=== PATIENT | female | born 1955 | race Caucasian/White ===

== ENCOUNTER 2017-03-16 05:34 | Emergency (ER) | payer OTHER ==
[~2017-03-16] VITALS: Ht 154.9 cm; Wt 86.0 kg
[~2017-03-16 05:34] MED LIST: AMT50 PO; ANT25 PO; ASTNS; DULO-24 PO; FLUT110A INH; IND/25 PO; IPRASOL4 INH; LAMO25TA PO; METH500T PO; MOME50SP5; PREG75CA PO; PROP20TA4 PO; SUCR1TAB PO; SYN25 PO; TRAM-10 PO
[2017-03-16 05:37] VITALS: TEMP 37.1; Ht 154.9 cm; Wt 86.0 kg
[2017-03-16] MEDS ORDERED: FENTANYL CITRATE INJ 50 MCG/1 ML 2 ML VIAL IV STA (05:45)
--- NOTE | 2017-03-16 05:54 | EMERGENCY ROOM VISIT NOTE ---
History First contact with patient: 05:40 Chief Complaint: NEURO SYMPTOMS Stated Complaint: CAN'T MOVE RIGHT ARM,HEADACHE History of Present Illness The patient is a 61 year old female who presents to the Emergency Room for evaluation of right arm pain and headache. Notes several days ago fell out of bed landing on right side of head. notes there was lump on right side of head that resolved. Patient adamant she had no arm injury nor pain there initially. Awoke this morning with acute onset right arm pain associated with inability to use arm due to pain as well as weakness. notes her gait is off and she stumbles to right. She was last normal when she went to bed last night though admits ongoing headache since falling out of bed. Using Tramadol (last night) without relief. States similar to episode of right leg weakness several years ago secondary to her fibromyalgia. No medications taken this morning. Movement makes symptoms worse. Rest makes better. No neck pain/ stiffness. No fevers, chills, sob, cp, nausea, vomiting, abdominal pain, leg swelling nor other symptoms. Also notes regular botox injections. History of Migraines and Fibromyalgia. Review of Systems See HPI for pertinent positives & negatives. A total of 10 systems reviewed and were otherwise negative. Past Medical/Surgical History Medical Problems: (1) Fibromyalgia (2) Migraines Family History FH: heart disease FHx: cancer Social History Smoking Status: Never Smoker Alcohol Use: none Marital Status: Housing Status: lives with family Occupation Status: unemployed Current/Historical Medications Scheduled Amitriptyline Hcl (Elavil), 75 MG PO HS Azelastine Hcl (Astelin Nasal [place]), 2 SPRAYS YULIYA BID Botulinum Toxin Type A (Botox), 1 DOSE INJ UD Calcium Carbonate (Calcium 600), 600 MG PO DAILY Cholecalciferol (Vitamin D3), 1 TAB PO DAILY Duloxetine HCl (Duloxetine HCl), 30 MG PO DAILY Fexofenadine Hcl (Nazanin Allergy), 1 TAB PO DAILY Fluticasone Propionate (Flovent Hfa), 2 PUFFS PO BID Ipratropium-Albuterol (Duoneb), 1 TREATMENT INH QID Lamotrigine (Lamictal), 25 MG PO QAM Lamotrigine (Lamotrigine), 50 MG PO HS Levothyroxine Sodium (Levothyroxine Sodium), 25 MCG PO DAILY Magnesium Oxide (Mg Supplement (Magnesium), 500 MG PO DAILY Methocarbamol (Robaxin), 750 MG PO BID Mometasone Furoate (Nasal) (Mometasone Furoate), 2 SPRAYS YULIYA DAILY Omeprazole (Prilosec), 20 MG PO BID Pregabalin (Lyrica), 75 MG PO HS Propranolol HCl (Propranolol HCl ER), 60 MG PO BID Ropinirole HCl (Ropinirole HCl), 0.5 MG PO HS Sucralfate (Sucralfate), 1 GM PO ACHS Scheduled PRN Albuterol Hfa (Ventolin Hfa), 2 PUFFS INH QID PRN for SOB/Wheezing Furosemide (Furosemide), 20 MG PO DAILY PRN for edema Meclizine Hcl (Meclizine Hcl), 25 MG PO TID PRN for Dizziness or Vertigo Tramadol (Ultram), 100 MG PO Q6 PRN for Pain Physical Exam Vital Signs Date Time Temp Pulse Resp B/P (MAP) Pulse Ox O2 Delivery O2 Flow Rate FiO2 03/16/17 06:56 65 20 118/82 97 03/16/17 06:26 67 18 122/70 96 Room Air 03/16/17 06:02 98 Room Air 03/16/17 05:49 69 03/16/17 05:37 37.1 63 20 130/84 96 Room Air Physical Exam GENERAL: Patient is anxious appearing and in moderate distress. HEENT: No acute trauma, normocephalic atraumatic, mucous membranes moist, no nasal congestion, no scleral icterus. NECK: No stridor, no adenopathy, no meningismus, trachea is midline. LUNGS: No dyspnea. Clear to auscultation and equal bilaterally. No wheeze, no rhonchi. HEART: Regular rate and rhythm. No murmurs, rubs, gallops appreciated. ABDOMEN: Soft, nontender, bowel sounds positive, no masses appreciated, no peritonitis. BACK: No midline tenderness, no CVA tenderness EXTREMITIES: Pain with any movement or palpation of right upper arm/shoulder/ elbow. Distal n/v intact. Otherwise normal motion all extremities, no cyanosis , no edema. NEUROLOGIC: Alert and oriented, no acute motor or sensory deficits, no focal weakness, cranial nerves grossly intact. Can clearly move all extremities without deficit. SKIN: No rash, no jaundice, no diaphoresis. Medical Decision & Procedures Laboratory Results 03/16/17 05:48 Red Blood Count 3.74, Mean Corpuscular Volume 96.5, Mean Corpuscular Hemoglobin 33.2, Mean Corpuscular Hemoglobin Concent 34.3, Mean Platelet Volume 9.9, Neutrophils (%) (Auto) 42.2, Lymphocytes (%) (Auto) 41.1, Monocytes (%) (Auto) 13.5, Eosinophils (%) (Auto) 2.4, Basophils (%) (Auto) 0.6, Neutrophils # (Auto ) 2.79, Lymphocytes # (Auto) 2.72, Monocytes # (Auto) 0.89, Eosinophils # (Auto ) 0.16, Basophils # (Auto) 0.04 03/16/17 05:48 Test 03/16/17 05:48 White Blood Count 6.61 K/uL (4.8-10.8) Red Blood Count 3.74 M/uL (4.2-5.4) Hemoglobin 12.4 g/dL (12.0-16.0) Hematocrit 36.1 % (37-47) Mean Corpuscular Volume 96.5 fL (80-100) Mean Corpuscular Hemoglobin 33.2 pg (25-34) Mean Corpuscular Hemoglobin Concent 34.3 g/dl (32-36) Platelet Count 164 K/uL (130-400) Mean Platelet Volume 9.9 fL (7.4-10.4) Neutrophils (%) (Auto) 42.2 % Lymphocytes (%) (Auto) 41.1 % Monocytes (%) (Auto) 13.5 % Eosinophils (%) (Auto) 2.4 % Basophils (%) (Auto) 0.6 % Neutrophils # (Auto) 2.79 K/uL (1.4-6.5) Lymphocytes # (Auto) 2.72 K/uL (1.2-3.4) Monocytes # (Auto) 0.89 K/uL (0.11-0.59) Eosinophils # (Auto) 0.16 K/uL (0-0.5) Basophils # (Auto) 0.04 K/uL (0-0.2) RDW Standard Deviation 45.3 fL (36.4-46.3) RDW Coefficient of Variation 13.2 % (11.5-14.5) Immature Granulocyte % (Auto) 0.2 % Immature Granulocyte # (Auto) 0.01 K/uL (0.00-0.02) Prothrombin Time 9.8 SECONDS (9.0-12.0) Prothromb Time International Ratio 0.9 (0.9-1.1) Activated Partial Thromboplast Time 24.5 SECONDS (21.0-31.0) Partial Thromboplastin Ratio 0.9 Anion Gap 6.0 mmol/L (3-11) Est Creatinine Clear Calc Drug Dose 72.6 ml/min Estimated GFR () 89.5 Estimated GFR (Non- 77.2 BUN/Creatinine Ratio 14.8 (10-20) Calcium Level 8.8 mg/dl (8.5-10.1) Total Creatine Kinase 113 U/L (26-192) Troponin I < 0.015 ng/ml (0-0.045) Medications Administered Medications (Trade) Dose Ordered Sig/Yuli Route Start Time Stop Time Status Last Admin Dose Admin Fentanyl Citrate (Fentanyl Inj) 50 mcg NOW STAT IV 03/16/17 05:45 03/16/17 05:48 DC 03/16/17 06:22 50 MCG Oxycodone HCl (Roxicodone Immediate Rel Tab) 5 mg NOW STAT PO 03/16/17 06:46 03/16/17 06:48 DC 03/16/17 06:56 5 MG Oxycodone HCl (Roxicodone Immediate Rel 5MG Home Pack) 1 homepack UD ONCE PO 03/16/17 07:00 03/16/17 07:01 DC 03/16/17 06:56 1 HOMEPACK ECG Indication: other (Right arm weakness) Rate (beats per minute): 69 Rhythm: normal sinus Findings: no acute ischemic change, no ectopy Medical Decision Differential: Headache, Migraine, Stroke, Cluster Headache, Seizure, Meningitis , Sinusitis, CO exposure, ICH/SAH, Infectious, Tumor, Sinus Thrombosis, Arterial Dissection, amongst other pathologies entertained. 61 yr old female arrives with right arm weakness/pain, right headache. Notes ongoing headache for last few days after striking head. Variable neuro exam and clearly anxiety is large part of this. No evidence injury by exam nor imaging. Labs unremarkable. CT Head negative. After single dose fentanyl IV patient with complete improvement in weakness. Makes clear she feels much better and wishes to go home. She makes clear she feels better, wishes to try PO medication and go home with . He agrees with this plan as well. She admits that periodically gets flare ups of her pain secondary to her fibromyalgia. While I do not feel this is a stroke I discussed at length symptoms to monitor for, as well as the need to follow up with her PCP for further evaluation. Head Trauma GCS Score: 15 Medication Reconcilliation Current Medication List: was personally reviewed by me Blood Pressure Screening Patient's blood pressure: Normal blood pressure Impression Primary Impression: Right upper limb pain Additional Impressions: Headache Closed head injury Departure Information Dispostion Home / Self-Care Condition GOOD Referrals Yefri Dc M.D.([facility]) (PCP) Patient Instructions My [facility] Additional Instructions Please follow up with your primary care provider in the next few days to discuss your symptoms. Return immediately if weakness, fevers, worsening headache, vomiting, passing out or other concerns. It is likely that your pain is related to your recent injury, but if other concerning symptoms develop please return immediately or call 911. You have received narcotic pain medications. These medications may cause drowsiness and should not be used with other sedative medications. Do not drive , drink alcohol, perform dangerous activities, nor make important decisions after taking these medications. prison use or inappropriate use may lead to addiction. Problem Qualifiers
[2017-03-16 06:02] VITALS: O2SAT 98
[2017-03-16 06:07] LABS: BASO % 0.6 %; BASO ABS # 0.04 K/uL (0-0.2); COMPLETE YES; EOS % 2.4 %; HEMATOCRIT 36.1 % (37-47); IG% 0.2 %; LYMPH % 41.1 %; LYMPH ABS # 2.72 K/uL (1.2-3.4); MEAN CELL VOLUME 96.5 fL (80-100); MEAN CORPUSCULAR HEMOGLOBIN 33.2 pg (25-34); MEAN CORPUSCULAR HGB CONC 34.3 g/dl (32-36); MEAN PLATELET VOLUME 9.9 fL (7.4-10.4); MONO % 13.5 %; NEUT % 42.2 %; PLATELET COUNT 164 K/uL (130-400); RED BLOOD COUNT 3.74 M/uL (4.2-5.4); WHITE BLOOD COUNT 6.61 K/uL (4.8-10.8)
[2017-03-16] MEDS ORDERED: PROP60CA PO (06:10)
[2017-03-16] MEDS ORDERED: CYM30 PO (06:12)
[2017-03-16] MEDS ORDERED: METH-446 PO (06:12)
[2017-03-16] MEDS ORDERED: MOME6000 NAE (06:13)
[2017-03-16] MEDS ORDERED: AMIT75TA2 PO (06:16)
[2017-03-16] MEDS ORDERED: LMC25 PO (06:16)
[2017-03-16] MEDS ORDERED: LEVO25TA5 PO (06:16)
[2017-03-16] MEDS ORDERED: RQP25 PO (06:19)
[2017-03-16] MEDS ORDERED: CALC600T PO (06:21)
[2017-03-16] MEDS ORDERED: FEXO1TAB49 PO (06:21)
[2017-03-16] MEDS ORDERED: CHOL1000 PO (06:23)
[2017-03-16] MEDS ORDERED: MAGN500C PO (06:23)
[2017-03-16 06:24] LABS: BLOOD UREA NITROGEN 12 mg/dl (7-18); BUN/CREATININE RATIO 14.8 (10-20); CALCIUM 8.8 mg/dl (8.5-10.1); CARBON DIOXIDE 29 mmol/L (21-32); CHLORIDE 106 mmol/L (98-107); CREATININE 0.83 mg/dl (0.60-1.20); GLUCOSE 115 mg/dl (70-99); POTASSIUM 4.2 mmol/L (3.5-5.1); SODIUM 140 mmol/L (136-145)
[2017-03-16] MEDS ORDERED: MECL1TAB42 PO (06:25)
[2017-03-16] MEDS ORDERED: IPRASOL4 INH (06:26)
[2017-03-16] MEDS ORDERED: VNTHFA/IN INH (06:26)
[2017-03-16] MEDS ORDERED: ASTN NAE (06:28)
[2017-03-16] MEDS ORDERED: FLVHFA110 PO (06:29)
[2017-03-16] MEDS ORDERED: LSX20 PO (06:29)
[2017-03-16] MEDS ORDERED: BTLAI INJ (06:30)
[2017-03-16 06:33] LABS: INR 0.9 (0.9-1.1); PARTIAL THROMBOPLASTIN RATIO 0.9; PROTHROMBIN TIME (PATIENT) 9.8 SECONDS (9.0-12.0)
--- NOTE | 2017-03-16 06:34 | DIAGNOSTIC IMAGING REPORT ---
CT HEAD WITHOUT CONTRAST (CT) CLINICAL HISTORY: Headache status post head trauma COMPARISON STUDY: 05/22/2013 TECHNIQUE: Axial CT of the brain is performed from the vertex to the skull base. IV contrast was not administered for this examination. A dose lowering technique was utilized adhering to the principles of ALARA. CT DOSE: FINDINGS: No intra or extra-axial mass lesions are visualized. There is no CT evidence of acute cortical infarction. There is no evidence of midline shift. There is no acute hemorrhage. No calvarial fractures are visualized. There are minimal white matter hypodensities likely on a small vessel basis. There is no evidence of pathologic ventricular dilatation. There is a small sphenoid sinus air-fluid level. Postsurgical changes are present within the maxillary sinuses. There is a scalp contusion, best visualized in the box blank machine operator topogram. IMPRESSION: No acute intracranial findings. Electronically signed by: Vinicio Cook M.D. 03/16/2017 6:33 AM Dictated Date/Time: 03/16/2017 6:30 AM
[2017-03-16] MEDS ORDERED: OXYCODONE HCL IR 5 MG TAB (IMMEDIATE RELEASE) PO STA (06:46)
--- NOTE | 2017-03-16 06:52 | DIAGNOSTIC IMAGING REPORT ---
R HUMERUS MIN 2 VIEWS ROUTINE CLINICAL HISTORY: Right upper arm pain status post trauma COMPARISON: None. DISCUSSION: No fractures or dislocations are visualized. There are no erosive or destructive changes. IMPRESSION: No fractures or dislocations identified. Electronically signed by: Vinicio Cook M.D. 03/16/2017 6:51 AM Dictated Date/Time: 03/16/2017 6:50 AM
--- NOTE | 2017-03-16 06:57 | DIAGNOSTIC IMAGING REPORT ---
CT OF THE CERVICAL SPINE CLINICAL HISTORY: Right arm pain status post trauma. NECK PAIN. COMPARISON STUDY: No previous studies for comparison. CT DOSE: 992.90 mGy.cm TECHNIQUE: CT scan of the cervical spine was performed from the skull base to the thoracic inlet. Images are reviewed in the axial, sagittal, and coronal planes. IV contrast was not administered for this examination. A dose lowering technique was utilized adhering to the principles of ALARA. FINDINGS: The lung apices reveal a few nonspecific groundglass opacities in the left apex. There is no pneumothorax. The prevertebral soft tissues are normal. No fractures or subluxations are visualized. There are multilevel degenerative changes IMPRESSION: No evidence of acute fracture or traumatic subluxation. Electronically signed by: Vinicio Cook M.D. 03/16/2017 6:56 AM Dictated Date/Time: 03/16/2017 6:54 AM
[2017-03-16] MEDS ORDERED: OXYCODONE IR HOME PACK PO ONE (07:00)
[2017-03-16 07:02] VITALS: BP 118/82; PULSE 70; O2SAT 100
--- NOTE | 2017-03-16 07:12 | DIAGNOSTIC IMAGING REPORT ---
CHEST ONE VIEW PORTABLE CLINICAL HISTORY: right upper arm pain HEADACHE COMPARISON STUDY: 12/19/2015 FINDINGS: The cardiac and mediastinal contours are normal. There is no evidence of focal pulmonary consolidation. There is no evidence of failure. No pleural effusions are visualized.[ IMPRESSION: No active disease in the chest. Electronically signed by: Vinicio Cook M.D. 03/16/2017 7:10 AM Dictated Date/Time: 03/16/2017 7:10 AM
[2017-03-16] MEDS ORDERED: PRLSR20 PO (09:56)
== END 2017-03-16 07:05 | disposition home or self-care (01) ==
LOC: C.EDB 05:35 → C.EDA 07:05
DX: M79.621 Pain in right upper arm (principal); R51 Headache; S09.90XA Unspecified injury of head, initial encounter; W06.XXXA Fall from bed, initial encounter; M79.7 Fibromyalgia; Z79.51 Long term (current) use of inhaled steroids; Z79.891 Long term (current) use of opiate analgesic; R40.2410 Glasgow coma scale score 13-15, unspecified time

== ENCOUNTER 2024-09-01 09:58 | Inpatient (IN) ==
--- NOTE | 2024-09-01 10:26 | Emergency Department Note ---
Impression & Plan Bradycardia, Chest pain, Lightheadedness ED Provider Note NAME: AVINASH KOO AGE: 69 SEX: F : 1955 ARRIVES VIA: Walk-In INFORMANT: Patient ED PROVIDER(S): Michael Santoro DO CHIEF COMPLAINT: Chest pain HPI: Patient is a 69-year-old female with a past medical history of fibromyalgia and migraines who presents to the ER for midsternal chest tightness which has been coming and going for the past 3 days. provides additional history and notes that they are sick with upper respiratory symptoms 2 weeks ago. Patient has not been having any fevers. The cough and congestion has abated. Patient admits to worsening shortness of breath. Chest pain has been coming and going. She does admit to some intermittent arm pain with the chest pain. No dysuria, urgency, or frequency. She was seen at gastroenterology and was referred over as she was found to be bradycardic which was new. She denies any rate controlling medications. ADDITIONAL HISTORY OBTAINED: Per HPI Chronic Medical/Social Conditions Affecting Care: Per HPI PAST MEDICAL HISTORY:See Below PAST SURGICAL HISTORY:See Below FAMILY HISTORY:See Below SOCIAL HISTORY:See Below HOME MEDICATIONS:See Below ALLERGIES:See Below VITALS:See Below PHYSICAL EXAMINATION: GENERAL: Sitting up in bed, alert, well appearing, well nourished, no distress, non-toxic EYE EXAM: normal conjunctiva. OROPHARYNX: no exudate, no erythema, lips, buccal mucosa, and tongue normal and mucous membranes are moist NECK: supple, no nuchal rigidity, no adenopathy, non-tender LUNGS: Clear to auscultation. Normal chest wall mechanics HEART: no murmurs, S1 normal and S2 normal ABDOMEN: abdomen soft, non-tender, normo-active bowel sounds, no masses, no rebound or guarding. BACK: Back is symmetrical on inspection and there is no deformity, no midline tenderness, no CVA tenderness. SKIN: no rashes and no bruising UPPER EXTREMITIES: upper extremities are grossly normal. LOWER EXTREMITIES: No pitting edema. Calves are equal bilaterally NEURO EXAM: Normal sensorium, cranial nerves II-XII grossly intact, normal speech, no gross weakness of arms, no gross weakness of legs. MEDICAL DECISION MAKING: Patient is a 69-year-old female who presents ER for the above-stated complaint. IV was established and blood work was obtained. Patient was found to be bradycardic with heart rates mainly in the 30s. Did drop several times into the 20s. Labs show no significant leukocytosis or anemia. BMP along with LFTs bilirubin was unremarkable. Troponin was negative. Lyme was negative including flu and RSV. Chest x-ray was clean. Patient does not take any rate controlling medications. Consult to cardiology. Patient has received 2 doses of atropine and heart rate is responsive. Blood pressures have been remained fairly stable above 100. Cardiology evaluated the patient at bedside and recommended dopamine which was also started. Case was discussed with the hospitalist for further evaluation management treatment. Consults/Care Managements Discussions: Per [facility] Triage Nursing notes reviewed. Limited review of prior medical records performed Vital Signs: reviewed and remarkable for no significant abnormalities Differential diagnosis: Cardiac ischemia, aortic dissection, pulmonary embolism, pneumothorax, pneumonia, pericarditis, myocarditis, esophageal rupture, GERD, cholecystitis, pancreatitis, musculoskeletal, as well as other pathologies. ER treatment provided: See below Diagnostics interpreted by me include EKG and cardiac monitoring as listed below: -Cardiac Monitoring: An order was placed for continuous cardiac monitoring. The monitor shows a rate of 33 with sinus rhythm. -ECG: Sinus bradycardia rate of 40 Normal axis No PVCs QTc 370 -Laboratory studies:Interpreted by me as stated above in MDM and shown below. Imaging studies: Xrays: As interpreted by me: Portable AP upright 1 view of the chest shows no focal M-Trate CTs show: none Procedures:none Critical Care: I have personally spent 35 minutes of critical care time in the direct management of this patient. This includes bedside care, interpretation of diagnostic studies, and testing, discussion with consultants, patient, and family members, and other required patient management activities. This 35 minutes is in excess of all separately billable procedures. Past Med/Surg History Problem List (Updated 09/01/24 @ 14:43 by Michael Santoro DO) Lightheadedness (Acute) Chest pain (Acute) Bradycardia (Acute) Symptomatic bradycardia Fibromyalgia (Chronic) Migraines (Chronic) Bronchitis (Acute) Cough (Acute) Shortness of breath (Acute) Medical History Thyroid disease Hyperlipemia Surgical History H/O sinus surgery Family History Mother Breast cancer Heart disease Cancer Diabetes Father Heart disease Stroke Cancer Brother Diabetes Colorectal cancer Hypertension Other No pertinent family history Social History Smoking Status: Never smoker Preferred Language: [place] Leone[place] Communication Ability: Effective marital status: Current Living Situation: Family Feels Safe at Home: Yes Allergies Allergies Allergy/AdvReac Type Severity Reaction Status Date / Time Iodinated Contrast Media Allergy Severe EDEMA Verified 09/01/24 12:40 FACE/LIPS/TONGUE iodine Allergy Severe EDEMA Verified 09/01/24 12:40 FACE/LIPS/TONGUE pollen extracts Allergy Intermediate SNEEZING, Verified 09/01/24 12:40 COUGH, CONGESTION Home Meds Home Medications Medication Instructions Recorded Confirmed albuterol sulfate 90 mcg/actuation 2 puff inhalation QID PRN 04/19/18 09/01/24 aerosol inhaler Shortness Of Breath Or Wheezing amitriptyline 75 mg tablet 75 mg PO HS 04/19/18 09/01/24 azelastine 137 mcg (0.1 %) nasal 2 spray intranasal BID 04/19/18 09/01/24 spray levothyroxine 25 mcg tablet 25 mcg PO QAM 04/19/18 09/01/24 pregabalin 75 mg capsule (Lyrica) 75 mg PO HS 04/19/18 09/01/24 mometasone 50 mcg/actuation nasal 2 spray intranasal DAILY 09/09/19 09/01/24 spray atorvastatin 20 mg tablet 20 mg PO DAILY 09/18/23 09/01/24 escitalopram oxalate 20 mg tablet 20 mg PO QPM 09/18/23 09/01/24 fluticasone furoate 100 1 inh inhalation DAILY 09/18/23 09/01/24 mcg/actuation blister powder for inhalation (Arnuity Ellipta) lubiprostone 24 mcg capsule 24 mcg PO BIDM 09/18/23 09/01/24 acetaminophen 500 mg tablet 500 mg PO Q6H PRN Pain 09/01/24 09/01/24 esomeprazole magnesium 40 mg 40 mg PO DAILY 09/01/24 09/01/24 capsule,delayed release hyoscyamine sulfate 0.125 mg tablet 0.125 mg PO BID 09/01/24 09/01/24 ibuprofen 200 mg tablet 200 mg PO Q6H PRN Pain 09/01/24 09/01/24 sumatriptan succinate 50 mg tablet 50 mg PO DIRECTED PRN Migraine 09/01/24 09/01/24 Headache Results & Data (ED) Vital Signs Vital Signs - 24 hr 09/01/24 10:01 09/01/24 10:19 09/01/24 10:22 Temperature 36.1 C L Temperature Source Skin Pulse Rate 42 L Pulse Rate [Apical] Pulse Rate from SpO2 Sensor Respiratory Rate 20 Respiratory Effort / Characteristics Non-Labored Spontaneous Respiratory Depth Normal Respiratory Pattern Regular Blood Pressure 125/60 Blood Pressure [Right Arm] Blood Pressure Mean 81 Blood Pressure Mean [Right Arm] Blood Pressure Position [Right Arm] Pulse Oximetry 98 96 98 Oxygen Delivery Method Room Air Room Air Sepsis Recent Fever Within 48 Hours No Sepsis New/Unexplained Change in Mental Status N/A Sepsis Action Taken by Nursing No Action Required 09/01/24 10:23 09/01/24 10:25 09/01/24 10:27 Temperature Temperature Source Pulse Rate 37 L 26 L Pulse Rate [Apical] 40 L Pulse Rate from SpO2 Sensor 26 L Respiratory Rate 20 14 Respiratory Effort / Characteristics Non-Labored Spontaneous Respiratory Depth Normal Respiratory Pattern Regular Blood Pressure 133/64 Blood Pressure [Right Arm] 133/64 Blood Pressure Mean 87 Blood Pressure Mean [Right Arm] 87 Blood Pressure Position [Right Arm] Sitting Pulse Oximetry 97 98 Oxygen Delivery Method Room Air Room Air Sepsis Recent Fever Within 48 Hours Sepsis New/Unexplained Change in Mental Status Sepsis Action Taken by Nursing 09/01/24 10:39 09/01/24 10:42 09/01/24 10:51 Temperature Temperature Source Pulse Rate 34 L 37 L 39 L Pulse Rate [Apical] Pulse Rate from SpO2 Sensor 34 L 36 L 39 L Respiratory Rate 12 12 12 Respiratory Effort / Characteristics Respiratory Depth Respiratory Pattern Blood Pressure 133/59 L 125/66 107/70 Blood Pressure [Right Arm] Blood Pressure Mean 83 85 82 Blood Pressure Mean [Right Arm] Blood Pressure Position [Right Arm] Pulse Oximetry 95 97 97 Oxygen Delivery Method Room Air Room Air Room Air Sepsis Recent Fever Within 48 Hours Sepsis New/Unexplained Change in Mental Status Sepsis Action Taken by Nursing 09/01/24 10:56 09/01/24 11:01 09/01/24 11:06 Temperature Temperature Source Pulse Rate 36 L Pulse Rate [Apical] Pulse Rate from SpO2 Sensor 35 L Respiratory Rate 16 Respiratory Effort / Characteristics Respiratory Depth Respiratory Pattern Blood Pressure 97/64 L 112/63 123/58 L Blood Pressure [Right Arm] Blood Pressure Mean 87 85 79 Blood Pressure Mean [Right Arm] Blood Pressure Position [Right Arm] Pulse Oximetry 97 Oxygen Delivery Method Room Air Sepsis Recent Fever Within 48 Hours Sepsis New/Unexplained Change in Mental Status Sepsis Action Taken by Nursing 09/01/24 11:12 09/01/24 11:21 09/01/24 11:24 Temperature Temperature Source Pulse Rate 41 L 38 L 36 L Pulse Rate [Apical] Pulse Rate from SpO2 Sensor 40 L 34 L 36 L Respiratory Rate 14 16 17 Respiratory Effort / Characteristics Respiratory Depth Respiratory Pattern Blood Pressure 130/73 134/65 129/65 Blood Pressure [Right Arm] Blood Pressure Mean 92 88 86 Blood Pressure Mean [Right Arm] Blood Pressure Position [Right Arm] Pulse Oximetry 97 98 98 Oxygen Delivery Method Room Air Room Air Room Air Sepsis Recent Fever Within 48 Hours Sepsis New/Unexplained Change in Mental Status Sepsis Action Taken by Nursing 09/01/24 11:36 09/01/24 11:45 09/01/24 11:51 Temperature Temperature Source Pulse Rate 34 L Pulse Rate [Apical] Pulse Rate from SpO2 Sensor 34 L Respiratory Rate 16 Respiratory Effort / Characteristics Respiratory Depth Respiratory Pattern Blood Pressure 134/62 130/67 132/67 Blood Pressure [Right Arm] Blood Pressure Mean 86 75 85 Blood Pressure Mean [Right Arm] Blood Pressure Position [Right Arm] Pulse Oximetry 97 Oxygen Delivery Method Room Air Sepsis Recent Fever Within 48 Hours Sepsis New/Unexplained Change in Mental Status Sepsis Action Taken by Nursing 09/01/24 11:57 09/01/24 12:00 09/01/24 12:01 Temperature Temperature Source Pulse Rate 46 L 42 L Pulse Rate [Apical] Pulse Rate from SpO2 Sensor 36 L Respiratory Rate 16 18 Respiratory Effort / Characteristics Respiratory Depth Respiratory Pattern Blood Pressure 131/66 129/57 L Blood Pressure [Right Arm] Blood Pressure Mean 87 90 Blood Pressure Mean [Right Arm] Blood Pressure Position [Right Arm] Pulse Oximetry 94 95 Oxygen Delivery Method Room Air Room Air Sepsis Recent Fever Within 48 Hours Sepsis New/Unexplained Change in Mental Status Sepsis Action Taken by Nursing 09/01/24 12:06 09/01/24 12:06 09/01/24 12:15 Temperature Temperature Source Pulse Rate 42 L 47 L Pulse Rate [Apical] Pulse Rate from SpO2 Sensor 35 L Respiratory Rate 19 14 Respiratory Effort / Characteristics Respiratory Depth Respiratory Pattern Blood Pressure 141/61 H 141/61 H 122/66 Blood Pressure [Right Arm] Blood Pressure Mean 77 87 84 Blood Pressure Mean [Right Arm] Blood Pressure Position [Right Arm] Pulse Oximetry 95 96 Oxygen Delivery Method Room Air Room Air Sepsis Recent Fever Within 48 Hours Sepsis New/Unexplained Change in Mental Status Sepsis Action Taken by Nursing 09/01/24 12:21 09/01/24 12:30 09/01/24 12:30 Temperature Temperature Source Pulse Rate 38 L 38 L Pulse Rate [Apical] Pulse Rate from SpO2 Sensor 40 L Respiratory Rate 18 15 Respiratory Effort / Characteristics Respiratory Depth Respiratory Pattern Blood Pressure 148/76 H 139/72 139/72 Blood Pressure [Right Arm] Blood Pressure Mean 100 94 78 Blood Pressure Mean [Right Arm] Blood Pressure Position [Right Arm] Pulse Oximetry 94 94 Oxygen Delivery Method Room Air Room Air Sepsis Recent Fever Within 48 Hours Sepsis New/Unexplained Change in Mental Status Sepsis Action Taken by Nursing 09/01/24 12:45 09/01/24 13:01 09/01/24 13:09 Temperature Temperature Source Pulse Rate 45 L 56 L Pulse Rate [Apical] Pulse Rate from SpO2 Sensor 38 L Respiratory Rate 18 20 Respiratory Effort / Characteristics Respiratory Depth Respiratory Pattern Blood Pressure 142/87 H 153/77 H 103/68 Blood Pressure [Right Arm] Blood Pressure Mean 105 104 79 Blood Pressure Mean [Right Arm] Blood Pressure Position [Right Arm] Pulse Oximetry 96 98 Oxygen Delivery Method Room Air Room Air Sepsis Recent Fever Within 48 Hours Sepsis New/Unexplained Change in Mental Status Sepsis Action Taken by Nursing 09/01/24 13:15 09/01/24 13:27 09/01/24 13:30 Temperature Temperature Source Pulse Rate 54 L 48 L 52 L Pulse Rate [Apical] Pulse Rate from SpO2 Sensor 47 L Respiratory Rate 17 14 16 Respiratory Effort / Characteristics Respiratory Depth Respiratory Pattern Blood Pressure 102/60 102/60 97/49 L Blood Pressure [Right Arm] Blood Pressure Mean 74 74 65 Blood Pressure Mean [Right Arm] Blood Pressure Position [Right Arm] Pulse Oximetry 95 93 94 Oxygen Delivery Method Room Air Room Air Room Air Sepsis Recent Fever Within 48 Hours Sepsis New/Unexplained Change in Mental Status Sepsis Action Taken by Nursing 09/01/24 13:36 09/01/24 13:42 09/01/24 14:30 Temperature Temperature Source Pulse Rate 45 L 51 L Pulse Rate [Apical] 64 Pulse Rate from SpO2 Sensor 46 L 51 L Respiratory Rate 24 24 13 Respiratory Effort / Characteristics Non-Labored Spontaneous Respiratory Depth Normal Respiratory Pattern Blood Pressure 73/36 L 95/56 L Blood Pressure [Right Arm] 91/53 L Blood Pressure Mean 48 69 Blood Pressure Mean [Right Arm] 65 Blood Pressure Position [Right Arm] Pulse Oximetry 97 94 97 Oxygen Delivery Method Room Air Room Air Nasal Cannula Sepsis Recent Fever Within 48 Hours Sepsis New/Unexplained Change in Mental Status Sepsis Action Taken by Nursing Laboratory Data 09/01/24 10:14 09/01/24 10:14 Lab Results 09/01/24 09/01/24 Range/Units 10:14 Unknown WBC 7.53 (4.8-10.8) K/ul RBC 3.74 L (4.20-5.40) M/uL Hgb 12.2 (12.0-16.0) g/dl Hct 36.1 L (37.0-47.0) % MCV 96.5 (80.0-100.0) fL MCH 32.6 (25.0-34.0) pg MCHC 33.8 (32.0-36.0) g/dL RDW Std Deviation 47.7 H (36.4-46.3) fL RDW Coeff of Nichole 13.6 (11.5-14.5) % Plt Count 242 (130-400) K/uL MPV 10.4 (9.4-12.4) fL Immature Gran % (Auto) 0.1 % Neut % (Auto) 47.7 % Lymph % (Auto) 36.5 % [place] % (Auto) 12.4 % Eos % (Auto) 2.1 % Baso % (Auto) 1.2 % Neut # (Auto) 3.59 (1.40-6.50) K/uL Lymph # (Auto) 2.75 (1.20-3.40) K/uL [place] # (Auto) 0.93 H (0.11-0.59) K/uL Eos # (Auto) 0.16 (0.00-0.50) K/uL Baso # (Auto) 0.09 (0.00-0.20) K/uL Immature Gran # (Auto) 0.01 (0.01-0.20) K/uL Sodium 138 (136-145) mmol/L Potassium 4.5 (3.5-5.1) mmol/L Chloride 103 (98-107) mmol/L Carbon Dioxide 29 (21-32) mmol/L Anion Gap 6 (3-11) BUN 21 (6-23) mg/dl Creatinine 1.18 (0.6-1.2) mg/dl Est Cr Clr Drug Dosing 40.8 ml/min eGFR 50.62 BUN/Creatinine Ratio 17.8 (10-20) Glucose 90 (70-99(Fasting)) mg/dl Calcium 9.6 (8.6-10.3) mg/dl Magnesium 2.0 (1.7-2.4) mg/dl Total Bilirubin 0.4 (0.2-1.0) mg/dl AST 20 (13-39) U/L ALT 13 (7-52) U/L Alkaline Phosphatase 71 (34-104) U/L Troponin I High Sens 3.2 (0-14) pg/ml Total Protein 7.7 (6.0-8.3) gm/dl Albumin 4.5 (3.4-5.0) gm/dl Globulin 3.2 (2.5-4.0) gm/dl Albumin/Globulin Ratio 1.4 (0.9-2) Lipase 33 (11-82) U/L TSH 4.103 (0.300-4.500) uIu/ml Lyme Disease Screen Negative (Negative) SARS-CoV-2 (PCR) NEGATIVE (Negative) Influenza Type A (PCR) Negative (Neg) Influenza Type B (PCR) Negative (Neg) RSV (RT-PCR) Negative (Neg) Administered Medications Dopamine HCl/Dextrose (Dopamine / D5w) 400 mg in 250 mls @ 11.475 mls/hr IV .[id number]; Protocol Stop: 10/01/24 13:14 Last Titration: 09/01/24 13:54 Dose: 4.5 mcg/kg/min, 11.5 mls/hr Documented By: Admin: 09/01/24 13:26 Dose: 2.5 mcg/kg/min, 6.4 mls/hr Documented By: SCOTTIE Co-signed By: NISHA Sodium Chloride (Nss) 500 mls @ 999 mls/hr IV .Q31M ONE Stop: 09/01/24 14:46 Last Admin: 09/01/24 14:25 Dose: 999 mls/hr Documented By: TRINA Discontinued Medications Acetaminophen (Acetaminophen 325 Mg Tab) 650 mg PO NOW STA Stop: 09/01/24 14:01 Last Admin: 09/01/24 14:23 Dose: 650 mg Documented By: TRINA Aspirin (Aspirin Chew 324 Mg) 324 mg PO NOW STA Stop: 09/01/24 10:45 Last Admin: 09/01/24 10:50 Dose: 324 mg Documented By: SCOTTIE Atropine Sulfate (Atropine Sulfate 0.1 Mg/Ml 10ml Syr) 0.5 mg IV NOW STA Stop: 09/01/24 11:00 Last Admin: 09/01/24 12:52 Dose: 0.5 mg Documented By: SCOTTIE Atropine Sulfate (Atropine Sulfate 0.1 Mg/Ml 10ml Syr) 0.5 mg IV NOW STA Stop: 09/01/24 13:47 Last Admin: 09/01/24 13:59 Dose: 0.5 mg Documented By: SCOTTIE Sodium Chloride (Nss) 1,000 mls @ 999 mls/hr IV .Q1H1M ONE Stop: 09/01/24 11:19 Last Infusion: 09/01/24 11:52 Dose: Infused Documented By: Admin: 09/01/24 10:48 Dose: 999 mls/hr Documented By: SCOTTIE Sodium Chloride (Nss) 1,000 mls @ 999 mls/hr IV .Q1H1M ONE Stop: 09/01/24 12:37 Last Infusion: 09/01/24 12:56 Dose: Infused Documented By: Admin: 09/01/24 11:45 Dose: 999 mls/hr Documented By: SCOTTIE Ondansetron HCl (Ondansetron Inj 2 Mg/Ml 2 Ml Vial) 4 mg IV NOW STA Stop: 09/01/24 13:47 Last Admin: 09/01/24 13:53 Dose: 4 mg Documented By: SCOTTIE Imaging Data Radiologist's Impression: Chest X-Ray 09/01/24 10:19 XR chest 1V portable CLINICAL HISTORY: Chest pain, nonspecific COMPARISON STUDY: Chest CT September 06, 2014. Chest radiograph September 18, 2023. FINDINGS: Left shoulder arthroplasty is incidentally noted. Lung volumes are mildly diminished. There is no pneumothorax or pleural effusion. Mild cardiomegaly is unchanged. No evidence for pulmonary edema. IMPRESSION: No acute cardiopulmonary findings. No significant change in appearance of the chest. ACT 112: Negative or not required by law. Electronically signed by: Rohit Rushing M.D. 09/01/2024 10:46 AM Discharge Plan Visit Data Chief Complaint: Cardiac Assessment Stated Complaint: LOW PULSE, CONCERN OF HEART BLOCKAGE, REF BY DOC ED Provider: Michael Santoro Discharge Problem: Bradycardia, Chest pain, Lightheadedness Forms Stand Al[facility]: [facility] Prescriptions Prescriptions: No Action mometasone 50 mcg/actuation spray,non-aerosol 2 spray INTRANASAL DAILY amitriptyline 75 mg tablet 75 mg PO HS levothyroxine 25 mcg tablet 25 mcg PO QAM Rx Instructions: Last filled 02/2024 x90 day supply azelastine 137 mcg (0.1 %) aerosol,spray 2 spray Intranasal BID albuterol sulfate [Ventolin HFA] 90 mcg/actuation HFA aerosol inhaler 2 puff Inhalation QID PRN (Reason: Shortness Of Breath Or Wheezing) pregabalin [Lyrica] 75 mg Capsule 75 mg PO HS atorvastatin 20 mg tablet 20 mg PO DAILY escitalopram oxalate 20 mg tablet 20 mg PO QPM lubiprostone 24 mcg capsule 24 mcg PO BIDM Arnuity Ellipta 100 mcg/actuation blister with device 1 inh INHALATION DAILY sumatriptan succinate 50 mg tablet 50 mg PO DIRECTED PRN (Reason: Migraine Headache) acetaminophen [Tylenol Ex Str Rapid Release] 500 mg Tablet 500 mg PO Q6H PRN (Reason: Pain) hyoscyamine sulfate 0.125 mg tablet 0.125 mg PO BID esomeprazole magnesium 40 mg capsule,delayed release(DR/EC) 40 mg PO DAILY ibuprofen 200 mg Tablet 200 mg PO Q6H PRN (Reason: Pain) Referrals Referrals: Vanda Yun PA-C [Outside Practitioners] - Discharge Problem: Chest pain Qualifiers: Chest pain type: unspecified Qualified Code(s): R07.9 - Chest pain, unspecified
[2024-09-01 10:42] LABS: Basophils # (auto) 0.09 K/uL (0.00-0.20); Basophils % (auto) 1.2 %; Eosinophils # (auto) 0.16 K/uL (0.00-0.50); Eosinophils % (auto) 2.1 %; Hematocrit (blood only) 36.1 % (37.0-47.0); Hemoglobin 12.2 g/dl (12.0-16.0); Immature Granulocytes # (auto) 0.01 K/uL (0.01-0.20); Immature Granulocytes % (auto) 0.1 %; Lymphocytes # (auto) 2.75 K/uL (1.20-3.40); Lymphocytes % (auto) 36.5 %; Mean Corpuscular Hemoglobin 32.6 pg (25.0-34.0); Mean Corpuscular Hgb Conc 33.8 g/dL (32.0-36.0); Mean Corpuscular Volume 96.5 fL (80.0-100.0); Mean Platelet Volume 10.4 fL (9.4-12.4); Monocytes # (auto) 0.93 K/uL (0.11-0.59); Monocytes % (auto) 12.4 %; Neutrophils # (auto) 3.59 K/uL (1.40-6.50); Neutrophils % (auto) 47.7 %; Platelet Count 242 K/uL (130-400); RDW Coefficient of Variation 13.6 % (11.5-14.5); RDW Standard Deviation 47.7 fL (36.4-46.3); Red Blood Count 3.74 M/uL (4.20-5.40); White Blood Count 7.53 K/ul (4.8-10.8)
--- NOTE | 2024-09-01 10:47 | XRay Report ---
XR chest 1V portable CLINICAL HISTORY: Chest pain, nonspecific COMPARISON STUDY: Chest CT September 06, 2014. Chest radiograph September 18, 2023. FINDINGS: Left shoulder arthroplasty is incidentally noted. Lung volumes are mildly diminished. There is no pneumothorax or pleural effusion. Mild cardiomegaly is unchanged. No evidence for pulmonary ed dottie. IMPRESSION: No acute cardiopulmonary findings. No significant change in appearance of the chest. ACT 112: Negative or not required by law. Electronically signed by: Rohit Rushing M.D. 09/01/2024 10:46 AM
[2024-09-01] MEDS: SODIUM CHLORIDE 0.9% 1,000 ML IV ONE ×2 (10:48→11:45)
[2024-09-01] MEDS: ASPIRIN CHEW 324 MG PO STA (10:50)
[2024-09-01 11:06] LABS: Albumin Globulin Ratio 1.4 (0.9-2); Albumin Level 4.5 gm/dl (3.4-5.0); BUN Creatinine Ratio 17.8 (10-20); Bilirubin,Total 0.4 mg/dl (0.2-1.0); Calcium 9.6 mg/dl (8.6-10.3); Creatinine Clr Calc Pharmacy 40.8 ml/min; Globulin 3.2 gm/dl (2.5-4.0); Potassium 4.5 mmol/L (3.5-5.1); Total Protein 7.7 gm/dl (6.0-8.3)
[2024-09-01 11:12] LABS: Troponin I High Sensitivity 3.2 pg/ml (0-14)
[2024-09-01 11:25] LABS: Influenza A virus by PCR Negative (Neg); Influenza B virus by PCR Negative (Neg); RSV by PCR Negative (Neg); SARS CoV2 RNA(COVID-19) Ceph NEGATIVE (Negative)
--- NOTE | 2024-09-01 12:24 | History & Physical Report ---
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 Symptomatic bradycardia Chest Pain Pt presenting from her GI appt where her HR was noted to be 37 She states she has been dizzy for some time which she attributed to "my vertigo" Also having chest pain, cough and SOB EKG in the ED noting sinus bradycardia, pt with HR in the 20s to 40s Trop x 1 negative Chest XRAY unremarkable Given a dose of atropine in the ED Lyme testing pending TSH pending ? increased vagal tone Cardiology consult, recs appreciated Continue to monitor on telemetry Chronic medical problems: GERD- continue ppi Constipation-continue lubiprostone Dysphagia-continue hyoscyamine Hypothyroidism-continue levothyroxine HLD-continue statin MDD, Fibromyalgia- continue home meds Diet: NPO until cards eval DVT prophylaxis: SCDs, heparin SQ after cards eval Dispo: admit to PCU/tele History of Present Illness Primary Care Provider: Shahla Hamlin MD Patient is a 69-year-old female with past medical history significant for chron ic dysphagia, fibromyalgia, anxiety, restless leg syndrome, asthma, migraines, MDD, hypothyroidism, GERD who presents 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 She states she was being seen by GI for further workup of her dysphagia. However while at her straight truck driver office her heart rate was noted to be in the 30s. States she had an EKG completed which was also transmitted to her primary care provider. Patient has been frequently advised to present to the emergency room for further evaluation. States she has been dizzy but attributes this to her known history of vertigo. Also has been having a cough for the last 2 days with chest pain. She notes some shortness of breath as well. States she feels dizzy whenever she sits up in bed. in the ED patient noted to be bradycardic, in sinus rhythm with HR in the 20s and 30s. Received a dose of atropine 0.5mg. Cardiology contacted and consulted. Allergies Allergy/AdvReac Type Severity Reaction Status Date / Time Iodinated Contrast Media Allergy Severe EDEMA Verified 09/01/24 12:40 FACE/LIPS/TONGUE iodine Allergy Severe EDEMA Verified 09/01/24 12:40 FACE/LIPS/TONGUE pollen extracts Allergy Intermediate SNEEZING, Verified 09/01/24 12:40 COUGH, CONGESTION Home Medications Medication Instructions Recorded Confirmed Type albuterol sulfate 90 mcg/actuation 2 puff inhalation QID PRN 04/19/18 09/01/24 History aerosol inhaler Shortness Of Breath Or Wheezing amitriptyline 75 mg tablet 75 mg PO HS 04/19/18 09/01/24 History azelastine 137 mcg (0.1 %) nasal 2 spray intranasal BID 04/19/18 09/01/24 History spray levothyroxine 25 mcg tablet 25 mcg PO QAM 04/19/18 09/01/24 History pregabalin 75 mg capsule (Lyrica) 75 mg PO HS 04/19/18 09/01/24 History mometasone 50 mcg/actuation nasal 2 spray intranasal DAILY 09/09/19 09/01/24 History spray atorvastatin 20 mg tablet 20 mg PO DAILY 09/18/23 09/01/24 History escitalopram oxalate 20 mg tablet 20 mg PO QPM 09/18/23 09/01/24 History fluticasone furoate 100 1 inh inhalation DAILY 09/18/23 09/01/24 History mcg/actuation blister powder for inhalation (Arnuity Ellipta) lubiprostone 24 mcg capsule 24 mcg PO BIDM 09/18/23 09/01/24 History acetaminophen 500 mg tablet 500 mg PO Q6H PRN Pain 09/01/24 09/01/24 History esomeprazole magnesium 40 mg 40 mg PO DAILY 09/01/24 09/01/24 History capsule,delayed release hyoscyamine sulfate 0.125 mg tablet 0.125 mg PO BID 09/01/24 09/01/24 History ibuprofen 200 mg tablet 200 mg PO Q6H PRN Pain 09/01/24 09/01/24 History sumatriptan succinate 50 mg tablet 50 mg PO DIRECTED PRN Migraine 09/01/24 09/01/24 History Headache Past Med/Surg History Problem List (Updated 09/01/24 @ 13:10 by Theresa Joe MD) Symptomatic bradycardia Fibromyalgia (Chronic) Migraines (Chronic) Bronchitis (Acute) Cough (Acute) Shortness of breath (Acute) Medical History Thyroid disease Hyperlipemia Bronchitis Migraines Fibromyalgia Surgical History H/O sinus surgery Family History Mother Breast cancer Heart disease Cancer Diabetes Father Heart disease Stroke Cancer Brother Diabetes Colorectal cancer Hypertension Other No pertinent family history Social History Smoking Status: Never smoker Preferred Language: Kyrgyz Communication Ability: Effective marital status: Current Living Situation: Family Feels Safe at Home: Yes Review of Systems Review of Systems: All systems reviewed & are unremarkable except as noted in Subjective Physical Exam Physical Exam: General: Alert, oriented. Psych: Appropriate mood and affect Neuro: dizziness with exertion HEENT: NC/AT CV: bradycardic rate, regular Resp: Breath sounds clear bilaterally, no increased effort of breathing Abdomen: Soft, nontender Extremities: No edema in lower extremities bilaterally. Results & Data Results & Data Vital Signs (Past 12 Hours) Vital Signs Temp Pulse Pulse Resp BP BP Pulse Ox 09/01/24 11:45 130/67 09/01/24 11:36 34 L 16 134/62 97 09/01/24 11:24 36 L 17 129/65 98 09/01/24 11:21 38 L 16 134/65 98 09/01/24 11:12 41 L 14 130/73 97 09/01/24 11:06 36 L 16 123/58 L 97 09/01/24 11:01 112/63 09/01/24 10:56 97/64 L 09/01/24 10:51 39 L 12 107/70 97 09/01/24 10:42 37 L 12 125/66 97 09/01/24 10:39 34 L 12 133/59 L 95 09/01/24 10:27 26 L 14 133/64 98 09/01/24 10:25 37 L 09/01/24 10:23 40 L 20 133/64 97 09/01/24 10:22 98 09/01/24 10:19 96 09/01/24 10:01 36.1 C L 42 L 20 125/60 98 O2 Del Method 09/01/24 11:45 09/01/24 11:36 Room Air 09/01/24 11:24 Room Air 09/01/24 11:21 Room Air 09/01/24 11:12 Room Air 09/01/24 11:06 Room Air 09/01/24 11:01 09/01/24 10:56 09/01/24 10:51 Room Air 09/01/24 10:42 Room Air 09/01/24 10:39 Room Air 09/01/24 10:27 Room Air 09/01/24 10:25 09/01/24 10:23 Room Air 09/01/24 10:22 Room Air 09/01/24 10:19 Room Air 09/01/24 10:01 Diagnostic Findings Chest X-Ray 09/01/24 10:19 XR chest 1V portable CLINICAL HISTORY: Chest pain, nonspecific COMPARISON STUDY: Chest CT September 06, 2014. Chest radiograph September 18, 2023. FINDINGS: Left shoulder arthroplasty is incidentally noted. Lung volumes are mildly diminished. There is no pneumothorax or pleural effusion. Mild cardiomegaly is unchanged. No evidence for pulmonary edema. IMPRESSION: No acute cardiopulmonary findings. No significant change in appearance of the chest. ACT 112: Negative or not required by law. Electronically signed by: Rohit Rushing M.D. 09/01/2024 10:46 AM
[2024-09-01] MEDS: ATROPINE SULFATE 0.1 MG/ML 10ML SYR IV STA ×2 (12:52→13:53)
[2024-09-01 13:04] LABS: Thyroid Stimulating Hormone 4.103 uIu/ml (0.300-4.500)
[2024-09-01] MEDS ORDERED: STAT IV Infusion **Titration per Protocol STA (13:09)
[2024-09-01] MEDS: DOPamine / D5W 400 MG/250 ML BAG IV SCH (13:26)
--- NOTE | 2024-09-01 13:37 | Cardiology Consultation ---
Date of Consultation September 01, 2024 Assessment & Plan (1) Symptomatic bradycardia: Plan 69-year-old female presents with symptomatic sinus bradycardia. Heart rate trending down to the 20s and 30s with occasional PACs. Longest sinus pause recorded 3.5 seconds. Normal thyroid function and magnesium level/electrolytes. Lyme screen and UDS pending. No obvious secondary cause of bradycardia cardia is present at this time. With history of multiple GI issues, excessive vagal stim ulation must be considered. ECG without ischemic changes. Bedside echocardiogram demonstrating normal wall motion and preserved LV function. Briefly responded to single dose of intravenous atropine. Blood pressure remains stable/adequate. Concerns regarding polypharmacy, however, most of patient's medications are not implicated in or known to cause symptomatic bradycardia. Methocarbamol has been shown to cause bradycardia and this medication will be held during hospitalization. Recommend addition of IV dopamine at 2.5 mcg/kg/min for heart rate support. Continue telemetry monitoring. Case discussed with critical care physician and house mover. Ross Servin DO, [facility] History of Present Illness Reason for Consultation: Symptomatic bradycardia Requesting Physician: Dr. Theresa Joe Attending Physician: Dr. 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 Patient presented for routine follow-up of esophageal issues including dysmotility and esophageal stricture status post dilation. Found to be profoundly bradycardic. ECG confirming marked sinus bradycardia with premature atrial complexes. Initial high-sensitivity troponin negative. Bedside echocardiogram demonstrates normal wall motion. Blood pressure adequate at this time. Patient denies overt syncope. Reports profound fatigue and lack of energy with minimal activity at home. No orthopnea, PND, or lower extremity edema. Denies history of ischemic heart disease, diabetes, hypertension, or Wallace fever as a child. Allergies Allergy/AdvReac Type Severity Reaction Status Date / Time Iodinated Contrast Media Allergy Severe EDEMA Verified 09/01/24 12:40 FACE/LIPS/TONGUE iodine Allergy Severe EDEMA Verified 09/01/24 12:40 FACE/LIPS/TONGUE pollen extracts Allergy Intermediate SNEEZING, Verified 09/01/24 12:40 COUGH, CONGESTION Home Medications Medication Instructions Recorded Confirmed Type albuterol sulfate 90 mcg/actuation 2 puff inhalation QID PRN 04/19/18 09/01/24 History aerosol inhaler Shortness Of Breath Or Wheezing amitriptyline 75 mg tablet 75 mg PO HS 04/19/18 09/01/24 History azelastine 137 mcg (0.1 %) nasal 2 spray intranasal BID 04/19/18 09/01/24 History spray levothyroxine 25 mcg tablet 25 mcg PO QAM 04/19/18 09/01/24 History pregabalin 75 mg capsule (Lyrica) 75 mg PO HS 04/19/18 09/01/24 History mometasone 50 mcg/actuation nasal 2 spray intranasal DAILY 09/09/19 09/01/24 History spray atorvastatin 20 mg tablet 20 mg PO DAILY 09/18/23 09/01/24 History escitalopram oxalate 20 mg tablet 20 mg PO QPM 09/18/23 09/01/24 History fluticasone furoate 100 1 inh inhalation DAILY 09/18/23 09/01/24 History mcg/actuation blister powder for inhalation (Arnuity Ellipta) lubiprostone 24 mcg capsule 24 mcg PO BIDM 09/18/23 09/01/24 History acetaminophen 500 mg tablet 500 mg PO Q6H PRN Pain 09/01/24 09/01/24 History esomeprazole magnesium 40 mg 40 mg PO DAILY 09/01/24 09/01/24 History capsule,delayed release hyoscyamine sulfate 0.125 mg tablet 0.125 mg PO BID 09/01/24 09/01/24 History ibuprofen 200 mg tablet 200 mg PO Q6H PRN Pain 09/01/24 09/01/24 History sumatriptan succinate 50 mg tablet 50 mg PO DIRECTED PRN Migraine 09/01/24 09/01/24 History Headache Patient History Medical History Thyroid disease Hyperlipemia Surgical History H/O sinus surgery Family History Mother Breast cancer Heart disease Cancer Diabetes Father Heart disease Stroke Cancer Brother Diabetes Colorectal cancer Hypertension Other No pertinent family history Social History Smoking Status: Never smoker Preferred Language: Tajik Communication Ability: Effective marital status: Current Living Situation: Family Feels Safe at Home: Yes Review of Systems Review of Systems: All systems reviewed & are unremarkable except as noted in HPI & below Physical Exam Constitutional: well nourished and + ill appearing; no acute distress Respiratory: normal respiratory effort; no respiratory distress and no labored breathing Auscultation: no crackles, no rales, no rhonchi and no wheezes Cardiovascular: Rate/Rhythm: regular rate, regular rhythm and + bradycardic Heart Sounds: normal S1 and normal S2; no murmur Vessels: no JVD Extremities: + edema Gastrointestinal (Abdomen): Inspection/Auscultation: abdomen normal to inspection and normal bowel sounds; abdomen not distended Neurologic: CN's II-XI intact bilaterally and moves all extremities Results & Data Vital Signs (Past 12 Hours) Vital Signs Temp Pulse Pulse Resp BP BP Pulse Ox 09/01/24 12:45 45 L 18 142/87 H 96 09/01/24 12:30 139/72 09/01/24 12:30 38 L 15 139/72 94 09/01/24 12:21 38 L 18 148/76 H 94 09/01/24 12:15 47 L 14 122/66 96 09/01/24 12:06 42 L 19 141/61 H 95 09/01/24 12:06 141/61 H 09/01/24 12:01 129/57 L 09/01/24 12:00 42 L 18 95 09/01/24 11:57 46 L 16 131/66 94 09/01/24 11:51 132/67 09/01/24 11:45 130/67 09/01/24 11:36 34 L 16 134/62 97 09/01/24 11:24 36 L 17 129/65 98 09/01/24 11:21 38 L 16 134/65 98 09/01/24 11:12 41 L 14 130/73 97 09/01/24 11:06 36 L 16 123/58 L 97 09/01/24 11:01 112/63 09/01/24 10:56 97/64 L 09/01/24 10:51 39 L 12 107/70 97 09/01/24 10:42 37 L 12 125/66 97 09/01/24 10:39 34 L 12 133/59 L 95 09/01/24 10:27 26 L 14 133/64 98 09/01/24 10:25 37 L 09/01/24 10:23 40 L 20 133/64 97 09/01/24 10:22 98 09/01/24 10:19 96 09/01/24 10:01 36.1 C L 42 L 20 125/60 98 O2 Del Method 09/01/24 12:45 Room Air 09/01/24 12:30 09/01/24 12:30 Room Air 09/01/24 12:21 Room Air 09/01/24 12:15 Room Air 09/01/24 12:06 Room Air 09/01/24 12:06 09/01/24 12:01 09/01/24 12:00 Room Air 09/01/24 11:57 Room Air 09/01/24 11:51 09/01/24 11:45 09/01/24 11:36 Room Air 09/01/24 11:24 Room Air 09/01/24 11:21 Room Air 09/01/24 11:12 Room Air 09/01/24 11:06 Room Air 09/01/24 11:01 09/01/24 10:56 09/01/24 10:51 Room Air 09/01/24 10:42 Room Air 09/01/24 10:39 Room Air 09/01/24 10:27 Room Air 09/01/24 10:25 09/01/24 10:23 Room Air 09/01/24 10:22 Room Air 09/01/24 10:19 Room Air 09/01/24 10:01 Laboratory Results Cardiac Enzymes 09/01/24 Range/Units 10:14 AST 20 (13-39) U/L Troponin I High Sens 3.2 (0-14) pg/ml CBC 09/01/24 Range/Units 10:14 WBC 7.53 (4.8-10.8) K/ul RBC 3.74 L (4.20-5.40) M/uL Hgb 12.2 (12.0-16.0) g/dl Hct 36.1 L (37.0-47.0) % Plt Count 242 (130-400) K/uL Neut # (Auto) 3.59 (1.40-6.50) K/uL Lymph # (Auto) 2.75 (1.20-3.40) K/uL [place] # (Auto) 0.93 H (0.11-0.59) K/uL Eos # (Auto) 0.16 (0.00-0.50) K/uL Baso # (Auto) 0.09 (0.00-0.20) K/uL Comprehensive Metabolic Panel 09/01/24 Range/Units 10:14 Sodium 138 (136-145) mmol/L Potassium 4.5 (3.5-5.1) mmol/L Chloride 103 (98-107) mmol/L Carbon Dioxide 29 (21-32) mmol/L BUN 21 (6-23) mg/dl Creatinine 1.18 (0.6-1.2) mg/dl Glucose 90 (70-99(Fasting)) mg/dl Calcium 9.6 (8.6-10.3) mg/dl AST 20 (13-39) U/L ALT 13 (7-52) U/L Alkaline Phosphatase 71 (34-104) U/L Total Protein 7.7 (6.0-8.3) gm/dl Albumin 4.5 (3.4-5.0) gm/dl Intake and Output 08/31/24 09/01/24 09/01/24 22:59 06:59 14:59 Intake Total 1999 Balance 1999 Intake: IV 1999 Sodium Chloride 0.9% 1,000 ml @ 1999 999 mls/hr IV .Q1H1M ONE Rx#: [id number] Other: Weight 68 kg Patient Weight 09/02/24 06:59 Weight 68 kg
[2024-09-01] MEDS: ONDANSETRON INJ 2 MG/ML 2 ML VIAL IV STA (13:53)
[2024-09-01] MEDS: ACETAMINOPHEN 325 MG TAB PO STA (14:23)
[2024-09-01] MEDS: SODIUM CHLORIDE 0.9% 500 ML IV ONE (14:25)
--- NOTE | 2024-09-01 14:25 | Electrocardiogram Report ---
Test Reason : Blood Pressure : */* mmHG Vent. Rate : 40 BPM Atrial Rate : 40 BPM P-R Int : 194 ms QRS Dur : 118 ms QT Int : 454 ms P-R-T Axes : 9 40 48 degrees QTcB Int : 370 ms Marked sinus bradycardia Non-specific intra-ventricular conduction delay Abnormal ECG When compared with ECG of 18-Sep-2023 00:22, Vent. rate has decreased by 28 bpm QT has shortened Confirmed by Terry Wong ([id number]) on 09/01/2024 2:24:35 PM Referred By: Confirmed By: Terry Wong
[2024-09-01] MEDS ORDERED: ALBUTEROL HFA 8 GM INHALER INH PRN (15:25)
[2024-09-01] MEDS ORDERED: SUMAtriptan succinate 50 MG TAB PO PRN (15:25)
--- NOTE | 2024-09-01 16:10 | Critical Care Consultation ---
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 Neurologic: No significant issues at present. Continue home psych meds. Continue pregabalin for history of chronic pain. Pulmonary: No significant oxygen requirements at present. Admitting chest x-ray was negative for acute findings. Cardiovascular: Patient with symptomatic sinus bradycardia of unclear etiology. Possibly from increased vagal tone. Possible underlying autonomic dysfunction. Hypothyroidism, hypomagnesemia and congenital heart disease ruled out. Appreciate cardiology input. Dr. Servin is requesting that the patient remain on dopamine to maintain heart rates above 40 and maps above 65. Gastrointestinal: Patient with a history of esophageal dysmotility on a chronic slippery diet. Continue PPI. LFTs unremarkable. Renal: No significant issues. Replace electrolytes as needed. Monitor urine output closely. Infectious disease: No signs of infectious etiology. Hematologic: No significant issues. Endocrine: Continue home levothyroxine. TSH normal. Maintain euglycemia. Lines and tubes: Continue peripheral IVs and Carson catheter VTE prophylaxis: Heparin 5000 units twice daily. SCDs. CODE STATUS: Full Family at bedside: updated at bedside Disposition: ICU I have personally spent 39 minutes of critical care time in the direct management of this patient. This is a life/limb threatening event. This includes time spent evaluating patient, direct bedside care, chart review, placing orders, interpretation of diagnostic studies, discussion with consultants, patient, and family members, as well as other required patient management activities. This time is exclusive of all separately billable procedures, and teaching time and separate from and in addition to any other critical care service time. Thank you for allowing us to participate in the care of this patient. History of Present Illness Reason for Consultation: Symptomatic bradycardia Attending Physician: Theresa Joe MD History of Present Illness 69-year-old female who presented to the hospital per the request of her gastroenterology who identified that she had sinus bradycardia which was symptomatic during the office visit. She complained of dizziness, lightheadedness and chest tightness. Patient denies any history of syncope. She does endorse fatigue. She denies any drug use, alcohol use or tobacco abuse. She does have a history of difficulty with swallowing and esophageal dysmotility. Patient is currently in the ER on a dopamine infusion. I had a lengthy discussion with Dr. Servin of cardiology. Her TSH and magnesium levels were normal. Echo was largely unremarkable. Patient without any clear signs of infectious etiology or tickborne illness. Allergies Allergy/AdvReac Type Severity Reaction Status Date / Time Iodinated Contrast Media Allergy Severe EDEMA Verified 09/01/24 12:40 FACE/LIPS/TONGUE iodine Allergy Severe EDEMA Verified 09/01/24 12:40 FACE/LIPS/TONGUE pollen extracts Allergy Intermediate SNEEZING, Verified 09/01/24 12:40 COUGH, CONGESTION Home Medications Medication Instructions Recorded Confirmed Type albuterol sulfate 90 mcg/actuation 2 puff inhalation QID PRN 04/19/18 09/01/24 History aerosol inhaler Shortness Of Breath Or Wheezing amitriptyline 75 mg tablet 75 mg PO HS 04/19/18 09/01/24 History azelastine 137 mcg (0.1 %) nasal 2 spray intranasal BID 04/19/18 09/01/24 History spray levothyroxine 25 mcg tablet 25 mcg PO QAM 04/19/18 09/01/24 History pregabalin 75 mg capsule (Lyrica) 75 mg PO HS 04/19/18 09/01/24 History mometasone 50 mcg/actuation nasal 2 spray intranasal DAILY 09/09/19 09/01/24 History spray atorvastatin 20 mg tablet 20 mg PO DAILY 09/18/23 09/01/24 History escitalopram oxalate 20 mg tablet 20 mg PO QPM 09/18/23 09/01/24 History fluticasone furoate 100 1 inh inhalation DAILY 09/18/23 09/01/24 History mcg/actuation blister powder for inhalation (Arnuity Ellipta) lubiprostone 24 mcg capsule 24 mcg PO BIDM 09/18/23 09/01/24 History acetaminophen 500 mg tablet 500 mg PO Q6H PRN Pain 09/01/24 09/01/24 History esomeprazole magnesium 40 mg 40 mg PO DAILY 09/01/24 09/01/24 History capsule,delayed release hyoscyamine sulfate 0.125 mg tablet 0.125 mg PO BID 09/01/24 09/01/24 History ibuprofen 200 mg tablet 200 mg PO Q6H PRN Pain 09/01/24 09/01/24 History sumatriptan succinate 50 mg tablet 50 mg PO DIRECTED PRN Migraine 09/01/24 09/01/24 History Headache Patient History Medical History Thyroid disease Hyperlipemia Surgical History H/O sinus surgery Family History Mother Breast cancer Heart disease Cancer Diabetes Father Heart disease Stroke Cancer Brother Diabetes Colorectal cancer Hypertension Other No pertinent family history Social History Smoking Status: Never smoker Preferred Language: Colombian Communication Ability: Effective marital status: Current Living Situation: Family Feels Safe at Home: Yes Review of Systems Review of Systems: All systems reviewed & are unremarkable except as noted in HPI & below Physical Exam Constitutional: well nourished and + ill appearing; no acute distress Respiratory: normal respiratory effort; no respiratory distress and no labored breathing Auscultation: no crackles, no rales, no rhonchi and no wheezes Cardiovascular: Rate/Rhythm: regular rate, regular rhythm and + bradycardic Heart Sounds: normal S1 and normal S2; no murmur Vessels: no JVD Extremities: + pedal edema Gastrointestinal (Abdomen): Inspection/Auscultation: abdomen normal to inspection and normal bowel sounds; abdomen not distended Neurologic: CN's II-XI intact bilaterally and moves all extremities Results & Data Results & Data Vital Signs (Past 12 Hours) Vital Signs Temp Pulse Pulse Resp BP BP Pulse Ox 09/01/24 15:12 68 19 90/70 L 98 09/01/24 14:55 108/54 L 09/01/24 14:51 64 14 108/54 L 94 09/01/24 14:48 64 13 94/53 L 92 09/01/24 14:40 68 09/01/24 14:39 63 14 95/50 L 99 09/01/24 14:36 65 18 96/46 L 97 09/01/24 14:30 64 13 91/53 L 97 09/01/24 14:12 67 18 94/52 L 98 09/01/24 14:09 68 20 95/56 L 96 09/01/24 13:57 45 L 17 102/59 L 91 09/01/24 13:54 64 19 91/38 L 94 09/01/24 13:42 51 L 24 95/56 L 94 09/01/24 13:36 45 L 24 73/36 L 97 09/01/24 13:30 52 L 16 97/49 L 94 09/01/24 13:27 48 L 14 102/60 93 09/01/24 13:15 54 L 17 102/60 95 09/01/24 13:09 56 L 20 103/68 98 09/01/24 13:01 153/77 H 09/01/24 12:45 45 L 18 142/87 H 96 09/01/24 12:30 139/72 09/01/24 12:30 38 L 15 139/72 94 09/01/24 12:21 38 L 18 148/76 H 94 09/01/24 12:15 47 L 14 122/66 96 09/01/24 12:06 42 L 19 141/61 H 95 09/01/24 12:06 141/61 H 09/01/24 12:01 129/57 L 09/01/24 12:00 42 L 18 95 09/01/24 11:57 46 L 16 131/66 94 09/01/24 11:51 132/67 09/01/24 11:45 130/67 09/01/24 11:36 34 L 16 134/62 97 09/01/24 11:24 36 L 17 129/65 98 09/01/24 11:21 38 L 16 134/65 98 09/01/24 11:12 41 L 14 130/73 97 09/01/24 11:06 36 L 16 123/58 L 97 09/01/24 11:01 112/63 09/01/24 10:56 97/64 L 09/01/24 10:51 39 L 12 107/70 97 09/01/24 10:42 37 L 12 125/66 97 09/01/24 10:39 34 L 12 133/59 L 95 09/01/24 10:27 26 L 14 133/64 98 09/01/24 10:25 37 L 09/01/24 10:23 40 L 20 133/64 97 09/01/24 10:22 98 09/01/24 10:19 96 09/01/24 10:01 36.1 C L 42 L 20 125/60 98 O2 Del Method O2 Flow Rate 09/01/24 15:12 Nasal Cannula 2 09/01/24 14:55 09/01/24 14:51 Nasal Cannula 2 09/01/24 14:48 Nasal Cannula 2 09/01/24 14:40 09/01/24 14:39 Room Air 09/01/24 14:36 Room Air 09/01/24 14:30 Nasal Cannula 09/01/24 14:12 Room Air 09/01/24 14:09 Room Air 09/01/24 13:57 Room Air 09/01/24 13:54 Room Air 09/01/24 13:42 Room Air 09/01/24 13:36 Room Air 09/01/24 13:30 Room Air 09/01/24 13:27 Room Air 09/01/24 13:15 Room Air 09/01/24 13:09 Room Air 09/01/24 13:01 09/01/24 12:45 Room Air 09/01/24 12:30 09/01/24 12:30 Room Air 09/01/24 12:21 Room Air 09/01/24 12:15 Room Air 09/01/24 12:06 Room Air 09/01/24 12:06 09/01/24 12:01 09/01/24 12:00 Room Air 09/01/24 11:57 Room Air 09/01/24 11:51 09/01/24 11:45 09/01/24 11:36 Room Air 09/01/24 11:24 Room Air 09/01/24 11:21 Room Air 09/01/24 11:12 Room Air 09/01/24 11:06 Room Air 09/01/24 11:01 09/01/24 10:56 09/01/24 10:51 Room Air 09/01/24 10:42 Room Air 09/01/24 10:39 Room Air 09/01/24 10:27 Room Air 09/01/24 10:25 09/01/24 10:23 Room Air 09/01/24 10:22 Room Air 09/01/24 10:19 Room Air 09/01/24 10:01 Coding Level of Care Code 76089 CRITICAL CARE 1ST 30-74M Diagnoses Symptomatic bradycardia R00.1
[2024-09-01] MEDS: IBUPROFEN 200 MG TAB PO PRN (16:43)
[2024-09-01] MEDS ORDERED: Nursing to Pharmacy Communication SCH (17:00)
[2024-09-01] MEDS: LUBIPROSTONE 8 MCG CAP PO SCH ×2 (17:05→21:06)
--- OUTSIDE RECORDS SUMMARY | 2024-09-01 18:25 | External Medical Summary | Summary of Care ---
Author Name Unknown Organization [facility] Address [address] [place] [address] Phone [phone] Care Team Providers Care Stogy Roller Name Role Phone Shahla Hamlin MD Primary Care Provide r Reason for Visit * Reason Onset Date Comments Pre Op Discussion 05/19/2024 Encounter Details Date Type Department Care Team (Late st Contact Info) Description 05/19/2024 Telephone Pre Surgery Center, [facility] [address] [facility] [place] [address] Puneet Franks MD [address] [place] [id number] Pre Op Discussion Allergies Active Allergy Reactions Criticality Noted Date Comments Iodinated Contrast Media Edema face/lips/tongue High 05/11/2007 hives documented as of this encounter (statuses as of 06/01/2024) Medications CALCIUM 600 MG PO TABS 1 tablet daily Activ e MAGNESIUM 500 MG PO TABS Take by mouth 2 times a day. Active VITAMIN D3 1000 UNITS PO CAPS 1 tablet daily A ctive BÁRBARA 180 MG PO TABS Take by mouth 2 times a day. Active methocarbamol (ROBAMOL) 750 MG Tablet Take 1 Tablet by mouth in the morning and 1 Tablet before bedtime. 0 04/07/20 15 Active rOPINIRole (REQUIP) 0.25 MG Tablet Take 2 Tablets by mouth at bedtime. 0 10/03/19 16 Active sucralfate (CARAFATE) 1 GM TabletIndications :Gastroesophageal reflux disease, esophagitis presence not specified take 1 tablet by mouth four times a day BEFORE MEALS AND AT BEDTIME 1/2 HOUR BEFORE MEALS AND AT BEDTIME 120 Tab 5 12/15/19 17 Active FLOVENT HFA 110 MCG/ACT inhalerIndication s:Asthma exacerbation inhale 2 puffs by mouth twice a day 12 g 11 06/22/19 18 Active Azelastine HCl 137 MCG/SPRAY SOLNIndications:C hronic sinusitis,Chronic rhinitis instill 2 sprays into each nostril twice a day 30 mL 5 10/30/19 18 Active VENTOLIN HFA 108 (90 Base) MCG/ACT inhalerIndication s:Bronchitis, complicated inhale 2 puffs by mouth four times a day if needed 18 g 5 10/30/19 18 Active Mometasone Furoate 50 MCG/ACT nasal sprayIndications: Chronic sinusitis,Chronic rhinitis instill 2 sprays into each nostril once daily 17 g 5 03/02/20 18 Active levothyroxine (LEVOXYL) 25 MCG TabletIndications :Hypothyroidism take 1 tablet by mouth every morning 30 MINUTES BEFORE BREAKFAST AND OTHER MEDS 90 Tab 1 03/14/20 19 Active Ipratropium [place] HFA 17 MCG/ACT Inhalation Aerosol Solution (Atrovent Hfa) Inhale 2 Puffs by mouth every 6 hours. Active Atorvastatin Calcium 20 MG Oral Tablet (Lipitor) Take 1 Tablet by mouth in the morning. 09/20/19 24 Active Escitalopram Oxalate 20 MG Oral Tablet (Lexapro) Take 1 Tablet by mouth at bedtime. 10/25/19 24 Active Ajovy 225 MG/1.5ML Subcutaneous Solution Auto-injector (Fremanezumab-vfr m)Indications:Int ractable migraine with aura with status migrainosus Inject 1.5 ml under the skin once a month 1.5 mL 5 11:45 AM EDT 12/10/19 24 Active Additional Information Patient not taking.Reported on 05/19/2024 SUMAtriptan Succinate 50 MG Oral Tablet (Imitrex)Indicati ons:Intractable migraine with aura with status migrainosus 1 at onset of migraine may repeat in 2 hours max 2 doses in 24 hour 10 Tablet 5 12/10/19 24 Active Zoster Vac Recomb Adjuvanted 50 MCG/0.5ML Intramuscular Suspension Reconstituted (Shingrix)Indicat ions:Need for shingles vaccine Inject 0.5 mL into a large muscle now and repeat dose in 60 to 180 days 1 Each 1 03/07/20 24 Active Esomeprazole Magnesium 40 MG Oral Capsule Delayed Release Take 1 Capsule by mouth daily before breakfast. 30 Capsule 3 04/14/20 24 Active Amitriptyline HCl 75 MG Oral Tablet (Elavil)Indicatio ns:Migraine without aura and without status migrainosus, not intractable TAKE 1 TABLET BY MOUTH EVERYDAY AT BEDTIME 90 Tablet 02/28/20 24 024 Discontin ued(Refil l) Qulipta 60 MG Oral Tablet (Atogepant)Indica tions:Intractable migraine with aura with status migrainosus Take one by mouth each day 30 Tablet 5 03/24/20 24 024 Discontin ued(Patie nt preferenc e/discont inuation) Lubiprostone 24 MCG Oral Capsule (Amitiza)Indicati ons:Irritable bowel syndrome with constipation Take 1 Capsule by mouth 2 times a day with morning and evening meals. 180 Capsule 1 04/04/20 24 024 Discontin ued(Refil l) Pregabalin 75 MG Oral Capsule (Lyrica)Indicatio ns:Fibromyalgia TAKE 1 CAPSULE BY MOUTH EVERY NIGHT AT BEDTIME. 30 Capsule 04/10/20 24 024 Discontin ued(Refil l) documented as of this encounter (statuses as of 06/01/2024) Active Problems Problem Noted Date Diagnosed Date Prediabetes 01/10/2024 Overview: Per Prediabetes protocol Migraine without aura and wi thout status migrainosus, not intractable 12/01/2023 Fibromyalgia 12/01/2023 Anxiety 12/01/2023 RLS (restless legs syndrome) 12/01/2023 Mild persistent asthma without complication 07/2023 Essential and other specified forms of tremor NONALLERGIC RHINITIS 07/28/2007 Hypothyroidism 06/09/2007 Major depressive disorder 06/09/2007 Overview (03/23/2017): ICD-10 update of inactive term Esophageal reflux 05/11/2007 documented as of this encounter (statuses as of 06/01/2024) Resolved Problems Problem Noted Date Diagnosed Date Resolved Date PMR (polymyalgia rheumatica) 11/16/2011 12/01/2023 Acute cystitis 09/03/2009 04/11/2011 Dyslipidemia, goal to be determined 05/16/2009 12/01/2023 Overview (05/16/2009): Per Lipid Taxonomy. Benign neoplasm of colon 07/29/200807/2023 Overview (08/24/2008): fair prep- 2 mm polyp removed, repeat in 3 yrs, adenomatous polyps MEDICATION USE AGREEMENT 12/27/200705/2009 Overview (12/27/2007): Managed by Dr Nuno ([phone]). To view the Medication Usage Agreement, go to Action, Patient Files. Benign neoplasm of colon 11/10/200707/2023 Overview (11/22/2007): biopsies--acid reflux, negative for Amin's and H.Pylori ADVANCE DIRECTIVE INFORMATION 06/06/2007 04/03/2024 Overview (06/06/2007): No, Advance Directive brochure given to patient. Myalgia and myositis 05/11/2007 024 Migraine with aura, intractable 05/11/2007 12/01/2023 Mixed dyslipidemia 05/11/2007 9 Overview (05/16/2009): Per Lipid Taxonomy. Chronic sinusitis 05/13/2017 documented as of this encounter (statuses as of 06/01/2024) Immunizations Name Administration Dates Next Due COVID-19 mRNA, LNP-s, PF, 18 + or 6-11Yrs (Moderna) 01/07/2022,05/06/2021,09/13/2020,08/16 COVID-19, MRNA-LNP, PF, 30 M CG/0.3 mL, 12 YRS AND ABOVE, IM (PFIZER-Comirnaty) 03/22/2024 Pneumococcal Conjugate Vacci ne, 20-valent ([id number]) 03/07/2024 Pneumococcal Polysaccharide PPV23 (Pneumovax) 01/09/2019 Seasonal Influenza Vac., MDV , IM, 0.5 mL (Fluzone) 01/21/2015,03/28/2013,03/02/2011,02/28,04/30/2009,04/03/2008 Seasonal Influenza, High Dos e, Trivalent, PF, IM (Fluzone HD) 02/24/2024 Seasonal Influenza, Quadriva lent, No Preserve, IM 02/06/2016 TDAP, Age 7 and older, IM (Adacel) 06/17/2009 documented as of this encounter Social History Tobacco Use Types Packs/Day Years Used Date Smoking Tobacco: Never Smokeless Tobacco: Never Comments:son and his girlfri end smoke in her apartment Alcohol Use Standard Drinks/Week Comments No 0 (1 standard drink = 0.6 oz pur e alcohol) PHQ-2 Answer Date Recorded PHQ Adult Total Score 1 03/22/2024 Hunger Vital Sign Answer Date Recorded Within the past 12 months, y ou worried that your food would run out before you got the money to buy more. Never true 03/22/20 24 Within the past 12 months, t he food you bought just didn't last and you didn't have money to get more. Never true 03/22/2024 Childcare Answer Date Recorded Do you feel overwhelmed with taking care of a child, family member or friend? No 03/22/2024 Does your family need help f inding childcare? (Household - for ages 0-17 years) Not on file 03/22/2024 Clothing Answer Date Recorded Have you been unable to get clothing when it was really needed? No 03/22/2024 Is your family able to get c lothes or diapers when needed? (Household - for ages 0-17 years) Not on file 03/22/2024 Personal Safety Answer Date Recorded Do you feel unsafe or have concerns for your saf ety? No 03/22/2024 Do you have concerns for you r family's safety? (Household - for ages 0-17 years) Not on file 03/22/2024 Utilities Answer Date Recorded Do you have trouble paying y our heating, water, or electric bill? No 03/22/2024 Is your family able to pay t he heat, water, or electric bill? (Household - for ages 0-17 years) Not on file 03/22/2024 Does your family have access to good internet? (Household - for ages 0-17 years) Not on file 03/22/2024 Employment Status Answer Date Recorded Are you unemployed or without regular income? No 03/22/2024 Does the household have a re lar source of income? (Household - for ages 0-17 years) Not on file 03/22/2024 Social Connections Answer Date Recorded How often do you feel lonely or isolated from th ose around you? Never 03/22/2024 Financial Resource Strain Answer Date R ecorded Do you have any trouble payi ng for your medications, or do you think you might in the future? No 03/22/2024 Does your family have troubl e paying for medicine? (Household - for ages 0-17 years) Not on file 03/22/2024 Transportation Needs Answer Date Record ed Do you have trouble getting a ride to medical visits or work? (Adult - for ages 18 years and over) Not on file 03/22/2024 Does your family have a hard time getting a ride to doctors visits? (Household - for ages 0-17 years) Not on file 03/22/2024 Has lack of transportation k ept you from medical appointments, meetings, work, or from getting things needed for daily living? Check all that apply. No 03/22/2024 Do you (or your family) have trouble finding or paying for a ride (transportation)? (Household - for ages 0-17 years) Not on file 03/22/2024 Housing Stability Answer Date Recorded Do you currently live in a s helter or have no steady place to sleep at night? No 03/22/2024 Do you think you are at risk of becoming homeless? (Adult - for ages 18 years and over) Not on file 03/22/2024 Does your family worry about paying for your home or becoming homeless? (Household - for ages 0-17 years) Not on file 1 Are you homeless or worried that you might be in the future? No 03/22/2024 Are you (or your family) africa eless or worried that you might be in the future? (Household - for ages 0-17 years) Not on file Food Insecurity Answer Date Recorded Do you need food for this week? No 03/22/2024 Are you able to get enough f ood for your family? (Household - for ages 0-17 years) Not on file 03/22/2024 Does your family need food t his week? (Household - for ages 0-17 years) Not on file 03/22/2024 Do you always have enough fo od for your family? (Household - for ages 0-17 years) Not on file 03/22/2024 Comments No Sex and Gender Information Value Date Recorded Sex Assigned at Female 03/22/2024 1:24 PM EDT Legal Sex Female 5:15 AM EST Gender Identity Female 03/22/2024 1:24 PM EDT Sexual Orientation Straight 03/22/2024 1: 24 PM EDT Occupation Industry Job Start Date Job End Date disabled to headaches Not on file Not on file Not on file documented as of this encounter Plan of Treatment Upcoming Encounters Date Type Department Care Team (Late st Contact Info) Description 07/06/2024 11:20 AM EST Office Visit Neurology [facility] [address] [facility] [place] [address] Afshan Bee MD [address] [facility] [place] [address] 07/21/2024 3:00 PM EST Office Visit Gastroenterology [address] [place] [address] Cheri Jay CRNP [address] [place] [address] 11/22/2024 8:00 AM EDT Office Visit Family Medicine [address] [place] [phone] Shahla Hamlin MD [address] [place] [address] [place] [address] 03/26/2025 1:00 PM EDT Nurse Only Ancillary Maxim Pillai[address] [place] [address] [place] Nurse [address] [place] [address] Scheduled Procedures Name Priority Associated Diagnoses Date/Ti me COLONOSCOPY FLEXIBLE PROXIMA L DIAGNOSTIC Recall Special screening for malignant neoplasms, colon Health Maintenance Due Date Last Done Comments Cologuard 2002 Fecal Occult Blood Test 2002 Sigmoidoscopy 2002 Zoster Vaccines (1 of 2) 2007 DTap/Tdap Vaccines (2 - Td or Tdap) 06/17/2019 06/17/2009 *SPIROMETRY ONCE FOR ASTHMA-ADULT 12/04/2023 Mammogram 12/07/2024 12/08/2023, 07/30, 08/28/2014, Additional history exists HbA1c 12/09/2024 12/10/2023 TSH 12/09/2024 12/10/2023, 11/28, 10/21/2015, Additional history exists Adult Wellness Visit 03/22/2025 03/22/2024 Depression Monitoring 03/22/2025 03/22/2024 DXA Scan 04/13/2027 04/13/2024 Lipid Panel 12/09/2028 12/10/2023, 06/0 05/2022, 01/18/2015, Additional history exists Colonoscopy 07/01/2031 07/01/2021, 01/31, 02/28/2016, Additional history exists Colorectal Cancer Screening 07/01/2031 Hepatitis C Screening Completed 04/24/2011 Pap Smear Discontinued 06/26/2013, 06/01, 09/11/2008, Additional history exists Influenza Vaccine (FLU shot) Completed 02/24/2024, 02/06/2016, 01/21/2015, Additional history exists Pneumococcal Vaccine: 50+ Years Completed 03/07/2024, 01/09/2019 COVID-19 Vaccine Completed 03/22/2024, 02/2022, 05/06/2021, Additional history exists HPV (Gardasil) Vaccine Aged Out No lo nger eligible based on patient's age to complete this topic Hepatitis B Vaccine Aged Out No longe r eligible based on patient's age to complete this topic MENINGOCOCCAL (MENACTRA/MENVEO) Aged Out No longer eligible based on patient's age to complete this topic documented as of this encounter Medical Devices Not on filedocumented as of this encounter Care Teams Stogy Roller Relationship Specialty Start Date End Date Shahla Hamlin MD [address] [place] [address] [place] [id number] PCP - General Family Medicine 02/24/24 documented as of this encounter
--- OUTSIDE RECORDS SUMMARY | 2024-09-01 18:25 | External Medical Summary | Summary of Care ---
Author Name Unknown Organization [facility] Address [address] [place] [address] Phone [phone] Care Team Providers Care Water Truck Driver Name Role Phone Shahla Hamlin MD Primary Care Provide r Reason for Visit * Reason Onset Date Comments Appointment 08/01/2024 Encounter Details Date Type Department Care Team (Late st Contact Info) Description 08/01/2024 Telephone Gastroenterology, [facility] [address] [place] [address] Cheri Jay CRNP [address] [place] [address] Appointment Allergies Active Allergy Reactions Criticality Noted Date Comments Iodinated Contrast Media Edema face/lips/tongue High 05/11/2007 hives documented as of this encounter (statuses as of 08/15/2024) Medications CALCIUM 600 MG PO TABS 1 [...] 10/03/19 16 Active sucralfate (CARAFATE) 1 GM TabletIndication s:Gastroesophage al reflux disease, esophagitis presence not specified take 1 tablet by mouth four times a day BEFORE MEALS AND AT BEDTIME 1/2 HOUR BEFORE MEALS AND AT BEDTIME 120 Tab 5 12/15/19 17 Active FLOVENT HFA 110 MCG/ACT inhalerIndicatio ns:Asthma exacerbation inhale 2 puffs by mouth twice a day 12 g 11 06/22/19 18 Active Azelastine HCl 137 MCG/SPRAY SOLNIndications: Chronic sinusitis,Chroni c rhinitis instill 2 sprays into each nostril twice a day 30 mL 5 10/30/19 18 Active VENTOLIN HFA 108 (90 Base) MCG/ACT inhalerIndicatio ns:Bronchitis, complicated inhale 2 puffs by mouth four times a day if needed 18 g 5 10/30/19 18 Active Mometasone Furoate 50 MCG/ACT nasal sprayIndications :Chronic sinusitis,Chroni c rhinitis instill 2 sprays into each nostril once daily 17 g 5 03/02/20 18 Active levothyroxine (LEVOXYL) 25 MCG TabletIndication s:Hypothyroidism take 1 tablet by mouth every morning 30 MINUTES BEFORE BREAKFAST AND OTHER MEDS 90 Tab 1 03/14/20 19 Active Ipratropium [place] HFA 17 MCG/ACT Inhalation Aerosol Solution (Atrovent Hfa) Inhale 2 Puffs by mouth every 6 hours. Active Atorvastatin Calcium 20 MG Oral Tablet (Lipitor) Take 1 Tablet by mouth in the morning. 09/20/19 24 Active Ajovy 225 MG/1.5ML Subcutaneous Solution Auto-injector (Fremanezumab-vf )Indications:I ntractable migraine with aura with status migrainosus Inject 1.5 ml under the skin once a month 1.5 mL 5 4 11:45 AM EDT 12/10/19 24 Active Additional Information Patient not taking.Reported on 05/19/2024 Zoster Vac Recomb Adjuvanted 50 MCG/0.5ML Intramuscular Suspension Reconstituted (Shingrix)Indica tions:Need for shingles vaccine Inject 0.5 mL into a large muscle now and repeat dose in 60 to 180 days 1 Each 1 03/07/20 24 Active Multi For Her Oral Tablet Take 1 Tablet by mouth in the morning. Active Pregabalin 75 MG Oral Capsule (Lyrica)Indicati ons:Fibromyalgia Take 1 Capsule by mouth every night at bedtime. 30 Capsule 05/29/20 24 Active Amitriptyline HCl 75 MG Oral Tablet (Elavil)Indicati ons:Migraine without aura and without status migrainosus, not intractable TAKE 1 TABLET BY MOUTH EVERYDAY AT BEDTIME 90 Tablet 1 05/28/20 24 Active Lubiprostone 24 MCG Oral Capsule (Amitiza)Indicat ions:Irritable bowel syndrome with constipation Take 1 Capsule by mouth 2 times a day with morning and evening meals. 180 Capsule 1 05/26/20 24 Active Qulipta 60 MG Oral Tablet (Atogepant)Indic ations:Intractab le migraine with aura with status migrainosus Take one by mouth each day 30 Tablet 4 05/29/20 24 Active SUMAtriptan Succinate 50 MG Oral Tablet (Imitrex)Indicat ions:Intractable migraine with aura with status migrainosus TAKE 1 TABLET AT ONSET OF MIGRAINE, MAY REPEAT IN 2 HOURS. MAX 2 DOSES IN 24 HOUR 9 Tablet 1 07/03/19 25 Active Esomeprazole Magnesium 40 MG Oral Capsule Delayed Release Take 1 Capsule by mouth daily before breakfast. 90 Capsule 3 07/04/19 25 Active Hyoscyamine Sulfate 0.125 MG Oral Tablet (Levsin) Take 1 Tablet by mouth in the morning and 1 Tablet before bedtime. 60 Tablet 3 07/21/19 25 Active Escitalopram Oxalate 20 MG Oral Tablet (Lexapro) Take 1 Tablet by mouth at bedtime. 10/25/19 24 2024 Discontinued documented as of this encounter (statuses as of 08/15/2024) Active Problems Problem Noted Date Diagnosed Date [...] as of this encounter (statuses as of 08/15/2024) Resolved Problems Problem Noted Date Diagnosed Date Resolved Date PMR (polymyalgia rheumatica) 11/16/2011 12/01/2023 Acute cystitis 09/03/2009 04/11/2011 Dyslipidemia, goal to be determined 05/16/2009 12/01/2023 Overview (05/16/2009): Per Lipid Taxonomy. Benign neoplasm of colon 07/29/200807/2023 Overview (08/24/2008): fair prep- 2 mm polyp removed, repeat in 3 yrs, adenomatous polyps MEDICATION USE AGREEMENT 12/27/200705/2009 Overview (12/27/2007): Managed by Dr Nuno ([phone]). To view the Medication Usage Agreement, go [...] as of this encounter (statuses as of 08/15/2024) Immunizations Name Administration Dates Next Due COVID-19 mRNA, LNP-s, PF, 18 + or 6-11Yrs (Moderna) 01/07/2022,05/06/2021,09/13/2020,08/16 COVID-19, MRNA-LNP, PF, 30 M CG/0.3 mL, 12 YRS AND ABOVE, IM (PFIZER-Comirnaty) 03/22/2024 Pneumococcal Conjugate Vacci ne, 20-valent ([id number]) 03/07/2024 Pneumococcal Polysaccharide PPV23 (Pneumovax) 01/09/2019 Seasonal [...] ages 0-17 years) Not on file 03/22/2024 Food Insecurity Answer Date Recorded Within the past 12 months, y ou worried that your food would run out before you got the money to buy more. Never true 03/22/20 24 Within the past 12 months, t he food you bought just didn't last and you didn't have money to get more. Never true 03/22/2024 Do you need food for this week? No 03/22/2024 Comments No Sex and Gender Information [...] on file documented as of this encounter Miscellaneous Notes * Telephone Encounter - Cheri Jay CRNP - 08/01/2024 1:02 PM EST Called pt, she started the Hyoscyamine, and noticed she's not 'chocking as much'. Still having trouble swallowing liquids sometimes. She is agreeable to having a repeat esophageal manometry study. Nurses - pls obtain prior auth and schedule esophageal manometry study AGNES Bahena documented in this encounter Plan of Treatment Upcoming Encounters Date Type Department Care Team (Late st Contact Info) Description 08/18/2024 9:30 AM EDT Office Visit Gastroenterology [address] [place] [address] Cheri Jay CRNP [address] [place] [address] 11/22/2024 8:00 AM EDT Office Visit Family Medicine [address] [place] [phone] Shahla Hamlin MD [address] [place] [address] [place] [address] 03/26/2025 1:00 PM EDT Nurse Only Ancillary [address] [place] [address] [place], Nurse Annual Wellness [address] [place] [address] [place] [address] Scheduled Orders Name Type Priority Associated Diagnoses Orde r Schedule MANOMETRY (GI) Gastro Upper Routine Dysphagia, unspecified type Ordered: 08/01/2024 Scheduled Procedures Name Priority Associated Diagnoses Date/Ti me ESOPHAGOGASTRODUODENOSCOPY ( EGD), FLEXIBLE, TRANSORAL, DIAGNOSTIC Recall Gastric polyps COLONOSCOPY FLEXIBLE PROXIMAL DIAGNOSTIC Recall Special screening for malignant neoplasms, colon Health Maintenance Due Date Last Done Comments Cologuard 2002 Fecal Occult Blood Test 2002 Sigmoidoscopy 2002 Zoster Vaccines (1 of 2) 2007 DTap/Tdap Vaccines (2 - Td or Tdap) 06/17/2019 06/17/2009 *SPIROMETRY ONCE FOR ASTHMA-ADULT 12/04/2023 COVID-19 Vaccine ( season) 2024 03/22/2024, 01/07/2022, 05/06/2021, Additional history exists Mammogram 12/07/2024 12/08/2023, 07/30, 08/28/2014, Additional history [...] Pneumococcal Vaccine: 50+ Years Completed 03/07/2024, 01/09/2019 HPV (Gardasil) Vaccine Aged Out No lo nger eligible based on patient's age to complete this topic Hepatitis B Vaccine Aged Out No longe r eligible based on patient's age to complete this topic MENINGOCOCCAL (MENACTRA/MENVEO) Aged Out No longer eligible based on patient's age to complete this topic Meningitis B Vaccine (Bexsero/Trumemba) Aged Out No longer eligible based on patient's age to complete this topic documented as of this encounter Medical Devices Not on filedocumented as of this encounter Visit Diagnoses Diagnosis Dysphagia, unspecified type- Primary documented in this encounter Care Teams Water Truck Driver Relationship Specialty Start Date End Date Shahla Hamlin MD [address] [place] [address] [place] [address] PCP - General Family Medicine 02/24/24 documented as of this encounter
--- OUTSIDE RECORDS SUMMARY | 2024-09-01 18:25 | External Medical Summary | Summary of Care ---
Author Name Unknown Organization [facility] Address [address] [place] [address] Phone [phone] Care Team Providers Care Supervisor Cigar Processing Name Role Phone Shahla Hamlin MD Primary Care Provide r Reason for Visit * Reason Onset Date Comments Medication Refill 05/26/2024 Encounter Details Date Type Department Care Team (Late st Contact Info) Description 05/26/2024 Refill Family Medicine [address] [phone] Shahla Hamlin MD [address] [place] [address] [place] [address] Fibromyalgia; Migraine without aura and without status migrainosus, not intractable Allergies Active Allergy Reactions Criticality Noted Date Comments Iodinated Contrast Media Edema face/lips/tongue High 05/11/2007 hives documented as of this encounter (statuses as of 05/29/2024) Medications CALCIUM 600 MG PO TABS 1 [...] 90 Tab 1 03/14/20 19 Active Ipratropium [place] HFA 17 MCG/ACT Inhalation Aerosol Solution (Atrovent [...] breakfast. 30 Capsule 3 04/14/20 24 Active Multi For Her Oral Tablet Take 1 Tablet by mouth in the morning. Active Pregabalin 75 MG Oral Capsule (Lyrica)Indicatio ns:Fibromyalgia Take 1 Capsule by mouth every night at bedtime. 30 Capsule 05/29/20 24 Active Amitriptyline HCl 75 MG Oral Tablet (Elavil)Indicatio ns:Migraine without aura and without status migrainosus, not intractable TAKE 1 TABLET BY MOUTH EVERYDAY AT BEDTIME 90 Tablet 1 05/28/20 24 Active Amitriptyline HCl 75 MG Oral [...] 024 Discontin ued(Patie nt preferenc e/discont inuation) Pregabalin 75 MG Oral Capsule (Lyrica)Indicatio ns:Fibromyalgia TAKE 1 CAPSULE BY MOUTH EVERY NIGHT AT BEDTIME. 30 Capsule 04/10/20 24 024 Discontin ued(Refil l) documented as of this encounter (statuses as of 05/29/2024) Active Problems Problem Noted Date Diagnosed Date Prediabetes 01/10/2024 Overview: Per Prediabetes protocol Migraine without aura and wi thout status migrainosus, not intractable 12/01/2023 Fibromyalgia 12/01/2023 Anxiety 12/01/2023 RLS (restless legs syndrome) 12/01/2023 Mild persistent asthma without complication 07/0 07/2023 Essential and other specified forms of tremor NONALLERGIC RHINITIS 07/28/2007 Hypothyroidism 06/09/2007 Major depressive disorder 06/09/2007 Overview (03/23/2017): ICD-10 update of inactive term Esophageal reflux 05/11/2007 documented as of this encounter (statuses as of 05/29/2024) Resolved Problems Problem Noted Date Diagnosed Date Resolved Date PMR (polymyalgia rheumatica) 11/16/2011 12/01/2023 Acute cystitis 09/03/2009 04/11/2011 Dyslipidemia, goal to be determined 05/16/2009 12/01/2023 Overview (05/16/2009): Per Lipid Taxonomy. Benign neoplasm of colon 07/29/200807/2023 Overview (08/24/2008): fair prep- 2 mm polyp removed, repeat in 3 yrs, adenomatous polyps MEDICATION USE AGREEMENT 12/27/200705/2009 Overview (12/27/2007): Managed by Dr Nuno ([phone]). To view the Medication Usage Agreement, go [...] as of this encounter (statuses as of 05/29/2024) Immunizations Name Administration Dates Next Due COVID-19 mRNA, LNP-s, PF, 18 + or 6-11Yrs (Moderna) 01/07/2022,05/06/2021,09/13/2020,08/16 COVID-19, MRNA-LNP, PF, 30 M CG/0.3 mL, 12 YRS AND ABOVE, IM (PFIZER-Comirnaty) 03/22/2024 Pneumococcal Conjugate Vacci ne, 20-valent ([id number]) 03/07/2024 Pneumococcal Polysaccharide PPV23 (Pneumovax) 01/09/2019 Seasonal [...] No 03/22/2024 Does the [facility] have a [facility]? (Household - for ages [...] encounter Miscellaneous Notes * Telephone Encounter - Shahla Hamlin MD - 05/29/2024 7:59 AM EST Signed Prescriptions: Disp Refills Pregabalin 75 MG Oral Capsule (Lyrica) 30 Cap*0 Sig: Take 1 Capsule by mouth every night at bedtime. Authorizing Provider: SHAHLA HAMLIN Amitriptyline HCl 75 MG Oral Tablet (Elavi*90 Tab*1 Sig: TAKE 1 TABLET BY MOUTH EVERYDAY AT BEDTIME Authorizing Provider: SHAHLA HAMLIN Ordering User: ELISABETH GOODWIN - * Telephone Encounter - Elisabeth Goodwin [facility] - 05/28/2024 6:32 AM EST Pending Prescriptions: Disp Refills Pregabalin 75 MG Oral Capsule (Lyrica) 30 Cap*0 Sig: Take 1 Capsule by mouth every night at bedtime. Signed Prescriptions: Disp Refills Amitriptyline HCl 75 MG Oral Tablet (Elavi*90 Tab*1 Sig: TAKE 1 TABLET BY MOUTH EVERYDAY AT BEDTIME Authorizing Provider: SHAHLA HAMLIN Ordering User: GOKUL GOODWIN * Telephone Encounter - Elisabeth Goodwin [facility] - 05/28/2024 6:31 AM EST I have reviewed the patient’s controlled substance dispensing history in the Prescription Drug Monitoring Program in compliance with the [facility] regulations before prescribing a controlled substance. PDMP checked on 05/28/2024. Pending Prescriptions: Disp Refills Pregabalin 75 MG Oral Capsule (Lyrica) 30 Cap*0 Sig: Take 1 Capsule by mouth every night at bedtime. Last Visit: 03/07/2024 (in office), Visit date not found (telemedicine) Next Visit: 11/22/2024 Date medication was last filled: 04/10 Date medication is due for refill: 05/09 Pharmacy: [id number] Is this request for a controlled substance? Yes and Urine Drug Screen Not completed Toxicology results: No results found for this or any previous visit. Please approve if appropriate. Thank you, Elisabeth Goodwin, PharmD. Clinical Pharmacist [facility] ([facility]) 05/28/2024, 6:31 AM * Telephone Encounter - Racquel Howard CPhT - 05/26/2024 8:43 AM EST Did you pend patient's preferred pharmacy and medication before forwarding?yes Pharmacy: [id number] [id number] [facility] Pending Prescriptions: Disp Refills Pregabalin 75 MG Oral Capsule (Lyrica) 30 Cap*0 Sig: Take 1 Capsule by mouth every night at bedtime. Amitriptyline HCl 75 MG Oral Tablet (Elav*90 Tab*0 Last Visit: 03/07/2024 (in office), Visit date not found (telemedicine) Next Visit: 11/22/2024 If no future appointments scheduled, and last appointment is greater than a year ago, please schedule patient for a follow-up appointment Last date the medication was ordered: 02/28/2024,04/10/2024 Is this request for a controlled substance?No Urine Drug Screen:No results found for this or any previous visit. Patient Phone Numbers Labs: Lab Results Component Value Date/Time CREAT 1.0 12/10/2023 10:48 AM CREAT 0.99 10/29/2022 12:00 AM CREAT 0.8 12/10/2015 12:17 PM POTASSIUM 4.7 12/10/2023 10:48 AM POTASSIUM 3.7 10/29/2022 12:00 AM POTASSIUM 4.2 12/10/2015 12:17 PM TSH 3.45 12/10/2023 10:48 AM TSH 1.16 12/10/2015 12:17 PM LDL 101 12/10/2023 10:48 AM LDL 91 10/29/2022 12:00 AM LDL 108 01/18/2015 10:21 AM LDLCALC 73.60 10/29/2022 12:00 AM ALT 20 12/10/2023 10:48 AM ALT 32 12/19/2015 12:00 AM ALT 18 12/10/2015 12:17 PM HGBA1C 6.1 (H) 12/10/2023 10:48 AM documented in this encounter Plan of Treatment Upcoming Encounters Date Type Department Care Team (Late st Contact Info) Description 07/06/2024 11:20 AM EST [facility] [address] [place] [address] Afshan Bee MD [address] [place] [address] 07/21/2024 3:00 PM EST Office Visit Gastroenterology [address] [place] [address] Cheri Jay CRNP [address] [place] [address] 11/22/2024 8:00 AM EDT Office Visit Family Medicine [address] [place] [phone] Shahla Hamlin MD [address] [place] [address] [place] [address] 03/26/2025 1:00 PM EDT Nurse Only Ancillary [address] [place] [address] [place], Nurse Annual [address] [place] [address] Scheduled Procedures Name Priority Associated Diagnoses Date/Ti [...] as of this encounter Visit Diagnoses Diagnosis Fibromyalgia Mylagia and myositis, unspecified Migraine without aura and without status migrainosus, not intractable Migraine without aura, without mention of intractable migraine without mention of status migrainosus documented in this encounter Care Teams Supervisor Cigar Processing Relationship Specialty Start Date End Date Shahla Hamlin MD [address] [place] [address] [place] [phone] PCP - General Family Medicine 02/24/24 documented as of this encounter
--- OUTSIDE RECORDS SUMMARY | 2024-09-01 18:25 | External Medical Summary | Summary of Care ---
Author Name Unknown Organization [facility] Address [address] [place] [address] Phone [phone] Care Team Providers Care Retanner Name Role Phone Shahla Hamlin MD Primary Care Provide r Reason for Visit * Reason Onset Date Comments Pre Cert/Prior Auth 03/16/2024 [employer] Encounter Details Date Type Department Care Team (Late st Contact Info) Description 03/16/2024 Telephone Family [address] [phone] Shahla Hamlin MD [address] [place] [id number] Pre Cert/Prior Auth ([employer]OV[employer]) Allergies Active Allergy Reactions Criticality Noted Date Comments Iodinated Contrast Media Edema face/lips/tongue High 05/11/2007 hives documented as of this encounter (statuses as of 06/15/2024) Medications CALCIUM 600 MG PO TABS 1 [...] morning and 1 Tablet before bedtime. 0 015 Active rOPINIRole (REQUIP) 0.25 MG Tablet Take 2 Tablets by mouth at bedtime. 0 016 Active sucralfate (CARAFATE) 1 GM TabletIndication s:Gastroesophage al reflux disease, esophagitis presence not specified take 1 tablet by mouth four times a day BEFORE MEALS AND AT BEDTIME 1/2 HOUR BEFORE MEALS AND AT BEDTIME 120 Tab 5 017 Active FLOVENT HFA 110 MCG/ACT inhalerIndicatio ns:Asthma exacerbation inhale 2 puffs by mouth twice a day 12 g 11 018 Active Azelastine HCl 137 MCG/SPRAY SOLNIndications: Chronic sinusitis,Chroni c rhinitis instill 2 sprays into each nostril twice a day 30 mL 5 018 Active VENTOLIN HFA 108 (90 Base) MCG/ACT inhalerIndicatio ns:Bronchitis, complicated inhale 2 puffs by mouth four times a day if needed 18 g 5 018 Active Mometasone Furoate 50 MCG/ACT nasal sprayIndications :Chronic sinusitis,Chroni c rhinitis instill 2 sprays into each nostril once daily 17 g 5 018 Active levothyroxine (LEVOXYL) 25 MCG TabletIndication s:Hypothyroidism take 1 tablet by mouth every morning 30 MINUTES BEFORE BREAKFAST AND OTHER MEDS 90 Tab 1 019 Active Ipratropium [place] HFA 17 MCG/ACT Inhalation Aerosol Solution (Atrovent Hfa) Inhale 2 Puffs by mouth every 6 hours. Active Atorvastatin Calcium 20 MG Oral Tablet (Lipitor) Take 1 Tablet by mouth in the morning. 024 Active Escitalopram Oxalate 20 MG Oral Tablet (Lexapro) Take 1 Tablet by mouth at bedtime. 024 Active Ajovy 225 MG/1.5ML Subcutaneous Solution Auto-injector (Fremanezumab-vf rm)Indications:I ntractable migraine with aura with status migrainosus Inject 1.5 ml under the skin once a month 1.5 mL 5 4 11:45 AM EDT 024 Active Additional Information Patient not taking.Reported on 05/19/2024 SUMAtriptan Succinate 50 MG Oral Tablet (Imitrex)Indicat ions:Intractable migraine with aura with status migrainosus 1 at onset of migraine may repeat in 2 hours max 2 doses in 24 hour 10 Tablet 5 Active Zoster Vac Recomb Adjuvanted 50 MCG/0.5ML Intramuscular Suspension Reconstituted (Shingrix)Indica tions:Need for shingles vaccine Inject 0.5 mL into a large muscle now and repeat dose in 60 to 180 days 1 Each 1 Active Pantoprazole Sodium 40 MG Oral Tablet Delayed Release (Protonix) Take 1 Tablet by mouth in the morning and 1 Tablet in the evening. 023 2023 Discontinued Omeprazole 40 MG Oral Capsule Delayed Release (PriLOSEC) TAKE 1 CAPSULE BY MOUTH TWICE A DAY 30 MIN BEFORE BREAKFAST AND DINNER 2023 Discontinued Amitriptyline HCl 75 MG Oral Tablet (Elavil)Indicati ons:Migraine without aura and without status migrainosus, not intractable TAKE 1 TABLET BY MOUTH EVERYDAY AT BEDTIME 90 Tablet 024 2023 Discontinued(R efill) Pregabalin 75 MG Oral Capsule (Lyrica)Indicati ons:Fibromyalgia Take 1 Capsule by mouth every night at bedtime. 30 Capsule 024 2023 Discontinued Lubiprostone 24 MCG Oral Capsule (Amitiza)Indicat ions:Irritable bowel syndrome with constipation Take 1 Capsule by mouth 2 times a day with morning and evening meals. 60 Capsule 1 024 2023 Discontinued(R efill) Qulipta 60 MG Oral Tablet (Atogepant)Indic ations:Intractab le migraine with aura with status migrainosus Take one by mouth each day 30 Tablet 5 024 2023 Discontinued(P atient preference/dis continuation) documented as of this encounter (statuses as of 06/15/2024) Active Problems Problem Noted Date Diagnosed Date [...] as of this encounter (statuses as of 06/15/2024) Resolved Problems Problem Noted Date Diagnosed Date Resolved Date PMR (polymyalgia rheumatica) 11/16/2011 12/01/2023 Acute cystitis 09/03/2009 04/11/2011 Dyslipidemia, goal to be determined 05/16/2009 12/01/2023 Overview (05/16/2009): Per Lipid Taxonomy. Benign neoplasm of colon 07/29/200807/2023 Overview (08/24/2008): fair prep- 2 mm polyp removed, repeat in 3 yrs, adenomatous polyps MEDICATION USE AGREEMENT 12/27/200705/2009 Overview (12/27/2007): Managed by Dr Nuno ([phone]). To view the Medication Usage Agreement, go [...] as of this encounter (statuses as of 06/15/2024) Immunizations Name Administration Dates Next Due COVID-19 mRNA, LNP-s, PF, 18 + or 6-11Yrs (Moderna) 01/07/2022,05/06/2021,09/13/2020,08/16 Pneumococcal Conjugate Vacci ne, 20-valent ([id number]) 03/07/2024 Pneumococcal Polysaccharide PPV23 (Pneumovax) 01/09/2019 Seasonal [...] 03/22/2024 Does the household have a re gular source of income? (Household - for ages [...] encounter Miscellaneous Notes * Telephone Encounter - Afshan Bee MD - 03/24/2024 10:55 AM EDT Please let patient know that insurance would not cover injectable Ajovy but they will cover Quliptawhich is an oral medication taken daily to prevent headache. It can cause nausea constipation weight loss and fatigue. Let me know if it is not helping or not tolerated * Telephone Encounter - Cony Pérez OSA - 03/17/2024 9:36 AM EDT Per [employer] - preferred alternatives are Aimovig and Qulipta. Can patient be switched? Please advise - ty * Telephone Encounter - Andrey Gill, life assurance representative - 03/16/2024 5:30 PM EDT Pharmacy calling to inform doctor that the patient's insurance will not pay for this medication without a completed prior authorization. Did confirm this information with the pharmacy. Pt's current insurance information is as follows: Patient name: Zeny Nuñez ID number: [id number] BIN number: [id number] PCN number: [id number] Group number: Subscriber name: Zeny Nuñez Primary or Secondary Insurance:Primary Medication: Ajovy 225 MG/1.5ML Subcutaneous Solution Auto-injector (Fremanezumab-vfrm) Reason for Request: Needs a [place] Pharmacy and phone number: [id number] [id number] [facility] [place] Rx plan and phone number: [place] [phone] Is this a new medication for the patient? Yes What alternative medications does the pharmacy have in stock?: Amivog and Qulipta ( Doesn't need a Prior auth Thank you, Andrey Gill Tempering Machine Operator [facility] 03/16/2024, 5:30 PM documented in this encounter Plan of Treatment Upcoming Encounters Date Type Department Care Team (Late st Contact Info) Description 07/06/2024 11:20 AM EST Office Visit Neurology [facility] [address] [place] [address] [facility] [address] [facility] [address] 07/21/2024 3:00 PM EST Office Visit Gastroenterology [address] [place] [address] Cheri Jay CRNP [address] [place] [address] 11/22/2024 8:00 AM EDT Office Visit Family Medicine [address] [place] [phone] Shahla Hamlin MD [address] [place] [address] [place] [address] 03/26/2025 1:00 PM EDT Nurse Only Ancillary Maxim Pillai[address] [place] [address] [place], Nurse Annual [facility] [address] [place] [address] [place] [address] Scheduled Procedures Name Priority Associated Diagnoses Date/Ti [...] as of this encounter Visit Diagnoses Diagnosis Intractable migraine with aura with status migrainosus Migraine with aura, with intractable migraine, so stated, with status migrainosus documented in this encounter Care Teams Retanner Relationship Specialty Start Date End Date Shahla Hamlin MD [address] [place] [address] [place] [address] PCP - General Family Medicine 02/24/24 documented as of this encounter
--- OUTSIDE RECORDS SUMMARY | 2024-09-01 18:25 | External Medical Summary | Summary of Care ---
Author Name Unknown Organization [facility] Address [address] [place] [address] Phone [phone] Care Team Providers Care Solar Panel Installation Supervisor Name Role Phone Shahla Hamlin MD Primary Care Provide r Reason for Visit * Reason Comments Follow Up Follow up GERD/dysph agia. EGD 04/2024. Hx constipation. Pt states about a month ago started having trouble swallowing again. Liquids and solids. Reflux is stable. Encounter Details Date Type Department Care Team (Latest Contact Info) Description 07/21/2024 3:00 PM EST Office Visit Gastroenterology [address] [place] [address] Cheri Jay CRNP [address] [place] [address] Gastroesophageal reflux disease without esophagitis*; Dysphagia, unspecified type; Chronic constipation; Intestinal metaplasia of stomach Allergies Active Allergy Reactions Criticality Noted Date Comments Iodinated Contrast Media Edema face/lips/tongue High 05/11/2007 hives documented as of this encounter (statuses as of 07/21/2024) Medications CALCIUM 600 MG PO TABS 1 [...] morning and 1 Tablet before bedtime. 0 5 Active rOPINIRole (REQUIP) 0.25 MG Tablet Take 2 Tablets by mouth at bedtime. 0 6 Active sucralfate (CARAFATE) 1 GM TabletIndications :Gastroesophageal reflux disease, esophagitis presence not specified take 1 tablet by mouth four times a day BEFORE MEALS AND AT BEDTIME 1/2 HOUR BEFORE MEALS AND AT BEDTIME 120 Tab 5 7 Active FLOVENT HFA 110 MCG/ACT inhalerIndication s:Asthma exacerbation inhale 2 puffs by mouth twice a day 12 g 11 8 Active Azelastine HCl 137 MCG/SPRAY SOLNIndications:C hronic sinusitis,Chronic rhinitis instill 2 sprays into each nostril twice a day 30 mL 5 8 Active VENTOLIN HFA 108 (90 Base) MCG/ACT inhalerIndication s:Bronchitis, complicated inhale 2 puffs by mouth four times a day if needed 18 g 5 8 Active Mometasone Furoate 50 MCG/ACT nasal sprayIndications: Chronic sinusitis,Chronic rhinitis instill 2 sprays into each nostril once daily 17 g 5 8 Active levothyroxine (LEVOXYL) 25 MCG TabletIndications :Hypothyroidism take 1 tablet by mouth every morning 30 MINUTES BEFORE BREAKFAST AND OTHER MEDS 90 Tab 1 9 Active Ipratropium [place] HFA 17 MCG/ACT Inhalation Aerosol Solution (Atrovent Hfa) Inhale 2 Puffs by mouth every 6 hours. Active Atorvastatin Calcium 20 MG Oral Tablet (Lipitor) Take 1 Tablet by mouth in the morning. 4 Active Escitalopram Oxalate 20 MG Oral Tablet (Lexapro) Take 1 Tablet by mouth at bedtime. 4 Active Ajovy 225 MG/1.5ML Subcutaneous Solution Auto-injector (Fremanezumab-vfr m)Indications:Int ractable migraine with aura with status migrainosus Inject 1.5 ml under the skin once a month 1.5 mL 5 02/24/2024 11:45 AM EDT 4 Active Additional Information Patient not taking.Reported on 05/19/2024 Zoster Vac Recomb Adjuvanted 50 MCG/0.5ML Intramuscular Suspension Reconstituted (Shingrix)Indicat ions:Need for shingles vaccine Inject 0.5 mL into a large muscle now and repeat dose in 60 to 180 days 1 Each 1 4 Active Multi For Her Oral Tablet Take 1 Tablet by mouth in the morning. Active Pregabalin 75 MG Oral Capsule (Lyrica)Indicatio ns:Fibromyalgia Take 1 Capsule by mouth every night at bedtime. 30 Capsule 4 Active Amitriptyline HCl 75 MG Oral Tablet (Elavil)Indicatio ns:Migraine without aura and without status migrainosus, not intractable TAKE 1 TABLET BY MOUTH EVERYDAY AT BEDTIME 90 Tablet 1 4 Active Lubiprostone 24 MCG Oral Capsule (Amitiza)Indicati ons:Irritable bowel syndrome with constipation Take 1 Capsule by mouth 2 times a day with morning and evening meals. 180 Capsule 1 4 Active Qulipta 60 MG Oral Tablet (Atogepant)Indica tions:Intractable migraine with aura with status migrainosus Take one by mouth each day 30 Tablet 4 4 Active SUMAtriptan Succinate 50 MG Oral Tablet (Imitrex)Indicati ons:Intractable migraine with aura with status migrainosus TAKE 1 TABLET AT ONSET OF MIGRAINE, MAY REPEAT IN 2 HOURS. MAX 2 DOSES IN 24 HOUR 9 Tablet 1 5 Active Esomeprazole Magnesium 40 MG Oral Capsule Delayed Release Take 1 Capsule by mouth daily before breakfast. 90 Capsule 3 5 Active Hyoscyamine Sulfate 0.125 MG Oral Tablet (Levsin) Take 1 Tablet by mouth in the morning and 1 Tablet before bedtime. 60 Tablet 3 5 Active documented as of this encounter (statuses as of 07/21/2024) Active Problems Problem Noted Date Diagnosed Date [...] as of this encounter (statuses as of 07/21/2024) Resolved Problems Problem Noted Date Diagnosed Date Resolved Date PMR (polymyalgia rheumatica) 11/16/2011 12/01/2023 Acute cystitis 09/03/2009 04/11/2011 Dyslipidemia, goal to be determined 05/16/2009 12/01/2023 Overview (05/16/2009): Per Lipid Taxonomy. Benign neoplasm of colon 07/29/200807/2023 Overview (08/24/2008): fair prep- 2 mm polyp removed, repeat in 3 yrs, adenomatous polyps MEDICATION USE AGREEMENT 12/27/200705/2009 Overview (12/27/2007): Managed by Dr Nuno ([phone]). To view the Medication Usage Agreement, go [...] as of this encounter (statuses as of 07/21/2024) Immunizations Name Administration Dates Next Due COVID-19 mRNA, LNP-s, PF, 18 + or 6-11Yrs (Moderna) 01/07/2022,05/06/2021,09/13/2020,08/16 COVID-19, MRNA-LNP, PF, 30 M CG/0.3 mL, 12 YRS AND ABOVE, IM (PFIZER-Comirnaty) 03/22/2024 Pneumococcal Conjugate Vacci ne, 20-valent ([id number]) 03/07/2024 Pneumococcal Polysaccharide PPV23 (Pneumovax) 01/09/2019 Seasonal [...] No 03/22/2024 Does the household have a [facility] source of income? (Household - for ages [...] on file documented as of this encounter Last Filed Vital Signs Vital Sign Reading Time Taken Comments Blood Pressure 130/80 07/21/2024 3:05 PM EST Pulse - - Temperature 36.8 °C (98.2 °F) 07/21/2024 3:05 PM ES T Respiratory Rate - - Oxygen Saturation - - Inhaled Oxygen Concentration - - Weight 67.1 kg (148 lb) 07/21/2024 3:05 PM EST Height - - Body Mass Index 28.9 05/19/2024 2:50 PM EST documented in this encounter Progress Notes * Pierre, Cheri Salim, AGNES - 07/21/2024 3:13 PM EST DATE OF SERVICE: 07/21/24 REFERRING PHYSICIAN: Yefri Dc MD CC: Dysphagia, constipation HPI: 07/21/24: Pt reports swallowing was better when he had esophagus dilated but within days started tohave trouble swallowing foods and liquids again. Feels that esophagus would tighten up and she's waiting for ingested material to pass. Her bowels are moving more regularly on Amitiza. She didn't have to use Miralax. EDG 05/22/2024: - No endoscopic esophageal abnormality to explain patient's dysphagia. Esophagus dilated. Dilated. - A single gastric polyp. Resected and retrieved. - Normal examined duodenum. A. Stomach, Gastric polyp, polypectomy: Hyperplastic polyp Scattered intestinal metaplasia, suggestive of pre-pyloric region sample No evidence of dysplasia or malignancy 03/14/2014 - Zeny Nuñez is a 58 year old female, w c/o of chocking on food at times. She also has some voice hoarseness for a long time and constant feeling of something caught in her throat. A few weeks ago, pt said she was eating and had chocked on food, causing her to not be able to breath.Her did the Heimlich maneuver and the food was expelled. Pt then underwent EGD on 02/22/14 -procedure aborted due to food in stomach. Pt was then given Reglan 5mg BID to take for about 2 weeks for suspected gastroparesis and had EGD again on 03/08/14 which showed normal exam but esophagus dilated. Bx done A. Duodenum, biopsy: Duodenal mucosa with no pathologic diagnosis. B. Gastric biopsy: Reactive gastropathy. C. Esophagus, biopsy: Squamous mucosa with no pathologic diagnosis. Pt was advised to stop Indocin which was suspected to cause some upper abdominal discomfort she washaving. And Propanolol which pt is taking for migraines, was suspected to cause LES tone increase which may be related to her dysphagia issues. Pt did stop the Indocin but not the Propanolol. Since the EGD she has had not trouble w swallowing. No pain or having food stuck. Still having some hoarseness. No abdominal pain nor changes in BM habit. She had UGI w small bowel study done on 03/14/14 which showed normal study but delayed small bowel transit to colon. 05/04/14 Esophageal manometry: UES resting pressure mildly elevated but relaxation pressure normal. Also normal bolus transit time, LUE pressures. 02/28/16 EGD/Colonoscopy: Esophagus dilated to 18mm, diverticulosis, benign polyp. 02/09/17: Pt here w c/o persistent trouble w swallowing. Said previous esophageal dilation helps some but symptoms would re-occur. She can't exactly tell me which food types are harder to swallow. Just feels that esophagus is tight, pressure but not painful when swallowing. She is continuing to take Omeprazole 20mg BID and Carafate 1g QID for reflux, which she said is in good control. She is still on Propanolol for migraines though in the past this was suspected to cause LES tone increase. She is also c/o constipation. BM once a week, stools hard, + straining, denies blood or mucus. Drinks upto 4-16oz bottles a day, admits doesn't eat much fruits/veggies. Did try Metamucil in the past but not consistently. 10/20/18: Pt returns back to GI clinic w c/o trouble swallowing. Food and sometimes liquid would temporarily hang upon throat. Sometimes they pass but last week had to perform Heimlich maneuver per pt's report. She denies any painful swallowing, abd pain, n/v. 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 She denies heartburn or actual reflux sensation but does have chest tightness at times. She is currently on Pepcid 20mg BID and Carafate 1g QID 04/14/24: She is referred back to GI clinic by Shahla Hamlin MD for GERD and dysphagia. Pt c/o dry mouth, voice hoarseness. Having trouble swallowing solids again previously had EGD w dilation done in 2019 and states it helped with swallowing in the past. No odynophagia. Denies n/v. Is on Omeprazole 40mg bid, and using Carafate 1g qid. Denies increased heartburn and acid reflux. She ishaving constipation, no BM x 1 week. On Amitiza 24mcg bid. Was using Miralax before but not currently. Last colonoscopy 2021 - int hemorrhoids, redundant colon. Past Medical History: Diagnosis Date Allergic rhinitis Anxiety 12/01/2023 Benign neoplasm of colon 07/29/2008 fair prep- 2 mm polyp removed, repeat in 3 yrs, adenomatous polyps Chronic sinusitis Dysphagia Esophageal reflux 05/11/2007 Hypothyroidism 06/09/2007 Major depressive disorder 06/09/2007 ICD-10 update of inactive term Migraine Osteoporosis RLS (restless legs syndrome) 12/01/2023 Family History Problem Relation Name Age of Onset Breast Cancer Mother 40s; Rt Mastectomy Lung cancer Mother Emphysema Mother Heart failure Mother Lung Disorder Father due to mining Lung cancer Father Fibromyalgia Sister Heart attack Brother Congenital heart disease Son Past Surgical History: Procedure Laterality Date COLONOSCOPY W/ BIOPSY (RECTUM) 08/22/2008 fair prep- 2 mm polyp removed, repeat in 3 yrs, adenomatous polyps COLONOSCOPY, DIAGNOSTIC (RECTUM) 02/20/2013 COLONOSCOPY FLEXIBLE PROXIMAL DIAGNOSTIC performed by Inez Kumar MD at ENDOSCOPY [facility] COLONOSCOPY, DIAGNOSTIC (RECTUM) 02/28/2016 benign polyp, diverticulosis, repeat 10 yrs/COLONOSCOPY FLEXIBLE PROXIMAL DIAGNOSTIC performed by Inez Kumar MD at ENDOSCOPY [facility] EGD, FLEXIBLE, DIAGNOSTIC 02/22/2014 retained food in stomach, repeat w/ ext prep/ESOPHAGOGASTRODUODENOSCOPY (EGD), FLEXIBLE, TRANSORAL,DIAGNOSTIC performed by Inez Kumar MD at ENDOSCOPY [facility] EGD, FLEXIBLE, DIAGNOSTIC 03/08/2014 bx show reactive gastropathy/ESOPHAGOGASTRODUODENOSCOPY (EGD), FLEXIBLE, TRANSORAL, DIAGNOSTIC performed by Inez Kumar MD at ENDOSCOPY [facility] EGD, FLEXIBLE, DIAGNOSTIC 02/28/2016 normal bx/ESOPHAGOGASTRODUODENOSCOPY (EGD), FLEXIBLE, TRANSORAL, DIAGNOSTIC performed by Inez Kumar MD at ENDOSCOPY [facility] EGD, FLEXIBLE, DIAGNOSTIC 11/28/2018 Full stomach, procedure aborted/ESOPHAGOGASTRODUODENOSCOPY (EGD), FLEXIBLE, TRANSORAL, DIAGNOSTIC performed by Inez Kumar MD at ENDOSCOPY [facility] EGD, FLEXIBLE, DIAGNOSTIC 12/15/2018 normal/ESOPHAGOGASTRODUODENOSCOPY (EGD), FLEXIBLE, TRANSORAL, DIAGNOSTIC performed by Inez Kumar MD at ENDOSCOPY [facility] EGD, FLEXIBLE, DIAGNOSTIC 05/22/2024 single gastric polyp/biopsies show fundic gland polyp, intestinal metaplasia/recall 1 year/ESOPHAGOGASTRODUODENOSCOPY (EGD), FLEXIBLE, TRANSORAL, DIAGNOSTIC performed by Puneet Franks MD at ENDOSCOPY [facility] EGD, FLEXIBLE, W/BIOPSY 11/10/2007 biopsies--acid reflux, negative for Amin's and H.Pylori EXPLORATION OF MAXILLARY SINUS last 09/2006 Sinus Surgery x4 - Drs. Ho and Won SLEEP STUDY, W/O CPAP 11/10/2007 no sleep apnea History Social History Marital Status: Spouse Name: N/A Number of Children: N/A Years of Education: N/A Occupational History disabled to headaches Social History Main Topics Smoking status: Never Smoker Smokeless tobacco: Never Used Comment: son and his girlfriend smoke in her apartment Alcohol Use: No Drug Use: No Sexually Active: Yes -- Male partner(s) Other Topics Concern Not on file Social History Narrative [employer] [place] INFORMATIONENVIRONMENTAL HISTORY:Type of Home: Apartment - floor level basementType of Heating System: Hot water: Air Conditioning: Yes Living room and KitchenBasement: No evidence mold, mildew and DryHome have cockroaches: NoIrritants in the home: NonePatient's bedroom location: Floor: basement Type of geo: CarpetingBeds: Number: 1 Type of beds: Mattress and Box springPillows: Number: 2 Type of pillows: Synthetic (hypoallergenic, polyester)Bedroom contains: Stuffed animals and Bookshelves/BooksPets: 1 dog(s)Lives on a farm: NoDoes not work outside the home currently.Entered by: Jose Fleming MD06/09/2007 Review of patient's allergies indicates: Allergen Reactions Iodinated Contrast Media Edema face/lips/tongue hives Current Outpatient Medications Medication Sig Dispense Refill CALCIUM 600 MG PO TABS 1 tablet daily MAGNESIUM 500 MG PO TABS Take by mouth 2 times a day. VITAMIN D3 1000 UNITS PO CAPS 1 tablet daily BÁRBARA 180 MG PO TABS Take by mouth 2 times a day. methocarbamol (ROBAMOL) 750 MG Tablet Take 1 Tablet by mouth in the morning and 1 Tablet before bedtime. 0 rOPINIRole (REQUIP) 0.25 MG Tablet Take 2 Tablets by mouth at bedtime. 0 FLOVENT HFA 110 MCG/ACT inhaler inhale 2 puffs by mouth twice a day 12 g 11 Azelastine HCl 137 MCG/SPRAY SOLN instill 2 sprays into each nostril twice a day 30 mL 5 Mometasone Furoate 50 MCG/ACT nasal spray instill 2 sprays into each nostril once daily 17 g 5 levothyroxine (LEVOXYL) 25 MCG Tablet take 1 tablet by mouth every morning 30 MINUTES BEFORE BREAKFAST AND OTHER MEDS 90 Tab 1 Atorvastatin Calcium 20 MG Oral Tablet (Lipitor) Take 1 Tablet by mouth in the morning. Escitalopram Oxalate 20 MG Oral Tablet (Lexapro) Take 1 Tablet by mouth at bedtime. Multi For Her Oral Tablet Take 1 Tablet by mouth in the morning. Pregabalin 75 MG Oral Capsule (Lyrica) Take 1 Capsule by mouth every night at bedtime. 30 Capsule 0 Amitriptyline HCl 75 MG Oral Tablet (Elavil) TAKE 1 TABLET BY MOUTH EVERYDAY AT BEDTIME 90 Tablet 1 Lubiprostone 24 MCG Oral Capsule (Amitiza) Take 1 Capsule by mouth 2 times a day with morning and evening meals. 180 Capsule 1 Esomeprazole Magnesium 40 MG Oral Capsule Delayed Release Take 1 Capsule by mouth daily before breakfast. 90 Capsule 3 sucralfate (CARAFATE) 1 GM Tablet take 1 tablet by mouth four times a day BEFORE MEALS AND AT BEDTIME 1/2 HOUR BEFORE MEALS AND AT BEDTIME 120 Tab 5 VENTOLIN HFA 108 (90 Base) MCG/ACT inhaler inhale 2 puffs by mouth four times a day if needed 18 g 5 Ipratropium [place] HFA 17 MCG/ACT Inhalation Aerosol Solution (Atrovent Hfa) Inhale 2 Puffs by mouth every 6 hours. (Patient not taking: Reported on 05/19/2024) Ajovy 225 MG/1.5ML Subcutaneous Solution Auto-injector (Fremanezumab-vfrm) Inject 1.5 ml under the skin once a month (Patient not taking: Reported on 05/19/2024) 1.5 mL 5 Zoster Vac Recomb Adjuvanted 50 MCG/0.5ML Intramuscular Suspension Reconstituted (Shingrix) Inject 0.5 mL into a large muscle now and repeat dose in 60 to 180 days 1 Each 1 Qulipta 60 MG Oral Tablet (Atogepant) Take one by mouth each day 30 Tablet 4 SUMAtriptan Succinate 50 MG Oral Tablet (Imitrex) TAKE 1 TABLET AT ONSET OF MIGRAINE, MAY REPEAT IN2 HOURS. MAX 2 DOSES IN 24 HOUR 9 Tablet 1 No current facility-administered medications for this visit. REVIEW OF SYSTEMS: See HPI above; All other findings negative. EXAM: BP 130/80 | Temp 36.8 °C (98.2 °F) | Wt 67.1 kg (148 lb) | BMI 28.90 kg/m² | BSA 1.69 m² GENERAL: Well developed and well nourished in no acute distress. SKIN: No rashes, ulcers, jaundice or spider angiomata. HEENT: Normocephalic, sclera clear. NECK: Supple, trachea midline, no JVD LUNGS: Clear to auscultation bilaterally, no respiratory distress or accessory muscles used. HEART: Regular rate & rhythm, no murmurs and no gallops. ABDOMEN: Normal bowel sounds, soft and nontender. EXTREMITIES: No palmar erythema, no ankle edema, no skin discoloration, no clubbing, no cyanosis. NEURO: No lateralizing findings. Sensory/Motor grossly normal. ASSESSMENT AND PLAN: Zeny Nuñez is a 69 y/o female w GERD, constipation, likely delayed esophageal and gastric molitiy seen for recurrent dysphagia & constipation symptoms. EGD w dilation did not improve dysphagia significantly and her symptom recur. Constipation resolved w Amitiza. - Esomeprazole 40mg daily; Carafate 1g bid to qid - Trial Hyoscyamine 0.125mg bid for possible esophageal spasm ?; I will call her to check on her symptoms and if not improved, will arrange repeat Esophageal manometry study - Dietary and lifestyle changes for GERD management. - Stay on "slippery diet", alternate solids and liquids, sips of warm water / peppermint before meals - Biotin mouth spray for dry mouth - Amitiza 24mcg bid ; increase fluid and fiber in diet. - Stomach intestinal metaplasia : repeat EGD in 04/2025 RETURN TO CLINIC: 1 month or sooner [facility] this [facility] Nursing Notes * Tanesha Boykin CMA - 07/21/2024 3:05 PM EST Chief Complaint Patient presents with Follow Up Follow up GERD/dysphagia. EGD 04/2024. Hx constipation. Pt states about a month ago started having trouble swallowing again. Liquids and solids. Reflux is stable. documented in this encounter Plan of Treatment Upcoming Encounters Date Type Department Care Team (Late st Contact Info) Description 08/18/2024 9:30 AM EDT Office Visit Gastroenterology [address] [place] [address] Cheri Jay CRNP [address] [place] [address] 11/22/2024 8:00 AM EDT Office Visit Family Medicine [address] [place] [phone] Shahla Hamlin MD [address] [place] [address] [place] [address] 03/26/2025 1:00 PM EDT Nurse Only Ancillary [address] [place] [address] [place], Nurse Annual [address] [place] [address] Scheduled Procedures Name Priority Associated Diagnoses Date/Ti [...] as of this encounter Visit Diagnoses Diagnosis Gastroesophageal reflux disease without esophagitis- Primary Esophageal reflux Dysphagia, unspecified type Chronic constipation Unspecified constipation Intestinal metaplasia of stomach documented in this encounter Care Teams Solar Panel Installation Supervisor Relationship Specialty Start Date End Date Shahla Hamlin MD [address] [place] [address] [place] [address] PCP - General Family Medicine 02/24/24 documented as of this encounter
--- OUTSIDE RECORDS SUMMARY | 2024-09-01 18:25 | External Medical Summary | Summary of Care ---
Author Name Unknown Organization [facility] Address [address] [place] [address] Phone [phone] Care Team Providers Care Wheel Worker Name Role Phone Shahla Hamlin MD Primary Care Provide r Reason for Visit * Reason Comments eRx-Medication Refill Encounter Details Date Type Department Care Team (Late st Contact Info) Description 08/03/2024 Refill Family Medicine [address] [phone] Shahla Hamlin MD [address] [place], [place] [address] [address] Allergies Active Allergy Reactions Criticality Noted Date Comments Iodinated Contrast Media Edema face/lips/tongue High 05/11/2007 hives documented as of this encounter (statuses as of 08/04/2024) Medications CALCIUM 600 MG PO TABS 1 [...] 90 Tab 1 03/14/20 19 Active Ipratropium Ray HFA 17 MCG/ACT Inhalation Aerosol Solution (Atrovent [...] Recomb Adjuvanted 50 MCG/0.5ML Intramuscular Suspension Reconstituted (Shingrix)Tawana tions:Need for shingles vaccine Inject 0.5 mL into a large muscle now and repeat dose in 60 to 180 days 1 Each 1 03/07/20 24 Active Multi For Her Oral Tablet Take 1 Tablet by mouth in the morning. Active Pregabalin 75 MG Oral Capsule (Lyrica)Tawanati ons:Fibromyalgia Take 1 Capsule by mouth every [...] Escitalopram Oxalate 20 MG Oral Tablet (Lexapro) TAKE 1 TABLET BY MOUTH EVERY DAY 90 Tablet 3 08/05/19 25 Active Escitalopram Oxalate 20 MG Oral Tablet (Lexapro) Take 1 Tablet by mouth at bedtime. 10/25/19 24 2024 Discontinued documented as of this encounter (statuses as of 08/04/2024) Active Problems Problem Noted Date Diagnosed Date [...] as of this encounter (statuses as of 08/04/2024) Resolved Problems Problem Noted Date Diagnosed Date Resolved Date PMR (polymyalgia rheumatica) 11/16/2011 12/01/2023 Acute cystitis 09/03/2009 04/11/2011 Dyslipidemia, goal to be determined 05/16/2009 12/01/2023 Overview (05/16/2009): Per Lipid Taxonomy. Benign neoplasm of colon 07/29/200807/2023 Overview (08/24/2008): fair prep- 2 mm polyp removed, repeat in 3 yrs, adenomatous polyps MEDICATION USE AGREEMENT 12/27/200705/2009 Overview (12/27/2007): Managed by Dr Nuno ([phone]). To view the Medication Usage Agreement, go [...] as of this encounter (statuses as of 08/04/2024) Immunizations Name Administration Dates Next Due COVID-19 mRNA, LNP-s, PF, 18 + or 6-11Yrs (Moderna) 01/07/2022,05/06/2021,09/13/2020,08/16 COVID-19, MRNA-LNP, PF, 30 M CG/0.3 mL, 12 YRS AND ABOVE, IM (PFIZER-Comirnaty) 03/22/2024 Pneumococcal Conjugate Vacci ne, 20-valent ([id number]) 03/07/2024 Pneumococcal Polysaccharide PPV23 (Pneumovax) 01/09/2019 Seasonal [...] Telephone Encounter - Shahla Hamlin MD - 08/04/2024 8:07 AM EST Signed Prescriptions: Disp Refills Escitalopram Oxalate 20 MG Oral Tablet (Le*90 Tab*3 Sig: TAKE 1 TABLET BY MOUTH EVERY DAY Authorizing Provider: SHAHLA HAMLIN * Telephone Encounter - Martín Herring [facility] - 08/03/2024 4:03 PM ESTPending Prescriptions: Disp Refills Escitalopram Oxalate 20 MG Oral Tablet (Le*90 Tab*3 Sig: TAKE 1 TABLET BY MOUTH EVERY DAY * Telephone Encounter - Martín Herring RP - 08/03/2024 3:58 PM EST Pharmacists cannot authorize refills for meds listed as "historical" in chart. Please approve if appropriate. Thanks, Martín Herring, PharmD Clinical Pharmacist [facility] [phone] 08/03/2024,4:02 PM documented in this encounter Plan of Treatment Upcoming Encounters Date Type Department Care Team (Late st Contact Info) Description 08/18/2024 9:30 AM EDT Office Visit Gastroenterology [address] [place] [address] Cheri Jay CRNP [address] [place] [address] 11/22/2024 8:00 AM EDT Office Visit Family Medicine [address] [place] [phone] Shahla Hamlin MD [address] [place] [address] [place] [phone] 03/26/2025 1:00 PM EDT Nurse Only Ancillary Maxim Pillai [address] [place] [address] [place], Nurse [address] [place] [address] Scheduled Procedures Name Priority Associated Diagnoses Date/Ti [...] filedocumented as of this encounter Care Teams Wheel Worker Relationship Specialty Start Date End Date Shahla Hamlin MD [address] [place] [address] [place] [phone] PCP - General Family Medicine 02/24/24 documented as of this encounter
--- OUTSIDE RECORDS SUMMARY | 2024-09-01 18:25 | External Medical Summary | Summary of Care ---
Author Name Unknown Organization [facility] Address [address] [place] [address] Phone [phone] Care Team Providers Care Coach Driver Name Role Phone Shahla Hamlin MD Primary Care Provide r Reason for Visit * Reason Comments eRx-Medication Refill Encounter Details Date Type Department Care Team (Late st Contact Info) Description 07/02/2024 Refill [facility] [place] [address] [place] [address] Rosie Bee MD [address] [place] [address] Intractable migraine with aura with status migrainosus Allergies Active Allergy Reactions Criticality Noted Date Comments Iodinated Contrast Media Edema face/lips/tongue High 05/11/2007 hives documented as of this encounter (statuses as of 07/03/2024) Medications CALCIUM 600 MG PO TABS 1 [...] 90 Tab 1 03/14/20 19 Active Ipratropium [place] HFA 17 MCG/ACT Inhalation Aerosol Solution (Atrovent [...] HOUR 9 Tablet 1 07/03/19 25 Active SUMAtriptan Succinate 50 MG Oral Tablet (Imitrex)Indicat ions:Intractable migraine with aura with status migrainosus 1 at onset of migraine may repeat in 2 hours max 2 doses in 24 hour 10 Tablet 5 12/10/19 24 2024 Discontinued documented as of this encounter (statuses as of 07/03/2024) Active Problems Problem Noted Date Diagnosed Date [...] as of this encounter (statuses as of 07/03/2024) Resolved Problems Problem Noted Date Diagnosed Date Resolved Date PMR (polymyalgia rheumatica) 11/16/2011 12/01/2023 Acute cystitis 09/03/2009 04/11/2011 Dyslipidemia, goal to be determined 05/16/2009 12/01/2023 Overview (05/16/2009): Per Lipid Taxonomy. Benign neoplasm of colon 07/29/200807/2023 Overview (08/24/2008): fair prep- 2 mm polyp removed, repeat in 3 yrs, adenomatous polyps MEDICATION USE AGREEMENT 12/27/200705/2009 Overview (12/27/2007): Managed by Dr Nuno ([phone]). To view the Medication Usage Agreement, go [...] as of this encounter (statuses as of 07/03/2024) Immunizations Name Administration Dates Next Due COVID-19 mRNA, LNP-s, PF, 18 + or 6-11Yrs (Moderna) 01/07/2022,05/06/2021,09/13/2020,08/16 COVID-19, MRNA-LNP, PF, 30 M CG/0.3 mL, 12 YRS AND ABOVE, IM (PFIZER-Comirnaty) 03/22/2024 Pneumococcal Conjugate Vacci ne, 20-valent ([id number]) 03/07/2024 Pneumococcal Polysaccharide PPV23 (Pneumovax) 01/09/2019 Seasonal [...] encounter Miscellaneous Notes * Telephone Encounter - Aruna Gerard [facility] - 07/03/2024 9:05 AM EST Signed Prescriptions: Disp Refills SUMAtriptan Succinate 50 MG Oral Tablet (I*9 Tabl*1 Sig: TAKE 1 TABLET AT ONSET OF MIGRAINE, MAY REPEAT IN 2 HOURS. MAX 2 DOSES IN 24 HOURAuthorizing Provider: ROSIE BEE AOrdering User: ARUNA GERARD * Telephone Encounter - Marcy Cm - 07/02/2024 3:17 PM ESTPending Prescriptions: Disp Refills SUMAtriptan Succinate 50 MG Oral Tablet [P*9 Tabl*6 Sig: TAKE 1 TABLET AT ONSET OF MIGRAINE, MAY REPEAT IN 2 HOURS. MAX 2 DOSES IN 24 HOUR * Telephone Encounter - Marcy Cm - 07/02/2024 3:16 PM EST Did you pend patient's preferred pharmacy and medication before forwarding?yes Pharmacy: [id number] [facility] Pending Prescriptions: Disp Refills SUMAtriptan Succinate 50 MG Oral Tablet (*9 Tabl*6 Sig: TAKE 1 TABLET AT ONSET OF MIGRAINE, MAY REPEAT IN 2 HOURS. MAX 2 DOSES IN 24 HOUR Last Visit: 02/24/2024 (in office), Visit date not found (telemedicine) Next Visit: 07/06/2024 If no future appointments scheduled, and last appointment is greater than a year ago, please schedule patient for a follow-up appointment Last date the medication was ordered: 12/10/2023 Is this request for a controlled substance?No Urine Drug Screen:No results found for this or any previous visit. Patient Phone Numbers [employer] [phone] Labs: Lab Results Component Value Date/Time CREAT [...] 07/06/2024 11:20 AM EST Office Visit Neurology [facility] [address] [place] [address] Rosie Bee MD [address] [facility] [place] [address] 07/21/2024 3:00 PM EST Office Visit Gastroenterology [address] [place] [address] Cheri Jay CRNP [address] [facility] [place] [address] 11/22/2024 8:00 AM EDT Office Visit Family Medicine [address] [place] [phone] Shahla Hamlin MD [address] [place] [address] [place] [address] 03/26/2025 1:00 PM EDT Nurse Only Ancillary [address] [place] [address] [place], Nurse [facility] [address] [place] [address] [place] [address] Scheduled Procedures Name Priority Associated Diagnoses Date/Ti [...] migrainosus documented in this encounter Care Teams Coach Driver Relationship Specialty Start Date End Date Shahla Hamlin MD [address] [place] [address] [place] [address] PCP - General Family Medicine 02/24/24 documented as of this encounter
--- OUTSIDE RECORDS SUMMARY | 2024-09-01 18:25 | External Medical Summary | Summary of Care ---
Author Name Unknown Organization [facility] Address [address] [facility] [address] Phone [phone] Care Team Providers Care Hydrologic Engineer Name Role Phone Shahla Hamlin MD Primary Care Provide r Reason for Visit * Reason Onset Date Comments Appointment 08/01/2024 Encounter Details Date Type Department Care Team (Late st Contact Info) Description 08/01/2024 Telephone Gastroenterology, [facility] [address] [place] [address] Cheri Jay CRNP [address] [place] [address] Appointment Allergies Active Allergy Reactions Criticality Noted Date Comments Iodinated Contrast Media Edema face/lips/tongue High 05/11/2007 hives documented as of this encounter (statuses as of 08/03/2024) Medications CALCIUM 600 MG PO TABS 1 [...] MEDS 90 Tab 1 9 Active Ipratropium [place] HFA 17 MCG/ACT Inhalation Aerosol Solution (Atrovent [...] as of this encounter (statuses as of 08/03/2024) Active Problems Problem Noted Date Diagnosed Date [...] as of this encounter (statuses as of 08/03/2024) Resolved Problems Problem Noted Date Diagnosed Date Resolved Date PMR (polymyalgia rheumatica) 11/16/2011 12/01/2023 Acute cystitis 09/03/2009 04/11/2011 Dyslipidemia, goal to be determined 05/16/2009 12/01/2023 Overview (05/16/2009): Per Lipid Taxonomy. Benign neoplasm of colon 07/29/200807/2023 Overview (08/24/2008): fair prep- 2 mm polyp removed, repeat in 3 yrs, adenomatous polyps MEDICATION USE AGREEMENT 12/27/200705/2009 Overview (12/27/2007): Managed by Dr Nuno ([phone]). To view the Medication Usage Agreement, go [...] as of this encounter (statuses as of 08/03/2024) Immunizations Name Administration Dates Next Due COVID-19 mRNA, LNP-s, PF, 18 + or 6-11Yrs (Moderna) 01/07/2022,05/06/2021,09/13/2020,08/16 COVID-19, MRNA-LNP, PF, 30 M CG/0.3 mL, 12 YRS AND ABOVE, IM (PFIZER-Comirnaty) 03/22/2024 Pneumococcal Conjugate Vacci ne, 20-valent ([id number]) 03/07/2024 Pneumococcal Polysaccharide PPV23 (Pneumovax) 01/09/2019 Seasonal [...] 08/18/2024 9:30 AM EDT Office Visit Gastroenterology [address] [place] [address] Cheri Jay CRNP [address] [place] [address] 11/22/2024 8:00 AM EDT Office Visit Family Medicine [address] [place] [phone] Shahla Hamlin MD [address] [place] [address] [place] [address] 03/26/2025 1:00 PM EDT Nurse Only Ancillary [address] [place] [address] [place], Nurse [facility] [address] [place] [address] [place] [address] Scheduled Orders Name Type Priority Associated Diagnoses [...] Primary documented in this encounter Care Teams Hydrologic Engineer Relationship Specialty Start Date End Date Shahla Hamlin MD [address] [place] [address] [place] [address] PCP - General Family Medicine 02/24/24 documented as of this encounter
--- OUTSIDE RECORDS SUMMARY | 2024-09-01 18:25 | External Medical Summary | Summary of Care ---
Author Name Unknown Organization [facility] Address [address] [place] [address] Phone [phone] Care Team Providers Care Driver Retraining Instructor Name Role Phone Shahla Hamlin MD Primary Care Provide r Reason for Visit * Reason Onset Date Comments Appointment 08/01/2024 Encounter Details Date Type Department Care Team (Late st Contact Info) Description 08/01/2024 Telephone Gastroenterology, [facility] [address] [place] [address] Cheri Jay CRNP [address] [place] [address] Appointment Allergies Active Allergy Reactions Criticality Noted [...] 90 Tab 1 03/14/20 19 Active Ipratropium [place] HFA 17 MCG/ACT Inhalation Aerosol Solution (Atrovent [...] 12/27/200705/2009 Overview (12/27/2007): Managed by Dr Nuno ([phone]). To view the Medication Usage Agreement, go [...] (PFIZER-Comirnaty) 03/22/2024 Pneumococcal Conjugate Vacci ne, 20-valent ([id number]) 03/07/2024 Pneumococcal Polysaccharide PPV23 (Pneumovax) 01/09/2019 Seasonal [...] 08/18/2024 9:30 AM EDT Office Visit Gastroenterology [address] [place] [address] Cheri Jay CRNP [address] [place] [address] 11/22/2024 8:00 AM EDT Office Visit Family Medicine [address] [place] [phone] Shahla Hamlin MD [address] [place] [address] [place] [address] 03/26/2025 1:00 PM EDT Nurse Only Ancillary [address] [place] [address] [place], Nurse [facility] [address] [place] [address] [place] [address] Scheduled Orders Name Type Priority Associated Diagnoses [...] Primary documented in this encounter Care Teams Driver Retraining Instructor Relationship Specialty Start Date End Date Shahla Hamlin MD [address] [place] [address] [place] [address] PCP - General Family Medicine 02/24/24 documented as of this encounter
--- OUTSIDE RECORDS SUMMARY | 2024-09-01 18:25 | External Medical Summary | Summary of Care ---
Author Name Unknown Organization [facility] [address] [address] [facility] [address] Phone [phone] Care Team Providers Care Cosmetician Name Role Phone Shahla Hamlin MD Primary Care Provide r Reason for Visit * Reason Onset Date Comments Appointment 08/01/2024 Encounter Details Date Type Department Care Team (Late st Contact Info) Description 08/01/2024 Telephone Gastroenterology, [facility] [address] [place] [address] Cheri Jay CRNP [address] [place] [address] Appointment Allergies Active Allergy Reactions Criticality Noted Date Comments Iodinated Contrast Media Edema face/lips/tongue High 05/11/2007 hives documented as of this encounter (statuses as of 08/01/2024) Medications CALCIUM 600 MG PO TABS 1 [...] MEDS 90 Tab 1 9 Active Ipratropium [place] HFA 17 MCG/ACT Inhalation Aerosol Solution (Atrovent [...] as of this encounter (statuses as of 08/01/2024) Active Problems Problem Noted Date Diagnosed Date [...] as of this encounter (statuses as of 08/01/2024) Resolved Problems Problem Noted Date Diagnosed Date Resolved Date PMR (polymyalgia rheumatica) 11/16/2011 12/01/2023 Acute cystitis 09/03/2009 04/11/2011 Dyslipidemia, goal to be determined 05/16/2009 12/01/2023 Overview (05/16/2009): Per Lipid Taxonomy. Benign neoplasm of colon 07/29/200807/2023 Overview (08/24/2008): fair prep- 2 mm polyp removed, repeat in 3 yrs, adenomatous polyps MEDICATION USE AGREEMENT 12/27/200705/2009 Overview (12/27/2007): Managed by Dr Nuno ([phone]). To view the Medication Usage Agreement, go [...] as of this encounter (statuses as of 08/01/2024) Immunizations Name Administration Dates Next Due COVID-19 mRNA, LNP-s, PF, 18 + or 6-11Yrs (Moderna) 01/07/2022,05/06/2021,09/13/2020,08/16 COVID-19, MRNA-LNP, PF, 30 M CG/0.3 mL, 12 YRS AND ABOVE, IM (PFIZER-Comirnaty) 03/22/2024 Pneumococcal Conjugate Vacci ne, 20-valent ([id number]) 03/07/2024 Pneumococcal Polysaccharide PPV23 (Pneumovax) 01/09/2019 Seasonal [...] 08/18/2024 9:30 AM EDT Office Visit Gastroenterology [address] [place] [address] Cheri Jay CRNP [address] [place] [address] 11/22/2024 8:00 AM EDT Office Visit Family Medicine [address] [place] [phone] Shahla Hamlin MD [address] [place] [address] [place] [address] 03/26/2025 1:00 PM EDT Nurse Only Ancillary [address] [place] [address] [place], Nurse [facility] [address] [place] [address] [place] [address] Scheduled Orders Name Type Priority Associated Diagnoses [...] Primary documented in this encounter Care Teams Cosmetician Relationship Specialty Start Date End Date Shahla Hamlin MD [address] [place] [address] [place] [address] PCP - General Family Medicine 02/24/24 documented as of this encounter
--- OUTSIDE RECORDS SUMMARY | 2024-09-01 18:26 | External Medical Summary | Summary of Care ---
Author Name Unknown Organization [facility] Address [address] [place] [address] Phone [phone] Care Team Providers Care Slps Name Role Phone Shahla Hamlin MD Primary Care Provide r Reason for Referral * Evaluate & Treat - Unlimited Visits (Within 30 days (routine)) - Authorized Specialty Diagnoses / Procedures Referred By Diego villanueva Referred To Contact Otolaryngology Diagnoses Voice hoarseness Cheri Hernandez CRNP [address] [place] [address] Phone: tel: fax: Referral ID Status Reason Start Date Expiration Date Visits Requested Visits Authorized [id number] Authorized Specialty Services Required 4 [phone] Question Answer Referral Priority Within 30 days (routine) Where should this appointment be scheduled? [facility] Reason for Referral Other Using "other" may delay scheduling. Only use it if no appropriate choice exists. Acknowledge Please provide more details: Voice hoarseness, hx of sinusitis Reason for Visit * Reason Comments NEW PATIENT New pt ref by Dr Ashly bruner for GERD/dysphagia. Pt c/o trouble swallowing liquids and solids. Pt also having intermittent epigastric pain. Pt taking omeprazole. Amitiza not helping with constipation. No BM for 1 week. * Evaluate & Treat - Unlimited Visits (Within 30 days (routine)) - Pending Review Specialty Diagnoses / Procedures Referred By Diego villanueva Referred To Contact Gastroenterology Diagnoses Gastroesophageal reflux disease without esophagitis Dysphagia, unspecified type Shahla Hamiln MD [address] [place] [address] [place] [address] Phone: tel: fax: Referral ID Status Reason Start Date Expiration Date Visits Requested Visits Authorized [id number] Pending Review Specialty Services Required 12/01/[phone] Encounter Details Date Type Department Care Team (Late st Contact Info) Description 04/14/2024 10:30 AM EST Office Visit Gastroenterology [address] [place] [address] Cheri Hernandez CRNP [address] [place] [address] Dysphagia, unspecified type*; Voice hoarseness; Gastroesophageal reflux disease without esophagitis; Chronic constipation Allergies Active Allergy Reactions Criticality Noted Date Comments Iodinated Contrast Media Edema face/lips/tongue High 05/11/2007 hives documented as of this encounter (statuses as of 05/19/2024) Medications CALCIUM 600 MG PO TABS 1 [...] 90 Tab 1 03/14/20 19 Active Ipratropium [place] HFA 17 MCG/ACT Inhalation Aerosol Solution (Atrovent [...] hour 10 Tablet 5 12/10/19 24 Active Amitriptyline HCl 75 MG Oral Tablet (Elavil)Indicati ons:Migraine without aura and without status migrainosus, not intractable TAKE 1 TABLET BY MOUTH EVERYDAY AT BEDTIME 90 Tablet 02/28/20 24 Active Zoster Vac Recomb Adjuvanted 50 MCG/0.5ML Intramuscular Suspension Reconstituted (Shingrix)Indica tions:Need for shingles vaccine Inject 0.5 mL into a large muscle now and repeat dose in 60 to 180 days 1 Each 1 03/07/20 24 Active Qulipta 60 MG Oral Tablet (Atogepant)Indic ations:Intractab le migraine with aura with status migrainosus Take one by mouth each day 30 Tablet 5 03/24/20 24 Active Lubiprostone 24 MCG Oral Capsule (Amitiza)Indicat ions:Irritable bowel syndrome with constipation Take 1 Capsule by mouth 2 times a day with morning and evening meals. 180 Capsule 1 04/04/20 24 Active Pregabalin 75 MG Oral Capsule (Lyrica)Indicati ons:Fibromyalgia TAKE 1 CAPSULE BY MOUTH EVERY NIGHT AT BEDTIME. 30 Capsule 04/10/20 24 Active Esomeprazole Magnesium 40 MG Oral Capsule Delayed Release Take 1 Capsule by mouth daily before breakfast. 30 Capsule 3 04/14/20 24 Active Pantoprazole Sodium 40 MG Oral Tablet Delayed Release (Protonix) Take 1 Tablet by mouth in the morning and 1 Tablet in the evening. 10/16/19 23 2023 Discontinued Omeprazole 40 MG Oral Capsule Delayed Release (PriLOSEC) TAKE 1 CAPSULE BY MOUTH TWICE A DAY 30 MIN BEFORE BREAKFAST AND DINNER 11/26/19 24 2023 Discontinued documented as of this encounter (statuses as of 05/19/2024) Active Problems Problem Noted Date Diagnosed Date [...] as of this encounter (statuses as of 05/19/2024) Resolved Problems Problem Noted Date Diagnosed Date Resolved Date PMR (polymyalgia rheumatica) 11/16/2011 12/01/2023 Acute cystitis 09/03/2009 04/11/2011 Dyslipidemia, goal to be determined 05/16/2009 12/01/2023 Overview (05/16/2009): Per Lipid Taxonomy. Benign neoplasm of colon 07/29/200807/2023 Overview (08/24/2008): fair prep- 2 mm polyp removed, repeat in 3 yrs, adenomatous polyps MEDICATION USE AGREEMENT 12/27/200705/2009 Overview (12/27/2007): Managed by Dr Nuno ([phone]). To view the Medication Usage Agreement, go [...] as of this encounter (statuses as of 05/19/2024) Immunizations Name Administration Dates Next Due COVID-19 mRNA, LNP-s, PF, 18 + or 6-11Yrs (Moderna) 01/07/2022,05/06/2021,09/13/2020,08/16 COVID-19, MRNA-LNP, PF, 30 M CG/0.3 mL, 12 YRS AND ABOVE, IM (PFIZER-Comirnaty) 03/22/2024 Pneumococcal Conjugate Vacci ne, 20-valent ([id number]) 03/07/2024 Pneumococcal Polysaccharide PPV23 (Pneumovax) 01/09/2019 Seasonal [...] Sign Reading Time Taken Comments Blood Pressure 118/70 04/14/2024 10:19 AM EST Pulse - - Temperature 36.9 °C (98.4 °F) 04/14/2024 10:[address] Respiratory Rate - - Oxygen Saturation - - Inhaled Oxygen Concentration - - Weight 68.5 kg (151 lb) 04/14/2024 10:19 AM EST Height - - Body Mass Index 29.49 03/22/2024 1:18 PM EDT documented in this encounter Progress Notes * Cheri Hernandez CRNP - 04/14/2024 10:33 AM EST DATE OF SERVICE: 04/14/24 REFERRING PHYSICIAN: Yefri Dc MD CC: Dysphagia, constipation HPI: 03/14/2014 - Zeny Nuñez is a 58 [...] Procedure Laterality Date COLONOSCOPY W/ BIOPSY (RECTUM) 08/22/08 fair prep- 2 mm polyp removed, repeat in 3 yrs, adenomatous polyps COLONOSCOPY, DIAGNOSTIC (RECTUM) 02/20/2013 COLONOSCOPY FLEXIBLE PROXIMAL DIAGNOSTIC performed by Inez Kumar MD at ENDOSCOPY [facility] COLONOSCOPY, DIAGNOSTIC (RECTUM) 02/28/2016 benign polyp, diverticulosis, repeat 10 yrs/COLONOSCOPY FLEXIBLE PROXIMAL DIAGNOSTIC performed by Inez Kumar MD at ENDOSCOPY [facility] EGD, FLEXIBLE, DIAGNOSTIC 02/22/2014 retained food in stomach, repeat w/ ext prep/ESOPHAGOGASTRODUODENOSCOPY (EGD), FLEXIBLE, TRANSORAL,DIAGNOSTIC performed by Inez Kumar MD at ENDOSCOPY [facility] EGD, FLEXIBLE, DIAGNOSTIC 03/08/2014 bx show reactive gastropathy/ESOPHAGOGASTRODUODENOSCOPY (EGD), FLEXIBLE, TRANSORAL, DIAGNOSTIC performed by Inez Kumar MD at ENDOSCOPY [facility] EGD, FLEXIBLE, DIAGNOSTIC 02/28/2016 normal bx/ESOPHAGOGASTRODUODENOSCOPY (EGD), FLEXIBLE, TRANSORAL, DIAGNOSTIC performed by Inez Kumar MD at ENDOSCOPY [facility] EGD, FLEXIBLE, DIAGNOSTIC 11/28/2018 Full stomach, procedure aborted/ESOPHAGOGASTRODUODENOSCOPY (EGD), FLEXIBLE, TRANSORAL, DIAGNOSTIC performed by Inez Kumar MD at ENDOSCOPY [facility] EGD, FLEXIBLE, DIAGNOSTIC 12/15/2018 normal/ESOPHAGOGASTRODUODENOSCOPY (EGD), FLEXIBLE, TRANSORAL, DIAGNOSTIC performed by Inez Kumar MD at ENDOSCOPY [facility] EGD, FLEXIBLE, W/BIOPSY 11/10/07 biopsies--acid reflux, negative for Amin's and H.Pylori [...] tablet daily MAGNESIUM 500 MG PO TABS 1 tablet daily VITAMIN D3 1000 UNITS PO CAPS 1 tablet daily BÁRBARA 180 MG PO TABS one tablet daily methocarbamol (ROBAMOL) 750 MG Tablet Take 1 Tablet by mouth in the morning and 1 Tablet before bedtime. 0 sucralfate (CARAFATE) 1 GM Tablet take 1 tablet by mouth four times a day BEFORE MEALS AND AT BEDTIME 1/2 HOUR BEFORE MEALS AND AT BEDTIME 120 Tab 5 [place]OV[place] HFA 110 MCG/ACT inhaler inhale 2 [...] Tablet (Lexapro) Take 1 Tablet by mouth in the morning. Omeprazole 40 MG Oral Capsule Delayed Release (PriLOSEC) TAKE 1 CAPSULE BY MOUTH TWICE A DAY 30 MINBEFORE BREAKFAST AND DINNER Amitriptyline HCl 75 MG Oral Tablet (Elavil) TAKE 1 TABLET BY MOUTH EVERYDAY AT BEDTIME 90 Tablet 0 Qulipta 60 MG Oral Tablet (Atogepant) Take one by mouth each day 30 Tablet 5 Lubiprostone 24 MCG Oral Capsule (Amitiza) Take 1 Capsule by mouth 2 times a day with morning and evening meals. 180 Capsule 1 Pregabalin 75 MG Oral Capsule (Lyrica) TAKE 1 CAPSULE BY MOUTH EVERY NIGHT AT BEDTIME. 30 Capsule 0 rOPINIRole (REQUIP) 0.25 MG Tablet Take 2 Tablets by mouth at bedtime. 0 VENTOLIN HFA 108 (90 Base) MCG/ACT inhaler inhale 2 puffs by mouth four times a day if needed 18 g 5 Ipratropium [place] HFA 17 MCG/ACT Inhalation Aerosol Solution (Atrovent Hfa) Inhale 2 Puffs by mouth every 6 hours. (Patient not taking: Reported on 04/14/2024) Pantoprazole Sodium 40 MG Oral Tablet Delayed Release (Protonix) Take 1 Tablet by mouth in the morning and 1 Tablet in the evening. (Patient not taking: Reported on 04/14/2024) Ajovy 225 MG/1.5ML Subcutaneous Solution Auto-injector (Fremanezumab-vfrm) Inject 1.5 ml under the skin once a month (Patient not taking: Reported on 03/07/2024) 1.5 mL 5 SUMAtriptan Succinate 50 MG Oral Tablet (Imitrex) 1 at onset of migraine may repeat in 2 hours max 2 doses in 24 hour 10 Tablet 5 Zoster Vac Recomb Adjuvanted 50 MCG/0.5ML Intramuscular Suspension Reconstituted (Shingrix) Inject 0.5 mL into a large muscle now and repeat dose in 60 to 180 days 1 Each 1 No current facility-administered medications for this visit. REVIEW OF SYSTEMS: See HPI above; All other findings negative. 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 - Will repeat EGD eval w possible dilation. - DC Omeprazole. Trial Esomeprazole 40mg daily; Carafate 1g QID - Dietary and lifestyle changes for GERD management. - Stay on "slippery diet", alternate solids and liquids, sips of warm water / peppermint before meals - Biotin mouth spray for dry mouth - ENT referral for voice hoarseness and hx of chronic sinusitis - Amitiza 24mcg bid, add Miralax 17g bid; if no BM over the weekend, pt to call clinic RETURN TO CLINIC: 3 months or sooner [facility], [facility] documented in this encounter Nursing Notes * Tanesha Boykin CMA - 04/14/2024 10:19 AM EST Chief Complaint Patient presents with NEW PATIENT New pt ref by Dr Hamlin for GERD/dysphagia. Pt c/o trouble swallowing liquids and solids. Pt also having intermittent epigastric pain. Pt taking omeprazole. Amitiza not helping with constipation. No BM for 1 week. documented in this encounter Miscellaneous Notes * Addendum Note - Cheri Hernandez CRNP - 05/19/2024 3:12 PM ESTAddended by: CHERI HERNANDEZ on: 05/19/2024 03:12 PM Modules accepted: Orders documented in this encounter Plan of Treatment Upcoming Encounters Date Type Department Care Team (Latest Contact Info) Description 05/22/2024 8:30 AM EST Hospital Encounter ENDO [facility], Endoscopy Room [facility] [address] [place] [phone] Puneet Franks MD [address] [place] [address] 05/22/2024 8:30 AM EST - 05/22/2024 9:00 AM EST Surgery ENDO [facility], Endoscopy Room [facility] [address] [place] [phone] Puneet Franks MD [address] [place] [address] ESOPHAGOGASTRODUODENOSCOPY (EGD), FLEXIBLE, TRANSORAL, DIAGNOSTIC 05/29/2024 1:00 PM EST Office Visit Otolaryngology [facility] [address] [place] [address] Juno De Oliveira PA-C [address] [place] [address] 07/06/2024 11:20 AM EST Office Visit Neurology [facility] [address] [facility] [place] [address] Afshan Bee MD [address] [facility] [place] [address] 07/21/2024 3:00 PM EST Office Visit Gastroenterology [address] [place] [address] Cheri Hernandez CRNP [address] [place] [address] 11/22/2024 8:00 AM EDT Office Visit Family Medicine [address] [place] [phone] Shahla Hamlin MD [address] [place] [address] [place] [address] 03/26/2025 1:00 PM EDT Nurse Only Ancillary [address] [place] [address] [place], Nurse Annual [facility] [address] [place] [address] [place] [address] Scheduled Orders Name Type Priority Associated Diagnoses Orde r Schedule EGD, FLEXIBLE, DIAGNOSTIC Procedures Routine Dysphagia, unspecified type Voice hoarseness Ordered: 05/19/2024 Scheduled Procedures Name Priority Associated Diagnoses Date/Ti me ESOPHAGOGASTRODUODENOSCOPY ( EGD), FLEXIBLE, TRANSORAL, DIAGNOSTIC Dysphagia 05/22/2024 8:30 AM EST COLONOSCOPY FLEXIBLE PROXIMA L DIAGNOSTIC Recall Special screening for malignant neoplasms, colon Scheduled Referrals Name Type Priority Associated Diagnoses Order Schedule ADULT/PEDS OTOLARYNGOLOGY REFERRAL OP Referral Within 30 days (routine) Voice hoarseness Ordered: 04/14/2024 Health Maintenance Due Date Last Done Comments [...] 02/06/2016, 01/21/2015, Additional history exists Pneumococcal Vaccine: 65+ Years Completed 03/07/2024, 01/09/2019 COVID-19 Vaccine Completed [...] Visit Diagnoses Diagnosis Dysphagia, unspecified type- Primary Voice hoarseness Dysphonia Gastroesophageal reflux disease without esophagitis Esophageal reflux Chronic constipation Unspecified constipation Dysphagia Dysphagia, unspecified documented in this encounter Care Teams Slps Relationship Specialty Start Date End Date Shahla Hamlin MD [address] [place] [address] [place] [address] PCP - General Family Medicine 02/24/24 documented as of this encounter
--- OUTSIDE RECORDS SUMMARY | 2024-09-01 18:26 | External Medical Summary | Summary of Care ---
Author Name Unknown Organization [facility] Address [address] [place] [address] Phone [phone] Care Team Providers Care Food And Beverage Intern Name Role Phone Shahla Hamlin MD Primary Care Provide r Encounter Details Date Type Department Care Team (Late st Contact Info) Description 04/14/2024 Telephone Access Center, [place] [address] [facility] *DO NOT REMOVE THIS DEPARTMENT* [place] [address] Services, Scheduling [address] [place] [address] Allergies Active Allergy Reactions Criticality Noted Date Comments Iodinated Contrast Media Edema face/lips/tongue High 05/11/2007 hives documented as of this encounter (statuses as of 05/19/2024) Medications CALCIUM 600 MG PO TABS 1 tablet daily Activ e MAGNESIUM 500 MG PO TABS 1 tablet daily Activ e VITAMIN D3 1000 UNITS PO CAPS 1 tablet daily A ctive BÁRBARA 180 MG PO TABS one tablet daily Active methocarbamol (ROBAMOL) 750 MG Tablet Take [...] MEDS 90 Tab 1 9 Active Ipratropium [place] HFA 17 MCG/ACT Inhalation Aerosol Solution (Atrovent Hfa) Inhale 2 Puffs by mouth every 6 hours. Active Atorvastatin Calcium 20 MG Oral Tablet (Lipitor) Take 1 Tablet by mouth in the morning. 4 Active Escitalopram Oxalate 20 MG Oral Tablet (Lexapro) Take 1 Tablet by mouth in the morning. 4 Active Ajovy 225 MG/1.5ML Subcutaneous Solution Auto-injector (Fremanezumab-vfr m)Indications:Int ractable migraine with aura with status migrainosus Inject 1.5 ml under the skin once a month 1.5 mL 5 02/24/2024 11:45 AM EDT 4 Active Additional Information Patient not taking.Reported on 03/07/2024 SUMAtriptan Succinate 50 MG Oral Tablet (Imitrex)Indicati ons:Intractable migraine with aura with status migrainosus 1 at onset of migraine may repeat in 2 hours max 2 doses in 24 hour 10 Tablet 5 4 Active Amitriptyline HCl 75 MG Oral Tablet (Elavil)Indicatio ns:Migraine without aura and without status migrainosus, not intractable TAKE 1 TABLET BY MOUTH EVERYDAY AT BEDTIME 90 Tablet 4 Active Zoster Vac Recomb Adjuvanted 50 MCG/0.5ML Intramuscular Suspension Reconstituted (Shingrix)Indicat ions:Need for shingles vaccine Inject 0.5 mL into a large muscle now and repeat dose in 60 to 180 days 1 Each 1 4 Active Qulipta 60 MG Oral Tablet (Atogepant)Indica tions:Intractable migraine with aura with status migrainosus Take one by mouth each day 30 Tablet 5 4 Active Lubiprostone 24 MCG Oral Capsule (Amitiza)Indicati ons:Irritable bowel syndrome with constipation Take 1 Capsule by mouth 2 times a day with morning and evening meals. 180 Capsule 1 4 Active Pregabalin 75 MG Oral Capsule (Lyrica)Indicatio ns:Fibromyalgia TAKE 1 CAPSULE BY MOUTH EVERY NIGHT AT BEDTIME. 30 Capsule 4 Active Esomeprazole Magnesium 40 MG Oral Capsule Delayed Release Take 1 Capsule by mouth daily before breakfast. 30 Capsule 3 4 Active documented as of this encounter (statuses [...] 12/27/200705/2009 Overview (12/27/2007): Managed by Dr Nuno ([phone]). To view the Medication Usage Agreement, go [...] (PFIZER-Comirnaty) 03/22/2024 Pneumococcal Conjugate Vacci ne, 20-valent ([id number]) 03/07/2024 Pneumococcal Polysaccharide PPV23 (Pneumovax) 01/09/2019 Seasonal [...] encounter Miscellaneous Notes * Telephone Encounter - Concetta Stern OSA - 05/19/2024 2:42 PM EST Pt scheduled MENDEZ Phelps 05/19/2024 2:42 PM * Telephone Encounter - Concetta Stern OSA - 04/25/2024 2:25 PM EST Lmm MENDEZ Phelps 04/25/2024 2:25 PM * Telephone Encounter - Smita Tam OSA - 04/14/2024 11:32 AM EST Patient has referral for EGD would like to schedule. Thank you documented in this encounter Plan of Treatment Upcoming Encounters Date Type Department Care Team (Latest Contact Info) Description 05/22/2024 8:30 AM EST Hospital Encounter ENDO [facility], Endoscopy Room [facility] [address] [place] [phone] Puneet Franks MD [address] [place] [address] 05/22/2024 8:30 AM EST - 05/22/2024 9:00 AM EST Surgery ENDO [facility], Endoscopy Room [facility] [address] [place] [phone] Puneet Franks MD [address] [place] [address] ESOPHAGOGASTRODUODENOSCOPY (EGD), FLEXIBLE, TRANSORAL, DIAGNOSTIC 05/29/2024 1:00 PM EST Office Visit Otolaryngology [facility] [address] [place] [address] Juno De Oliveira PA-C [address] [place] [address] 07/06/2024 11:20 AM EST Office Visit Neurology [facility] [address] [place] [address] Afshan Bee MD [address] [facility] [place] [address] 07/21/2024 3:00 PM EST Office Visit Gastroenterology [address] [place] [address] Cheri Jay CRNP [address] [place] [address] 11/22/2024 8:00 AM EDT Office Visit Family Medicine [address] [place] [phone] Shahla Hamlin MD [address] [place] [address] [place] [address] 03/26/2025 1:00 PM EDT Nurse Only Ancillary [address] [place] [address] [place], Nurse Annual [address] [place] [address] Scheduled Procedures Name Priority Associated Diagnoses Date/Ti [...] filedocumented as of this encounter Care Teams Food And Beverage Intern Relationship Specialty Start Date End Date Shahla Hamlin MD [address] [place] [address] [place] [phone] PCP - General Family Medicine 02/24/24 documented as of this encounter
--- OUTSIDE RECORDS SUMMARY | 2024-09-01 18:26 | External Medical Summary | Summary of Care ---
Author Name Unknown Organization [facility] Address [address] [place] [place] [address] Phone [phone] Care Team Providers Care Salesperson Handbags Name Role Phone Shahla Hamlin MD Primary Care Provide r Reason for Visit * Reason Onset Date Comments Order Request 05/19/2024 Encounter Details Date Type Department Care Team (Late st Contact Info) Description 05/19/2024 Telephone Gastroenterology, [facility] [address] [place] [address] Cheri Jay CRNP [address] [place] [address] Order Request Allergies Active Allergy Reactions Criticality Noted Date [...] MEDS 90 Tab 1 9 Active Ipratropium [place] HFA 17 MCG/ACT Inhalation Aerosol Solution (Atrovent [...] 12/27/200705/2009 Overview (12/27/2007): Managed by Dr Nuno ([phone]). To view the Medication Usage Agreement, go [...] (PFIZER-Comirnaty) 03/22/2024 Pneumococcal Conjugate Vacci ne, 20-valent ([id number]) 03/07/2024 Pneumococcal Polysaccharide PPV23 (Pneumovax) 01/09/2019 Seasonal [...] Encounter - Concetta Stern OSA - 05/19/2024 2:18 PM EST Pt is scheduled for EGD on 05/22/24 You placed the order for her dysphagia; however, pt has a hoarseness to her voice and states that it is like that all the time. Can you add that dx to her EGD order? Thank you MENDEZ Phelps 05/19/2024 2:19 PM documented in this encounter Plan of Treatment Upcoming Encounters Date Type Department Care Team (Latest Contact Info) Description 05/22/2024 8:30 AM EST Hospital Encounter ENDO [facility], Endoscopy Room [facility] [address] [place] [phone] Puneet Franks MD [address] [place] [address] 05/22/2024 8:30 AM EST - 05/22/2024 9:00 AM EST Surgery ENDO [facility], Endoscopy Room [facility] [address] [place] [phone] Puneet Franks MD [address] [place] [address] ESOPHAGOGASTRODUODENOSCOPY (EGD), FLEXIBLE, TRANSORAL, DIAGNOSTIC 05/29/2024 1:00 PM EST Office Visit Otolaryngology [facility] [address] [place] [address] Juno De Oliveira PA-C [address] [place] [address] 07/06/2024 11:20 AM EST Office Visit Neurology [facility] [address] [facility] [place] [address] Afshan Bee MD [address] [facility] [place] [address] 07/21/2024 3:00 PM EST Office Visit Gastroenterology [address] [place] [address] Cheri Jay CRNP [address] [place] [address] 11/22/2024 8:00 AM EDT Office Visit Family Medicine [address] [place] [phone] Shahla Hamlin MD [address] [place] [address] [place] [address] 03/26/2025 1:00 PM EDT Nurse Only Ancillary [address] [place] [address] [place], Nurse Annual [address] [place] [address] Scheduled Procedures Name Priority Associated Diagnoses Date/Ti [...] filedocumented as of this encounter Care Teams Salesperson Handbags Relationship Specialty Start Date End Date Shahla Hamlin MD [address] [place] [address] [place] [address] PCP - General Family Medicine 02/24/24 documented as of this encounter
--- OUTSIDE RECORDS SUMMARY | 2024-09-01 18:26 | External Medical Summary | Summary of Care ---
Author Name Unknown Organization [facility] Address [address] [place] [address] Phone [phone] Care Team Providers Care Burr Picker Name Role Phone Shahla Hamlin MD Primary Care Provide r Reason for Visit * Reason Onset Date Comments Order Request 05/19/2024 Encounter Details Date Type Department Care Team (Late st Contact Info) Description 05/19/2024 Telephone Gastroenterology, [facility] [address] [place] [address] Cheri Jay CRNP [address] [facility] [place] [address] Order Request Allergies Active Allergy Reactions Criticality [...] MEDS 90 Tab 1 9 Active Ipratropium [place] HFA 17 MCG/ACT Inhalation Aerosol Solution (Atrovent [...] 12/27/200705/2009 Overview (12/27/2007): Managed by Dr Nuno ([phone]). To view the Medication Usage Agreement, go [...] (PFIZER-Comirnaty) 03/22/2024 Pneumococcal Conjugate Vacci ne, 20-valent ([id number]) 03/07/2024 Pneumococcal Polysaccharide PPV23 (Pneumovax) 01/09/2019 Seasonal [...] Telephone Encounter - Cheri Jay CRNP - 05/19/2024 3:12 PM EST Done AGNES Bahena * Telephone Encounter - Concetta Stern OSA [...] Encounter ENDO [facility], Endoscopy Room [facility] [address] [place] [phone] Puneet Franks MD [address] [place] [address] 05/22/2024 8:30 AM EST - 05/22/2024 9:00 AM EST Surgery ENDO [facility], Endoscopy Room [facility] [address] [place] [phone] Puneet Franks MD [address] [place] [address] ESOPHAGOGASTRODUODENOSCOPY (EGD), FLEXIBLE, TRANSORAL, DIAGNOSTIC 05/29/2024 1:00 PM EST Office Visit Otolaryngology [facility] [address] [place] [address] Juno De Oliveira PA-C [address] [place] [address] 07/06/2024 11:20 AM EST Office Visit Neurology [facility] [address] [place] [address] Afshan Bee MD [address] [place] [address] 07/21/2024 3:00 PM EST Office Visit Gastroenterology [address] [place] [address] Cheri Jay CRNP [address] [place] [address] 11/22/2024 8:00 AM EDT Office Visit Family Medicine [address] [place] [phone] Shahla Hamlin MD [address] [place] [address] [place] [address] 03/26/2025 1:00 PM EDT Nurse Only Ancillary [address] [place] [address] [place], Nurse Annual [address] [place] [address] Scheduled Procedures Name Priority Associated Diagnoses Date/Ti [...] filedocumented as of this encounter Care Teams Burr Picker Relationship Specialty Start Date End Date Shahla Hamlin MD [address] [place] [address] [place] [address] PCP - General Family Medicine 02/24/24 documented as of this encounter
--- OUTSIDE RECORDS SUMMARY | 2024-09-01 18:26 | External Medical Summary | Summary of Care ---
Author Name Unknown Organization [facility] Address [address] [place] [address] Phone [phone] Care Team Providers Care Manager Surgical Name Role Phone Shahla Hamlin MD Primary Care Provide r Encounter Details Date Type Department Care Team (Late st Contact Info) Description 04/14/2024 Telephone Access Center, [place] [address] [facility] *DO NOT REMOVE THIS DEPARTMENT* [place] [address] Services, Scheduling [address] [place] [address] Allergies Active Allergy Reactions Criticality Noted Date Comments Iodinated Contrast Media Edema face/lips/tongue High 05/11/2007 hives documented as of this encounter (statuses as of 04/25/2024) Medications CALCIUM 600 MG PO TABS 1 [...] MEDS 90 Tab 1 9 Active Ipratropium [place] HFA 17 MCG/ACT Inhalation Aerosol Solution (Atrovent [...] as of this encounter (statuses as of 04/25/2024) Active Problems Problem Noted Date Diagnosed Date [...] as of this encounter (statuses as of 04/25/2024) Resolved Problems Problem Noted Date Diagnosed Date Resolved Date PMR (polymyalgia rheumatica) 11/16/2011 12/01/2023 Acute cystitis 09/03/2009 04/11/2011 Dyslipidemia, goal to be determined 05/16/2009 12/01/2023 Overview (05/16/2009): Per Lipid Taxonomy. Benign neoplasm of colon 07/29/200807/2023 Overview (08/24/2008): fair prep- 2 mm polyp removed, repeat in 3 yrs, adenomatous polyps MEDICATION USE AGREEMENT 12/27/200705/2009 Overview (12/27/2007): Managed by Dr Nuno ([phone]). To view the Medication Usage Agreement, go [...] as of this encounter (statuses as of 04/25/2024) Immunizations Name Administration Dates Next Due COVID-19 mRNA, LNP-s, PF, 18 + or 6-11Yrs (Moderna) 01/07/2022,05/06/2021,09/13/2020,08/16 COVID-19, MRNA-LNP, PF, 30 M CG/0.3 mL, 12 YRS AND ABOVE, IM (PFIZER-Comirnaty) 03/22/2024 Pneumococcal Conjugate Vacci ne, 20-valent ([id number]) 03/07/2024 Pneumococcal Polysaccharide PPV23 (Pneumovax) 01/09/2019 Seasonal [...] Care Team (Late st Contact Info) Description 05/12/2024 8:00 AM EST Office Visit Otolaryngology [facility] [address] [place] [address] Myranda Rowan PA-C [address] [place] [address] 05/22/2024 9:20 AM EST Office Visit Neurology [facility] [place] [address] [place] [address] Afshan Bee MD [address] [place] [address] 07/21/2024 3:00 PM EST Office Visit Gastroenterology [address] [place] [address] Cheri Jay CRNP [address] [place] [address] 11/22/2024 8:00 AM EDT Office Visit Family Medicine [address] [place] [phone] Shahla Hamlin MD [address] [place] [address] [place] [address] 03/26/2025 1:00 PM EDT Nurse Only Ancillary [address] [place] [address] [place], Nurse Annual Wellness [address] [place] [address] [place] [address] Scheduled Procedures Name Priority Associated Diagnoses Date/Ti [...] filedocumented as of this encounter Care Teams Manager Surgical Relationship Specialty Start Date End Date Shahla Hamlin MD [address] [place] [address] [place] [address] PCP - General Family Medicine 02/24/24 documented as of this encounter
--- OUTSIDE RECORDS SUMMARY | 2024-09-01 18:26 | External Medical Summary | Summary of Care ---
Author Name Unknown Organization [facility] Address [address] [place] [address] Phone [phone] Care Team Providers Care Aging Department Supervisor Name Role Phone Shahla Hamlin MD Primary Care Provide r Reason for Visit * Reason Onset Date Comments Medication Refill 05/26/2024 Encounter Details Date Type Department Care Team (Late st Contact Info) Description 05/26/2024 Refill Neurology [facility] [place] [address] [place] [address] Rosie Bee MD [address] [place] [address] Intractable migraine with aura with status migrainosus [...] 90 Tab 1 03/14/20 19 Active Ipratropium [place] HFA 17 MCG/ACT Inhalation Aerosol Solution (Atrovent [...] days 1 Each 1 03/07/20 24 Active Pregabalin 75 MG Oral Capsule (Lyrica)Indicatio ns:Fibromyalgia TAKE 1 CAPSULE BY MOUTH EVERY NIGHT AT BEDTIME. 30 Capsule 04/10/20 24 Active Esomeprazole Magnesium 40 MG Oral Capsule Delayed Release Take 1 Capsule by mouth daily before breakfast. 30 Capsule 3 04/14/20 24 Active Multi For Her Oral Tablet Take 1 Tablet by mouth in the morning. Active Lubiprostone 24 MCG Oral Capsule (Amitiza)Indicati ons:Irritable bowel syndrome with constipation Take 1 Capsule by mouth 2 times a day with morning and evening meals. 180 Capsule 1 05/26/20 24 Active Qulipta 60 MG Oral Tablet (Atogepant)Indica tions:Intractable migraine with aura with status migrainosus Take one by mouth each day 30 Tablet 4 05/29/20 24 Active Qulipta 60 MG Oral Tablet (Atogepant)Indica tions:Intractable migraine with aura with status migrainosus Take one by mouth each day 30 Tablet 5 03/24/20 24 024 Discontin ued(Patie nt preferenc e/discont inuation) documented as of this encounter (statuses as [...] 12/27/200705/2009 Overview (12/27/2007): Managed by Dr Nuno ([phone]). To view the Medication Usage Agreement, go [...] (PFIZER-Comirnaty) 03/22/2024 Pneumococcal Conjugate Vacci ne, 20-valent ([id number]) 03/07/2024 Pneumococcal Polysaccharide PPV23 (Pneumovax) 01/09/2019 Seasonal [...] encounter Miscellaneous Notes * Telephone Encounter - Pineda Dior RP - 05/29/2024 6:25 AM ESTSigned Prescriptions: Disp Refills Qulipta 60 MG Oral Tablet (Atogepant) 30 Tab*4 Sig: Take one bymouth each dayAuthorizing Provider: ROSIE BEE User: PINEDA DIOR * Telephone Encounter - Pineda Dior RPh - 05/29/2024 6:24 AM EST Transferred balance of refills to [id number] Thank You, Pineda Dior [facility] Clinical Pharmacist [facility] ([facility]) [phone] 05/29/2024, 6:25 AM * Telephone Encounter - Maria A Troy PHARM Tech - 05/26/2024 12:08 PM EST Please reroute Rx to [id number] [address] [place]. Pending Prescriptions: Disp Refills Qulipta 60 MG Oral Tablet (Atogepant) 30 Tab*4 Sig: Take one by mouth each day Last Visit: 03/07/2024 (in office), Visit date not found (telemedicine) 11/22/2024 If no future appointments scheduled, and last appointment is greater than a year ago, please schedule patient for a follow-up appointment Last date the medication was ordered: 03/24/2024 Patient Phone Numbers Labs: Lab Results Component [...] 07/06/2024 11:20 AM EST Office Visit Neurology [facility] [address] [place] [address] Rosie Bee MD [address] [place] [address] 07/21/2024 3:00 PM EST Office Visit Gastroenterology [address] [place] [address] Cheri Jay CRNP [address] [place] [address] 11/22/2024 8:00 AM EDT Office Visit Family Medicine [address] [place] [phone] Shahla Hamlin MD [address] [place] [address] [place] [address] 03/26/2025 1:00 PM EDT Nurse Only Ancillary [address] [place] [address] [place], Nurse Annual Wellness [address] [place] [address] [place] [address] Scheduled Procedures Name Priority Associated Diagnoses Date/Ti [...] Scan 04/13/2027 04/13/2024 Lipid Panel 12/09/2028 12/10/2023, 05/2022, 01/18/2015, Additional history exists Colonoscopy 07/01/2031 [...] migrainosus documented in this encounter Care Teams Aging Department Supervisor Relationship Specialty Start Date End Date Shahla Hamlin MD [address] [place] [address] [place] [address] PCP - General Family Medicine 02/24/24 documented as of this encounter
--- OUTSIDE RECORDS SUMMARY | 2024-09-01 18:26 | External Medical Summary | Summary of Care ---
Author Name Unknown Organization [facility] Address [address] [place] [address] Phone [phone] Care Team Providers Care Patient Consumer Marketer Name Role Phone Shahla Hamlin MD Primary Care Provide r Reason for Visit * Reason Onset Date Comments Appointment 05/12/2024 Encounter Details Date Type Department Care Team (Late st Contact Info) Description 05/12/2024 Telephone Otolaryngology [facility] [address] [place] [address] Services, Scheduling [address] [place] [address] Appointment Allergies Active Allergy Reactions Criticality Noted Date Comments Iodinated Contrast Media Edema face/lips/tongue High 05/11/2007 hives documented as of this encounter (statuses as of 05/12/2024) Medications CALCIUM 600 MG PO TABS 1 [...] MEDS 90 Tab 1 9 Active Ipratropium [place] HFA 17 MCG/ACT Inhalation Aerosol Solution (Atrovent Hfa) Inhale 2 Puffs by mouth every 6 hours. Active Atorvastatin Calcium 20 MG Oral Tablet (Lipitor) Take 1 Tablet by mouth in the morning. 4 Active Escitalopram Oxalate 20 MG Oral Tablet (Lexapro) Take 1 Tablet by mouth in the morning. 4 Active Ajovy 225 MG/1.5ML Subcutaneous Solution Auto-injector (Frekalyanezcyndie-vfr m)Indications:Int ractable migraine with aura with status [...] as of this encounter (statuses as of 05/12/2024) Active Problems Problem Noted Date Diagnosed Date [...] as of this encounter (statuses as of 05/12/2024) Resolved Problems Problem Noted Date Diagnosed Date Resolved Date PMR (polymyalgia rheumatica) 11/16/2011 12/01/2023 Acute cystitis 09/03/2009 04/11/2011 Dyslipidemia, goal to be determined 05/16/2009 12/01/2023 Overview (05/16/2009): Per Lipid Taxonomy. Benign neoplasm of colon 07/29/200807/2023 Overview (08/24/2008): fair prep- 2 mm polyp removed, repeat in 3 yrs, adenomatous polyps MEDICATION USE AGREEMENT 12/27/200705/2009 Overview (12/27/2007): Managed by Dr Nuno ([phone]). To view the Medication Usage Agreement, go [...] as of this encounter (statuses as of 05/12/2024) Immunizations Name Administration Dates Next Due COVID-19 mRNA, LNP-s, PF, 18 + or 6-11Yrs (Moderna) 01/07/2022,05/06/2021,09/13/2020,08/16 COVID-19, MRNA-LNP, PF, 30 M CG/0.3 mL, 12 YRS AND ABOVE, IM (PFIZER-Comirnaty) 03/22/2024 Pneumococcal Conjugate Vacci ne, 20-valent ([id number]) 03/07/2024 Pneumococcal Polysaccharide PPV23 (Pneumovax) 01/09/2019 Seasonal [...] encounter Miscellaneous Notes * Telephone Encounter - Twila Amador OSA - 05/12/2024 8:43 AM EST Rescheduled. MENDEZ Guzman * Telephone Encounter - Derrek Tolliver OSA - 05/12/2024 8:01 AM EST Reason for patient's call: Pt calling stating unable to make the appt today due to illness and requesting someone to call her back to re-schedule. [phone] documented in this encounter Plan of Treatment Upcoming Encounters Date Type Department Care Team (Late st Contact Info) Description 05/22/2024 9:20 AM EST Office Visit [facility] [address] [place] [address] Afshan Bee MD [address] [place] [address] 05/29/2024 1:00 PM EST Office Visit Otolaryngology [facility] [address] [place] [address] uJno De Oliveira PA-C [address] [place] [address] 07/21/2024 3:00 PM EST Office Visit Gastroenterology [address] [place] [address] Cheri Jay CRNP [address] [place] [address] 11/22/2024 8:00 AM EDT Office Visit Family Medicine [address] [place] [phone] Shahla Hamlin MD [address] [place] [address] [place] [address] 03/26/2025 1:00 PM EDT Nurse Only Ancillary [address] [place] [address] [place], Nurse Annual Wellness [address] [place] [address] [place] [address] Scheduled Procedures Name Priority Associated Diagnoses Date/Ti [...] filedocumented as of this encounter Care Teams Patient Consumer Marketer Relationship Specialty Start Date End Date Shahla Hamlin MD [address] [place] [address] [place] [phone] PCP - General Family Medicine 02/24/24 documented as of this encounter
--- OUTSIDE RECORDS SUMMARY | 2024-09-01 18:26 | External Medical Summary | Summary of Care ---
Author Name Unknown Organization [facility] Address [address] [place] [address] Phone [phone] Care Team Providers Care Gym Manager Name Role Phone Shahla Hamlin MD Primary Care Provide r Reason for Visit * Reason Onset Date Comments Pre Cert/Prior Auth 03/29/2024 Encounter Details Date Type Department Care Team (Late st Contact Info) Description 03/29/2024 Telephone Neurology [facility] [address] [place] [address] Afshan Bee MD [address] [place] [facility] [place] [address] Pre Cert/Prior Auth Allergies Active Allergy Reactions Criticality Noted Date [...] BREAKFAST AND OTHER MEDS 90 Tab 1 Active Ipratropium [place] HFA 17 MCG/ACT Inhalation Aerosol Solution (Atrovent Hfa) Inhale 2 Puffs by mouth every 6 hours. Active Atorvastatin Calcium 20 MG Oral Tablet (Lipitor) Take 1 Tablet by mouth in the morning. Active Escitalopram Oxalate 20 MG Oral Tablet (Lexapro) Take 1 Tablet by mouth in the morning. Active Ajovy 225 MG/1.5ML Subcutaneous Solution Auto-injector (Fremanezumab-vf )Indications:I ntractable migraine with aura with status migrainosus Inject 1.5 ml under the skin once a month 1.5 mL 5 11:45 AM EDT Active Additional Information Patient not taking.Reported on 03/07/2024 SUMAtriptan Succinate 50 MG Oral Tablet (Imitrex)Indicat ions:Intractable migraine with aura with status migrainosus 1 at onset of migraine may repeat in 2 hours max 2 doses in 24 hour 10 Tablet 5 07/12/2 024 Active Amitriptyline HCl 75 MG Oral Tablet (Elavil)Indicati ons:Migraine without aura and without status migrainosus, not intractable TAKE 1 TABLET BY MOUTH EVERYDAY AT BEDTIME 90 Tablet Active Zoster Vac Recomb Adjuvanted 50 MCG/0.5ML Intramuscular Suspension Reconstituted (Shingrix)Indica tions:Need for shingles vaccine Inject 0.5 mL into a large muscle now and repeat dose in 60 to 180 days 1 Each 1 Active Qulipta 60 MG Oral Tablet (Atogepant)Indic ations:Intractab le migraine with aura with status migrainosus Take one by mouth each day 30 Tablet 5 Active Pantoprazole Sodium 40 MG Oral Tablet Delayed Release (Protonix) Take 1 Tablet by mouth in the morning and 1 Tablet in the evening. 023 2023 Discontinued Omeprazole 40 MG Oral Capsule Delayed Release (PriLOSEC) TAKE 1 CAPSULE BY MOUTH TWICE A DAY 30 MIN BEFORE BREAKFAST AND DINNER 024 2023 Discontinued Pregabalin 75 MG Oral Capsule (Lyrica)Indicati ons:Fibromyalgia Take 1 Capsule by mouth every night at bedtime. 30 Capsule 024 2023 Discontinued Lubiprostone 24 MCG Oral Capsule (Amitiza)Indicat ions:Irritable bowel syndrome with constipation Take 1 Capsule by mouth 2 times a day with morning and evening meals. 60 Capsule 1 024 2023 Discontinued(R efill) documented as of this encounter (statuses as [...] 12/27/200705/2009 Overview (12/27/2007): Managed by Dr Nuno ([phone]). To view the Medication Usage Agreement, go [...] (PFIZER-Comirnaty) 03/22/2024 Pneumococcal Conjugate Vacci ne, 20-valent ([id number]) 03/07/2024 Pneumococcal Polysaccharide PPV23 (Pneumovax) 01/09/2019 Seasonal [...] encounter Miscellaneous Notes * Telephone Encounter - Hodan Pimentel PHARM Tech - 04/25/2024 11:17 AM EST Pt calling as she was advised her shot was change to a tablet (quilipta) Called [facility]. They advised in [place]. Asked [facility] to transfer prescription. Will have to be ordered. Will have 04/26/24 after 4 p.m. Thank You, Hodan Pimentel [facility] [employer] [facility] ([facility]) 04/25/2024, 11:21 AM * Telephone Encounter - Cony Pérez OSA - 03/29/2024 2:20 PM EDT Medication was changed to qulipta - per referral ajovy is not preferred. ty * Telephone Encounter - Ludmila Mcclellan CPhT - 03/29/2024 1:24 PM EDT New or re-auth: re auth Patient Zeny Nuñez needs a prior authorization for a medication through their [employer] insurance. Medication: ajovy Formulation: 225mg/1.5ml soaj Dosage: 1.5 ml per 30 days ID: [id number] [id number] PCN:[id number] Phone: Target ship date is 04-03. Thank you very much, Ludmila Mcclellan CPhT Helper Coordinator [employer] Lead [facility] documented in this encounter Plan of Treatment Upcoming Encounters Date Type Department Care Team (Late st Contact Info) Description 05/12/2024 8:00 AM EST Office Visit Otolaryngology [facility] [address] [place] [address] Myranda Rowan PA-C [address] [place] [address] 05/22/2024 9:20 AM EST Office Visit Neurology [facility] [address] [facility] [place] [address] Afshan Bee MD [address] [facility] [place] [address] 07/21/2024 3:00 PM EST Office Visit Gastroenterology [address] [place] [address] Cheri Jay CRNP [address] [place] [address] 11/22/2024 8:00 AM EDT Office Visit Family Medicine [address] [place] [phone] Shahla Hamlin MD [address] [place] [address] [place] [address] 03/26/2025 1:00 PM EDT Nurse Only Ancillary Rewtaylor Pillai[address] [place] [address] [place], Nurse Annual [address] [place] [address] Scheduled Procedures Name Priority Associated Diagnoses Date/Ti [...] filedocumented as of this encounter Care Teams Gym Manager Relationship Specialty Start Date End Date Shahla Hamlin MD [address] [place] [address] [place] [address] PCP - General Family Medicine 02/24/24 documented as of this encounter
--- OUTSIDE RECORDS SUMMARY | 2024-09-01 18:26 | External Medical Summary | Summary of Care ---
Author Name Unknown Organization [facility] Address [address] [place] [address] Phone [phone] Care Team Providers Care Lock Technician Name Role Phone Shahla Hamlin MD Primary Care Provide r Reason for Visit * Reason Onset Date Comments Pre Cert/Prior Auth 03/29/2024 Encounter Details Date Type Department Care Team (Late st Contact Info) Description 03/29/2024 Telephone Neurology [facility] [address] [place] [address] Afshan Bee MD [address] [facility] [place] [address] Pre Cert/Prior Auth Allergies Active Allergy Reactions Criticality Noted Date Comments Iodinated Contrast Media Edema face/lips/tongue High 05/11/2007 hives documented as of this encounter (statuses as of 04/26/2024) Medications CALCIUM 600 MG PO TABS 1 [...] OTHER MEDS 90 Tab 1 Active Ipratropium [place] HFA 17 MCG/ACT Inhalation Aerosol Solution (Atrovent [...] as of this encounter (statuses as of 04/26/2024) Active Problems Problem Noted Date Diagnosed Date [...] as of this encounter (statuses as of 04/26/2024) Resolved Problems Problem Noted Date Diagnosed Date Resolved Date PMR (polymyalgia rheumatica) 11/16/2011 12/01/2023 Acute cystitis 09/03/2009 04/11/2011 Dyslipidemia, goal to be determined 05/16/2009 12/01/2023 Overview (05/16/2009): Per Lipid Taxonomy. Benign neoplasm of colon 07/29/200807/2023 Overview (08/24/2008): fair prep- 2 mm polyp removed, repeat in 3 yrs, adenomatous polyps MEDICATION USE AGREEMENT 12/27/200705/2009 Overview (12/27/2007): Managed by Dr Nuno ([phone]). To view the Medication Usage Agreement, go [...] as of this encounter (statuses as of 04/26/2024) Immunizations Name Administration Dates Next Due COVID-19 mRNA, LNP-s, PF, 18 + or 6-11Yrs (Moderna) 01/07/2022,05/06/2021,09/13/2020,08/16 COVID-19, MRNA-LNP, PF, 30 M CG/0.3 mL, 12 YRS AND ABOVE, IM (PFIZER-Comirnaty) 03/22/2024 Pneumococcal Conjugate Vacci ne, 20-valent ([id number]) 03/07/2024 Pneumococcal Polysaccharide PPV23 (Pneumovax) 01/09/2019 Seasonal [...] Encounter - Hodan Pimentel PHARM Tech - 04/26/2024 10:31 AM EST Pt calling as she could not remember the name of the medication. Advised an spelled quilipta. Thank You, Hodan Pimentel [facility] Telephone Assembler III [facility] 04/26/2024, 10:31 AM * Telephone Encounter - Hodan Pimentel sample wrapper - 04/25/2024 11:17 AM EST Pt calling as she was advised her shot was change to a tablet (quilipta) Called [facility] [place]. They advised in [place]. Asked [facility] to transfer prescription. Will have to be ordered. Will have 04/26/24 after 4 p.m. Thank You, Hodan Pimentel [facility] Telephone Assembler III [facility] 04/25/2024, [...] Dosage: 1.5 ml per 30 days ID: [id number] BIN:[id number] PCN:[id number] Phone: [employer] ship date is 04-03. Thank you very much, Ludmila Mcclellan CPhT Drawing Tender Rn Chronic [facility] documented in this encounter Plan of Treatment Upcoming Encounters Date Type Department Care Team (Late st Contact Info) Description 05/12/2024 8:00 AM EST Office Visit Otolaryngology [facility] [address] [place] [address] Myranda Rowan PA-C [address] [place] [address] 05/22/2024 9:20 AM EST Office Visit Neurology [facility] [address] [facility] [place] [address] Afshan Bee MD [address] [facility] [place] [address] 07/21/2024 3:00 PM EST Office Visit Gastroenterology [address] [place] [address] Cheri Jay CRNP [address] [place] [address] 11/22/2024 8:00 AM EDT Office Visit Family Medicine [address] [place] [phone] Shahla Hamlin MD [address] [place] [address] [place] [address] 03/26/2025 1:00 PM EDT Nurse Only Ancillary [address] [place] [address] [place], Nurse Annual Wellness [address] [place] [address] [place] [address] Scheduled Procedures Name Priority Associated Diagnoses Date/Ti [...] filedocumented as of this encounter Care Teams Lock Technician Relationship Specialty Start Date End Date Shahla Hamlin MD [address] [place] [address] [place] [address] PCP - General Family Medicine 02/24/24 documented as of this encounter
--- OUTSIDE RECORDS SUMMARY | 2024-09-01 18:26 | External Medical Summary | Summary of Care ---
Author Name Unknown Organization [facility] Address [address] [place] [address] Phone [phone] Care Team Providers Care Assistant Press Operator Name Role Phone Shahla Hamlin MD Primary Care Provide r Reason for Visit * Reason Onset Date Comments Medication Refill 05/26/2024 Encounter Details Date Type Department Care Team (Late st Contact Info) Description 05/26/2024 Refill Family Medicine [address] [phone] Shahla Hamlin MD [address] [place] [address] [place] [address] Irritable bowel syndrome with constipation Allergies Active Allergy Reactions Criticality Noted Date Comments Iodinated Contrast Media Edema face/lips/tongue High 05/11/2007 hives documented as of this encounter (statuses as of 05/26/2024) Medications CALCIUM 600 MG PO TABS 1 [...] 90 Tab 1 03/14/20 19 Active Ipratropium [place] HFA 17 MCG/ACT Inhalation Aerosol Solution (Atrovent [...] day 30 Tablet 5 03/24/20 24 Active Pregabalin 75 MG Oral Capsule [...] meals. 180 Capsule 1 05/26/20 24 Active Lubiprostone 24 MCG Oral Capsule (Amitiza)Indicati ons:Irritable bowel syndrome with constipation Take 1 Capsule by mouth 2 times a day with morning and evening meals. 180 Capsule 1 04/04/20 24 024 Discontin ued(Refil l) documented as of this encounter (statuses as of 05/26/2024) Active Problems Problem Noted Date Diagnosed Date [...] as of this encounter (statuses as of 05/26/2024) Resolved Problems Problem Noted Date Diagnosed Date Resolved Date PMR (polymyalgia rheumatica) 11/16/2011 12/01/2023 Acute cystitis 09/03/2009 04/11/2011 Dyslipidemia, goal to be determined 05/16/2009 12/01/2023 Overview (05/16/2009): Per Lipid Taxonomy. Benign neoplasm of colon 07/29/200807/2023 Overview (08/24/2008): fair prep- 2 mm polyp removed, repeat in 3 yrs, adenomatous polyps MEDICATION USE AGREEMENT 12/27/200705/2009 Overview (12/27/2007): Managed by Dr Nuno ([phone]). To view the Medication Usage Agreement, go [...] as of this encounter (statuses as of 05/26/2024) Immunizations Name Administration Dates Next Due COVID-19 mRNA, LNP-s, PF, 18 + or 6-11Yrs (Moderna) 01/07/2022,05/06/2021,09/13/2020,08/16 COVID-19, MRNA-LNP, PF, 30 M CG/0.3 mL, 12 YRS AND ABOVE, IM (PFIZER-Comirnaty) 03/22/2024 Pneumococcal Conjugate Vacci ne, 20-valent ([id number]) 03/07/2024 Pneumococcal Polysaccharide PPV23 (Pneumovax) 01/09/2019 Seasonal [...] encounter Miscellaneous Notes * Telephone Encounter - Sage Morris RPh - 05/26/2024 9:01 AM EST Signed Prescriptions: Disp Refills Lubiprostone 24 MCG Oral Capsule (Amitiza) 180 Ca*1 Sig: Take 1 Capsule by mouth 2 times a day with morning and evening meals.Authorizing Provider: ANY HAMLIN * Telephone Encounter - Shahla Hamlin MD - 05/26/2024 8:57 AM EST Signed Prescriptions: Disp Refills Lubiprostone 24 MCG Oral Capsule (Amitiza) 180 Ca*1 Sig: Take 1 Capsule by mouth 2 times a day with morning and evening meals. Authorizing Provider: SHAHLA HAMLIN * Telephone Encounter - Racquel Howard CPhT - 05/26/2024 8:47 AM EST Routed to correct pool. Thank you, Racquel Howard [employer] Trader II [facility] 05/26/2024, 8:47 AM * Telephone Encounter - Racquel Howard CPhT - 05/26/2024 8:46 AM EST Did you pend patient's preferred pharmacy and medication before forwarding?yes Pharmacy: [facility] #[id number] Pending Prescriptions: Disp Refills Lubiprostone 24 MCG Oral Capsule (Amitiza)180 Ca*1 Sig: Take 1 Capsule by mouth 2 times a day with morning and evening meals. Last Visit: 03/07/2024 (in office), Visit date not found (telemedicine) Next Visit: 11/22/2024 If no future appointments scheduled, and last appointment is greater than a year ago, please schedule patient for a follow-up appointment Last date the medication was ordered: 04/04/2024 Is this request for a controlled substance?No [...] Care Team (Late st Contact Info) Description 05/29/2024 1:00 PM EST Office Visit Otolaryngology [facility] [address] [place] [address] Juno De Oliveira PA-C [address] [address] 07/06/2024 11:20 AM EST Office Visit Neurology [facility] [address] [facility] [place] [address] Afshan Bee MD [address] [facility] [place] [address] 07/21/2024 3:00 PM EST Office Visit Gastroenterology [address] [place] [address] Cheri Jay CRNP [address] [place] [address] 11/22/2024 8:00 AM EDT Office Visit Family Medicine [address] [place] [phone] Shahla Hamlin MD [address] [place] [address] [place] [address] 03/26/2025 1:00 PM EDT Nurse Only Ancillary [place] [address] [place] [address] [place], Nurse Annual Wellness [address] [place] [address] [place] [address] Scheduled Procedures Name Priority Associated Diagnoses Date/Ti [...] as of this encounter Visit Diagnoses Diagnosis Irritable bowel syndrome with constipation Irritable bowel syndrome documented in this encounter Care Teams Assistant Press Operator Relationship Specialty Start Date End Date Shahla Hamlin MD [address] [place] [address] [place] [address] PCP - General Family Medicine 02/24/24 documented as of this encounter
--- OUTSIDE RECORDS SUMMARY | 2024-09-01 18:26 | External Medical Summary | Summary of Care ---
Author Name Unknown Organization [facility] Address [address] [place] [address] Phone [phone] Care Team Providers Care Editor Name Role Phone Shahla Hamlin MD Primary Care Provide r Reason for Visit * Auth/Cert Specialty Diagnoses / Procedures Referred By Diego t Referred To Contact Diagnoses Dysphagia Dysphagia [R13.10] Procedures EGD, FLEXIBLE, DIAGNOSTIC ESOPHAGOGASTRODUODENOSCOPY (EGD), FLEXIBLE, TRANSORAL, DIAGNOSTIC Puneet Franks MD [address] [place] [address] Phone: tel: fax: ENDO [facility], Endoscopy Room [facility] [address] [place] [phone] Phone: tel: Referral ID Status Reason Start Date Expiration Date Visits Re quested Visits Authorized [id number] Encounter Details Date Type Department Care Team (Latest Contact Info) Description 05/22/2024 7:52 AM EST - 05/22/2024 9:52 AM EST Hospital Encounter ENDO [facility], Endoscopy Room [facility] [address] [place] [phone] Puneet Franks MD [address] [place] [address] Upper GI Endoscopy Discharge Disposition: Home - Self Care Allergies Active Allergy Reactions Criticality Noted Date Comments Iodinated Contrast Media Edema face/lips/tongue High 05/11/2007 hives documented as of this encounter (statuses as of 05/22/2024) Medications CALCIUM 600 MG PO TABS 1 [...] MEDS 90 Tab 1 9 Active Ipratropium Mousie HFA 17 MCG/ACT Inhalation Aerosol Solution (Atrovent Hfa) Inhale 2 Puffs by mouth every 6 hours. Active Atorvastatin Calcium 20 MG Oral Tablet (Lipitor) Take 1 Tablet by mouth in the morning. 4 Active Escitalopram Oxalate 20 MG Oral Tablet (Lexapro) Take 1 Tablet by mouth at bedtime. 4 Active Ajovy 225 MG/1.5ML Subcutaneous Solution Auto-injector (Frekalyanezumab-vfr m)Indications:Int ractable migraine with aura with status [...] before breakfast. 30 Capsule 3 4 Active Multi For Her Oral Tablet Take 1 Tablet by mouth in the morning. Active documented as of this encounter (statuses as of 05/22/2024) Active Problems Problem Noted Date Diagnosed Date [...] as of this encounter (statuses as of 05/22/2024) Resolved Problems Problem Noted Date Diagnosed Date Resolved Date PMR (polymyalgia rheumatica) 11/16/2011 12/01/2023 Acute cystitis 09/03/2009 04/11/2011 Dyslipidemia, goal to be determined 05/16/2009 12/01/2023 Overview (05/16/2009): Per Lipid Taxonomy. Benign neoplasm of colon 07/29/200807/2023 Overview (08/24/2008): fair prep- 2 mm polyp removed, repeat in 3 yrs, adenomatous polyps MEDICATION USE AGREEMENT 12/27/200705/2009 Overview (12/27/2007): Managed by Dr Nuno ([phone]). To view the Medication Usage Agreement, go to Action, Patient Files. Benign neoplasm of colon 11/10/200707/2023 Overview (11/22/2007): biopsies--acid reflux, negative for Amin's and H.Pylori ADVANCE DIRECTIVE INFORMATION 06/06/2007 04/03/2024 Overview (06/06/2007): No, Advance Directive brochure given to patient. Myalgia and myositis 05/11/2007 07 024 Migraine with aura, intractable 05/11/2007 12/01/2023 Mixed dyslipidemia 05/11/2007 9 Overview (05/16/2009): Per Lipid Taxonomy. Chronic sinusitis 05/13/2017 documented as of this encounter (statuses as of 05/22/2024) Immunizations Name Administration Dates Next Due COVID-19 mRNA, LNP-s, PF, 18 + or 6-11Yrs (Moderna) 01/07/2022,05/06/2021,09/13/2020,08/16 COVID-19, MRNA-LNP, PF, 30 M CG/0.3 mL, 12 YRS AND ABOVE, IM (PFIZER-Comirnaty) 03/22/2024 Pneumococcal Conjugate Vacci ne, 20-valent ([id number]) 03/07/2024 Pneumococcal Polysaccharide PPV23 (Pneumovax) 01/09/2019 Seasonal [...] No 03/22/2024 Does the household have a [facility]? (Household - for [...] Sign Reading Time Taken Comments Blood Pressure 129/77 05/22/2024 9:08 AM EST Pulse 74 05/22/2024 9:08 AM EST Temperature 36.2 °C (97.2 °F) 05/22/2024 9:08 AM ES T Respiratory Rate 16 05/22/2024 9:08 AM EST Oxygen Saturation 100% 05/22/2024 9:08 AM EST Inhaled Oxygen Concentration - - Weight 62.6 kg (138 lb) 05/19/2024 2:50 PM EST Height 152.4 cm (5') 05/19/2024 2:50 PM EST Body Mass Index 26.95 05/19/2024 2:50 PM EST documented in this encounter H&P Notes * Puneet Franks MD - 05/22/2024 8:18 AM EST Endoscopy Pre-Procedure Assessment Name: Zeny Nuñez Date: 05/22/2024 Time: 8:18 AM Procedure: Upper GI Endoscopy; with Indication(s) of dysphagia or odynophagia Endoscopy Pre-Procedure Assessment: Prior to the procedure, the patient was identified. The patient's history, medications and allergies were reviewed as per the Anesthesia Assessment. The patient is competent. The risks and benefits of the proposed procedure and the planned sedation were discussed with the patient. All questions were answered and informed consent for the procedure was obtained. This patient has undergone a preprocedural evaluation. A determination has been made to proceed with the planned procedure under [facility] procedural guidelines and the [facility] Non-Emergent, Elective Medical Services and Treatment Recommendations (published on 09-05-19). The community and hospital prevalence of COVID-19 has been discussed as well as this patient's specific risks associated with SARS-CoV-19 infection. Based upon the clinical acuity and patient-specific care considerations, this procedure is deemed a Tier II - Intermediate acuity treatment or service with either progression or the threat of progressive disease related to the delay in treatment. Not providing the service has the potential for increasing morbidity or mortality. Ht 1.524 m (5') | Wt 62.6 kg (138 lb) | BMI 26.95 kg/m² | BSA 1.63 m² Prior to Admission medications Medication Sig Last Dose Discont. Multi For Her Oral Tablet Take 1 Tablet by mouth in the morning. 05/21/2024 Morning Esomeprazole Magnesium 40 MG Oral Capsule Delayed Release Take 1 Capsule by mouth daily before breakfast. 05/21/2024 Evening Pregabalin 75 MG Oral Capsule (Lyrica) TAKE 1 CAPSULE BY MOUTH EVERY NIGHT AT BEDTIME. 05/21/2024 Evening Lubiprostone 24 MCG Oral Capsule (Amitiza) Take 1 Capsule by mouth 2 times a day with morning and evening meals. 05/21/2024 Evening Qulipta 60 MG Oral Tablet (Atogepant) Take one by mouth each day 05/21/2024 Evening Amitriptyline HCl 75 MG Oral Tablet (Elavil) TAKE 1 TABLET BY MOUTH EVERYDAY AT BEDTIME 05/21/2024 Evening SUMAtriptan Succinate 50 MG Oral Tablet (Imitrex) 1 at onset of migraine may repeat in 2 hours max 2 doses in 24 hour 05/21/2024 Evening Atorvastatin Calcium 20 MG Oral Tablet (Lipitor) Take 1 Tablet by mouth in the morning. 05/21/2024 Morning Escitalopram Oxalate 20 MG Oral Tablet (Lexapro) Take 1 Tablet by mouth at bedtime. 05/21/2024 Evening levothyroxine (LEVOXYL) 25 MCG Tablet take 1 tablet by mouth every morning 30 MINUTES BEFORE BREAKFAST AND OTHER MEDS 05/21/2024 Morning Mometasone Furoate 50 MCG/ACT nasal spray instill 2 sprays into each nostril once daily 05/21/2024 Evening Azelastine HCl 137 MCG/SPRAY SOLN instill 2 sprays into each nostril twice a day 05/21/2024 Evening FLOVENT HFA 110 MCG/ACT inhaler inhale 2 puffs by mouth twice a day 05/21/2024 Evening sucralfate (CARAFATE) 1 GM Tablet take 1 tablet by mouth four times a day BEFORE MEALS AND AT BEDTIME 1/2 HOUR BEFORE MEALS AND AT BEDTIME 05/21/2024 Evening rOPINIRole (REQUIP) 0.25 MG Tablet Take 2 Tablets by mouth at bedtime. 05/21/2024 methocarbamol (ROBAMOL) 750 MG Tablet Take 1 Tablet by mouth in the morning and 1 Tablet before bedtime. 05/21/2024 Evening BÁRBARA 180 MG PO TABS Take by mouth 2 times a day. 05/21/2024 Evening CALCIUM 600 MG PO TABS 1 tablet daily 05/21/2024 Morning MAGNESIUM 500 MG PO TABS Take by mouth 2 times a day. 05/21/2024 Evening VITAMIN D3 1000 UNITS PO CAPS 1 tablet daily 05/21/2024 Morning Zoster Vac Recomb Adjuvanted 50 MCG/0.5ML Intramuscular Suspension Reconstituted (Shingrix) Inject 0.5 mL into a large muscle now and repeat dose in 60 to 180 days Ajovy 225 MG/1.5ML Subcutaneous Solution Auto-injector (Frekalyanezumab-vfrm) Inject 1.5 ml under the skin once a month Patient not taking: Reported on 05/19/2024 Not Taking Ipratropium Mousie HFA 17 MCG/ACT Inhalation Aerosol Solution (Atrovent Hfa) Inhale 2 Puffs by mouth every 6 hours. Patient not taking: Reported on 05/19/2024 Not Taking VENTOLIN HFA 108 (90 Base) MCG/ACT inhaler inhale 2 puffs by mouth four times a day if needed Over 30 Days Review of patient's allergies indicates: Allergen Reactions Iodinated Contrast Media Edema face/lips/tongue hives Physical Exam: Mental Status Examination: alert and oriented. General: nad, calm Airway Examination: normal oropharyngeal airway and neck mobility. CV: no JVD Respiratory Examination: symmetrical excursion Abd:soft/ntd ASA Grade: III - A patient with severe systemic disease. After reviewing the risks and benefits, the patient was deemed in satisfactory condition to undergothe procedure. The anesthesia plan was to use general anesthesia. Puneet Franks MD 05/22/2024 documented in this encounter Procedure Notes * Shahla Hamlin MD - 05/22/2024 8:18 AM ESTAssociated Order(s): UPPER GI ENDOSCOPY [facility] Patient Name: Zeny Nuñez Procedure Date: 05/22/2024 8:18 AM Date of : 1955 Admit Type: Outpatient Note Status: Finalized Date of : 1955 Admit Type: Outpatient Age: 69 Room: [facility] 2 Gender: Female Note Status: Finalized Procedure: Upper GI endoscopy Indications: Dysphagia Providers: Puneet Franks MD (Doctor) Referring MD: Shahla Hamlin (Referring MD) Medicines: Propofol per Anesthesia Complications: No immediate complications. Estimated blood loss: None. Procedure: Pre-Anesthesia Assessment: - - Prior to the procedure, a History and Physical was performed, patient medications, allergies and sensitivities were reviewed. The patient's tolerance of previous anesthesia was reviewed. See Epic for further details. - The risks, benefits, and alternatives of the procedure including the sedation options and risks were discussed with the patient. All questions were answered and informed consent was obtained. - Patient identification and proposed procedure were verified prior to the procedure by the physician and the nurse. The procedure was verified in the procedure room. - See [facility] for documentation of the pre-procedure assessment including ASA status. - After I obtained informed consent, the scope was carefully and meticulously passed under direct vision only when the lumen was definitively identified. CO2 insufflation was utilized throughout the entire procedure exclusively. After obtaining informed consent, the endoscope was passed under direct vision. All instruments were visually inspected immediately before and after removal from the patient to ensure they are fully intact. Throughout the procedure, the patient's blood pressure, pulse, and oxygen saturations were monitored continuously. The upper GI endoscopy was accomplished without difficulty. The patient tolerated the procedure well. The GIF-H180J Endoscope([id number]) was introduced through the mouth, and advanced to the second part of duodenum. Findings & Specimens: No endoscopic abnormality was evident in the esophagus to explain the patient's complaint of dysphagia. It was decided, however, to proceed with dilation of the entire esophagus. A guidewire was placed and the scope was withdrawn. Dilation was performed with a Savary dilator with mild resistance at 15 mm. The dilation site was examined and showed no change. A single 1 mm sessile polyp with no stigmata of recent bleeding was found in the gastric antrum. The polyp was removed with a jumbo cold forceps. Resection and retrieval were complete. The pathology specimen was placed into Bottle Number 1. The examined duodenum was normal. Impression: - No endoscopic esophageal abnormality to explain patient's dysphagia. Esophagus dilated. Dilated. - A single gastric polyp. Resected and retrieved. - Normal examined duodenum. Recommendation: - Discharge patient to home (with escort). - Pathology results will be reviewed with appropriate recommendations to follow. - Return to referring physician as previously scheduled. - Patient has a contact number available for emergencies. The signs and symptoms of potential delayed complications were discussed with the patient. Return to normal activities tomorrow. Written discharge instructions were provided to the patient. Puneet Franks MD 05/22/2024 8:47:30 AM This report has been signed electronically. documented in this encounter Nursing Notes * Lashell Bates RN - 05/22/2024 9:50 AM EST Patient is alert, pain free, passing flatus and tolerating po fluids prior to discharge. Patient has been visited by Dr. Franks. Patient has received and demonstrates understanding of discharge instructions. Patient is transported via w/c to private auto accompanied by endo staff. * Lashell Bates RN - 05/22/2024 9:04 AM EST Patient is tolerating PO fluids. Patient's is at bedside, per patient's request. * Lashell Bates RN - 05/22/2024 8:53 AM EST Patient transferred to pacu 2 status post EGD. Patient is quietly sleeping. Respirations are even and unlabored on room air. Abdomen soft and non distended. Vital signs stable. Report was received from IVAN. RN at bedside. Call saldana is available to the patient. * Leilani Drake RN - 05/22/2024 8:49 AM EST See anesthesia record for medication administered during procedure. Leilani Drake RN Specimen(s) and location(s) verified with physician post procedure 8:49 AM Leilani Drake RN Pre cleaning of scope at the bedside started by planning technician. Pt tolerated her EGD with dilation and bx well. Escorted to the PACU lying quietly on her left side. * Felicia Quiroga RN - 05/22/2024 8:12 AM EST The following pt discharge instructions reviewed with pt prior to prodedure: No driving today. No alcohol today. No signing of legal documents. Rest as much as possible today and can return to normal activities tomorrow. No operating any heavy equipment today. Diet as tolerated. Pt verbalized understanding. documented in this encounter Plan of Treatment Upcoming Encounters Date Type Department Care Team (Late st Contact Info) Description 05/29/2024 1:00 PM EST Office Visit Otolaryngology [facility] [address] [place] [address] Juno De Oliveira PA-C [address] [place] [address] 07/06/2024 11:20 AM EST Office Visit Neurology [facility] [address] [facility] [place] [address] Afshan Bee MD [address] [place] [address] 07/21/2024 3:00 PM EST Office Visit Gastroenterology [address] [place] [address] Cheri Jay CRNP [address] [place] [address] 11/22/2024 8:00 AM EDT Office Visit Family Medicine [address] [place] [phone] Shahla Hamlin MD [address] [place] [address] [place] [address] 03/26/2025 1:00 PM EDT Nurse Only Ancillary [address] [place] [address] [place], Nurse [address] [place] [address] Pending Results Name Type Priority Associated Diagnoses Date /Time SURGICAL PATHOLOGY Pathology Routine Dysphagia 05/22/2024 8:48 AM EST Scheduled Orders Name Type Priority Associated Diagnoses Orde r Schedule SURGICAL PATHOLOGY Pathology Routine Dysphagia Release Upon Ordering for 1 Occurrences starting 05/22/2024, 1 completed Scheduled Procedures Name Priority Associated Diagnoses Date/Ti nj ESOPHAGOGASTRODUODENOSCOPY ( EGD), FLEXIBLE, TRANSORAL, DIAGNOSTIC Dysphagia 05/22/2024 8:36 AM EST COLONOSCOPY FLEXIBLE PROXIMA L DIAGNOSTIC [...] Not on filedocumented as of this encounter Procedures Procedure Name Priority Date/Time Associated Diagnosis Comments UPPER GI ENDOSCOPY 05/22/2024 8: 18 AM EST documented in this encounter Results * UPPER GI ENDOSCOPY (05/22/2024 8:18 AM EST) 05/22/2024 8:18 AM EST Narrative Procedure Note Shahla Hamlin MD - 05/22/2024 8:18 AM EST [facility] Patient Name: Zeny Nuñez Procedure Date: 05/22/2024 8:18 AM Date of : 1955 Admit Type: Outpatient Note Status:Finalized Date of : 1955 Admit Type: Outpatient Age: 69 Room: [facility] 2 Gender: Female Note Status: Finalized Procedure: Upper GI endoscopy Indications: Dysphagia Providers: Puneet Franks MD (Doctor) Referring MD: Shahla Hamlin (Referring MD) Medicines: Propofol per Anesthesia Complications: No immediate complications. Estimated blood loss:None. Procedure: Pre-Anesthesia Assessment: - - Prior to the procedure, a History and Physicalwas performed, patient medications, allergies and sensitivities were reviewed. Thepatient's tolerance of previous anesthesia was reviewed. See [facility] for furtherdetails. - The risks, benefits, and alternatives of theprocedure including the sedation options and risks were discussed with the patient.All questions were answered and informed consent was obtained. - Patient identification and proposed procedurewere verified prior to the procedure by the physician and the nurse. The procedure wasverified in the procedure room. - See [facility] for documentation of the pre-procedureassessment including ASA status. - After I obtained informed consent, the scope wascarefully and meticulously passed under direct vision only when the lumen wasdefinitively identified. CO2 insufflation was utilized throughout the entire procedureexclusively. After obtaining informed consent, the endoscope waspassed under direct vision. All instruments were visually inspected immediatelybefore and after removal from the patient to ensure they are fully intact. Throughout the procedure, the patient's bloodpressure, pulse, and oxygen saturations were monitored continuously. The upper GI endoscopywas accomplished without difficulty. The patient tolerated the procedurewell. The GIF-H180J Endoscope([id number]) [facility], and advanced to the second part of duodenum. Findings & Specimens: No endoscopic abnormality was evident in the esophagus to explain thepatient's complaint of dysphagia. It was decided, however, to proceed with dilation of the entireesophagus. A guidewire was placed and the scope was withdrawn. Dilation was performed with a Savary dilatorwith mild resistance at 15 mm. The dilation site was examined and showed no change. A single 1 mm sessile polyp with no stigmata of recent bleeding wasfound in the gastric antrum. The polyp was removed with a jumbo cold forceps. Resection and retrievalwere complete. The pathology specimen was placed into Bottle Number 1. The examined duodenum was normal. Impression: - No endoscopic esophageal abnormality to explainpatient's dysphagia. Esophagus dilated. Dilated. - A single gastric polyp. Resected and retrieved. - Normal examined duodenum. Recommendation: - Discharge patient to home (with escort). - Pathology results will be reviewed withappropriate recommendations to follow. - Return to referring physician as previouslyscheduled. - [facility] The signs and symptoms of potential delayed complications were discussed withthe patient. Return to normal activities tomorrow. Written discharge instructionswere provided to the patient. Puneet Franks MD 05/22/2024 8:47:30 AM This report has been signed electronically. Shahla Hamlin MD GASTRO UPPER Final Result documented in this encounter Visit Diagnoses Diagnosis Dysphagia Dysphagia, unspecified documented in this encounter Administered Medications Inactive Administered Medications - up to 3 most recent administrations Medication Order MAR Action Action Date Dose Rate Site Isolyte-S pH 7.4 infusion Intravenous, at 100 mL/hr, Plasma-LYTE 148, isolyte-S, and isolyte-S pH 7.4 are considered equivalent - including for MAR barcode scanning., CONTINUOUS, Starting on Wed05/22/24 at 0845, Until Wed05/22/24 at 1352, Pre-Op documented in this encounter Active and Recently Administered Medications Times are shown in EST. Continuous Medication Order 05/20/2024 05/21/2024 05/22/2024 Isolyte-S pH 7.4 infusion Intravenous, at 100 mL/hr, Plasma-LYTE 148, isolyte-S, and isolyte-S pH 7.4 are considered equivalent - including for MAR barcode scanning., CONTINUOUS, Starting on Wed05/22/24 at 0845, Until Wed05/22/24 at 1352, Pre-Op 0845 (Due)0845 (Anes Intra-Op Fluid - Provider: Ingris Wright CRNA) documented in this encounter Care Teams Editor Relationship Specialty Start Date End Date Shahla Hamlin MD [address] [place] [address] [place] [id number] PCP - General Family Medicine 02/24/24 documented as of this encounter"
--- OUTSIDE RECORDS SUMMARY | 2024-09-01 18:27 | External Medical Summary | Summary of Care ---
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 Name Role Phone Shahla Hamlin MD Primary Care Provide r Reason for Visit * Reason Comments Re-Check 3 mo Encounter Details Date Type Department Care Team (Late st Contact Info) Description 03/07/2024 10:00 AM EDT Office Visit Family Medicine [address] [phone] Shahla Hamlin MD [address] [place] [address] [place] [address] Prediabetes*; Fibromyalgia; Postmenopausal status, age-related; Need for pneumococcal vaccination; Need for shingles vaccine; Anemia, unspecified type; Migraine without aura and without status migrainosus, not intractable; Irritable bowel syndrome with constipation Allergies Active Allergy Reactions Criticality Noted Date Comments Iodinated Contrast Media Edema face/lips/tongue High 05/11/2007 hives documented as of this encounter (statuses as of 04/18/2024) Medications CALCIUM 600 MG PO TABS 1 [...] MEDS 90 Tab 1 019 Active Ipratropium [place]port HFA 17 MCG/ACT Inhalation Aerosol Solution (Atrovent [...] 1.5 mL 5 4 11:45 AM EDT Active Additional Information Patient not taking.Reported on 03/07/2024 SUMAtriptan Succinate 50 MG Oral Tablet (Imitrex)Indicat ions:Intractable migraine with aura with status migrainosus 1 at onset of migraine may repeat in 2 hours max 2 doses in 24 hour 10 Tablet 5 Active Amitriptyline HCl 75 MG Oral Tablet (Elavil)Indicati ons:Migraine without aura and without status migrainosus, not intractable TAKE 1 TABLET BY MOUTH EVERYDAY AT BEDTIME 90 Tablet Active Zoster Vac Recomb Adjuvanted 50 MCG/0.5ML Intramuscular Suspension Reconstituted (Shingrix)Indica tions:Need for shingles vaccine Inject 0.5 mL into a large muscle now and repeat dose in 60 to 180 days 1 Each 1 Active ULTRAM 50 MG PO TABS Take by mouth. 2023 Discontinued(M edication List Clean Up) Lubiprostone 24 MCG Oral Capsule (Amitiza) Take 1 Capsule by mouth 2 times a day with morning and evening meals. 2023 Discontinued(R efill) Pantoprazole Sodium 40 MG Oral Tablet Delayed Release (Protonix) Take 1 Tablet by mouth in the morning and 1 Tablet in the evening. 023 2023 Discontinued Omeprazole 40 MG Oral Capsule Delayed Release (PriLOSEC) TAKE 1 CAPSULE BY MOUTH TWICE A DAY 30 MIN BEFORE BREAKFAST AND DINNER 2023 Discontinued Pregabalin 75 MG Oral Capsule (Lyrica)Indicati ons:Fibromyalgia Take 1 Capsule by mouth every night at bedtime. 30 Capsule 024 2023 Discontinued(R efill) Arnuity Ellipta 100 MCG/ACT Inhalation Aerosol Powder Breath Activated (fluticasone Furoate) Inhale 1 Puff by mouth. 2023 Discontinued(M edication List Clean Up) Pregabalin 75 MG Oral Capsule (Lyrica)Indicati ons:Fibromyalgia Take 1 Capsule by mouth every night at bedtime. 30 Capsule 024 2023 Discontinued Lubiprostone 24 MCG Oral Capsule (Amitiza)Indicat ions:Irritable bowel syndrome with constipation Take 1 Capsule by mouth 2 times a day with morning and evening meals. 60 Capsule 1 024 2023 Discontinued(R efill) documented as of this encounter (statuses as of 04/18/2024) Active Problems Problem Noted Date Diagnosed Date [...] as of this encounter (statuses as of 04/18/2024) Resolved Problems Problem Noted Date Diagnosed Date Resolved Date PMR (polymyalgia rheumatica) 11/16/2011 12/01/2023 Acute cystitis 09/03/2009 04/11/2011 Dyslipidemia, goal to be determined 05/16/2009 12/01/2023 Overview (05/16/2009): Per Lipid Taxonomy. Benign neoplasm of colon 07/29/200807/2023 Overview (08/24/2008): fair prep- 2 mm polyp removed, repeat in 3 yrs, adenomatous polyps MEDICATION USE AGREEMENT 12/27/200705/2009 Overview (12/27/2007): Managed by Dr Nuno ([phone]). To view the Medication Usage Agreement, go [...] as of this encounter (statuses as of 04/18/2024) Immunizations Name Administration Dates Next Due COVID-19 mRNA, LNP-s, PF, 18 + or 6-11Yrs (Moderna) 01/07/2022,05/06/2021,09/13/2020,08/16 Pneumococcal Conjugate Vacci ne, 20-valent ([id number]) 03/07/2024 Pneumococcal Polysaccharide PPV23 (Pneumovax) 01/09/2019 Seasonal [...] pur e alcohol) PHQ-2 Answer Date Recorded PHQ-2 Score -1 04/03/2018 Comments No Sex and Gender Information Value [...] Sign Reading Time Taken Comments Blood Pressure 150/84 03/07/2024 10:16 AM EDT Pulse 100 03/07/2024 10:16 AM EDT Temperature 35.9 °C (96.6 °F) 03/07/2024 10:16 AM E DT Respiratory Rate - - Oxygen Saturation 90% 03/07/2024 10:16 AM EDT Inhaled Oxygen Concentration - - Weight 73.2 kg (161 lb 6.4 oz) 03/07/2024 10:16 AM EDT Height - - Body Mass Index 31.52 12/01/2023 5:09 PM EDT documented in this encounter Patient Instructions * Patient Instructions* Kary Gimenez CMA - 03/07/2024 10:18 AM EDT Osteoporosis: Screening for Bone Loss The strength of bones is measured by their density (thickness). High bone density means bones are less likely to fracture. If you are at risk for bone loss, your healthcare provider may refer you forbone density testing. Bone Density Testing Bone density testing is safe, quick, easy, and painless. Testing can detect osteoporosis before a fracture happens. It can also predict the risk of future fractures. And testing can measure the response to treatment. There are two types of tests that you may have: •Peripheral tests are used for screening. They measure density in the finger, wrist, knee, ascencio, or heel. A common peripheral test is the quantitative ultrasound (QUS). •Central tests are used for diagnosis. They measure density in the hip or spine. The main centraltest is the dual energy x-ray absorptiometry (DXA). The DXA is the standard bone density test. Who Should Be Tested? •All postmenopausal women under age 65, with one or more risk factors in addition to menopause. •All women age 65 and older. •Postmenopausal women with fractures. •Women who are thinking about treatment for osteoporosis. •Women who have been on hormone therapy for a long time. •Men or women with certain medical conditions or who are taking certain medications (such as glucocorticoids or prednisone) for a long period. Common Testing Sites Any bone can fracture, but with osteoporosis some bones fracture more easily. These include bones in the spine, wrist, shoulder, and hip. That’s why bone density testing may be done at one or more of these sites. Understanding Your Results The results of your test may seem confusing at first. Don’t be afraid to ask your provider to explain. Your bone mineral density (BMD) describes the thickness of the bone that was scanned. Your healthcare provider will compare your BMD with the BMD of young, healthy bone. The result is called a T-score. Bones remodel at different rates. So, a healthy T-score in the wrist doesn’t mean the spine is also healthy. That’s why more than one site may be scanned. © 8524-0325 [facility], [address] [place] [address], [place] [address]. All rights reserved. This information is not intended as a substitute for professional medical care. Always follow your healthcare professional's instructions ~~PATIENT INSTRUCTIONS FOR PNEUMOCOCCAL VACCINE~~ Possible side effects of pneumococcal vaccine, (pneumonia shot), are usually mild and can include: 1. Soreness or redness at injection site 2. Low grade fever 3. Body aches You may use Tylenol/Acetaminophen as needed for these symptoms. LET YOUR DOCTOR KNOW IMMEDIATELY IF YOU HAVE DIFFICULTY BREATHING OR SWALLOWING, EXPERIENCE ITCHINGOF FEET OR HANDS, HAVE SWELLING OF EYES, FACE OR INSIDE OF NOSE. documented in this encounter Progress Notes * Shahla Hamlin MD - 03/07/2024 10:24 AM EDT Subjective: HPI: Zeny Nuñez is a 68 year old female with hx of Hypothyroidism, Fibromyalgia, Asthma, Migraine, RLS, GERD, Depression/anxiety, Prediabetes, IBS seen for Still having migraine flare - in the process of getting Ajovy ---on Amitriptyline 75mg qhs Prediabetes: - eats a lot of carbs (bread) Anemia: - denied any black stool or bloody stool Fibromyaglia - on lyrica Per pt she has IBS and takes lubiprostone for constipation Patient Active Problem List Diagnosis Esophageal reflux ADVANCE DIRECTIVE INFORMATION Hypothyroidism Major depressive disorder NONALLERGIC RHINITIS Essential and other specified forms of tremor Migraine without aura and without status migrainosus, not intractable Fibromyalgia Anxiety RLS (restless legs syndrome) Mild persistent asthma without complication Prediabetes Current Outpatient Medications Medication Sig Dispense Refill [...] 2 Tablets by mouth at bedtime. 0 sucralfate (CARAFATE) 1 GM Tablet [...] nostril twice a day 30 mL 5 VENTOLIN HFA 108 (90 Base) MCG/ACT inhaler inhale 2 puffs by mouth four times a day if needed 18 g 5 Mometasone Furoate 50 MCG/ACT nasal spray instill 2 sprays into each nostril once daily 17 g 5 levothyroxine (LEVOXYL) 25 MCG Tablet take 1 tablet by mouth every morning 30 MINUTES BEFORE BREAKFAST AND OTHER MEDS 90 Tab 1 Ipratropium Keyport HFA 17 MCG/ACT Inhalation Aerosol Solution (Atrovent Hfa) Inhale 2 Puffs by mouth every 6 hours. Atorvastatin Calcium 20 MG Oral Tablet (Lipitor) Take 1 Tablet by mouth in the morning. Escitalopram Oxalate 20 MG Oral Tablet (Lexapro) Take 1 Tablet by mouth in the morning. Pantoprazole Sodium 40 MG Oral Tablet Delayed Release (Protonix) Take 1 Tablet by mouth in the morning and 1 Tablet in the evening. Omeprazole 40 MG Oral Capsule Delayed Release (PriLOSEC) TAKE 1 CAPSULE BY MOUTH TWICE A DAY 30 MINBEFORE BREAKFAST AND DINNER SUMAtriptan Succinate 50 MG Oral Tablet (Imitrex) 1 at onset of migraine may repeat in 2 hours max 2 doses in 24 hour 10 Tablet 5 Amitriptyline HCl 75 MG Oral Tablet (Elavil) TAKE 1 TABLET BY MOUTH EVERYDAY AT BEDTIME 90 Tablet 0 Pregabalin 75 MG Oral Capsule (Lyrica) Take 1 Capsule by mouth every night at bedtime. 30 Capsule 0 Zoster Vac Recomb Adjuvanted 50 MCG/0.5ML Intramuscular Suspension Reconstituted (Shingrix) Inject 0.5 mL into a large muscle now and repeat dose in 60 to 180 days 1 Each 1 Lubiprostone 24 MCG Oral Capsule (Amitiza) Take 1 Capsule by mouth 2 times a day with morning and evening meals. 60 Capsule 1 Ajovy 225 MG/1.5ML Subcutaneous Solution Auto-injector (Fremanezumab-vfrm) Inject 1.5 ml under the skin once a month (Patient not taking: Reported on 03/07/2024) 1.5 mL 5 No current facility-administered medications for this visit. Past Medical History: Diagnosis Date Allergic rhinitis Benign neoplasm of colon 07/2008 fair prep- 2 mm polyp removed, repeat in 3 yrs, adenomatous polyps Chronic sinusitis Migraine Osteoporosis Past Surgical History: Procedure Laterality Date COLONOSCOPY W/ BIOPSY (RECTUM) 08/22/08 fair prep- 2 mm polyp removed, repeat in 3 yrs, adenomatous polyps COLONOSCOPY, DIAGNOSTIC (RECTUM) 02/20/2013 COLONOSCOPY FLEXIBLE PROXIMAL DIAGNOSTIC performed by Inez Kumar MD at ENDOSCOPY [facility] COLONOSCOPY, DIAGNOSTIC (RECTUM) 02/28/2016 benign polyp, diverticulosis, repeat 10 yrs/COLONOSCOPY FLEXIBLE PROXIMAL DIAGNOSTIC performed by Inez Kumar MD at ENDOSCOPY [facility] EGD, FLEXIBLE, DIAGNOSTIC 02/22/2014 retained food in stomach, repeat w/ ext prep/ESOPHAGOGASTRODUODENOSCOPY (EGD), FLEXIBLE, TRANSORAL,DIAGNOSTIC performed by Inez Kumar MD at ENDOSCOPY [facility] EGD, FLEXIBLE, DIAGNOSTIC 03/08/2014 bx show reactive gastropathy/ESOPHAGOGASTRODUODENOSCOPY (EGD), FLEXIBLE, TRANSORAL, DIAGNOSTIC performed by Inez Kumar MD at ENDOSCOPY [facility] EGD, FLEXIBLE, DIAGNOSTIC 02/28/2016 normal bx/ESOPHAGOGASTRODUODENOSCOPY (EGD), FLEXIBLE, TRANSORAL, DIAGNOSTIC performed by Inez Kumar MD at ENDOSCOPY [facility] EGD, FLEXIBLE, DIAGNOSTIC 11/28/2018 Full stomach, procedure aborted/ESOPHAGOGASTRODUODENOSCOPY (EGD), FLEXIBLE, TRANSORAL, DIAGNOSTIC performed by Inez Kumar MD at ENDOSCOPY [facility] EGD, FLEXIBLE, DIAGNOSTIC 12/15/2018 normal/ESOPHAGOGASTRODUODENOSCOPY (EGD), FLEXIBLE, TRANSORAL, DIAGNOSTIC performed by Inez Kumar MD at ENDOSCOPY [facility] EGD, FLEXIBLE, W/BIOPSY 11/10/07 biopsies--acid reflux, negative for Amin's and H.Pylori EXPLORATION OF MAXILLARY SINUS last 09/2006 Sinus Surgery x4 - Drs. Ho and Won SLEEP STUDY, W/O CPAP 11/10/2007 no sleep apnea Review of patient's allergies indicates: Allergen Reactions Iodinated Contrast Media Edema face/lips/tongue hives Family History Problem Relation Name Age of Onset Breast Cancer Mother 40s; Rt Mastectomy Lung cancer Mother Emphysema Mother Heart failure Mother Lung Disorder Father due to mining Lung cancer Father Fibromyalgia Sister Heart attack Brother Congenital heart disease Son Social History Tobacco Use Smoking status: Never Smokeless tobacco: Never Tobacco comments: son and his girlfriend smoke in her apartment Substance Use Topics Alcohol use: No Vaping/E-Cigarette Use Vaping/E-Cigarette Substances Vaping/E-Cigarette Devices ROS: -Per HPI OBJECTIVE: BP 150/84 | Pulse 100 | Temp 35.9 °C (96.6 °F) | Wt 73.2 kg (161 lb 6.4 oz) | SpO2 90% | BMI 31.52 kg/m² | BSA 1.76 m² PHYSICAL EXAM: Vitals are reviewed General:. NAD, well developed HEENT:. Normal Conjunctiva, EOMI MSK:. Normal gait Psych:. AAOx3, normal affect ASSESSMENT/PLAN: Discussed low carb diet Will repeat CBC today BP elevated -- nurse visit in 2 weeks for BP check Prediabetes (Primary) Fibromyalgia - Pregabalin 75 MG Oral Capsule (Lyrica); Take 1 Capsule by mouth every night at bedtime. Postmenopausal status, age-related - DEXA SCAN/BONE MINERAL AXIAL Need for pneumococcal vaccination - PNEUMOCOCCAL VACC, PCV20, IM ([id number]) Need for shingles vaccine - Zoster Vac Recomb Adjuvanted 50 MCG/0.5ML Intramuscular Suspension Reconstituted (Shingrix); Inject 0.5 mL into a large muscle now and repeat dose in 60 to 180 days Anemia, unspecified type - CBC WITH WBC DIFFERENTIAL AND ANEMIA REFLEX WORKUP Migraine without aura and without status migrainosus, not intractable Irritable bowel syndrome with constipation - Lubiprostone 24 MCG Oral Capsule (Amitiza); Take 1 Capsule by mouth 2 times a day with morning and evening meals. Follow Up: Return in 6 months (on 09/05/2024) for Please schedule AWV. | For: Please schedule AWV | Check-out note: Nurse visit 2 weeks for BP cehck Shahla Hamlin MD Family medicine, [place] [phone] * Kary Gimenez CMA - 03/07/2024 10:18 AM EDT Dexa scan ordered today. Provider aware. Kary Gimenez CMA Immunization Administration Documentation Time Out Procedure Performed: Yes Patient Identified (Ask Name/Date of ): Yes Does the patient have a fever greater than 101 degrees today? No Patient allergic to latex? No VFC Stock: No Immunization(s) verified: Yes, Immunization Name: Prevnar 20 (PCV20), VIS Sheet(s) given: Yes Verified Side and Site: Yes Verified Shot(s) with Parent(s)/Patient: Yes documented in this encounter Nursing Notes * Kary Gimenez CMA - 03/07/2024 10:11 AM EDT She is here today for a 3 mo recheck. She still has headaches and her fibromyalgia is still acting up. Neurologist wanted her to start ajovy but insurance is giving her a hard time with it. documented in this encounter Plan of Treatment Upcoming Encounters Date Type Department Care Team (Late st Contact Info) Description 05/22/2024 9:20 AM EST Office Visit Neurology [facility] [address] [facility] [place] [address] Afshan Bee MD [address] [facility] [place] [address] 07/21/2024 3:00 PM EST Office Visit Gastroenterology [address] [place] [address] Cheri Jay CRNP [address] [place] [address] 11/22/2024 8:00 AM EDT Office Visit Family Medicine [address] [place] [phone] Shahla Hamlin MD [address] [place] [address] [place] [phone] 03/26/2025 1:00 PM EDT Nurse Only Ancillary [address] [place] [phone] [place], Nurse Annual Wellness [address] [place] [address] [place] [phone] Scheduled Procedures Name Priority Associated Diagnoses Date/Ti [...] Procedure Name Priority Date/Time Associated Diagnosis Comments DEXA SCAN/BONE MINERAL AXIAL Routine 04/13/2024 1:12 PM EST Postmenopausal status, age-related ANEMIA REFLEX CHEMISTRY HOLD Routine 03/07/2024 10:47 AM EDT Anemia, unspecified type ANEMIA CBC Routine 03/07/2024 10:47 AM EDT Anemia, unspecified type DIFFERENTIAL, AUTOMATED Routine 03/07/2024 10:47 AM EDT Anemia, unspecified type DIFFERENTIAL, AUTOMATED Routine 03/07/2024 10:47 AM EDT Anemia, unspecified type documented in this encounter Results * DEXA SCAN/BONE MINERAL AXIAL (04/13/2024 1:12 PM EST) Anatomical Region Laterality Modality Dexa, Vertebra, Spine, Hip, Pelvis Nuclear Medicine Impressions 04/14/2024 7:40 AM EST S: Fracture risk is based on current National Osteoporosis Foundation (www.nof.org) Clinicians Guide and [place] Association of Clinical Endocrinology (AACE) Guidelines (www.aace.com) and the application of current WHO FRAX tool (https://www.rama.ac.uk/FRAX/) as well as the 2017 [place] [employer]umat[employer] Glucocorticoid Induced Osteoporosis (GIOP) Guidelines (rheumatology.org/Practice-Quality/Clinical-Support/Pclkcavl-Vddcvgwa-Nvaes lines) using Bone mineral density derived T-scores and clinical risk factors obtained from the patient questionnaire. 1. The fracture risk is LOW/MODERATE (does not meet NOF criteria for treatment) 2. The quality of the examination is GOOD. 3. No previous study for comparison. Comparison is not made to prior study due to precision or technical factors SUGGESTIONS: Information concerning the evaluation and treatment of osteoporosis can be found at the National Osteoporosis Foundation website (www.nof.org) and [place] Association of Clinical Endocrinology (AACE-www.aace.com). Osteoporosis prevention and treatment begins by modifying risk factors (such as smoking cessation and avoiding alcohol excess) and by participating in weight-bearing activities and exercise. Issues related to fall prevention and home safety should be addressed. Current NOF guidelines suggest 1200 to 1500 mg of calcium from diet and or supplemental sources. It is generally felt best to get calcium from one s diet. Calcium carbonate and calcium citrate are common calcium supplement choices in most local pharmacies. If the patient is taking a proton pump inhibitor, then calcium citrate should be the preferred supplement, if that is necessary. NOF guidelines for vitamin D are 800 to 1000 units of vitamin D3 daily. However, this may best be guided by measurement of 25-OH vitamin-D level, aiming for a level between 30 to 50 units (ng/ml). Additional information can be found at the FRAX website (https://www.rama.ac.uk/FRAX/), and the [place] College of Rheumatology website (https://www.rheumatology.org/Practice-Quality/Clinical-Support/Clinical-Pr actice-Guidelines). 1. No specific prescription therapy is needed at this point in time. 2. A repeat study should be considered in 2 years LULA THOMSON M.D. ISCD Certified Clinical Child Welfare Manager Department of Rheumatology [facility] Narrative 04/14/2024 7:40 AM EST Radiology, [facility] DXA Performed: 04/13/24 DXA Resulted: 04/14/2024 Zeny [facility] Reason for testing: estrogen deficient woman at clinical risk Osteoporosis treatment (per questionnaire): A. Previous treatment: NONE B. Current treatment: NONE Major risk factors: none Using a [facility] [employer] [facility] images of the lumbar spine, left hip were obtained using DXA.. The bone mineral density and T scores [standard, young, normal, female population] are as follows: RESULTS: Lumbar spine: 0.841 gms/cm2 T-score: -1.9 Left femoral neck: 0.590 gms/cm2 T-score: -2.3 Using the NOF/WHO FRAX calculator, the 10 year absolute risk for any major osteoporotic fracture is 12 % and the risk for hip fracture is 2.2 %. us Shahla Hamlin MD RADIOLOGY (RAD GENERA L) Final Result * ANEMIA REFLEX CHEMISTRY HOLD (03/07/2024 10:47 AM EDT) Blood Venous blood specimen / Unknown Venipuncture / Unknown 03/07/2024 10:47 AM EDT 03/07/2024 10:47 AM EDT us Shahla Hamlin MD LAB BLOOD ORDERABLES Final Result [facility] [address] [place] [address] * DIFFERENTIAL, AUTOMATED (03/07/2024 10:47 AM EDT) WBC 10.52 4.00 - 10.80 K/uL 03/07/2024 11:29 PM EDT [facility] Neutrophils % 67.7 40.0 - 75.0 % 03/07/2024 11:29 PM EDT [facility] Lymphocytes % 21.1 18.0 - 42.0 % 03/07/2024 11:29 PM EDT [facility] Monocytes % 9.7 1.0 - 11.0 % 03/07/2024 11:29 PM EDT [facility] Eosinophils % 0.6 0.0 - 6.0 % 03/07/2024 11:29 PM EDT [facility] Basophils % 0.7 0.0 - 2.0 % 03/07/2024 11:29 PM EDT [facility] Immature Granulocytes % 0.2 0.0 - 2.0 % 03/07/2024 11:29 PM EDT [facility] Absolute Neutrophils 7.13 1.80 - 7.70 K/uL 03/07/2024 11:29 PM EDT [facility] Absolute Lymphocytes 2.22 1.00 - 4.80 K/ul 03/07/2024 11:29 PM EDT [facility] Absolute Monocytes 1.02 0.00 - 1.10 K/uL 03/07/2024 11:29 PM EDT [facility] Absolute Eosinophils 0.06 0.00 - 0.70 K/uL 03/07/2024 11:29 PM EDT [facility] Absolute Basophils 0.07 0.00 - 0.20 K/uL 03/07/2024 11:29 PM EDT [facility] Absolute Immature Granulocytes 0.02 0.00 - 0.20 K/uL 03/07/2024 11:29 PM EDT [facility] Blood Venous blood specimen / Unknown Venipuncture / Unknown 03/07/2024 10:47 AM EDT 03/07/2024 10:47 AM EDT Shahla Hamlin MD LAB BLOOD ORDERABLES Final Result [facility] [address] [place] [address] * ANEMIA CBC (03/07/2024 10:47 AM EDT) WBC 10.52 4.00 - 10.80 K/uL 03/07/2024 11:29 PM EDT [facility] RBC 4.03 3.85 - 5.15 M/uL 03/07/2024 11:29 PM EDT [facility] HGB 13.0 12.0 - 15.3 g/dL 03/07/2024 11:29 PM EDT [facility] Comment: Anemia reflex testing triggers on a HGB < 12.0 for Females and HGB < 13.0 for Males in accordance with the WHO Anemia Guidelines Anemia reflex testing triggers on a HGB < 12.0 for Females and HGB < 13.0 for Males in accordance with the WHO Anemia Guidelines HCT 38.8 36.0 - 45.2 % 03/07/2024 11:29 PM EDT [facility] MCV 96.3 81.5 - 97.5 fL 03/07/2024 11:29 PM EDT [facility] MCH 32.3 27.0 - 34.0 pg 03/07/2024 11:29 PM EDT [facility] MCHC 33.5 32.0 - 36.0 g/dL 03/07/2024 11:29 PM EDT [facility] RDW 13.3 11.5 - 15.5 % 03/07/2024 11:29 PM EDT [facility] PLT 208 140 - 400 K/uL 03/07/2024 11:29 PM EDT LABORATORY [facility] MPV 10.2 6.6 - 11.1 fL 03/07/2024 11:29 PM EDT LABORATORY [facility] nRBCs 0 <=0 /100 WBCs 03/07/2024 11:29 PM EDT LABORATORY [facility] Blood Venous blood specimen / Unknown Venipuncture / Unknown 03/07/2024 10:47 AM EDT 03/07/2024 10:47 AM EDT Shahla Hamlin MD LAB BLOOD ORDERABLES Final Result LAB[facility]ATORY [facility] [address] [facility] [place] [address] documented in this encounter Visit Diagnoses Diagnosis Prediabetes- Primary Other abnormal glucose Fibromyalgia Mylagia and myositis, unspecified Postmenopausal status, age-related Asymptomatic postmenopausal status (age-related) (natural) Need for pneumococcal vaccination Need for prophylactic vaccination against streptococcus pneumoniae (pneumococcus) Need for shingles vaccine Need for prophylactic vaccination and inoculation against other viral diseases Anemia, unspecified type Migraine without aura and without status migrainosus, not intractable Migraine without aura, without mention of intractable migraine without mention of status migrainosus Irritable bowel syndrome with constipation Irritable bowel syndrome documented in this encounter Care Teams 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
--- OUTSIDE RECORDS SUMMARY | 2024-09-01 18:27 | External Medical Summary | Summary of Care ---
Author Name Unknown Organization [facility] Address [address] [place] [address] Phone [phone] Care Team Providers Care [employer] Hat Open Stack Administrator Name Role Phone Shahla Hamlin MD Primary Care Provide r Reason for Visit * Reason Onset Date Comments Medication Refill 04/04/2024 Encounter Details Date Type Department Care Team (Late st Contact Info) Description 04/04/2024 Refill Family Medicine [address] [address] Shahla Hamlin MD [address] [place] [address] [place] [address] Irritable bowel syndrome with constipation Allergies Active Allergy Reactions Criticality Noted Date Comments Iodinated Contrast Media Edema face/lips/tongue High 05/11/2007 hives documented as of this encounter (statuses as of 04/04/2024) Medications Medication Sig Dispensed Refills Start Date End Date Status CALCIUM 600 MG PO TABS 1 tablet daily Active MAGNESIUM 500 MG PO TABS 1 tablet daily Active VITAMIN D3 1000 UNITS PO CAPS 1 tablet daily Active BÁRBARA 180 MG PO TABS one tablet daily Active methocarbamol (ROBAMOL) 750 MG Tablet Take 1 Tablet by mouth in the morning and 1 Tablet before bedtime. 0 04/07/2015 Active rOPINIRole (REQUIP) 0.25 MG Tablet Take 2 Tablets by mouth at bedtime. 0 10/03/2015 Active sucralfate (CARAFATE) 1 GM TabletIndications: Gastroesophageal reflux disease, esophagitis presence not specified take 1 tablet by mouth four times a day BEFORE MEALS AND AT BEDTIME 1/2 HOUR BEFORE MEALS AND AT BEDTIME 120 Tab 5 12/14/2016 Active FLOVENT HFA 110 MCG/ACT inhalerIndications :Asthma exacerbation inhale 2 puffs by mouth twice a day 12 g 11 06/22/2017 Active Azelastine HCl 137 MCG/SPRAY SOLNIndications:Ch ronic sinusitis,Chronic rhinitis instill 2 sprays into each nostril twice a day 30 mL 5 10/29/2017 Active VENTOLIN HFA 108 (90 Base) MCG/ACT inhalerIndications :Bronchitis, complicated inhale 2 puffs by mouth four times a day if needed 18 g 5 10/29/2017 Active Mometasone Furoate 50 MCG/ACT nasal sprayIndications:C hronic sinusitis,Chronic rhinitis instill 2 sprays into each nostril once daily 17 g 5 03/02/2018 Active levothyroxine (LEVOXYL) 25 MCG TabletIndications: Hypothyroidism take 1 tablet by mouth every morning 30 MINUTES BEFORE BREAKFAST AND OTHER MEDS 90 Tab 1 03/14/2019 Active Ipratropium [place] HFA 17 MCG/ACT Inhalation Aerosol Solution (Atrovent Hfa) Inhale 2 Puffs by mouth every 6 hours. Active Atorvastatin Calcium 20 MG Oral Tablet (Lipitor) Take 1 Tablet by mouth in the morning. 09/20/2023 Active Escitalopram Oxalate 20 MG Oral Tablet (Lexapro) Take 1 Tablet by mouth in the morning. 10/25/2023 Active Pantoprazole Sodium 40 MG Oral Tablet Delayed Release (Protonix) Take 1 Tablet by mouth in the morning and 1 Tablet in the evening. 10/15/2022 Active Omeprazole 40 MG Oral Capsule Delayed Release (PriLOSEC) TAKE 1 CAPSULE BY MOUTH TWICE A DAY 30 MIN BEFORE BREAKFAST AND DINNER 11/26/2023 Active Ajovy 225 MG/1.5ML Subcutaneous Solution Auto-injector (Rachel-vfrm )Indications:Intra ctable migraine with aura with status migrainosus Inject 1.5 ml under the skin once a month 1.5 mL 5 12/10/2023 Active Additional Information Patient not taking.Reported on 03/07/2024 SUMAtriptan Succinate 50 MG Oral Tablet (Imitrex)Indicatio ns:Intractable migraine with aura with status migrainosus 1 at onset of migraine may repeat in 2 hours max 2 doses in 24 hour 10 Tablet 5 12/10/2023 Active Amitriptyline HCl 75 MG Oral Tablet (Elavil)Indication s:Migraine without aura and without status migrainosus, not intractable TAKE 1 TABLET BY MOUTH EVERYDAY AT BEDTIME 90 Tablet 02/28/2024 Active Pregabalin 75 MG Oral Capsule (Lyrica)Indication s:Fibromyalgia Take 1 Capsule by mouth every night at bedtime. 30 Capsule 03/07/2024 Active Zoster Vac Recomb Adjuvanted 50 MCG/0.5ML Intramuscular Suspension Reconstituted (Shingrix)Indicati ons:Need for shingles vaccine Inject 0.5 mL into a large muscle now and repeat dose in 60 to 180 days 1 Each 1 03/07/2024 Active Qulipta 60 MG Oral Tablet (Atogepant)Indicat ions:Intractable migraine with aura with status migrainosus Take one by mouth each day 30 Tablet 5 03/24/2024 Active Lubiprostone 24 MCG Oral Capsule (Amitiza)Indicatio ns:Irritable bowel syndrome with constipation Take 1 Capsule by mouth 2 times a day with morning and evening meals. 180 Capsule 1 04/04/2024 Active Lubiprostone 24 MCG Oral Capsule (Amitiza)Indicatio ns:Irritable bowel syndrome with constipation Take 1 Capsule by mouth 2 times a day with morning and evening meals. 60 Capsule 1 03/07/2024 Discontinu ed(Refill) documented as of this encounter (statuses as of 04/04/2024) Active Problems Problem Noted Date Diagnosed Date Prediabetes 01/10/2024 Overview: Per Prediabetes protocol Migraine without aura and wi thout status migrainosus, not intractable 12/01/2023 Fibromyalgia 12/01/2023 Anxiety 12/01/2023 RLS (restless legs syndrome) 12/01/2023 Mild persistent asthma without complication 07/2023 Essential and other specified forms of tremor NONALLERGIC RHINITIS 07/28/2007 Hypothyroidism 06/09/2007 Major depressive disorder 06/09/2007 Overview: ICD-10 update of inactive term Esophageal reflux 05/11/2007 documented as of this encounter (statuses as of 04/04/2024) Resolved Problems Problem Noted Date Diagnosed Date Resolved Date PMR (polymyalgia rheumatica) 11/16/2011 12/01/2023 Acute cystitis 09/03/2009 04/11/2011 Dyslipidemia, goal to be determined 05/16/2009 12/01/2023 Overview: Per Lipid Taxonomy. Benign neoplasm of colon 07/29/200807/2023 Overview: fair prep- 2 mm polyp removed, repeat in 3 yrs, adenomatous polyps MEDICATION USE AGREEMENT 12/27/200705/2009 Overview: Managed by Dr Nuno ([phone]). To view the Medication Usage Agreement, go to Action, Patient Files. Benign neoplasm of colon 11/10/200707/2023 Overview: biopsies--acid reflux, negative for Amin's and H.Pylori ADVANCE DIRECTIVE INFORMATION 06/06/2007 04/03/2024 Overview: No, Advance Directive brochure given to patient. Myalgia and myositis 05/11/2007 024 Migraine with aura, intractable 05/11/2007 12/01/2023 Mixed dyslipidemia 05/11/200705/16/200 9 Overview: Per Lipid Taxonomy. Chronic sinusitis 05/13/2017 documented as of this encounter (statuses as of 04/04/2024) Immunizations Name Administration Dates Next Due COVID-19 mRNA, LNP-s, PF, 18 + or 6-11Yrs (Moderna) 01/07/2022,05/06/2021,09/13/2020,08/16 COVID-19, MRNA-LNP, PF, 30 M CG/0.3 mL, 12 YRS AND ABOVE, IM (PFIZER-Comirnaty) 03/22/2024 Pneumococcal Conjugate Vacci ne, 20-valent ([id number]) 03/07/2024 Pneumococcal Polysaccharide PPV23 (Pneumovax) 01/09/2019 Seasonal [...] Answer Date Recorded PHQ-2 Score -1 04/03/2018 Hunger Vital Sign Answer Date Recorded Within [...] ages 0-17 years) Not on file 03/22/2024 Sex and Gender Information Value Date Recorded Sex Assigned at Female 03/22/2024 1:24 PM EDT Gender Identity Female 03/22/2024 1:24 PM EDT Sexual Orientation Straight 03/22/2024 1: 24 PM EDT Job Start Date Occupation Industry Not on file Not on file Not on file documented as of this encounter Miscellaneous Notes * Telephone Encounter - Shahla Hamlin MD - 04/04/2024 8:02 PM EST Signed Prescriptions: Disp Refills Lubiprostone 24 MCG Oral Capsule (Amitiza) 180 Ca*1 Sig: Take 1 Capsule by mouth 2 times a day with morning and evening meals. Authorizing Provider: SHAHLA HAMLIN * Telephone Encounter - Zoila Hopkins, PALAK - 04/04/2024 4:25 PM ESTPending Prescriptions: Disp Refills Lubiprostone 24 MCG Oral Capsule (Amitiza) 180 Ca*1 Sig: Take 1 Capsule by mouth 2 times a day with morning and evening meals. * Telephone Encounter - Khalida Ann OSA - 04/04/2024 4:05 PM EST Did you pend patient's preferred pharmacy and medication before forwarding?yes Pharmacy: [id number] [id number] [facility] Pending Prescriptions: Disp Refills Lubiprostone 24 MCG Oral Capsule (Amitiza)60 Cap*1 Sig: Take 1 Capsule by mouth 2 times a day with morning and evening meals. Last Visit: 03/07/2024 (in office), Visit date not found (telemedicine) Next Visit: 11/22/2024 If no future appointments scheduled, and last appointment is greater than a year ago, please schedule patient for a follow-up appointment Last date the medication was ordered: 03.07.24 Is this request for a controlled substance?No [...] Care Team (Late st Contact Info) Description 04/13/2024 1:00 PM EST Imaging Radiology, [facility] [address] [facility] [place] [address] 04/14/2024 10:30 AM EST Office Visit Gastroenterology [address] [place] [address] Cheri Jay CRNP [address] [place] [address] 05/22/2024 9:20 AM EST Office Visit Neurology [facility] [address] [place] [address] Afshan Bee MD [address] [place] [address] 11/22/2024 8:00 AM EDT Office Visit Family Medicine [address] [place] [address] Shahla Hamlin MD [address] [place] [address] [place] [address] 03/26/2025 1:00 PM EDT Nurse Only Ancillary [address] [place] [address] [place], Nurse Annual Wellness [address] [place] [address] [place] [address] Scheduled Procedures Name Priority Associated Diagnoses Date/Ti me COLONOSCOPY FLEXIBLE PROXIMA L DIAGNOSTIC Recall Special screening for malignant neoplasms, colon Health Maintenance Due Date Last Done Comments DXA Scan 1957 Cologuard 2002 Fecal Occult Blood Test 2002 Sigmoidoscopy 2002 Zoster Vaccines (1 of 2) 2007 DTap/Tdap Vaccines (2 - Td or Tdap) 06/17/2019 06/17/2009 *SPIROMETRY ONCE FOR ASTHMA-ADULT 12/04/2023 Mammogram 12/07/2024 12/08/2023, 07/30, 08/28/2014, Additional history exists HbA1c 12/09/2024 12/10/2023 TSH 12/09/2024 12/10/2023, 11/28, 10/21/2015, Additional history exists Adult Wellness Visit 03/22/2025 03/22/2024 Depression Monitoring 03/22/2025 03/22/2024 Lipid Panel 12/09/2028 12/10/2023, 06/0 05/2022, 01/18/2015, [...] syndrome documented in this encounter Care Teams [employer] Open Stack Administrator Relationship Specialty Start Date End Date Shahla Hamlin MD [address] [place] [address] [place] [address] PCP - General Family Medicine 02/24/24 documented as of this encounter
--- OUTSIDE RECORDS SUMMARY | 2024-09-01 18:27 | External Medical Summary | Summary of Care ---
Author Name Unknown Organization [facility] Address [address] [place] [address] Phone [phone] Care Team Providers Care Chemical Process Operator Name Role Phone Shahla Hamlin MD Primary Care Provide r Reason for Visit * Reason Comments eRx-Medication Refill Encounter Details Date Type Department Care Team (Late st Contact Info) Description 04/07/2024 Refill Family Medicine [address] [address] Shahla Hamlin MD [address] [place], [place] [address] [address] Fibromyalgia Allergies Active Allergy Reactions Criticality Noted Date Comments Iodinated Contrast Media Edema face/lips/tongue High 05/11/2007 hives documented as of this encounter (statuses as of 04/11/2024) Medications CALCIUM 600 MG PO TABS 1 [...] 90 Tab 1 03/14/20 19 Active Ipratropium [place] HFA 17 MCG/ACT Inhalation Aerosol Solution (Atrovent Hfa) Inhale 2 Puffs by mouth every 6 hours. Active Atorvastatin Calcium 20 MG Oral Tablet (Lipitor) Take 1 Tablet by mouth in the morning. 09/20/19 24 Active Escitalopram Oxalate 20 MG Oral Tablet (Lexapro) Take 1 Tablet by mouth in the morning. 10/25/19 24 Active Pantoprazole Sodium 40 MG Oral Tablet Delayed Release (Protonix) Take 1 Tablet by mouth in the morning and 1 Tablet in the evening. 10/16/19 23 Active Omeprazole 40 MG Oral Capsule Delayed Release (PriLOSEC) TAKE 1 CAPSULE BY MOUTH TWICE A DAY 30 MIN BEFORE BREAKFAST AND DINNER 11/26/19 24 Active Ajovy 225 MG/1.5ML Subcutaneous Solution [...] AT BEDTIME. 30 Capsule 04/10/20 24 Active Pregabalin 75 MG Oral Capsule (Lyrica)Indicati ons:Fibromyalgia Take 1 Capsule by mouth every night at bedtime. 30 Capsule 03/07/20 24 2023 Discontinued documented as of this encounter (statuses as of 04/11/2024) Active Problems Problem Noted Date Diagnosed Date [...] as of this encounter (statuses as of 04/11/2024) Resolved Problems Problem Noted Date Diagnosed Date Resolved Date PMR (polymyalgia rheumatica) 11/16/2011 12/01/2023 Acute cystitis 09/03/2009 04/11/2011 Dyslipidemia, goal to be determined 05/16/2009 12/01/2023 Overview (05/16/2009): Per Lipid Taxonomy. Benign neoplasm of colon 07/29/200807/2023 Overview (08/24/2008): fair prep- 2 mm polyp removed, repeat in 3 yrs, adenomatous polyps MEDICATION USE AGREEMENT 12/27/200705/2009 Overview (12/27/2007): Managed by Dr Nuno ([phone]). To view the Medication Usage Agreement, go [...] as of this encounter (statuses as of 04/11/2024) Immunizations Name Administration Dates Next Due COVID-19 mRNA, LNP-s, PF, 18 + or 6-11Yrs (Moderna) 01/07/2022,05/06/2021,09/13/2020,08/16 COVID-19, MRNA-LNP, PF, 30 M CG/0.3 mL, 12 YRS AND ABOVE, IM (PFIZER-Comirnaty) 03/22/2024 Pneumococcal Conjugate Vacci ne, 20-valent ([id number]) 03/07/2024 Pneumococcal Polysaccharide PPV23 (Pneumovax) 01/09/2019 Seasonal [...] encounter Miscellaneous Notes * Telephone Encounter - Isamar Motley CPhT - 04/11/2024 12:45 PM EST Pt calling to request pregabalin. Informed pt that RX is available at their pharmacy. Pt verbalizedunderstanding and stated they will check with their pharmacy regarding this medication. Thank you, Isamar Motley CPhT II Camp Assistant [facility] ([facility]) 04/11/2024, 12:45 PM * Telephone Encounter - Shahla Hamlin MD - 04/10/2024 10:42 AM EST Signed Prescriptions: Disp Refills Pregabalin 75 MG Oral Capsule (Lyrica) 30 Cap*0 Sig: TAKE 1 CAPSULE BY MOUTH EVERY NIGHT AT BEDTIME. Authorizing Provider: SHAHLA HAMLIN * Telephone Encounter - Marysol Barrientos [facility] - 04/10/2024 8:53 AM ESTPending Prescriptions: Disp Refills Pregabalin 75 MG Oral Capsule [Pharmacy Me*30 Cap*0 Sig: Take 1 Capsule by mouth every night at bedtime. * Telephone Encounter - Marysol Barrientos [facility] - 04/10/2024 8:52 AM EST I have reviewed the patient’s controlled substance dispensing history in the Prescription Drug Monitoring Program in compliance with the [facility] regulations before prescribing a controlled substance. PDMP checked on 04/10/2024. Pending Prescriptions: Disp Refills Pregabalin 75 MG Oral Capsule (Lyrica) [P*30 Cap*0 Sig: TAKE 1 CAPSULE BY MOUTH EVERY NIGHT AT BEDTIME. Last Visit: 03/07/2024 (in office), Visit date not found (telemedicine) Next Visit: 11/22/2024 Date medication was last filled: 03/07/24 Date medication is due for refill: 04/05/24 Pharmacy: [id number] [id number] [facility] Is this request for a controlled substance? Yes and Urine Drug Screen Not completed Toxicology results: No results found for this or any previous visit. Please approve if appropriate. Thank you, Marysol Barrientos, PharmD Clinical Pharmacist [facility] ([facility]) 04/10/24 8:52 AM [phone] documented in this encounter Plan of Treatment Upcoming Encounters Date Type Department Care Team (Late st Contact Info) Description 04/13/2024 1:00 PM EST Imaging Radiology, [place] [id number] [facility] [place] [address] 04/14/2024 10:30 AM EST Office Visit Gastroenterology [address] [place] [address] Cheri Jay CRNP [address] [place] [address] 05/22/2024 9:20 AM EST Office Visit Neurology [facility] [address] [place] [address] Afshan Bee MD [address] [place] [address] 11/22/2024 8:00 AM EDT Office Visit Family Medicine [address] [place] [address] Shahla Hamlin MD [address] [place] [address] [place] [address] 03/26/2025 1:00 PM EDT Nurse Only Ancillary [address] [place] [address] [place], Nurse Annual [address] [place] [address] Scheduled Procedures Name Priority Associated Diagnoses Date/Ti [...] Diagnoses Diagnosis Fibromyalgia Mylagia and myositis, unspecified documented in this encounter Care Teams Chemical Process Operator Relationship Specialty Start Date End Date Shahla Hamlin MD [address] [place] [address] [place] [address] PCP - General Family Medicine 02/24/24 documented as of this encounter
--- OUTSIDE RECORDS SUMMARY | 2024-09-01 18:27 | External Medical Summary | Summary of Care ---
Author Name Unknown Organization [facility] Address [address] [place] [address] Phone [phone] Care Team Providers Care Electrical Appliance Servicer Name Role Phone Shahla Hamlin MD Primary Care Provide r Reason for Visit * Reason Onset Date Comments Pre Cert/Prior Auth 03/29/2024 Encounter Details Date Type Department Care Team (Late st Contact Info) Description 03/29/2024 Telephone Neurology [facility] [address] [place] [address] Afshan Bee MD [address] [place] [address] Pre Cert/Prior Auth Allergies Active Allergy Reactions Criticality Noted Date Comments Iodinated Contrast Media Edema face/lips/tongue High 05/11/2007 hives documented as of this encounter (statuses as of 03/29/2024) Medications Medication Sig Dispensed Refills Start Date [...] 0 10/03/2015 Active sucralfate (CARAFATE) 1 GM TabletIndications:Ga stroesophageal reflux disease, esophagitis presence not specified take 1 tablet by mouth four times a day BEFORE MEALS AND AT BEDTIME 1/2 HOUR BEFORE MEALS AND AT BEDTIME 120 Tab 5 12/14/2016 Active FLOVENT HFA 110 MCG/ACT inhalerIndications:A sthma exacerbation inhale 2 puffs by mouth twice a day 12 g 11 06/22/2017 Active Azelastine HCl 137 MCG/SPRAY SOLNIndications:Fan Engine Engineer awais sinusitis,Chronic rhinitis instill 2 sprays into each nostril twice a day 30 mL 5 10/29/2017 Active VENTOLIN HFA 108 (90 Base) MCG/ACT inhalerIndications:B ronchitis, complicated inhale 2 puffs by mouth four times a day if needed 18 g 5 10/29/2017 Active Mometasone Furoate 50 MCG/ACT nasal sprayIndications:Chr onic sinusitis,Chronic rhinitis instill 2 sprays into each nostril once daily 17 g 5 03/02/2018 Active levothyroxine (LEVOXYL) 25 MCG TabletIndications:Hy pothyroidism take 1 tablet by mouth every morning 30 MINUTES BEFORE BREAKFAST AND OTHER MEDS 90 Tab 1 03/14/2019 Active Ipratropium [place] HFA 17 MCG/ACT Inhalation Aerosol Solution (Atrovent [...] Active Ajovy 225 MG/1.5ML Subcutaneous Solution Auto-injector (Fremanezumab-vfrm)I ndications:Intractab le migraine with aura with status migrainosus Inject 1.5 ml under the skin once a month 1.5 mL 5 12/10/2023 Active Additional Information Patient not taking.Reported on 03/07/2024 SUMAtriptan Succinate 50 MG Oral Tablet (Imitrex)Indications :Intractable migraine with aura with status migrainosus 1 at onset of migraine may repeat in 2 hours max 2 doses in 24 hour 10 Tablet 5 12/10/2023 Active Amitriptyline HCl 75 MG Oral Tablet (Elavil)Indications: Migraine without aura and without status migrainosus, not intractable TAKE 1 TABLET BY MOUTH EVERYDAY AT BEDTIME 90 Tablet 02/28/2024 Active Pregabalin 75 MG Oral Capsule (Lyrica)Indications: Fibromyalgia Take 1 Capsule by mouth every night at bedtime. 30 Capsule 03/07/2024 Active Zoster Vac Recomb Adjuvanted 50 MCG/0.5ML Intramuscular Suspension Reconstituted (Shingrix)Indication s:Need for shingles vaccine Inject 0.5 mL into a large muscle now and repeat dose in 60 to 180 days 1 Each 1 03/07/2024 Active Lubiprostone 24 MCG Oral Capsule (Amitiza)Indications :Irritable bowel syndrome with constipation Take 1 Capsule by mouth 2 times a day with morning and evening meals. 60 Capsule 1 03/07/2024 Active Qulipta 60 MG Oral Tablet (Atogepant)Indicatio ns:Intractable migraine with aura with status migrainosus Take one by mouth each day 30 Tablet 5 03/24/2024 Active documented as of this encounter (statuses as of 03/29/2024) Active Problems Problem Noted Date Diagnosed Date Prediabetes 01/10/2024 Overview: Per Prediabetes protocol Migraine without aura and wi thout status migrainosus, not intractable 12/01/2023 Fibromyalgia 12/01/2023 Anxiety 12/01/2023 RLS (restless legs syndrome) 12/01/2023 Mild persistent asthma without complication 07/2023 Essential and other specified forms of tremor NONALLERGIC RHINITIS 07/28/2007 Hypothyroidism 06/09/2007 Major depressive disorder 06/09/2007 Overview: ICD-10 update of inactive term ADVANCE DIRECTIVE INFORMATION 06/06/2007 Overview: No, Advance Directive brochure given to patient. Esophageal reflux 05/11/2007 documented as of this encounter (statuses as of 03/29/2024) Resolved Problems Problem Noted Date Diagnosed Date Resolved Date PMR (polymyalgia rheumatica) 11/16/2011 12/01/2023 Acute cystitis 09/03/2009 04/11/2011 Dyslipidemia, goal to be determined 05/16/2009 12/01/2023 Overview: Per Lipid Taxonomy. Benign neoplasm of colon 07/29/200807/2023 Overview: fair prep- 2 mm polyp removed, repeat in 3 yrs, adenomatous polyps MEDICATION USE AGREEMENT 12/27/200705/2009 Overview: Managed by Dr Nuno ([phone]). To view the Medication Usage Agreement, go to Action, Patient Files. Benign neoplasm of colon 11/10/200707/2023 Overview: biopsies--acid reflux, negative for Amin's and H.Pylori Myalgia and myositis 05/11/2007 024 Migraine with aura, intractable 05/11/2007 12/01/2023 Mixed dyslipidemia 05/11/200705/16/ 9 Overview: Per Lipid Taxonomy. Chronic sinusitis 05/13/2017 documented as of this encounter (statuses as of 03/29/2024) Immunizations Name Administration Dates Next Due COVID-19 mRNA, LNP-s, PF, 18 + or 6-11Yrs (Moderna) 01/07/2022,05/06/2021,09/13/2020,08/16 COVID-19, MRNA-LNP, 24-25, P R, 30MCG/0.3ML, IM, 12YRS AND ABOVE (Pfizer-Comirnaty) 03/22/2024 Pneumococcal Conjugate Vacci ne, 20-valent ([id number]) 03/07/2024 Pneumococcal Polysaccharide PPV23 (Pneumovax) 01/09/2019 Seasonal [...] encounter Miscellaneous Notes * Telephone Encounter - Cony Pérez OSA [...] Dosage: 1.5 ml per 30 days ID: [id number] [id number] PCN:[id number] Phone: [employer] ship date is 04-03. Thank you very much, Ludmila Mcclellan CPhT Linux Unix System Administrator Hair Spinner [facility] documented in this encounter Plan of Treatment Upcoming Encounters Date Type Department Care Team (Late st Contact Info) Description 04/13/2024 1:00 PM EST Imaging Radiology, [address] [place] [address] 04/14/2024 10:30 AM EST Office Visit Gastroenterology [address] [place] [address] Cheri Jay CRNP [address] [place] [address] 05/22/2024 9:20 AM EST Office Visit Neurology [facility] [address] [place] [address] Afshan Bee MD [address] [place] [address] 11/22/2024 8:00 AM EDT Office Visit Family Medicine [address] [place] [address] Shahla Hamlin MD [address] [place] [address] [place] [address] 03/26/2025 1:00 PM EDT Nurse Only Ancillary [address] [place] [address] [place], Nurse Annual [address] [place] [address] Scheduled Procedures Name Priority Associated Diagnoses Date/Ti [...] Monitoring 03/22/2025 03/22/2024 Lipid Panel 12/09/2028 12/10/2023, 05/2022, 01/18/2015, Additional [...] filedocumented as of this encounter Care Teams Electrical Appliance Servicer Relationship Specialty Start Date End Date Shahla Hamlin MD [address] [place] [address] [place] [id number] PCP - General Family Medicine 02/24/24 documented as of this encounter
--- OUTSIDE RECORDS SUMMARY | 2024-09-01 18:27 | External Medical Summary | Summary of Care ---
Author Name Unknown Organization [facility] Address [address] [place] [address] Phone [phone] Care Team Providers Care Commercial Construction Estimator Name Role Phone Shahla Hamlin MD Primary Care Provide r Reason for Visit * Reason Onset Date Comments Appointment 04/14/2024 EGD Encounter Details Date Type Department Care Team (Late st Contact Info) Description 04/14/2024 Telephone Gastroenterology, [facility] [address] [place] [address] Cheri Jay CRNP [address] [place] [address] Appointment (EGD) Allergies Active Allergy Reactions Criticality Noted Date Comments Iodinated Contrast Media Edema face/lips/tongue High 05/11/2007 hives documented as of this encounter (statuses as of 04/14/2024) Medications CALCIUM 600 MG PO TABS 1 [...] MEDS 90 Tab 1 9 Active Ipratropium [place] HFA 17 MCG/ACT Inhalation Aerosol Solution (Atrovent [...] as of this encounter (statuses as of 04/14/2024) Active Problems Problem Noted Date Diagnosed Date [...] as of this encounter (statuses as of 04/14/2024) Resolved Problems Problem Noted Date Diagnosed Date Resolved Date PMR (polymyalgia rheumatica) 11/16/2011 12/01/2023 Acute cystitis 09/03/2009 04/11/2011 Dyslipidemia, goal to be determined 05/16/2009 12/01/2023 Overview (05/16/2009): Per Lipid Taxonomy. Benign neoplasm of colon 07/29/200807/2023 Overview (08/24/2008): fair prep- 2 mm polyp removed, repeat in 3 yrs, adenomatous polyps MEDICATION USE AGREEMENT 12/27/200705/2009 Overview (12/27/2007): Managed by Dr Nuno ([phone]). To view the Medication Usage Agreement, go [...] as of this encounter (statuses as of 04/14/2024) Immunizations Name Administration Dates Next Due COVID-19 mRNA, LNP-s, PF, 18 + or 6-11Yrs (Moderna) 01/07/2022,05/06/2021,09/13/2020,08/16 COVID-19, MRNA-LNP, PF, 30 M CG/0.3 mL, 12 YRS AND ABOVE, IM (Zecter-Comirnaty) 03/22/2024 Pneumococcal Conjugate Vacci ne, 20-valent ([id number]) 03/07/2024 Pneumococcal Polysaccharide PPV23 (Pneumovax) 01/09/2019 Seasonal [...] encounter Miscellaneous Notes * Telephone Encounter - Talia Fernandez OSA - 04/14/2024 11:14 AM EST Zeny hernandez scheduled for EGD for: Dysphagia, unspecified type [R13.10] - Primary documented in this encounter Plan of Treatment Upcoming Encounters Date Type Department Care Team (Late st Contact Info) Description 05/22/2024 9:20 AM EST Office Visit Neurology [facility] [address] [facility] [place] [address] Afshan Bee MD [address] [facility] [place] [address] 07/21/2024 3:00 PM EST Office Visit Gastroenterology [address] [place] [address] Cheri Jay CRNP [address] [place] [address] 11/22/2024 8:00 AM EDT Office Visit Family Medicine [address] [place] [phone] Shahla Hamlin MD [address] [place] [address] [place] [address] 03/26/2025 1:00 PM EDT Nurse Only Ancillary Maxim Pillai[address] [place] [address] [place], Nurse Annual Wellness [address] [place] [address] [place] [address] Scheduled Procedures Name Priority Associated Diagnoses Date/Ti [...] filedocumented as of this encounter Care Teams Commercial Construction Estimator Relationship Specialty Start Date End Date Shahla Hamlin MD [address] [place] [address] [place] [phone] PCP - General Family Medicine 02/24/24 documented as of this encounter
--- OUTSIDE RECORDS SUMMARY | 2024-09-01 18:27 | External Medical Summary | Summary of Care ---
Author Name Unknown Organization [facility] Address [address] [place] [address] Phone [phone] Care Team Providers Care Instructional Design Technologist Name Role Phone Shahla Hamlin MD Primary Care Provide r Reason for Referral * Evaluate & Treat - Unlimited Visits (Within 30 days (routine)) - Authorized Specialty Diagnoses / Procedures Referred By Diego villanueva Referred To Contact Otolaryngology Diagnoses Voice hoarseness Cheri Jay CRNP [address] [place] [address] Phone: tel: fax: Referral ID Status Reason Start Date Expiration Date Visits Requested Visits Authorized [id number] Authorized Specialty Services Required 4 999 999 [...] disease without esophagitis Dysphagia, unspecified type Shahla Hamlin MD [address] [place] [address] [place] [address] Phone: tel: fax: Referral ID Status Reason Start Date Expiration Date Visits Requested Visits Authorized [id number] Pending Review Specialty Services Required 12/01/2023 999 999 Encounter Details Date Type Department Care Team (Late st Contact Info) Description 04/14/2024 10:30 AM EST Office Visit Gastroenterology [address] [place] [address] Cheri Jay CRNP [address] [place] [address] Dysphagia, unspecified type*; Voice hoarseness; Gastroesophageal reflux [...] 90 Tab 1 03/14/20 19 Active Ipratropium [place] HFA 17 MCG/ACT Inhalation Aerosol Solution (Atrovent Hfa) Inhale 2 Puffs by mouth every 6 hours. Active Atorvastatin Calcium 20 MG Oral Tablet (Lipitor) Take 1 Tablet by mouth in the morning. 09/20/19 24 Active Escitalopram Oxalate 20 MG Oral Tablet (Lexapro) Take 1 Tablet by mouth in the morning. 10/25/19 24 Active Ajovy 225 MG/1.5ML Subcutaneous [...] 12/27/200705/2009 Overview (12/27/2007): Managed by Dr Nuno ([phone]). To view the Medication Usage Agreement, go [...] (PFIZER-Comirnaty) 03/22/2024 Pneumococcal Conjugate Vacci ne, 20-valent ([id number]) 03/07/2024 Pneumococcal Polysaccharide PPV23 (Pneumovax) 01/09/2019 Seasonal [...] in this encounter Progress Notes * Cheri Jay CRNP - 04/14/2024 10:33 AM EST DATE [...] performed by Inez Kumar MD at ENDOSCOPY [facility] COLONOSCOPY, DIAGNOSTIC (RECTUM) 02/28/2016 benign polyp, diverticulosis, repeat 10 yrs/COLONOSCOPY FLEXIBLE PROXIMAL DIAGNOSTIC performed by Inez Kumar MD at ENDOSCOPY [facility] EGD, FLEXIBLE, DIAGNOSTIC 02/22/2014 retained food in stomach, repeat w/ ext prep/ESOPHAGOGASTRODUODENOSCOPY (EGD), FLEXIBLE, TRANSORAL,DIAGNOSTIC performed by Inez Kumar MD at ENDOSCOPY [facility] EGD, FLEXIBLE, DIAGNOSTIC 03/08/2014 bx show reactive gastropathy/ESOPHAGOGASTRODUODENOSCOPY (EGD), FLEXIBLE, TRANSORAL, DIAGNOSTIC performed by Inez Kumar MD at ENDOSCOPY [facility] EGD, FLEXIBLE, DIAGNOSTIC 02/28/2016 normal bx/ESOPHAGOGASTRODUODENOSCOPY (EGD), FLEXIBLE, TRANSORAL, DIAGNOSTIC performed by Inez Kumar MD at ENDOSCOPY [facility] EGD, FLEXIBLE, DIAGNOSTIC 11/28/2018 Full stomach, procedure aborted/ESOPHAGOGASTRODUODENOSCOPY (EGD), FLEXIBLE, TRANSORAL, DIAGNOSTIC performed by Inez Kumar MD at ENDOSCOPY [facility] EGD, FLEXIBLE, DIAGNOSTIC 12/15/2018 normal/ESOPHAGOGASTRODUODENOSCOPY (EGD), FLEXIBLE, TRANSORAL, DIAGNOSTIC performed by Inez Kumar MD at ENDOSCOPY [facility] EGD, FLEXIBLE, W/BIOPSY 11/10/07 biopsies--acid reflux, [...] day if needed 18 g 5 Ipratropium [place] HFA 17 MCG/ACT Inhalation Aerosol Solution (Atrovent [...] 3 months or sooner Junior Cardoza Gastroenterology, [facility] documented in this encounter Nursing Notes * Tanesha Boykin CMA - 04/14/2024 10:19 AM EST Chief Complaint Patient presents with NEW PATIENT New pt ref by Dr Hamlin for GERD/dysphagia. Pt c/o trouble swallowing liquids and solids. Pt also having intermittent epigastric pain. Pt taking omeprazole. Amitiza not helping with constipation. No BM for 1 week. documented in this encounter Plan of Treatment Upcoming Encounters Date Type Department Care Team (Late st Contact Info) Description 05/22/2024 9:20 AM EST Office Visit [facility] [address] [facility] [place] [address] Afshan Bee MD [address] [facility] [place] [address] 07/21/2024 3:00 PM EST Office Visit Gastroenterology [address] [place] [address] Cheri Jay CRNP [address] [place] [address] 11/22/2024 8:00 AM EDT Office Visit Family Medicine [address] [place] [phone] Shahla Hamlin MD [address] [place] [address] [place] [address] 03/26/2025 1:00 PM EDT Nurse Only Ancillary [address] [place] [address] Movmiki, Nurse Annual Wellness [address] [place] [address] [place] [address] Scheduled Orders Name Type Priority Associated Diagnoses Orde r Schedule EGD, FLEXIBLE, DIAGNOSTIC Procedures Routine Dysphagia, unspecified type Ordered: 04/14/2024 Scheduled Procedures Name Priority Associated Diagnoses Date/Ti [...] esophagitis Esophageal reflux Chronic constipation Unspecified constipation documented in this encounter Care Teams Instructional Design Technologist Relationship Specialty Start Date End Date Shahla Hamlin MD [address] [place] [address] [place] [address] PCP - General Family Medicine 02/24/24 documented as of this encounter
--- OUTSIDE RECORDS SUMMARY | 2024-09-01 18:27 | External Medical Summary | Summary of Care ---
Author Name Unknown Organization [facility] Address [address] [facility] [place] [address] Phone [phone] Care Team Providers Care Cemetery Manager Name Role Phone Shahla Hamlin MD Primary Care Provide r Reason for Visit * Reason Onset Date Comments Appointment 04/14/2024 ENT Encounter Details Date Type Department Care Team (Late st Contact Info) Description 04/14/2024 Telephone Gastroenterology, [facility] [address] [place] [address] Cheri Jay CRNP [address] [place] [address] Appointment (ENT ) Allergies Active Allergy Reactions Criticality Noted Date [...] MEDS 90 Tab 1 9 Active Ipratropium [place] HFA 17 MCG/ACT Inhalation Aerosol Solution (Atrovent [...] 12/27/200705/2009 Overview (12/27/2007): Managed by Dr Nuno ([phone]). To view the Medication Usage Agreement, go [...] (PFIZER-Comirnaty) 03/22/2024 Pneumococcal Conjugate Vacci ne, 20-valent ([id number]) 03/07/2024 Pneumococcal Polysaccharide PPV23 (Pneumovax) 01/09/2019 Seasonal [...] encounter Miscellaneous Notes * Telephone Encounter - Luigi Conway OSA - 04/25/2024 10:06 AM EST I spoke to Zeny. She is scheduled and aware. * Telephone Encounter - Talia Fernandez OSA - 04/14/2024 11:23 AM EST I left message on patient's VM to call me (RE: Scheduling ENG appt). documented in this encounter Plan of Treatment Upcoming Encounters Date Type Department Care Team (Late st Contact Info) Description 05/12/2024 8:00 AM EST Office Visit Otolaryngology [facility] [address] [place] [address] Myranda Rowan PA-C [address] [place] [address] 05/22/2024 9:20 AM EST Office Visit Neurology [facility] [address] [place] [address] Afshan Bee MD [address] [place] [address] 07/21/2024 3:00 PM EST Office Visit Gastroenterology [address] [place] [address] Cheri Jay CRNP [address] [place] [address] 11/22/2024 8:00 AM EDT Office Visit Family Medicine [address] [place] [phone] Shahla Hamlin MD [address] [place] [address] [place] [address] 03/26/2025 1:00 PM EDT Nurse Only Ancillary [address] [place] [address] H[place], Nurse Annual Wellness [address] [place] [address] [place] [address] Scheduled Procedures Name Priority Associated Diagnoses Date/Ti [...] filedocumented as of this encounter Care Teams Cemetery Manager Relationship Specialty Start Date End Date Shahla Hamlin MD [address] [place] [address] [place] [phone] PCP - General Family Medicine 02/24/24 documented as of this encounter
--- OUTSIDE RECORDS SUMMARY | 2024-09-01 18:27 | External Medical Summary | Summary of Care ---
Author Name Unknown Organization [facility] Address [address] [facility] [place] [address] Phone [phone] Care Team Providers Care Manager Credit Name Role Phone Shahla Hamlin MD Primary Care Provide r Reason for Visit * Reason Onset Date Comments Appointment 04/14/2024 ENT Encounter Details Date Type Department Care Team (Late st Contact Info) Description 04/14/2024 Telephone Gastroenterology, [facility] [address] [place] [address] Cheri Jay CRNP [address] [place] [address] Appointment (ENT ) Allergies Active Allergy Reactions [...] MEDS 90 Tab 1 9 Active Ipratropium [place] HFA 17 MCG/ACT Inhalation Aerosol Solution (Atrovent [...] 12/27/200705/2009 Overview (12/27/2007): Managed by Dr Nuno ([phone]). To view the Medication Usage Agreement, go to Action, Patient Files. Benign neoplasm of colon 11/10/200707/2023 Overview (11/22/2007): biopsies--acid reflux, negative for Aimn's and H.Pylori ADVANCE DIRECTIVE INFORMATION 06/06/2007 04/03/2024 [...] (PFIZER-Comirnaty) 03/22/2024 Pneumococcal Conjugate Vacci ne, 20-valent (Simfflq67) 03/07/2024 Pneumococcal Polysaccharide PPV23 (Pneumovax) 01/09/2019 Seasonal [...] 9:20 AM EST Office Visit Neurology [facility] 200 [facility] [place] [address] Afshan Bee MD [address] [facility] [place] [address] 07/21/2024 3:00 PM EST Office Visit Gastroenterology [address] [place] [address] Cheri Jay CRNP [address] [facility] [place] [address] 11/22/2024 8:00 AM EDT Office Visit Family Medicine [address] [place] [phone] Shahla Hamlin MD [address] [place] [address] [place] [address] 03/26/2025 1:00 PM EDT Nurse Only Ancillary [place] [address] [place] [address] Movmiki, Nurse Annual Wellness [address] [place] [address] [place] [address] Scheduled Procedures Name Priority Associated Diagnoses Date/Ti [...] as of this encounter Care Teams Manager Credit Relationship Specialty Start Date End Date Shahla Hamlin MD [address] [place] [address] [place] [address] PCP - General Family Medicine 02/24/24 documented as of this encounter
--- OUTSIDE RECORDS SUMMARY | 2024-09-01 18:27 | External Medical Summary | Summary of Care ---
Author Name Unknown Organization [facility] Address [address] [place] [address] Phone [phone] Care Team Providers Care Can Dragger Name Role Phone Shahla Hamlin MD Primary Care Provide r Reason for Visit * Reason Onset Date Comments Pre Cert/Prior Auth 03/29/2024 Encounter Details Date Type Department Care Team (Late st Contact Info) Description 03/29/2024 Telephone Neurology [facility] [address] [place] [address] Afshan Bee MD [address] [place] [address] Pre Cert/Prior Auth Allergies Active Allergy Reactions [...] 11 06/22/2017 Active Azelastine HCl 137 MCG/SPRAY SOLNIndications:Appeals Representative awais sinusitis,Chronic rhinitis instill 2 sprays into [...] MEDS 90 Tab 1 03/14/2019 Active Ipratropium [place] HFA 17 MCG/ACT Inhalation Aerosol Solution (Atrovent [...] AGREEMENT 12/27/200705/2009 Overview: Managed by Dr Nuno ([phone]). To view the Medication Usage Agreement, go [...] (Pfizer-Comirnaty) 03/22/2024 Pneumococcal Conjugate Vacci ne, 20-valent ([id number]) 03/07/2024 Pneumococcal Polysaccharide PPV23 (Pneumovax) 01/09/2019 Seasonal [...] encounter Miscellaneous Notes * Telephone Encounter - Ludmila Mcclellan CPhT - 03/29/2024 1:24 PM EDT New or re-auth: re auth Patient Zeny Nuñez needs a prior authorization for a medication through their [employer] insurance. Medication: ajovy Formulation: 225mg/1.5ml soaj Dosage: 1.5 ml per 30 days ID: [id number] BIN:[id number] PCN:[id number] Phone: Target ship date is 04-03. Thank you very much, Ludmila Mcclellan CPhT Bleacher Pulp Freezing Room Worker [facility] documented in this encounter Plan of Treatment Upcoming Encounters Date Type Department Care Team (Late st Contact Info) Description 04/13/2024 1:00 PM EST Imaging Radiology, [address] [place] [address] 04/14/2024 10:30 AM EST Office Visit Gastroenterology [address] [place] [address] Cheri Jay CRNP [address] [place] [address] 05/22/2024 9:20 AM EST [facility] [address] [place] [address] Afshan Bee MD [address] [place] [address] 11/22/2024 8:00 AM EDT Office Visit Family Medicine [address] [place] [phone] Shahla Hamlin MD [address] [place] [address] [place] [address] 03/26/2025 1:00 PM EDT Nurse Only Ancillary [address] [place] [address] [place], Nurse Annual Wellness [address] [place] [address] [place] [address] Scheduled Procedures Name Priority Associated Diagnoses Date/Ti [...] Monitoring 03/22/2025 03/22/2024 Lipid Panel 12/09/2028 12/10/2023, 06/05/2022, 01/18/2015, Additional history exists Colonoscopy 07/01/2031 07/01/2021, [...] filedocumented as of this encounter Care Teams Can Dragger Relationship Specialty Start Date End Date Shahla Hamlin MD [address] [place] [address] [place] [phone] PCP - General Family Medicine 02/24/24 documented as of this encounter
--- OUTSIDE RECORDS SUMMARY | 2024-09-01 18:27 | External Medical Summary | Summary of Care ---
Author Name Unknown Organization [facility] Address [address] [place] [address] Phone [phone] Care Team Providers Care Paper Roll Machine Operator Name Role Phone Shahla Hamlin MD Primary Care Provide r Reason for Visit * Reason Comments eRx-Medication Refill Encounter Details Date Type Department Care Team (Late st Contact Info) Description 04/07/2024 Refill Family Medicine [address] [phone] Shahla Hamlin MD [address] [place], [place] [address] [address] Fibromyalgia Allergies Active Allergy Reactions Criticality Noted Date Comments Iodinated Contrast Media Edema face/lips/tongue High 05/11/2007 hives documented as of this encounter (statuses as of 04/10/2024) Medications CALCIUM 600 MG PO TABS 1 [...] 90 Tab 1 03/14/20 19 Active Ipratropium [place] HFA 17 MCG/ACT Inhalation Aerosol Solution (Atrovent [...] as of this encounter (statuses as of 04/10/2024) Active Problems Problem Noted Date Diagnosed Date [...] as of this encounter (statuses as of 04/10/2024) Resolved Problems Problem Noted Date Diagnosed Date Resolved Date PMR (polymyalgia rheumatica) 11/16/2011 12/01/2023 Acute cystitis 09/03/2009 04/11/2011 Dyslipidemia, goal to be determined 05/16/2009 12/01/2023 Overview (05/16/2009): Per Lipid Taxonomy. Benign neoplasm of colon 07/29/200807/2023 Overview (08/24/2008): fair prep- 2 mm polyp removed, repeat in 3 yrs, adenomatous polyps MEDICATION USE AGREEMENT 12/27/200705/2009 Overview (12/27/2007): Managed by Dr Nuno ([phone]). To view the Medication Usage Agreement, go [...] as of this encounter (statuses as of 04/10/2024) Immunizations Name Administration Dates Next Due COVID-19 mRNA, LNP-s, PF, 18 + or 6-11Yrs (Moderna) 01/07/2022,05/06/2021,09/13/2020,08/16 COVID-19, MRNA-LNP, PF, 30 M CG/0.3 mL, 12 YRS AND ABOVE, IM (PFIZER-Comirnaty) 03/22/2024 Pneumococcal Conjugate Vacci ne, 20-valent ([id number]) 03/07/2024 Pneumococcal Polysaccharide PPV23 (Pneumovax) 01/09/2019 Seasonal [...] HAMLIN * Telephone Encounter - Marysol Barrientos [facility] - 04/10/2024 8:53 AM ESTPending Prescriptions: Disp Refills Pregabalin 75 MG Oral Capsule [Pharmacy Me*30 Cap*0 Sig: Take 1 Capsule by mouth every night at bedtime. * Telephone Encounter - Marysol Barrientos [facility] - 04/10/2024 8:52 AM EST I have reviewed the patient’s controlled substance dispensing history in the Prescription Drug Monitoring Program in compliance with the [facility] regulations before prescribing a controlled substance. PDMP checked on 04/10/2024. Pending Prescriptions: Disp Refills Pregabalin 75 MG Oral Capsule (Lyrica) [P*30 Cap*0 Sig: TAKE 1 CAPSULE BY MOUTH EVERY NIGHT AT BEDTIME. Last Visit: 03/07/2024 (in office), Visit date not found (telemedicine) Next Visit: 11/22/2024 Date medication was last filled: 03/07/24 Date medication is due for refill: 04/05/24 Pharmacy: [id number] [id number] [facility] Is this request for a controlled substance? Yes and Urine Drug Screen Not completed Toxicology results: No results found for this or any previous visit. Please approve if appropriate. Thank you, Marysol Barrientos, PharmD Clinical Pharmacist [facility] 04/10/24 8:52 AM [phone] documented in this encounter Plan of Treatment Upcoming Encounters Date Type Department Care Team (Late st Contact Info) Description 04/13/2024 1:00 PM EST Imaging Radiology, [address] [place] [address] 04/14/2024 10:30 AM EST Office Visit Gastroenterology [address] [place] [address] Cheri Jay CRNP [address] [place] [address] 05/22/2024 9:20 AM EST Office Visit Neurology [employer] [address] [place] [address] Afshan Bee MD [address] [place] [address] 11/22/2024 8:00 AM EDT Office Visit Family Medicine [address] [place] [phone] Shahla Hamlin MD [address] [place] [address] [place] [address] 03/26/2025 1:00 PM EDT Nurse Only Ancillary [address] [place] [address] [place], Nurse Annual Wellness [address] [place] [address] [place] [address] Scheduled Procedures Name Priority Associated Diagnoses Date/Ti [...] unspecified documented in this encounter Care Teams Paper Roll Machine Operator Relationship Specialty Start Date End Date Shahla Hamlin MD [address] [place] [address] [place] [phone] PCP - General Family Medicine 02/24/24 documented as of this encounter
--- OUTSIDE RECORDS SUMMARY | 2024-09-01 18:28 | External Medical Summary | Summary of Care ---
Author Name Unknown Organization [facility] Address [address] [place] [address] Phone [phone] Care Team Providers Care Director Cloud Transformation Name Role Phone Shahla Hamlin MD Primary Care Provide r Reason for Visit * Reason Onset Date Comments Pre Cert/Prior Auth 03/29/2024 Encounter Details Date Type Department Care Team (Late st Contact Info) Description 03/29/2024 Telephone Neurology [facility] [address] [place] [address] Afshan Bee MD [address] [facility] [place] [address] Pre Cert/Prior Auth Allergies Active Allergy Reactions [...] 11 06/22/2017 Active Azelastine HCl 137 MCG/SPRAY SOLNIndications:Cna awais sinusitis,Chronic rhinitis instill 2 sprays into [...] MEDS 90 Tab 1 03/14/2019 Active Ipratropium [place] HFA 17 MCG/ACT Inhalation Aerosol Solution (Atrovent [...] AGREEMENT 12/27/200705/2009 Overview: Managed by Dr Nuno ([phone]). To view the Medication Usage Agreement, go [...] (Pfizer-Comirnaty) 03/22/2024 Pneumococcal Conjugate Vacci ne, 20-valent ([id number]) 03/07/2024 Pneumococcal Polysaccharide PPV23 (Pneumovax) 01/09/2019 Seasonal [...] EDT New or re-auth: re auth Patient Zney Nuñez needs a prior authorization for a medication through their [employer] insurance. Medication: ajovy Formulation: 225mg/1.5ml soaj Dosage: 1.5 ml per 30 days ID: [id number] BIN:[id number] PCN:[id number] Phone: Target ship date is 04-03. Thank you very much, Ludmila Mcclellan CPhT Tie Hacker Deputy Chief Executive [facility] documented in this encounter Plan of Treatment Upcoming Encounters Date Type Department Care Team (Late st Contact Info) Description 04/13/2024 1:00 PM EST Imaging Radiology, [address] [place] [address] 04/14/2024 10:30 AM EST Office Visit Gastroenterology [address] [place] [address] Cheri Jay CRNP [address] [place] [address] 05/22/2024 9:20 AM EST [facility] [address] [place] [address] Afshan Bee MD [address] [place] [address] 11/22/2024 8:00 AM EDT Office Visit Family Medicine [address] [place] [phone] Shahla Hamlin MD [address] [place] [address] [place] [address] 03/26/2025 1:00 PM EDT Nurse Only Ancillary [address] [place] [address] [place], Nurse Annual Wellness [address] [place] [address] [place] [address] Scheduled Procedures Name Priority Associated Diagnoses Date/Ti [...] filedocumented as of this encounter Care Teams Director Cloud Transformation Relationship Specialty Start Date End Date Shahla Hamlin MD [address] [place] [address] [place] [phone] PCP - General Family Medicine 02/24/24 documented as of this encounter
--- OUTSIDE RECORDS SUMMARY | 2024-09-01 18:28 | External Medical Summary | Summary of Care ---
Author Name Unknown Organization [facility] Address [address] [place] [address] Phone [phone] Care Team Providers Care Knapsack Sprayer Name Role Phone Shahla Hamlin MD Primary Care Provide r Reason for Visit * Reason Onset Date Comments Precert Denied 12/10/2023 ajovy Encounter Details Date Type Department Care Team (Late st Contact Info) Description 12/10/[address] [facility] [address] [place] [address] Afshan Bee MD [address] [place] [address] Precert Denied (/ajovy) Allergies Active Allergy Reactions Criticality Noted Date Comments Iodinated Contrast Media Edema face/lips/tongue High 05/11/2007 hives documented as of this encounter (statuses as of 03/10/2024) Medications Medication Sig Dispensed Refills Start Date [...] 0 6 Active sucralfate (CARAFATE) 1 GM TabletIndication s:Gastroesophage al reflux disease, esophagitis presence not specified take 1 tablet by mouth four times a day BEFORE MEALS AND AT BEDTIME 1/2 HOUR BEFORE MEALS AND AT BEDTIME 120 Tab 5 7 Active FLOVENT HFA 110 MCG/ACT inhalerIndicatio ns:Asthma exacerbation inhale 2 puffs by mouth twice a day 12 g 11 8 Active Azelastine HCl 137 MCG/SPRAY SOLNIndications: Chronic sinusitis,Chroni c rhinitis instill 2 sprays into each nostril twice a day 30 mL 5 8 Active VENTOLIN HFA 108 (90 Base) MCG/ACT inhalerIndicatio ns:Bronchitis, complicated inhale 2 puffs by mouth four times a day if needed 18 g 5 8 Active Mometasone Furoate 50 MCG/ACT nasal sprayIndications :Chronic sinusitis,Chroni c rhinitis instill 2 sprays into each nostril once daily 17 g 5 8 Active levothyroxine (LEVOXYL) 25 MCG TabletIndication s:Hypothyroidism take 1 tablet by mouth every morning 30 MINUTES BEFORE BREAKFAST AND OTHER MEDS 90 Tab 1 9 Active Ipratropium [place] HFA 17 MCG/ACT Inhalation Aerosol Solution (Atrovent Hfa) Inhale 2 Puffs by mouth every 6 hours. Active Atorvastatin Calcium 20 MG Oral Tablet (Lipitor) Take 1 Tablet by mouth in the morning. 4 Active Escitalopram Oxalate 20 MG Oral Tablet (Lexapro) Take 1 Tablet by mouth in the morning. 4 Active Pantoprazole Sodium 40 MG Oral Tablet Delayed Release (Protonix) Take 1 Tablet by mouth in the morning and 1 Tablet in the evening. 3 Active Omeprazole 40 MG Oral Capsule Delayed Release (PriLOSEC) TAKE 1 CAPSULE BY MOUTH TWICE A DAY 30 MIN BEFORE BREAKFAST AND DINNER 4 Active Ajovy 225 MG/1.5ML Subcutaneous Solution Auto-injector (Fremanezumab-vf rm)Indications:I ntractable migraine with aura with status migrainosus Inject 1.5 ml under the skin once a month 1.5 mL 5 4 Active Additional Information Patient not taking.Reported on 03/07/2024 SUMAtriptan Succinate 50 MG Oral Tablet (Imitrex)Indicat ions:Intractable migraine with aura with status migrainosus 1 at onset of migraine may repeat in 2 hours max 2 doses in 24 hour 10 Tablet 5 4 Active ULTRAM 50 MG PO TABS Take by mouth. 03/07/20 24 Discontinued(Med ication List Clean Up) Lubiprostone 24 MCG Oral Capsule (Amitiza) Take 1 Capsule by mouth 2 times a day with morning and evening meals. 03/07/20 24 Discontinued(Ref ill) Pregabalin 75 MG Oral Capsule (Lyrica)Indicati ons:Fibromyalgia Take 1 Capsule by mouth every night at bedtime. 30 Capsule 4 01/03/20 24 Discontinued Amitriptyline HCl 75 MG Oral Tablet (Elavil)Indicati ons:Migraine without aura and without status migrainosus, not intractable Take 1 Tablet by mouth at bedtime. 90 Tablet 4 02/28/20 24 Discontinued documented as of this encounter (statuses as of 03/10/2024) Active Problems Problem Noted Date Diagnosed Date [...] as of this encounter (statuses as of 03/10/2024) Resolved Problems Problem Noted Date Diagnosed Date Resolved Date PMR (polymyalgia rheumatica) 11/16/2011 12/01/2023 Acute cystitis 09/03/2009 04/11/2011 Dyslipidemia, goal to be determined 05/16/2009 12/01/2023 Overview: Per Lipid Taxonomy. Benign neoplasm of colon 07/29/200807/2023 Overview: fair prep- 2 mm polyp removed, repeat in 3 yrs, adenomatous polyps MEDICATION USE AGREEMENT 12/27/200705/2009 Overview: Managed by Dr Nuno ([phone]). To view the Medication Usage Agreement, go to Action, Patient Files. Benign neoplasm of colon 11/10/200707/2023 Overview: biopsies--acid reflux, negative for Amin's and H.Pylori Myalgia and myositis 05/11/2007 024 Migraine with aura, intractable 05/11/2007 12/01/2023 Mixed dyslipidemia 05/11/200705/16/200 9 Overview: Per Lipid Taxonomy. Chronic sinusitis 05/13/2017 documented as of this encounter (statuses as of 03/10/2024) Immunizations Name Administration Dates Next Due Pneumococcal Polysaccharide PPV23 (Pneumovax) 01/09/2019 Seasonal Influenza Vac., MDV , IM, 0.5 mL (Fluzone) 01/21/2015,03/28/2013,03/02/2011,02/28,04/30/2009,04/03/2008 Seasonal Influenza, Quadriva lent, No Preserve, IM [...] Answer Date Recorded PHQ-2 Score -1 04/03/2018 Sex and Gender Information Value Date Recorded Sex Assigned at Not on file Gender Identity Not on file Sexual Orientation Not on file Job Start Date Occupation Industry Not on file Not on file Not on file documented as of this encounter Miscellaneous Notes * Telephone Encounter - Justino Beebe, professor of criminal justice - 01/04/2024 10:03 AM EDT Hello, Checking in again to see if appeal is being done or if we should profile the script? Please advise. Thank you very much, Justino Beebe Insulation Supervisor [facility] 01/04/2024,10:04 AM * Telephone Encounter - Ludmila Mcclellan CPhT - 12/29/2023 8:52 AM EDT Hello! The prior authorization for ajovy has been denied. Does the office plan on appealing this decision or will the provider be seeking alternate therapy for this patient? Please let us know how you plan to proceed so we may follow up appropriately. Thank you, Ludmila Mcclellan CPhT III [facility] * Telephone Encounter - Myranda Humphries PHARM Tech - 12/22/2023 3:26 PM EDT Shelia! The prior authorization for Ajovy has been denied. Does the office plan on appealing this decision or will the provider be seeking alternate therapy for this patient? Please let us know how you plan to proceed so we may follow up appropriately. Thank you, Shayy Humphries Insulation Supervisor [facility] 12/22/2023 3:26 PM * Telephone Encounter - Celena Stewart CPhT - 12/10/2023 10:29 AM EDT New or re-auth: New Patient Zeny Nuñez needs a prior authorization for a medication through their [employer] insurance. Medication: Ajovy Formulation: 1125mg/1.5ml soaj Dosage: Inject 1.5 ml under the skin once a month ID: [id number] [id number] PCN:[id number] Phone: [employer] ship date is new start. Thank you very much, Celena Stewart CPhT Insulation Supervisor [facility] 12/10/2023,10:29 AM documented in this encounter Plan of Treatment Upcoming Encounters Date Type Department Care Team (Late st Contact Info) Description 03/21/2024 10:20 AM EDT Nurse Only Ancillary [address] [place] [address] Bri, Nurse [address] [place] [address] 03/22/2024 1:00 PM EDT Nurse Only Ancillary [address] [place] [address] [place], Nurse [address] [place] [address] 03/28/2024 3:00 PM EDT Office Visit Ophthalmology, [place] [address] [place] [address] Felipe Pandey MD [address] [place] [address] 04/13/2024 1:00 PM EST Imaging Radiology, [address] [place] [address] 04/14/2024 10:30 AM EST Office Visit Gastroenterology [address] [place] [address] Cheri Jay CRNP [address] [place] [address] 05/22/2024 9:20 AM EST Office Visit Neurology [facility] [address] [place] [address] Afshan Bee MD [address] [place] [address] 11/22/2024 8:00 AM EDT Office Visit Family Medicine [address] [place] [phone] Shahla Hamlin MD [address] [place] [address] [place] [address] Scheduled Procedures Name Priority Associated Diagnoses Date/Ti me COLONOSCOPY FLEXIBLE PROXIMA L DIAGNOSTIC Recall Special screening for malignant neoplasms, colon Health Maintenance Due Date Last Done Comments DXA Scan 1957 Cologuard 2002 Fecal Occult Blood Test 2002 Sigmoidoscopy 2002 Zoster Vaccines (1 of 2) 2007 Depression Monitoring 05/13/2018 05/13/2017 DTap/Tdap Vaccines (2 - Td or Tdap) 06/17/2019 06/17/2009 Adult Wellness Visit 2023 *SPIROMETRY ONCE FOR ASTHMA-ADULT 12/04/2023 COVID-19 Vaccine ( - season) 2024 Mammogram 12/07/2024 12/08/2023, 07/30, 08/28/2014, Additional history exists HbA1c 12/09/2024 12/10/2023 TSH 12/09/2024 12/10/2023, 11/28, 10/21/2015, Additional history exists Lipid Panel 12/09/2028 12/10/2023, 06/0 05/2022, 01/18/2015, Additional history exists Colonoscopy 07/01/2031 07/01/2021, 01/31, 02/28/2016, Additional history exists Colorectal Cancer Screening 07/01/2031 Hepatitis C Screening Completed 04/24/2011 Pap Smear Discontinued 06/26/2013, 06/01, 09/11/2008, Additional history exists Influenza Vaccine (FLU shot) Completed 02/24/2024, 02/06/2016, 01/21/2015, Additional history exists Pneumococcal Vaccine: 65+ Years Completed 03/07/2024, 01/09/2019 HPV (Gardasil) Vaccine [...] filedocumented as of this encounter Care Teams Knapsack Sprayer Relationship Specialty Start Date End Date Shahla Hamiln MD [address] [place] [address] [place] [phone] PCP - General Family Medicine 02/24/24 documented as of this encounter
--- OUTSIDE RECORDS SUMMARY | 2024-09-01 18:28 | External Medical Summary | Summary of Care ---
Author Name Unknown Organization [facility] Address [address] [place] [address] Phone [phone] Care Team Providers Care Zone Manager Name Role Phone Shahla Hamlin MD Primary Care Provide r Reason for Visit * Reason Onset Date Comments Appointment 03/07/2024 Annual wellness Encounter Details Date Type Department Care Team (Late st Contact Info) Description 03/07/2024 Telephone Family Medicine [address] [phone] Shahla Hamlin MD [address] [place] [address] [place], [place] [phone] Appointment (Annual wellness ) Allergies Active Allergy Reactions Criticality Noted Date Comments Iodinated Contrast Media Edema face/lips/tongue High 05/11/2007 hives documented as of this encounter (statuses as of 03/07/2024) Medications Medication Sig Dispensed Refills Start Date [...] 11 06/22/2017 Active Azelastine HCl 137 MCG/SPRAY SOLNIndications:Child Day Care Teacher awais sinusitis,Chronic rhinitis instill 2 sprays into [...] MEDS 90 Tab 1 03/14/2019 Active Ipratropium [place] HFA 17 MCG/ACT Inhalation Aerosol Solution (Atrovent [...] evening meals. 60 Capsule 1 03/07/2024 Active documented as of this encounter (statuses as of 03/07/2024) Active Problems Problem Noted Date Diagnosed Date [...] as of this encounter (statuses as of 03/07/2024) Resolved Problems Problem Noted Date Diagnosed Date Resolved Date PMR (polymyalgia rheumatica) 11/16/2011 12/01/2023 Acute cystitis 09/03/2009 04/11/2011 Dyslipidemia, goal to be determined 05/16/2009 12/01/2023 Overview: Per Lipid Taxonomy. Benign neoplasm of colon 07/29/200807/2023 Overview: fair prep- 2 mm polyp removed, repeat in 3 yrs, adenomatous polyps MEDICATION USE AGREEMENT 12/27/200705/2009 Overview: Managed by Dr Nuno ([phone]). To view the Medication Usage Agreement, go to Action, Patient Files. Benign neoplasm of colon 11/10/200707/2023 Overview: biopsies--acid reflux, negative for Amin's and H.Pylori Myalgia and myositis 05/11/2007 024 Migraine with aura, intractable 05/11/2007 12/01/2023 Mixed dyslipidemia 05/11/2007 9 Overview: Per Lipid Taxonomy. Chronic sinusitis 05/13/2017 documented as of this encounter (statuses as of 03/07/2024) Immunizations Name Administration Dates Next Due Pneumococcal Conjugate Vacci ne, 20-valent ([id number]) 03/07/2024 Pneumococcal Polysaccharide PPV23 (Pneumovax) 01/09/2019 Seasonal [...] Telephone Encounter - Talia Fernandez OSA - 03/07/2024 3:59 PM EDT I spoke to patient and got her appts all scheduled. * Telephone Encounter - Jaci Villagran OSA - 03/07/2024 1:09 PM EDT No Appointments Available Patient declined appointments?: Yes What Visit Type is needed? Annual Wellness Visit If Acute Visit Type is needed, were surrounding clinics offered to patient (Yes/No)? N/A Was patient offered appointments with other available providers (Yes/No)? N/A See Call Details? (Yes or No): No Patient would only like to see her PCP around 09/05/2024 documented in this encounter Plan of Treatment Upcoming Encounters Date Type Department Care Team (Late st Contact Info) Description 03/21/2024 10:20 AM EDT Nurse Only Ancillary [address] [place] [address] Nurse Bri [address] [place] [address] 03/22/2024 1:00 PM EDT Nurse Only Ancillary [address] [place] [address] Nurse Neno [address] [place] [address] 03/28/2024 3:00 PM EDT Office Visit Ophthalmology, [place] [address] Felipe Pandey MD [place] [address] 04/13/2024 1:00 PM EST Imaging Radiology, [facility] [address] [facility] [place] [address] 04/14/2024 10:30 AM EST Office Visit Gastroenterology [address] [place] [address] Cheri Jay CRNP [address] [place] [address] 05/22/2024 9:20 AM EST Office Visit Neurology [facility] [address] [place] [address] Afshan Bee MD [address] [place] [address] 11/22/2024 8:00 AM EDT Office Visit Family Medicine [address] [place] [phone] Shahla Hamlin MD [address] [place] [address] [place] [address] Scheduled Procedures Name Priority Associated Diagnoses Date/Ti [...] ( - season) 2024 Mammogram 12/07/2024 12/08/2023, /07/2021, 08/28/2014, Additional history exists HbA1c 12/09/2024 12/10/2023 TSH 12/09/2024 12/10/2023, 11/28, 10/21/2015, Additional history exists Lipid Panel 12/09/2028 12/10/2023, 06/05/2022, 01/18/2015, Additional [...] filedocumented as of this encounter Care Teams Zone Manager Relationship Specialty Start Date End Date Shahla Hamlin MD [address] [place] [address] [place] [address] PCP - General Family Medicine 02/24/24 documented as of this encounter
--- OUTSIDE RECORDS SUMMARY | 2024-09-01 18:28 | External Medical Summary | Summary of Care ---
Author Name Unknown Organization [facility] Address [address] [place] [address] Phone [phone] Care Team Providers Care Inspector Motor Vehicles Name Role Phone Shahla Hamlin MD Primary Care Provide r Reason for Visit * Reason Comments NEW PATIENT * Evaluate & Treat - Unlimited Visits (Within 30 days (routine)) - Authorized Specialty Diagnoses / Procedures Referred By Diego villanueva Referred To Contact Ophthalmology Diagnoses Visual disturbance Afshan Bee MD [address] [place] [id number] Referral ID Status Reason Start Date Expiration Date Visits Requested Visits Authorized [id number] Authorized Specialty Services Required 02/24/[phone] Encounter Details Date Type Department Care Team (Late st Contact Info) Description 03/28/2024 3:00 PM EDT Office Visit Ophthalmology, [place] [address] Felipe Pandey MD [address] [place] [address] Combined forms of age-related cataract of both eyes*; Migraine without aura and without status migrainosus, not intractable Allergies Active Allergy Reactions Criticality Noted Date Comments Iodinated Contrast Media Edema face/lips/tongue High 05/11/2007 hives documented as of this encounter (statuses as of 03/28/2024) Medications Medication Sig Dispensed Refills Start Date [...] 11 06/22/2017 Active Azelastine HCl 137 MCG/SPRAY SOLNIndications:Cloth Neutralizer awais sinusitis,Chronic rhinitis instill 2 sprays into [...] MEDS 90 Tab 1 03/14/2019 Active Ipratropium [place] HFA 17 MCG/ACT Inhalation Aerosol Solution (Atrovent [...] as of this encounter (statuses as of 03/28/2024) Active Problems Problem Noted Date Diagnosed Date [...] as of this encounter (statuses as of 03/28/2024) Resolved Problems Problem Noted Date Diagnosed Date Resolved Date PMR (polymyalgia rheumatica) 11/16/2011 12/01/2023 Acute cystitis 09/03/2009 04/11/2011 Dyslipidemia, goal to be determined 05/16/2009 12/01/2023 Overview: Per Lipid Taxonomy. Benign neoplasm of colon 07/29/200807/2023 Overview: fair prep- 2 mm polyp removed, repeat in 3 yrs, adenomatous polyps MEDICATION USE AGREEMENT 12/27/200705/2009 Overview: Managed by Dr Nuno ([phone]). To view the Medication Usage Agreement, go to Action, Patient Files. Benign neoplasm of colon 11/10/200707/2023 Overview: biopsies--acid reflux, negative for Amin's and H.Pylori Myalgia and myositis 05/11/2007 024 Migraine with aura, intractable 05/11/2007 12/01/2023 Mixed dyslipidemia 05/11/2007 9 Overview: Per Lipid Taxonomy. Chronic sinusitis 05/13/2017 documented as of this encounter (statuses as of 03/28/2024) Immunizations Name Administration Dates Next Due COVID-19 mRNA, LNP-s, PF, 18 + or 6-11Yrs (Moderna) 01/07/2022,05/06/2021,09/13/2020,08/16 COVID-19, MRNA-LNP, 24-25, P R, 30MCG/0.3ML, IM, 12YRS AND ABOVE (Pfizer-Comirnaty) 03/22/2024 Pneumococcal Conjugate Vacci ne, 20-valent ([id number]) 03/07/2024 Pneumococcal Polysaccharide PPV23 (Pneumovax) 01/09/2019 Seasonal [...] on file documented as of this encounter Progress Notes * Felipe Pandey MD - 03/28/2024 3:53 PM EDT [facility] DEPARTMENT OF OPHTHALMOLOGY OUTPATIENT CLINIC NOTES PATIENT NAME: Zeny Nuñez (68 year old female) PRIMARY CARE PHYSICIAN: Shahla Hamlin MD CC: cataracts HPI: saw Dr. Bee recently who saw cataracts ROS: no functional deficits from blurred vision POH: see below Past Medical History: Diagnosis Date Allergic rhinitis Anxiety 12/01/2023 Benign neoplasm of colon 07/29/2008 fair prep- 2 mm polyp removed, repeat in 3 yrs, adenomatous polyps Chronic sinusitis Esophageal reflux 05/11/2007 Hypothyroidism 06/09/2007 Major depressive disorder 06/09/2007 ICD-10 update of inactive term Migraine Osteoporosis RLS (restless legs syndrome) 12/01/2023 MEDS: Current Outpatient Medications Medication Sig Dispense Refill [...] AND OTHER MEDS 90 Tab 1 Ipratropium [place] HFA 17 MCG/ACT Inhalation Aerosol Solution (Atrovent [...] A DAY 30 MINBEFORE BREAKFAST AND DINNER Ajovy 225 MG/1.5ML Subcutaneous Solution Auto-injector (Jammcardkalyan[employer]-vfrm) Inject 1.5 ml under the skin once [...] morning and evening meals. 60 Capsule 1 Qulipta 60 MG Oral Tablet (Atogepant) Take one by mouth each day 30 Tablet 5 No current facility-administered medications for this visit. ALL: Review of patient's allergies indicates: Allergen Reactions Iodinated Contrast Media Edema face/lips/tongue hives PSH: Past Surgical History: Procedure Laterality Date COLONOSCOPY W/ BIOPSY (RECTUM) 08/22/08 fair prep- 2 mm polyp removed, repeat in 3 yrs, adenomatous polyps COLONOSCOPY, DIAGNOSTIC (RECTUM) 02/20/2013 COLONOSCOPY FLEXIBLE PROXIMAL DIAGNOSTIC performed by Inez Kumar MD at [facility] COLONOSCOPY, DIAGNOSTIC (RECTUM) 02/28/2016 benign polyp, diverticulosis, repeat 10 yrs/COLONOSCOPY FLEXIBLE PROXIMAL DIAGNOSTIC performed by Inez Kumar MD at [facility]COPY [facility] EGD, FLEXIBLE, DIAGNOSTIC 02/22/2014 retained food in stomach, repeat w/ ext prep/ESOPHAGOGASTRODUODENOSCOPY (EGD), FLEXIBLE, TRANSORAL,DIAGNOSTIC performed by Inez Kumar MD at [facility]COPY [facility] EGD, FLEXIBLE, DIAGNOSTIC 03/08/2014 bx show reactive gastropathy/ESOPHAGOGASTRODUODENOSCOPY (EGD), FLEXIBLE, TRANSORAL, DIAGNOSTIC performed by Inez Kumar MD at [facility]COPY [facility] EGD, FLEXIBLE, DIAGNOSTIC 02/28/2016 normal bx/ESOPHAGOGASTRODUODENOSCOPY (EGD), FLEXIBLE, TRANSORAL, DIAGNOSTIC performed by Inez Kumar MD at [facility] EGD, FLEXIBLE, DIAGNOSTIC 11/28/2018 Full stomach, procedure aborted/ESOPHAGOGASTRODUODENOSCOPY (EGD), FLEXIBLE, TRANSORAL, DIAGNOSTIC performed by Inez Kumar MD at [facility]COPY [facility] EGD, FLEXIBLE, DIAGNOSTIC 12/15/2018 normal/ESOPHAGOGASTRODUODENOSCOPY (EGD), FLEXIBLE, TRANSORAL, DIAGNOSTIC performed by Inez Kumar MD at [facility]COPY [facility] EGD, FLEXIBLE, W/BIOPSY 11/10/07 biopsies--acid reflux, negative for Amin's and H.Pylori EXPLORATION OF MAXILLARY SINUS last 09/2006 Sinus Surgery x4 - Drs. Ho and Won SLEEP STUDY, W/O CPAP 11/10/2007 no sleep apnea FH: Family History Problem Relation Name Age of Onset Breast Cancer Mother 40s; Rt Mastectomy Lung cancer Mother Emphysema Mother Heart failure Mother Lung Disorder Father due to mining Lung cancer Father Fibromyalgia Sister Heart attack Brother Congenital heart disease Son SH: Social History Tobacco Use Smoking status: Never Smokeless tobacco: Never Tobacco comments: son and his girlfriend smoke in her apartment Substance Use Topics Alcohol use: No Vaping/E-Cigarette Use Vaping/E-Cigarette Use Never User Vaping/E-Cigarette Substances Vaping/E-Cigarette Devices EXAM VA sc OD (D) 20/25-2; VA sc OD (N) 20/200 VA sc OS (D) 20/40; VA sc OS (N) 20/200 Auto OD: sph +0.50 cyl +0.25 axis 035 Auto OS: sph +0.75 cyl +0.00 axis 180 MR OD: sph +0.50 20/25- MR OS: sph +0.75 20/30+1 EXTERNAL: CVF: Full OU Lids: WNL Conjunctiva: WNL OU Pupils: PERRL; no APD EOM: Full SLIT LAMP Cornea: clear OU Tear Film: WNL OU A/C: D/Q OU Lens: early NS OD; early NS OS Iris: WNL OU TA OD:16; OS: 16; 3:54 PM DILATED EXAM: Dilated with Mydriacyl 1% and Mydfrin 2.5%; advised re driving Lens used: 28 D and 90 D Vitreous: clear OU C/D: 0.3 OD; 0.3 OS; no papilledema Macula: WNL OD; WNL OS Periphery: WNL OD; WNL OS Difficult exam 2* blepharospasm and tremor ASSESSMENT/PLAN Cataracts OU - watch Migraines - see Dr. Bee Presbyopia - no change in glasses RTC: PRN Felipe Pandey MD 03/28/2024 3:54 PM documented in this encounter Nursing Notes * Radha Lopez TECH - 03/28/2024 3:29 PM EDT Pt presents for a new patient dilated eye exam referred by Dr. Bee. Pt states Dr. Bee told her she has cataracts and she couldn't see into her eyes. VA sc OD (D) 20/25-2; VA sc OD (N) 20/200 VA sc OS (D) 20/40; VA sc OS (N) 20/200 Auto OD: sph +0.50 cyl +0.25 axis 035 Auto OS: sph +0.75 cyl +0.00 axis 180 Patient cautioned that effects of dilation may last 2-7 hours dependent upon individual reaction. It was discussed that driving while dilated is not recommended. documented in this encounter Plan of Treatment Upcoming Encounters Date Type Department Care Team (Late st Contact Info) Description 04/13/2024 1:00 PM EST Imaging Radiology, [address] [place] [address] 04/14/2024 10:30 AM EST Office Visit Gastroenterology [address] [place] [address] Cheri Jay CRNP [address] [place] [address] 05/22/2024 9:20 AM EST Office Visit Neurology [facility] [address] [place] [address] Afshan Bee MD [address] [place] [address] 11/22/2024 8:00 AM EDT Office Visit Family Medicine [address] [place] [phone] Shahla Hamlin MD [address] [place] [address] [place] [address] 03/26/2025 1:00 PM EDT Nurse Only Ancillary [address] [place] [address] [place], Nurse Annual Wellness [address] [place] [address] [place] [address] Scheduled Procedures Name Priority Associated Diagnoses Date/Ti me COLONOSCOPY FLEXIBLE PROXIMA L DIAGNOSTIC Recall Special screening for malignant neoplasms, colon Scheduled Referrals Name Type Priority Associated Diagnoses Orde r Schedule ADULT/PEDS OPHTHALMOLOGY/OPTOM ETRY REFERRAL OP Referral Within 30 days (routine) Visual disturbance Ordered: 02/24/2024 Health Maintenance Due Date Last Done Comments [...] as of this encounter Visit Diagnoses Diagnosis Combined forms of age-related cataract of both eyes- Primary Other and combined forms of senile cataract Migraine without aura and without status migrainosus, not intractable Migraine without aura, without mention of intractable migraine without mention of status migrainosus documented in this encounter Care Teams Inspector Motor Vehicles Relationship Specialty Start Date End Date Shahla Hamlin MD [address] [place] [address] [place] [address] PCP - General Family Medicine 02/24/24 documented as of this encounter
--- OUTSIDE RECORDS SUMMARY | 2024-09-01 18:28 | External Medical Summary | Summary of Care ---
Author Name Unknown Organization [facility] Address [address] [place] [address] Phone [phone] Care Team Providers Care Linux System Administrator Name Role Phone Shahla Hamlin MD Primary Care Provide r Encounter Details Date Type Department Care Team (Late st Contact Info) Description 03/22/2024 1:00 PM EDT Nurse Only Ancillary [address] [place] [phone] [place], Nurse [address] [place] [id number] Arrived Allergies Active Allergy Reactions Criticality Noted Date Comments Iodinated Contrast Media Edema face/lips/tongue High 05/11/2007 hives documented as of this encounter (statuses as of 03/22/2024) Medications Medication Sig Dispensed Refills Start Date End Date Status CALCIUM 600 MG PO TABS 1 tablet daily Active MAGNESIUM 500 MG PO TABS 1 tablet daily Active VITAMIN D3 1000 UNITS PO CAPS 1 tablet daily Active BÁRABRA 180 MG PO TABS one tablet daily [...] 11 06/22/2017 Active Azelastine HCl 137 MCG/SPRAY SOLNIndications: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,Chronic rhinitis instill 2 sprays into [...] MEDS 90 Tab 1 03/14/2019 Active Ipratropium Clute HFA 17 MCG/ACT Inhalation Aerosol Solution (Atrovent [...] Active Ajovy 225 MG/1.5ML Subcutaneous Solution Auto-injector (RentJiffylindaNETpeas-hannahrm)I ndications:Intractab le migraine with aura with status [...] as of this encounter (statuses as of 03/22/2024) Active Problems Problem Noted Date Diagnosed Date [...] as of this encounter (statuses as of 03/22/2024) Resolved Problems Problem Noted Date Diagnosed Date Resolved Date PMR (polymyalgia rheumatica) 11/16/2011 12/01/2023 Acute cystitis 09/03/2009 04/11/2011 Dyslipidemia, goal to be determined 05/16/2009 12/01/2023 Overview: Per Lipid Taxonomy. Benign neoplasm of colon 07/29/200807/2023 Overview: fair prep- 2 mm polyp removed, repeat in 3 yrs, adenomatous polyps MEDICATION USE AGREEMENT 12/27/200705/2009 Overview: Managed by Dr Nuno ([phone]). To view the Medication Usage Agreement, go to Action, Patient Files. Benign neoplasm of colon 11/10/200707/2023 Overview: biopsies--acid reflux, negative for Amin's and H.Pylori Myalgia and myositis 05/11/2007 024 Migraine with aura, intractable 05/11/2007 12/01/2023 Mixed dyslipidemia 05/11/200705/16/200 9 Overview: Per Lipid Taxonomy. Chronic sinusitis 05/13/2017 documented as of this encounter (statuses as of 03/22/2024) Immunizations Name Administration Dates Next Due COVID-19 mRNA, LNP-s, PF, 18 + or 6-11Yrs (Moderna) 01/07/2022,05/06/2021,09/13/2020,08/16 COVID-19, MRNA-LNP, 24-25, P R, 30MCG/0.3ML, IM, 12YRS AND ABOVE (Pfizer-Comirnaty) 03/22/2024 Pneumococcal Conjugate Vacci ne, 20-valent ([id number]) 03/07/2024 Pneumococcal Polysaccharide PPV23 (Pneumovax) 01/09/2019 Seasonal [...] Sign Reading Time Taken Comments Blood Pressure 124/64 03/22/2024 1:18 PM EDT Pulse 102 03/22/2024 1:18 PM EDT Temperature 36.5 °C (97.7 °F) 03/22/2024 1:18 PM ED T Respiratory Rate - - Oxygen Saturation 92% 03/22/2024 1:18 PM EDT Inhaled Oxygen Concentration - - Weight 69.5 kg (153 lb 3.2 oz) 03/22/2024 1:18 P M EDT Height 152.4 cm (5') 03/22/2024 1:18 PM EDT Body Mass Index 29.92 03/22/2024 1:18 PM EDT documented in this encounter Patient Instructions * Patient Instructions* Sarina Velazquez RN - 03/22/2024 1:16 PM EDT Patient Instructions - Fall Prevention (This education is for all patients over 65 regardless of symptoms) Remember to take your current medications as prescribed. In order to prevent falls, you are encouraged to: Exercise Utilize assistive/adaptive devices Avoid multifocal lenses when walking Avoid hazards in home Maintain a regular toileting schedule Any questions please contact our office. Preventing Falls in the Home (This education is for all patients over 65 regardless of symptoms) As you get older, falls are more likely. That’s because your reaction time slows. Your muscles and joints may also get stiffer, making them less flexible. Illness, medications, and vision changes can also affect your balance. A fall could leave you unable to live on your own. To make your home safer, follow these tips: Floors Put nonskid pads under area rugs Remove throw rugs Replace worn floor coverings Tack carpets firmly to each step on carpeted stairs. Put nonskid strips on the edges of uncarpeted stairs Keep floors and stairs free of clutter and cords Arrange furniture so there are clear pathways Clean up any spills right away Bathrooms Install grab bars in the tub or shower Apply nonskid strips or put a nonskid rubber mat in the tub or shower Sit on a bath chair to bathe Use bathmats with nonskid backing Lighting Keep a flashlight in each room Put a nightlight along the pathway between the bedroom and the bathroom Carmine Patient Education Copyright© 2008 - 2010 Carmine except where otherwise noted Preventing Falls: Exercises to Improve Balance, Flexibility, Strength, and Staying Power (This education is for all patients over 65 regardless of symptoms) Certain types of exercises may help make you less likely to fall. Try the ones below. Or do other exercises that your healthcare provider suggests. Depending on your health, you may need to start slowly. Don’t let that stop you. Even small amounts of exercise can help you. Be sure to talk to yourhealthcare provider before starting any exercise program. Improve Balance Many types of exercise can help improve balance. Lior chi and yoga are good examples. Here’s another one to try. You can do it anytime and almost anywhere. Stand next to a counter or solid support. Push yourself up onto your tiptoes. Hold for 5 seconds. If you start to lose your balance, hold on to the counter. Rest and repeat 5 times. Work up to holding for 20 to 30 seconds, if you can. Increase Flexibility Being more flexible makes it easier for you to move around safely. Try exercises like the seated hamstring stretch. Sit in a chair and put one foot on a stool. Straighten your leg and reach with both hands down either side of your leg. Reach as far down your leg as you can. Hold for about 20 seconds. Go back to the starting position. Then repeat 5 times. Switch legs. Build Strength “Resistance” exercises help build strength. You can do them without equipment. Or you can use weights, elastic bands, or special machines. One such exercise is called the biceps curl. You can hold a 1 pound weight or even a can of soup. Do this exercise at least 3 times a week. Strive for everyday. Sit up straight in a chair. Keep your elbow close to your body and your wrist straight. Bend your arm, moving your hand up to your shoulder. Then slowly lower your arm. Repeat 5 times. Switch to the other arm. Build Your Staying Power “Aerobic” exercises make your heart and lungs stronger so you can keep moving longer. Walking and swimming are two of the best types of exercises you can do. Using a stationary bike is great, too. Find an aerobic exercise that you enjoy. Start slowly and build up. Even 5 minutes is helpful. Aimfor a goal of 30 minutes, at least 3 times a week. You don’t have to do 30 minutes in one session. Break it up and walk a little throughout the day. More Helpful Tips Start easy. Slowly work up to doing more. Talk with your healthcare provider about the best exercises for you. Call senior centers or health clubs about exercise programs. If needed, have a family member watch you walk every so often to check your stability. Exercise with a friend. Choose an activity you both enjoy. Try exercises that you can do anytime, anywhere. Here are two examples. Have someone with you when you first try these: Practice walking by placing one foot right in front of the other. Stand up and sit down 10 times. Repeat this throughout the day. Carmine Patient Education Copyright© 2008 - 2010 Carmine except where otherwise noted. Preventing Falls: Moving Safely Using a Cane or Walker (This education is for all patients over 65 regardless of symptoms) Keep the cane away from your feet so you don’t trip. A walking aid, such as a cane or walker, can help you stay more independent and avoid falls. Remember to keep your walking aid within easy reach when you’re in a chair or in bed. And learn how to use it safely so you don’t injure yourself. Using a Cane If you have a stronger side, hold the cane on that side. Get your balance. Move the cane and your weaker leg forward. Support your weight on both the cane and your weaker side. Step with your stronger leg. Start again from step 1. If you’re using a folding walker, be sure you know how to lock it open. Check that it’s locked open before each use. Using a Walker Roll the walker (or lift it, if you’re using one without wheels) forward about 12 inches. Step forward with your weaker leg first. Use the walker to help keep your balance. Bring your other foot forward to the center of the walker. Start again from step 1. Helpful Tips Check with your healthcare provider about the right walking aid to use. Ask about a walker with a seat attached. Check the tips of your cane or walker to make sure they have nonskid covers. Move slowly from room to room. Don’t hodge. Sit down to get dressed. Use a hans pack or backpack to keep your hands free. Get help for jobs that mean climbing, even on a stepstool. Carmine Patient Education Copyright© 2008 - 2010 Carmine except where otherwise noted. Hi Amador Alannaisai, As your primary care physician, I know that regular visits with my patients who have several chronic conditions can go a long way in helping you stay healthy. Many times, the clinic team and I are in touch with you and/or other care team members between office visits to adjust medications, discuss any changes in your health, and review our care plan to make sure it is still meeting your needs. I am dedicated to helping you take a more active role in your overall care. It is important that there are resources available to you, so I created a personalized plan of care with a Health Calendar for you, which is included on the next page of this letter. Below is a list that summarizes your electronic health record: Health Maintenance Due: Health Maintenance Due Topic Date Due • DXA Scan Never done • Zoster Vaccines (1 of 2) Never done • DTap/Tdap Vaccines (2 - Td or Tdap) 06/17/2019 • *SPIROMETRY ONCE FOR ASTHMA-ADULT Never done • COVID-19 Vaccine ( season) 2024 Current Medication List: (as of Visit date not found (in office), Visit date not found (telemedicine) ) Current Outpatient Medications Medication Sig Dispense Refill • CALCIUM 600 MG PO TABS 1 tablet daily • MAGNESIUM 500 MG PO TABS 1 tablet daily • BÁRBARA 180 MG PO TABS one tablet daily • methocarbamol (ROBAMOL) 750 MG Tablet Take 1 Tablet by mouth in the morning and 1 Tablet beforebedtime. 0 • rOPINIRole (REQUIP) 0.25 MG Tablet Take 2 Tablets by mouth at bedtime. 0 • sucralfate (CARAFATE) 1 GM Tablet take 1 tablet by mouth four times a day BEFORE MEALS AND AT BEDTIME 1/2 HOUR BEFORE MEALS AND AT BEDTIME 120 Tab 5 • FLOVENT HFA 110 MCG/ACT inhaler inhale 2 puffs by mouth twice a day 12 g 11 • Azelastine HCl 137 MCG/SPRAY SOLN instill 2 sprays into each nostril twice a day 30 mL 5 • VENTOLIN HFA 108 (90 Base) MCG/ACT inhaler inhale 2 puffs by mouth four times a day if needed 18 g 5 • Mometasone Furoate 50 MCG/ACT nasal spray instill 2 sprays into each nostril once daily 17 g 5 • levothyroxine (LEVOXYL) 25 MCG Tablet take 1 tablet by mouth every morning 30 MINUTES BEFORE BREAKFAST AND OTHER MEDS 90 Tab 1 • Ipratropium Clute HFA 17 MCG/ACT Inhalation Aerosol Solution (Atrovent Hfa) Inhale 2 Puffs bymouth every 6 hours. • Atorvastatin Calcium 20 MG Oral Tablet (Lipitor) Take 1 Tablet by mouth in the morning. • Escitalopram Oxalate 20 MG Oral Tablet (Lexapro) Take 1 Tablet by mouth in the morning. • Pantoprazole Sodium 40 MG Oral Tablet Delayed Release (Protonix) Take 1 Tablet by mouth in the morning and 1 Tablet in the evening. • Omeprazole 40 MG Oral Capsule Delayed Release (PriLOSEC) TAKE 1 CAPSULE BY MOUTH TWICE A DAY 30MIN BEFORE BREAKFAST AND DINNER • SUMAtriptan Succinate 50 MG Oral Tablet (Imitrex) 1 at onset of migraine may repeat in 2 hours max 2 doses in 24 hour 10 Tablet 5 • Amitriptyline HCl 75 MG Oral Tablet (Elavil) TAKE 1 TABLET BY MOUTH EVERYDAY AT BEDTIME 90 Tablet 0 • Pregabalin 75 MG Oral Capsule (Lyrica) Take 1 Capsule by mouth every night at bedtime. 30 Capsule 0 • Lubiprostone 24 MCG Oral Capsule (Amitiza) Take 1 Capsule by mouth 2 times a day with morning and evening meals. 60 Capsule 1 • VITAMIN D3 1000 UNITS PO CAPS 1 tablet daily • Ajovy 225 MG/1.5ML Subcutaneous Solution Auto-injector ([facility]) Inject 1.5 ml under the skin once a month (Patient not taking: Reported on 03/07/2024) 1.5 mL 5 • Zoster Vac Recomb Adjuvanted 50 MCG/0.5ML Intramuscular Suspension Reconstituted (Shingrix) Inject 0.5 mL into a large muscle now and repeat dose in 60 to 180 days 1 Each 1 No current facility-administered medications for this visit. Current List of Allergies: (as of Visit date not found (in office), Visit date not found (telemedicine) ) Review of patient's allergies indicates: Allergen Reactions • Iodinated Contrast Media Edema face/lips/tongue hives Most Recent Lab Results: Results for orders placed or performed in visit on 03/07/24 ANEMIA CBC Result Value Ref Range WBC 10.52 4.00 - 10.80 K/uL RBC 4.03 3.85 - 5.15 M/uL HGB 13.0 12.0 - 15.3 g/dL HCT 38.8 36.0 - 45.2 % MCV 96.3 81.5 - 97.5 fL MCH 32.3 27.0 - 34.0 pg MCHC 33.5 32.0 - 36.0 g/dL RDW 13.3 11.5 - 15.5 % PLT 208 140 - 400 K/uL MPV 10.2 6.6 - 11.1 fL nRBCs 0 <=0 /100 WBCs DIFFERENTIAL, AUTOMATED Result Value Ref Range WBC 10.52 4.00 - 10.80 K/uL Neutrophils % 67.7 40.0 - 75.0 % Lymphocytes % 21.1 18.0 - 42.0 % Monocytes % 9.7 1.0 - 11.0 % Eosinophils % 0.6 0.0 - 6.0 % Basophils % 0.7 0.0 - 2.0 % Immature Granulocytes % 0.2 0.0 - 2.0 % Absolute Neutrophils 7.13 1.80 - 7.70 K/uL Absolute Lymphocytes 2.22 1.00 - 4.80 K/ul Absolute Monocytes 1.02 0.00 - 1.10 K/uL Absolute Eosinophils 0.06 0.00 - 0.70 K/uL Absolute Basophils 0.07 0.00 - 0.20 K/uL Absolute Immature Granulocytes 0.02 0.00 - 0.20 K/uL Sincerely, Shahla Hamlin MD 03/22/2024 [facility] Calendar (as of Visit date not found (in office), Visit date not found (telemedicine) ) Care needs Care needs Last completed Due next Bone Density --- Never done Zoster (Shingles) Vaccine (1 of 2) --- Never done Diphtheria, tetanus & pertussis vaccines (2 - Td or Tdap) 06/17/2009 06/17/2019 Asthma air flow test --- Never done COVID-19 Vaccine (5 - season) 2022 01/30/2024 Mammogram 12/08/2023 12/07/2024 A1C blood sugar test 12/10/2023 12/09/2024 Yearly thyroid level check 12/10/2023 12/09/2024 Adult Wellness Visit 03/22/2024 03/22/2025 Lipid (cholesterol) disorder screening 12/10/2023 12/09/2028 Colorectal cancer screening (colonoscopy 10 years, sigmoidoscopy 5 years, Cologuard 3 years, stool sample 1 year) 07/01/2021 07/01/2031 As you look over the recommended services, be sure to check with your insurance company to determine what's covered. [employer] is a great tool that helps you review your medical record online, including test results, doctor notes and your health summary. You can also schedule appointments with me and other members of your care team, request prescription refills and ask for advice related to your medical conditions at [employer] documented in this encounter Progress Notes * Sarina Velazquez RN - 03/22/2024 1:16 PM EDT Fall Risk Plan of Care Documentation: - Current medications reconciled Patient encouraged to: - Exercise - Provide education materials for Core strengthening - Utilize assistive/adaptive devices - Provide education materials - Avoid multifocal lenses when walking - Avoid hazards in home - Provide education materials - Maintain a regular toileting schedule Sarina Velazquez RN 03/22/2024 Adult Annual Wellness Visit: Zeny Nuñez is a 68 year old female who presents for an Adult Annual Wellness Visit. Depression Screening: Did the patient complete the screening questionnaire for Depression? Yes Is the patient's total score for Depression 15 or greater? No, no further intervention needed, unless requested by patient. Did the patient answer positively to the suicide question? No, no further intervention needed, unless requested by patient. In general, compared to other people your age, what would you say that your health is? Fair Ht Readings from Last 1 Encounters: 03/22/24 1.524 m (5') Wt Readings from Last 1 Encounters: 03/22/24 69.5 kg (153 lb 3.2 oz) Body Mass Index: BMI Less than 30 Body mass index is 29.92 kg/m². BP Readings from Last 1 Encounters: 03/22/24 124/64 Medical/Surgical/Family History Reviewed: Yes Past Medical History: Diagnosis Date Allergic rhinitis [...] by Inez Kumar MD at ENDOSCOPY [facility] COLONOSCOPY, DIAGNOSTIC (RECTUM) 02/28/2016 benign polyp, diverticulosis, repeat 10 yrs/COLONOSCOPY FLEXIBLE PROXIMAL DIAGNOSTIC performed by Inez Kumar MD at ENDOSCOPY [facility] EGD, FLEXIBLE, DIAGNOSTIC 02/22/2014 retained food in stomach, repeat w/ ext prep/ESOPHAGOGASTRODUODENOSCOPY (EGD), FLEXIBLE, TRANSORAL,DIAGNOSTIC performed by Inez Kumar MD at ENDOSCOPY [facility] EGD, FLEXIBLE, DIAGNOSTIC 03/08/2014 bx show reactive gastropathy/ESOPHAGOGASTRODUODENOSCOPY (EGD), FLEXIBLE, TRANSORAL, DIAGNOSTIC performed by Inez Kumar MD at ENDOSCOPY [facility] EGD, FLEXIBLE, DIAGNOSTIC 02/28/2016 normal bx/ESOPHAGOGASTRODUODENOSCOPY (EGD), FLEXIBLE, TRANSORAL, DIAGNOSTIC performed by Inez Kumar MD at ENDOSCOPY [facility] EGD, FLEXIBLE, DIAGNOSTIC 11/28/2018 Full stomach, procedure aborted/ESOPHAGOGASTRODUODENOSCOPY (EGD), FLEXIBLE, TRANSORAL, DIAGNOSTIC performed by Inez Kumar MD at ENDOSCOPY [facility] EGD, FLEXIBLE, DIAGNOSTIC 12/15/2018 normal/ESOPHAGOGASTRODUODENOSCOPY (EGD), FLEXIBLE, TRANSORAL, DIAGNOSTIC performed by Inez Kumar MD at ENDOSCOPY [facility] EGD, FLEXIBLE, W/BIOPSY 11/10/07 biopsies--acid reflux, negative for Amin's and H.Pylori EXPLORATION OF MAXILLARY SINUS last 09/2006 Sinus Surgery x4 - Drs. Ho and Won SLEEP STUDY, W/O CPAP 11/10/2007 no sleep apnea Family History Problem Relation Name Age of Onset Breast Cancer Mother 40s; Rt Mastectomy Lung cancer Mother Emphysema Mother Heart failure Mother Lung Disorder Father due to mining Lung cancer Father Fibromyalgia Sister Heart attack Brother Congenital heart disease Son Has patient ever had cancer? No Social History Tobacco Use Smoking status: Never Smokeless tobacco: Never Tobacco comments: son and his girlfriend smoke in her apartment Substance Use Topics Alcohol use: No Vaping/E-Cigarette Use Vaping/E-Cigarette Use Never User Vaping/E-Cigarette Substances Vaping/E-Cigarette Devices Tobacco/Alcohol screening completed today? Yes Hospital Care: Admissions (within the last year): Not Applicable ER within 30 days: No Does the patient have an Advance Directives/Living Will? No. Does the patient want information? Yes. Information given to patient Last Physical Exam: Last physical exam: 02/2024 Does patient see primary provider regularly? Yes Does patient see other providers? Yes, Specialist Patient Care Team updated? Yes Review of patient's allergies indicates: Allergen Reactions Iodinated Contrast Media Edema face/lips/tongue hives Immunization History Administered Date(s) Administered COVID-19 mRNA, LNP-s, PF, 18+ or 6-11Yrs (Moderna) 08/16/2020, 09/13/2020, 05/06/2021, 01/07/2022 COVID-19, MRNA-LNP, 24-25, MS, 30MCG/0.3ML, IM, 12YRS AND ABOVE (Pfizer- Comirnaty) 03/22/2024 Pneumococcal Conjugate Vaccine, 20-valent ([id number]) 03/07/2024 Pneumococcal Polysaccharide PPV23 (Pneumovax) 01/09/2019 Seasonal Influenza Vac., MDV, IM, 0.5 mL (Fluzone) 04/03/2008, 04/30/2009, 02/28/2010, 03/02/2011, 03/28/2013, 01/21/2015 Seasonal Influenza, High Dose, Trivalent, PF, IM (Fluzone HD) 02/24/2024 Seasonal Influenza, Quadrivalent, No Preserve, IM 02/06/2016 TDAP, Age 7 and older, IM (Adacel) 06/17/2009 Current Outpatient Medications Medication Sig Dispense Refill CALCIUM 600 MG PO TABS 1 tablet daily MAGNESIUM 500 MG PO TABS 1 tablet daily BÁRBARA 180 MG PO [...] AND OTHER MEDS 90 Tab 1 Ipratropium Clute HFA 17 MCG/ACT Inhalation Aerosol Solution (Atrovent [...] every night at bedtime. 30 Capsule 0 Lubiprostone 24 MCG Oral Capsule (Amitiza) Take 1 Capsule by mouth 2 times a day with morning and evening meals. 60 Capsule 1 VITAMIN D3 1000 UNITS PO CAPS 1 tablet daily Ajovy 225 MG/1.5ML Subcutaneous Solution Auto-injector (Fremanezumab-vfrm) Inject 1.5 ml under the skin once a month (Patient not taking: Reported on 03/07/2024) 1.5 mL 5 Zoster Vac Recomb Adjuvanted 50 MCG/0.5ML Intramuscular Suspension Reconstituted (Shingrix) Inject 0.5 mL into a large muscle now and repeat dose in 60 to 180 days 1 Each 1 No current facility-administered medications for this visit. Patient Active Problem List Diagnosis Esophageal reflux ADVANCE DIRECTIVE INFORMATION Hypothyroidism Major depressive disorder NONALLERGIC RHINITIS Essential and other specified forms of tremor Migraine without aura and without status migrainosus, not intractable Fibromyalgia Anxiety RLS (restless legs syndrome) Mild persistent asthma without complication Prediabetes Medication Compliance: Patient is able to obtain all of her medications? Yes Patient takes medications as prescribed? Yes Patient manages own medications: Yes Patient uses a pill box? Yes, refill(s) completed by self and spouse Dental Exam: full dentures Eye Screening: Yes: Every yearly Are you having trouble with hearing? No Do you use an assistive device to help your hearing? No Exercise Screening: does not exercise regularly Nutrition Assessment: patient is doing low carb diet Pain Screening: Are you having any pain? Yes. Pain Scale: 8 out of 10; chronic Sleep Screening Tool 'STOP': Do you snore? Yes Do you feel fatigued during the day? No Do you wake up feeling like you haven't slept? No Have you been told you stop breathing at night? No Do you gasp for air or choke while sleeping? No Have you been told you have Sleep Apnea? no Do you have high blood pressure or are on medication(s) to control high blood pressure? Yes SCORE: If you check YES to two or more questions, make a referral for Obstructive Sleep Apnea Patient states she did have a sleep study and it was wnl Patient and Caregiver Support System: Patient lives with a spouse and with children, son deangelo Means of Transportation: Drives. Not a concern. Patient lives in Two Story - How many stairs: 8, live on the first floor Community Resources: MIGSIF Functional Status and ADL Skills: Has patient ever had an amputation? No Functional Assessment: 90- Able to carry on normal activity, minor symptoms of disease Ambulation: Patient ambulates without assistive device. Independent Dressing: Gets clothes and dresses without any assistance: Independent Able to move freely in chair or bed including turning over: Independent Repositioning (bed or chair): Not applicable Transfers: Independent Toileting: Goes to bathroom, uses toilet, arranges clothes and returns without any assistance: Independent Toileting: continent of bladder and continent of bowel Feeding: Self Bathing: Self; tub and shower, encouraged grab bars Requires none assistance with ADLs. Instrumental ADL's: Shopping: Minimal Assistance Housekeeping: Independent Handling Finances: Independent DME Vendor Name: Not Applicable Fall Risk Assessment: Can the patient demonstrate that she can stand from a sitting position? Yes Has the patient had a fall within the last 6 months? Yes Does the patient have a problem with her gait or balance? Yes Does the patient take 4 or more prescription medicines? Yes Does the patient use sedatives or narcotics? No Fall Risk Factors Present: Uses more than 4 medications Visually impaired Aav-Ps-vxc-Go Test: Time began at 130. Patient stood from sitting position and walked approximately 10 feet, returned and sat down. Total time for upp-ri-iqv-go test was 10 seconds. Jsw-Nc-cdk-Go Test completed? Yes Gender Specific Preventative Plan: Health Maintenance Topic Date Due DXA Scan Never done Zoster Vaccines (1 of 2) Never done DTap/Tdap Vaccines (2 - Td or Tdap) 06/17/2019 *SPIROMETRY ONCE FOR ASTHMA-ADULT Never done Mammogram 12/07/2024 HbA1c 12/09/2024 TSH 12/09/2024 Depression Monitoring 03/22/2025 Adult Wellness Visit 03/22/2025 Lipid Panel 12/09/2028 Colorectal Cancer Screening 07/01/2031 Influenza Vaccine (FLU shot) Completed Hepatitis C Screening Completed Pneumococcal Vaccine: 65+ Years Completed COVID-19 Vaccine Completed Hepatitis B Vaccine Aged Out MENINGOCOCCAL (MENACTRA/MENVEO) Aged Out HPV (Gardasil) Vaccine Aged Out Pap Smear Discontinued Follow Up/ Referrals/Handouts: Depression screening - completed Functional assessment - doing well Falls Risk screening - discussed Exercise screening -encouraged to increase exercise Nutrition assessment -. Education Provided and Handouts Provided Pain screening - discussed chronic pain Patient has been verbally educated on the need or importance of Cholesterol, Dexa Scan, GFR, Hemoglobin A1c, COVID, Flu Vaccine, and Shingles Vaccine Pt has completed the covid vaccines: Yes, updated today Flu completed Will think about shingrix Routine general medical examination at a health care facility (Primary) Risk and functional assessment Advanced care planning/counseling discussion Advance Care Planning is important for all adults. Discussed the process of thinking and talking about future healthcare decisions.ACP form and pamphlet given to patient to take home to discuss with family. Once form is completed , patient to get a copy to us to scan into their chart. Anxiety - Med reconciliation completed and compliance discussed. - pt to continue present medications. Esophageal reflux - Med reconciliation completed and compliance discussed. - pt to continue present medications. Fibromyalgia - Med reconciliation completed and compliance discussed. - pt to continue present medications. Hypothyroidism - Med reconciliation completed and compliance discussed. - pt to continue present medications. Major depressive disorder - Med reconciliation completed and compliance discussed. - pt to continue present medications. Migraine without aura and without status migrainosus, not intractable - Med reconciliation completed and compliance discussed. - pt to continue present medications. Patient given specialty pharmacy # re new med Mild persistent asthma without complication - Med reconciliation completed and compliance discussed. - pt to continue present medications. Prediabetes - Discussed Healthy lifestyle, importance of exercise - Diet education - Reviewed labs Hemoglobin AIC Results: Lab Results Component Value Date/Time HEMOGLOBIN A1C - MARAI GER 6.1 (H) 12/10/2023 10:48 AM RLS (restless legs syndrome) - Med reconciliation completed and compliance discussed. - pt to continue present medications. Other orders - COVID-19, MRNA-LNP, PF, 24-25, 30MCG/0.3ML, IM, 12YRS AND ABOVE (CoverMe) Follow Up: Return in 1 year (on 03/22/2025) for 12 month Subsequent Adult Wellness Visit. | For: 12month Subsequent Adult Wellness Visit | Check-out note: 12 month Subsequent Adult Wellness Visit Would patient like to schedule next AWV visit? Yes Sarina Velazquez RN AD8 Dementia Screening Interview Person answering questions: patient Remember, "Yes, a change" indicates that there has been a change in the last several years caused by cognitive (thinking and memory) problems 1. Problems with judgement (eg: problems making decisions, bad financial decisions, problems with thinking). No (0) 2. Less interest in hobbies/activities. No (0) 3. Repeats the same things over and over (questions, stories, or statements). Yes (1) 4. Trouble learning how to use a tool, appliance, or gadget (eg: VCR, computer, microwave, remote control). No (0) 5. Forgets correct month or year. No (0) 6. Trouble handling complicated financial affairs (eg: balancing checkbook, income taxes, paying bills). No (0) 7. Trouble remembering appointments. No (0) 8. Daily problems with thinking and/or memory. No (0) TOTAL AD8: 1 - AD8 Dementia Screening Score The final score is a sum of the number items marked "Yes, A Change". 0 - 1: Normal cognition; 2 or greater: Cognitive impairments is likely to be present - further testing required documented in this encounter Miscellaneous Notes * Pt Handout (on AVS) - Sarina Velazquez RN - 03/22/2024 1:44 PM EDT [id number] Overview of Sleep Disorders Facts about sleep disorders Loss of sleep can cause problems at home or on the job. It can lead to serious or even fatal accidents. The National Sleep Foundation notes that: · Between 50 and 70 million [place] adults have some type of sleep or wakefulness disorder. · Sleep problems often get worse as you get older. · Poor sleep cost billions of dollars a year. This is from healthcare expenses and lost productivity. · Drowsy drivers cause about 40,000 vehicle crashes in the [place] every year. This includes more than 1,500 deaths. Types of sleep disorders There are many types of sleep disorders. They can affect health and quality of life. The disorders include: · Insomnia · Sleep apnea · Sleepwalking · Bedwetting · Nightmares · Night terror · Restless legs syndrome · Snoring · Narcolepsy Why is sleep important? Sleep is not just resting or taking a break from busy routines. Sleep is a barlow part of good health.Getting enough sleep may help the body recover from illness and injury. Not getting enough sleep over a period of time is linked to health problems. They include obesity, diabetes, and heart disease. The mental benefits of sleep are also important. Sleep problems can make daily life feel more stressful and less productive. Some people with chronic trouble sleeping (insomnia) are more likely to have mental health problems. Sleep problems are also tied to depression. In a research survey, people who had trouble getting enough sleep had trouble doing tasks that use memory and learning. How much sleep do you need? Sleep needs vary from person to person. But most healthy adults need about 7 to 9 hours of sleep a night. You may need more or better sleep if you: · Have trouble staying alert during quiet activities · Are irritable with coworkers, family, or friends · Have trouble focusing or remembering facts · Have trouble falling asleep or staying asleep, or wake up early and can't get back to sleep Getting treatment for a sleep disorder For those who suffer from sleep disorders, help is available from many sources. Sleep problems can be treated or managed by different kinds of healthcare providers. You may be treated by a healthcareprovider who specializes in any of these: · Internal medicine · Gerontology · Pediatrics · Family practice · Pulmonary medicine · Neurology · Psychiatry · Otolaryngology You can also find a healthcare provider who is certified in sleep medicine by the [place] [employer] [facility]. Talk with your healthcare provider about finding a sleep disorder program. Last Reviewed Date: 2022 00:00:00 © [employer]. All rights reserved. This information is not intended as a substitute for professional medical care. Always follow your healthcare professional's instructions. * Pt Handout (on AVS) - Sarina Velazquez RN - 03/22/2024 1:44 PM EDT [id number] Preventing Osteoporosis: Meeting Your Calcium Needs Your body needs calcium to build and repair bones. But it can't make calcium on its own. That's whyit's important to eat calcium-rich foods. Some foods are naturally rich in calcium. Others have calcium added (fortified). It's best to get calcium from the foods you eat. But if you can't get enough, you may want to take calcium supplements. To meet your daily calcium needs, try the foods listed below. Note: Calcium levels may vary, depending on brand and size. Dairy Source Calcium (mg) per serving Low-fat yogurt, plain 415 mg/8 oz. Nonfat milk 299 mg/1 cup Low-fat milk (2%) 293 mg/1 cup [place]og[place]ese cheese 272 mg/1 oz. Cheddar cheese 307 mg/1.5 oz. Ice cream, vanilla 84 mg/½ cup Fish and beans Source Calcium (mg) per serving Sardines, [place], canned in oil, with bones 325 mg/3 oz. [place], pink, canned, with bones 181 mg/3 oz. Soybeans, fresh, boiled 131 mg/½ cup White beans, cooked 81 mg/½ cup [place] beans, cooked 79 mg/½ cup Other sources Source Calcium (mg) per serving Oatmeal, instant, fortified 215 mg/1 cup Tofu, firm, made with calcium sulfate 253 mg/½ cup Collards 179 mg/½ cup [place] muffin, whole wheat 175 mg/1 muffin Kale, fresh, cooked 94 mg/1 cup [place] juice, calcium fortified 349 mg/1 cup Daily calcium needs Here are the recommended amounts of calcium for adults. Your daily calcium needs may be different. Ask your healthcare provider how much calcium you need. · Adults ages 19 to 50: 1,000 mg per day · Women ages 50 to 70: 1,200 mg per day · Men ages 50 to 70: 1,000 mg per day · Adults ages 71 and older: 1,200 mg per day Last Reviewed Date: 2024 00:00:00 © [employer]. All rights reserved. This information is not intended as a substitute for professional medical care. Always follow your healthcare professional's instructions. * Pt Handout (on AVS) - Sarina Velazquez RN - 03/22/2024 1:43 PM EDT Images from the original note were not included. [id number] Progressive Relaxation One way to relieve muscle tension is to do progressive muscle relaxation, also known as Arriaga?s relaxation technique. Progressive muscle relaxation (PMR) is a form of therapy that involves tightening and relaxing your muscle groups, one at a time, in a specific pattern. Your body needs relaxation to reduce stress and calm the [id number] response. It helps to planfor about 20 minutes of relaxation every day when you can take time for yourself. Sit or lie comfortably, limiting distractions like phones. Put on some soft music or simply sit in silence. Then incorporate the progressive relaxation technique below. How to do progressive relaxation Progressive relaxation helps your whole body relax. To try this technique, follow these steps: 1. Find a quiet room. Sit in a comfortable chair or lie on your back. 2. Breathe in deeply to a slow count of 5. Feel your belly, chest, and back expand. Breathe out slowly to a count of 5. Do this for several minutes. 3. After a few minutes, breathe in deeply again, but this time tighten the muscles in your feet. Notice how it feels. Hold the tension for 3 seconds. 4. Breathe out while relaxing the tightened muscles. Notice how relaxed you feel. 5. Repeat steps 3 and 4 with another muscle group. You can move from your feet, calves, and thighs to your stomach, arms, and hands. Remember the 4 A?s · Avoid a stressor. For example, if someone is smoking when you?re trying to quit, leave the room. · Alter how you deal with a stressor. For example, let the answering machine apple picker if a constantly ringing phone is a stressor. · Accept a stressor you can?t change, like a job loss, by knowing that your feelings are normal. · Adapt to some stressors. For example, when starting a new exercise program, instead of focusing on how hard it will be, think about how good you will feel. Last Reviewed Date: 2024 00:00:00 © [employer]. All rights reserved. This information is not intended as a substitute for professional medical care. Always follow your healthcare professional's instructions. * Pt Handout (on AVS) - Sarina Velazquez RN - 03/22/2024 1:43 PM EDT Images from the original note were not included. 14082 Understanding Carbohydrates Just like a car needs the right type of fuel to run, you need the right kind of food to function. To keep your energy level up, your body needs food that has carbohydrates (carbs). But carbs raise blood sugar levels higher and faster than other kinds of food. Your dietitian will work with you to figure out the amount of carbs you need. Carbs come in 3 types: starches, sugars, and fiber. Starches Starches are found in grains, some vegetables, and beans. Grain products include bread, pasta, cereal, and tortillas. Starchy vegetables include potatoes, peas, corn, ward beans, yams, and squash. Kidney beans, goetz beans, black beans, garbanzo beans, and lentils also have starches. Sugars Sugars are found naturally in many foods. Or they can be added. Foods that contain natural sugar include fruits and fruit juices, dairy products, honey, and molasses. Added sugars are found in most desserts, processed foods, candy, regular soda, and fruit drinks. These are very helpful to treat lowblood sugar (hypoglycemia). They give you sugar quickly. Try to keep at least 15 to 20 grams of these simple sugars with you at all times. Eat or drink these if you start to have symptoms of low blood sugar. Fiber Fiber comes from plant foods. Your body can't digest most fiber. Instead of raising blood sugar levels like other carbs, fiber stops blood sugar from rising too quickly. Fiber is found in fruits, vegetables, whole grains, beans, peas, and many nuts. Understanding how to count your carbs Keep track of the amount of carbs you eat. This can help you keep the right balance of carbs, physical activity, and medicine. The amount of carbs you need will be different from what other people need. How much you need depends on many things. These include your health, the medicines you take, andhow active you are. Your healthcare team will help you figure out the right amount of carbs for you. You may start with 45 to 60 grams of carbs per meal, depending on your case. Carb counting is a system that helps you keep track of the carbohydrates you eat at each meal. Carbs come from many foods. These include grains, starchy vegetables, fruit, milk, beans, and snackfoods. You can either count carbohydrate grams or carbohydrate servings. When you count carbohydrate servings, 1 carbohydrate serving = 15 grams of carbohydrates. Here are some examples of foods that have about 15 grams of carbs (1 serving of carbohydrates): · 1/2 cup of canned or frozen fruit · A small piece of fresh fruit (4 ounces) · 1 slice of bread · 1/2 cup of oatmeal · 1/3 cup of rice · 4 to 6 crackers · 1/2 [place]an muffin · 1/2 cup of black beans · 1/4 of a large baked potato (3 ounces) · 2/3 cup of plain fat-free yogurt · 1 cup of soup · 1/2 cup of casserole · 6 chicken nuggets · 4-xoal-ibutwt brownie or cake without frosting · 2 small cookies · 1/2 cup of ice cream or sherbet Carb counting is easier when food labels are available. Look at the label to see how many grams of total carbs per serving the food contains. Then you can figure out how much you should eat. If your food doesn't have a nutrition label, you should be able to get an idea of how many carbs there are per serving by using a book or website. Two very important lines to look at on the label are the serving size and the total carbohydrate amount per serving. Here are some tips for using food labels to count your carbs: · Check the serving size. The information on the label is based on that serving size. If you eat more than the listed serving size, you may have to double or triple the other information on the label. · Check the total grams of carbs. Total carbohydrate from the label includes sugar, starch, and fiber. Be sure to use the total carbohydrate number (minus the fiber) and not sugar alone. · Know how many grams of carbs you can have. Be familiar with the matching portion sizes. · Compare labels. Compare the labels of different products. Look at serving sizes and total carbs to find the products that work best for you. · Don't forget protein and fat. With the focus on carb counting, it might be easy to forget protein and fat in your meals. Don't forget to include sources of protein and healthy fat to balance your meals. Also watch how much salt (sodium) you eat. This is especially true if you have high blood pressure. If you have diabetes, limit the amount of sodium to less than 2,300 mg a day. It?s also important to be consistent with the amount of carbs and time you eat when taking a fixed dose of diabetes medicine. Work with your healthcare provider or dietitian if you need more help. They can help you keep track of your carbs. They can also help you figure out how many grams of carbs you should have. Last Reviewed Date: 2023 00:00:00 © [id number] [employer]. All rights reserved. This information is not intended as a substitute for professional medical care. Always follow your healthcare professional's instructions. * Pt Handout (on AVS) - Sarina Velazquez RN - 03/22/2024 1:43 PM EDT [id number] Understanding Food and Cholesterol Having a high cholesterol level puts you at risk for heart disease and other health problems. What you eat has a big effect on your body?s cholesterol level. Eating certain foods can raise your cholesterol. Other foods can help you lower it. Watching what you eat can help you get your cholesterol level under control. Know which foods are high in saturated fat and trans fat Foods high in saturated fat and trans fat can raise your LDL (bad) cholesterol. It?s important to know which foods are high in these fats, and eat less of them. This can help you manage your cholesterol levels. Foods high in these fats · Animal products, including beef, patel, pork, and poultry with skin on · Cold cuts, piper, and sausage · Creamy sauces and fatty gravies · Cookies, donuts, muffins, and pastries · Fried foods · Shortening, butter, stick margarine, coconut oil, palm oil, cocoa butter, partially hydrogenatedoils (read labels) · High-fat dairy products, such as whole milk, cheese, cream cheese, and ice cream Better choices · Lean beef, skinless white-meat poultry, and fish · Tomato sauce, vegetable puree, and avocado · Dried fruit, nuts, and whole wheat bread with sliced fruit on top · Baked, broiled, steamed, or roasted foods · Soft (tub) margarine, canola oil, avocado oil, and olive oil in moderate amounts · Low-fat or nonfat dairy products, such as 1% or fat-free milk and reduced-fat cheese Use fiber to help control cholesterol Foods high in fiber can help you keep your cholesterol down. Good sources of fiber are: · Oats · Barley · Whole grains · Beans · Vegetables · Cornmeal · Popcorn · Berries, apples, and other fruits Last Reviewed Date: 2021 00:00:00 © [id number] [employer]. All rights reserved. This information is not intended as a substitute for professional medical care. Always follow your healthcare professional's instructions. * ACP (Advance Care Planning) - Sarina Velazquez RN - 03/22/2024 1:37 PM EDT Images from the original note were not included. Patient-centered Communication 03/22/2024 The patient/surrogate voluntarily agreed to participate in advance care planning discussion. They were advised that this is a separate service which may incur out of pocket cost in the form of copayment and/or deductibles. Location: Clinic Individual(s) present for conversation: Patient Decisions Additional Comments Synopsis SmartLink Most Recent Value Past ~10 years 03/22/2024 14:01 Additional Comments Additional Comments: Advance Care Planning is important for all adults. Discussed the process of thinking and talking about future healthcare decisions.ACP form and pamphlet given to patient to take home to discuss with family. Once form is completed , patient to get a copy to us to scan into their chart. 03/22/2024 Advance Care Planning is important for all adults. Discussed the process of thinking andtalking about future healthcare decisions.ACP form and pamphlet given to patient to take home to discuss with family. Once form is completed , patient to get a copy to us to scan into their chart. Discerning What Matters Most to the Patient: Source: Content from Respecting Choices Program Aligning Care With What Matters Most: No data to display Rationale for Decisions Source: Content from [facility] Choices [facility] 5 minutes spent in direct [id number] discussion today, Sarina Velazquez RN documented in this encounter Plan of Treatment Upcoming Encounters Date Type Department Care Team (Late st Contact Info) Description 03/28/2024 3:00 PM EDT Office Visit Ophthalmology, [place] [address] [id number] Felipe Pandey MD [address] [id number] 04/13/2024 1:00 PM EST Imaging Radiology, [address] [place] [address] 04/14/2024 10:30 AM EST Office Visit Gastroenterology [address] [place] [address] Cheri Jay CRNP [address] [place] [address] 05/22/2024 9:20 AM EST Office Visit Neurology [facility] [place] [address] [place] [address] Afshan Bee MD [address] [facility] [place] [address] 11/22/2024 8:00 AM EDT Office Visit Family Medicine [address] [place] [phone] Shahla Hamlin MD [address] [place] [address] [place] [address] 03/26/2025 1:00 PM EDT Nurse Only Ancillary [address] [place] [address] [place], Nurse Annual Wellness [address] [place] [address] [place] [id number] Scheduled Procedures Name Priority Associated Diagnoses Date/Ti [...] as of this encounter Visit Diagnoses Diagnosis Routine general medical examination at a health care facility- Primary Risk and functional assessment Screening for unspecified condition Advanced care planning/counseling discussion Other specified counseling Anxiety Anxiety state, unspecified Esophageal reflux Fibromyalgia Mylagia and myositis, unspecified Hypothyroidism Unspecified hypothyroidism Major depressive disorder Major depressive disorder, single episode, unspecified Migraine without aura and without status migrainosus, not intractable Migraine without aura, without mention of intractable migraine without mention of status migrainosus Mild persistent asthma without complication Unspecified asthma Prediabetes Other abnormal glucose RLS (restless legs syndrome) Restless legs syndrome (RLS) documented in this encounter Care Teams Linux System Administrator Relationship Specialty Start Date End Date Shahla Hamlin MD [address] [place] [address] [place] [id number] PCP - General Family Medicine 02/24/24 documented as of this encounter
--- OUTSIDE RECORDS SUMMARY | 2024-09-01 18:28 | External Medical Summary | Summary of Care ---
Author Name Unknown Organization [facility] Address [address] [place] [address] Phone [phone] Care Team Providers Care Aging Room Hand Name Role Phone Shahla Hamlin MD Primary Care Provide r Reason for Visit * Reason Onset Date Comments Appointment 03/07/2024 Annual wellness Encounter Details Date Type Department Care Team (Late st Contact Info) Description 03/07/2024 Telephone Family Medicine [address] [phone] Shahla Hamlin MD [address] [place] [address] [place], [place] [id number] Appointment (Annual wellness ) Allergies Active Allergy Reactions Criticality Noted Date Comments Iodinated Contrast Media Edema face/lips/tongue High 05/11/2007 hives documented as of this encounter (statuses as of 03/15/2024) Medications Medication Sig Dispensed Refills Start Date [...] 11 06/22/2017 Active Azelastine HCl 137 MCG/SPRAY SOLNIndications:Parts Room Associate awais sinusitis,Chronic rhinitis instill 2 sprays into [...] MEDS 90 Tab 1 03/14/2019 Active Ipratropium [place] HFA 17 MCG/ACT Inhalation Aerosol Solution (Atrovent [...] as of this encounter (statuses as of 03/15/2024) Active Problems Problem Noted Date Diagnosed Date [...] as of this encounter (statuses as of 03/15/2024) Resolved Problems Problem Noted Date Diagnosed Date Resolved Date PMR (polymyalgia rheumatica) 11/16/2011 12/01/2023 Acute cystitis 09/03/2009 04/11/2011 Dyslipidemia, goal to be determined 05/16/2009 12/01/2023 Overview: Per Lipid Taxonomy. Benign neoplasm of colon 07/29/200807/2023 Overview: fair prep- 2 mm polyp removed, repeat in 3 yrs, adenomatous polyps MEDICATION USE AGREEMENT 12/27/200705/2009 Overview: Managed by Dr Nuno ([phone]). To view the Medication Usage Agreement, go to Action, Patient Files. Benign neoplasm of colon 11/10/200707/2023 Overview: biopsies--acid reflux, negative for Amin's and H.Pylori Myalgia and myositis 05/11/2007 024 Migraine with aura, intractable 05/11/2007 12/01/2023 Mixed dyslipidemia 05/11/2007 9 Overview: Per Lipid Taxonomy. Chronic sinusitis 05/13/2017 documented as of this encounter (statuses as of 03/15/2024) Immunizations Name Administration Dates Next Due Pneumococcal Conjugate Vacci ne, 20-valent ([id number]) 03/07/2024 Pneumococcal Polysaccharide PPV23 (Pneumovax) 01/09/2019 Seasonal [...] Care Team (Late st Contact Info) Description 03/17/2024 9:20 AM EDT Nurse Only Ancillary [address] [place] [address] Nurse Bri [address] [place] [address] 03/22/2024 1:00 PM EDT Nurse Only Ancillary [address] [place] [address] Nurse Neno [address] [place] [address] 03/28/2024 3:00 PM EDT Office Visit Ophthalmology, [place] [address] Felipe Pandey MD [place] [address] 04/13/2024 1:00 PM EST Imaging Radiology, [facility] [address] [facility] [place] [address] 04/14/2024 10:30 AM EST Office Visit Gastroenterology [address] [place] [address] Cheri Jay CRNP [address] [place] [address] 05/22/2024 9:20 AM EST Office Visit Neurology [facility] [address] [place] [address] Afshan Bee MD [address] [place] [address] 11/22/2024 8:00 AM EDT Office Visit Family Medicine [address] [place] [phone] Shahla Hamlin MD [address] [place] [address] [place] [address] Scheduled Procedures Name Priority Associated Diagnoses Date/Ti [...] filedocumented as of this encounter Care Teams Aging Room Hand Relationship Specialty Start Date End Date Shahla Hamlin MD [address] [place] [address] [place] [address] PCP - General Family Medicine 02/24/24 documented as of this encounter
--- OUTSIDE RECORDS SUMMARY | 2024-09-01 18:28 | External Medical Summary | Summary of Care ---
Author Name Unknown Organization [facility] Address [address] [place] [address] Phone [phone] Care Team Providers Care Warehouse Traffic Supervisor Name Role Phone Shahla Hamlin MD Primary Care Provide r Encounter Details Date Type Department Care Team (Late st Contact Info) Description 03/17/2024 9:20 AM EDT Nurse Only Ancillary [address] [place] [address] [place], Nurse [address] [place] [address] Arrived Allergies Active Allergy Reactions Criticality Noted Date Comments Iodinated Contrast Media Edema face/lips/tongue High 05/11/2007 hives documented as of this encounter (statuses as of 03/17/2024) Medications Medication Sig Dispensed Refills Start Date [...] 11 06/22/2017 Active Azelastine HCl 137 MCG/SPRAY SOLNIndications:Environmental Web Crawler awais sinusitis,Chronic rhinitis instill 2 sprays into [...] MEDS 90 Tab 1 03/14/2019 Active Ipratropium [place] HFA 17 MCG/ACT [...] Active Ajovy 225 MG/1.5ML Subcutaneous Solution Auto-injector ([employer]-hannahrm)I ndications:Intractab le migraine with aura with status [...] as of this encounter (statuses as of 03/17/2024) Active Problems Problem Noted Date Diagnosed Date [...] as of this encounter (statuses as of 03/17/2024) Resolved Problems Problem Noted Date Diagnosed Date Resolved Date PMR (polymyalgia rheumatica) 11/16/2011 12/01/2023 Acute cystitis 09/03/2009 04/11/2011 Dyslipidemia, goal to be determined 05/16/2009 12/01/2023 Overview: Per Lipid Taxonomy. Benign neoplasm of colon 07/29/200807/2023 Overview: fair prep- 2 mm polyp removed, repeat in 3 yrs, adenomatous polyps MEDICATION USE AGREEMENT 12/27/200705/2009 Overview: Managed by Dr Nuno ([phone]). To view the Medication Usage Agreement, go to Action, Patient Files. Benign neoplasm of colon 11/10/200707/2023 Overview: biopsies--acid reflux, negative for Amin's and H.Pylori Myalgia and myositis 05/11/2007 024 Migraine with aura, intractable 05/11/2007 12/01/2023 Mixed dyslipidemia 05/11/200705/16/200 9 Overview: Per Lipid Taxonomy. Chronic sinusitis 05/13/2017 documented as of this encounter (statuses as of 03/17/2024) Immunizations Name Administration Dates Next Due Pneumococcal Conjugate Vacci ne, 20-valent ([id number]) 03/07/2024 Pneumococcal Polysaccharide PPV23 (Pneumovax) 01/09/2019 Seasonal [...] Sign Reading Time Taken Comments Blood Pressure 124/84 03/17/2024 8:53 AM EDT Pulse 78 03/17/2024 8:53 AM EDT Temperature - - Respiratory Rate - - Oxygen Saturation 93% 03/17/2024 8:53 AM EDT Inhaled Oxygen Concentration - - Weight - - Height - - Body Mass Index - - documented in this encounter Nursing Notes * Kary Gimenez CMA - 03/17/2024 8:51 AM EDT Zeny Nuñez presented for blood pressure check per provider orders. The results were charted inVital Signs. She is not on blood pressure medication yet. Denies CP, SOB, Dizziness. She does have frequent headaches. The blood pressure was obtained using the left arm in the sitting position using a adult large cuff. Kary Gimenez CMA 03/17/2024 8:51 AM documented in this encounter Plan of Treatment Upcoming Encounters Date Type Department Care Team (Late st Contact Info) Description 03/22/2024 1:00 PM EDT Nurse Only Ancillary [address] [place] [address] [place], Nurse [address] [place] [address] 03/28/2024 3:00 PM EDT Office Visit Ophthalmology[place]maris [place] [address] Felipe Pandey [place] [address] 04/13/2024 1:00 PM EST Imaging Radiology, [address] [place] [address] 04/14/2024 10:30 AM EST Office Visit Gastroenterology [address] [place] [address] Cheri Jay CRNP [address] [place] [address] 05/22/2024 9:20 AM EST Office Visit Neurology [facility] [address] [place] [address] Afshan Bee MD [address] [place] [address] 11/22/2024 8:00 AM EDT Office Visit Family Medicine [address] [phone] Shahla Hamlin MD [address] [place] [address] [place] [address] Scheduled Procedures Name Priority Associated Diagnoses Date/Ti [...] ASTHMA-ADULT 12/04/2023 COVID-19 Vaccine ( season) 2024 Mammogram 12/07/2024 12/08/2023, 07/30, 08/28/2014, [...] filedocumented as of this encounter Care Teams Warehouse Traffic Supervisor Relationship Specialty Start Date End Date Shahla Hamlin MD [address] [place] [address] [place] [phone] PCP - General Family Medicine 02/24/24 documented as of this encounter
--- OUTSIDE RECORDS SUMMARY | 2024-09-01 18:28 | External Medical Summary | Summary of Care ---
Author Name Unknown Organization [facility] Address [address] [place] [address] Phone [phone] Care Team Providers Care Senior Clinical Consultant Name Role Phone Shahla Hamlin MD Primary Care Provide r Reason for Visit * Reason Onset Date Comments Med Request 03/03/2024 Encounter Details Date Type Department Care Team (Late st Contact Info) Description 03/03/2024 Telephone Family Medicine [address] [phone] Shahla Hamlin MD [address] [place] [address] [place] [address] Med Request Allergies Active Allergy Reactions Criticality Noted [...] MEDS 90 Tab 1 03/14/2019 Active Ipratropium [place] HFA 17 MCG/ACT Inhalation Aerosol Solution (Atrovent [...] Active Ajovy 225 MG/1.5ML Subcutaneous Solution Auto-injector (Frekalyanezumab-vfrm )Indications:Intra ctable migraine with aura with status [...] EVERYDAY AT BEDTIME 90 Tablet 02/28/2024 Active ULTRAM 50 MG PO TABS Take by mouth. Discontinue d(Medicatio n List Clean Up) Lubiprostone 24 MCG Oral Capsule (Amitiza) Take 1 Capsule by mouth 2 times a day with morning and evening meals. Discontinue d(Refill) documented as of this encounter (statuses as [...] AGREEMENT 12/27/200705/2009 Overview: Managed by Dr Nuno ([phone]). To view the Medication Usage Agreement, go [...] Telephone Encounter - Shahla Hamlin MD - 03/07/2024 1:03 PM EDT Pt did not discuss tramadol usage during clinic visit * Telephone Encounter - Kary Gimenez CMA - 03/06/2024 1:53 PM EDT Historical medication. * Telephone Encounter - Viktor Ybarra PHARM Tech - 03/03/2024 10:58 AM EDT Pt wanting to refill her ULTRAM 50 MG PO TABS . Reached out to pharmacy and they recommend not refilling this medication because it interacts with multiple of her current medications. Please advise and prescribe if comfortable. Thank you, Viktor Ybarra Compo Conveyor Operator I [facility] 03/03/2024,11:04 AM documented in this encounter Plan of Treatment Upcoming Encounters Date Type Department Care Team (Late st Contact Info) Description 03/21/2024 10:20 AM EDT Nurse Only Ancillary [address] [place] [address] Bri Nurse [address] [place] [address] 03/28/2024 3:00 PM EDT Office Visit Ophthalmology, [place] [address] [place] [address] Felipe Pandey MD [address] [place] [address] 04/14/2024 10:30 AM EST Office Visit Gastroenterology [address] [place] [address] Cheri Jay CRNP [address] [place] [address] 05/22/2024 9:20 AM EST Office Visit Neurology [facility] [place] [address] Afshan Bee MD 200 [facility] [place] [address] Scheduled Procedures Name Priority Associated Diagnoses Date/Ti [...] filedocumented as of this encounter Care Teams Senior Clinical Consultant Relationship Specialty Start Date End Date Shahla Hamlin MD [address] [place] [address] [place] [address] PCP - General Family Medicine 02/24/24 documented as of this encounter
--- OUTSIDE RECORDS SUMMARY | 2024-09-01 18:28 | External Medical Summary | Summary of Care ---
Author Name Unknown Organization [facility] Address [address] [place] [address] Phone [phone] Care Team Providers Care Leather Heel Breaster Name Role Phone Shahla Hamlin MD Primary Care Provide r Reason for Visit * Reason Onset Date Comments Med Request 03/03/2024 Encounter Details Date Type Department Care Team (Late st Contact Info) Description 03/03/2024 Telephone Family Medicine [address] [phone] Shahla Hamlin MD [address] [place] [address] [place] [address] Med Request Allergies Active Allergy Reactions [...] MEDS 90 Tab 1 03/14/2019 Active Ipratropium [place] HFA 17 MCG/ACT Inhalation Aerosol Solution (Atrovent [...] AGREEMENT 12/27/200705/2009 Overview: Managed by Dr Nuno ([phone]). To view the Medication Usage Agreement, go [...] Encounter - Shahla Hamlin MD - 03/07/2024 1:04 PM EDT Med sent * Telephone Encounter - Kary Gimenez CMA - 03/06/2024 1:51 PM EDT No prescriptions requested or ordered in this encounter Last Visit: 12/01/2023 (in office), Visit date not found (telemedicine) Next Visit: 03/07/2024 Last date the medication was ordered: historical Patient Active Problem List Diagnosis Esophageal reflux ADVANCE DIRECTIVE INFORMATION Hypothyroidism Major depressive disorder NONALLERGIC RHINITIS Essential and other specified forms of tremor Migraine without aura and without status migrainosus, not intractable Fibromyalgia Anxiety RLS (restless legs syndrome) Mild persistent asthma without complication Prediabetes Labs: Lab Results Component Value Date/Time CREATININE - [facility] 1.0 12/10/2023 10:48 AM CREATININE - [facility] 0.99 10/29/2022 12:00 AM CREATININE - [facility] 0.8 12/10/2015 12:17 PM Lab Results Component Value Date/Time POTASSIUM - [facility] 4.7 12/10/2023 10:48 AM POTASSIUM - [facility] 3.7 10/29/2022 12:00 AM POTASSIUM - [facility] 4.2 12/10/2015 12:17 PM Lab Results Component Value Date/Time TSH - [facility] 3.45 12/10/2023 10:48 AM TSH - [facility] 1.16 12/10/2015 12:17 PM Lab Results Component Value Date/Time LDL (CALCULATED)-[facility] 73.60 10/29/2022 12:00 AM LDL (DIRECT MEASURE)-[facility] 91 10/29/2022 12:00 AM LDL CHOLESTEROL (CALCULATED) - [facility] 101 12/10/2023 10:48 AM LDL CHOLESTEROL (CALCULATED) - [facility] 108 01/18/2015 10:21 AM LDL CHOLESTEROL (CALCULATED) - [facility] 111 08/24/2013 11:06 AM LDL CHOLESTEROL (DIRECT MEASURE) - [facility] NOT APPLICABLE 07/07/2012 09:10 AM Lab Results Component Value Date/Time ALT - [facility] 20 12/10/2023 10:48 AM ALT - [facility] 18 12/10/2015 12:17 PM ALT-OUTSIDE LAB 32 12/19/2015 12:00 AM Hemoglobin AIC Results: Lab Results Component Value Date/Time HEMOGLOBIN A1C - [facility] 6.1 (H) 12/10/2023 10:48 AM * Telephone Encounter - Viktor Ybarra PHARM Tech - 03/03/2024 10:56 AM EDT Pt calling requesting the following medication below that is listed as "Historical". The following information was provided: Medication Name: Lubiprostone 24 MCG Oral Capsule (Amitiza) Strength: 24 MCG Directions: Take 1 Capsule by mouth 2 times a day with morning and evening meals Preferred Quantity: 90 Previous Prescriber: not provided Preferred Pharmacy: [id number] [id number] Please review and approve if appropriate. Thank you, Viktor Ybarra Supervisor Picking Crew I [facility] 03/03/2024,10:57 AM documented in this encounter Plan of Treatment Upcoming Encounters Date Type Department Care Team (Late st Contact Info) Description 03/21/2024 10:20 AM EDT Nurse Only Ancillary [address] [place] [address] Bri Nurse [address] [place] [address] 03/28/2024 3:00 PM EDT Office Visit OphthalmologyAmaris 21 [place] [address] Felipe Pandey MD 21 [place] [address] 04/14/2024 10:30 AM EST Office Visit Gastroenterology [address] [place] [address] Cheri Jay CRNP [address] [place] [address] 05/22/2024 9:20 AM EST Office Visit Neurology [facility] [place] [address] [facility] [place], [place] [address] Afshan Bee MD [address] [facility] [place] [address] Scheduled Procedures Name Priority Associated Diagnoses Date/Ti [...] filedocumented as of this encounter Care Teams Leather Heel Breaster Relationship Specialty Start Date End Date Shahla Hamlin MD [address] [place] [address] [place] [address] PCP - General Family Medicine 02/24/24 documented as of this encounter
--- OUTSIDE RECORDS SUMMARY | 2024-09-01 18:28 | External Medical Summary | Summary of Care ---
Author Name Unknown Organization [facility] Address [address] [place] [address] Phone [phone] Care Team Providers Care Strike On Machine Operator Name Role Phone Shahla Hamlin MD Primary Care Provide r Reason for Visit * Reason Onset Date Comments Fax 03/02/2024 [employer] test Encounter Details Date Type Department Care Team (Late st Contact Info) Description 03/02/2024 Telephone Family Medicine [address] [phone] Shahla Hamlin MD [address] [place] [address] [place] [address] Fax ([employer] test) Allergies Active Allergy Reactions Criticality Noted Date Comments Iodinated Contrast Media Edema face/lips/tongue High 05/11/2007 hives documented as of this encounter (statuses as of 03/13/2024) Medications Medication Sig Dispensed Refills Start Date [...] MEDS 90 Tab 1 03/14/2019 Active Ipratropium [place] HFA 17 MCG/ACT Inhalation Aerosol Solution (Atrovent [...] with morning and evening meals. Discontinue d(Refill) Pregabalin 75 MG Oral Capsule (Lyrica)Indication s:Fibromyalgia TAKE 1 CAPSULE BY MOUTH EVERY NIGHT AT BEDTIME. 30 Capsule 01/03/2024 Discontinue d(Refill) documented as of this encounter (statuses as of 03/13/2024) Active Problems Problem Noted Date Diagnosed Date [...] as of this encounter (statuses as of 03/13/2024) Resolved Problems Problem Noted Date Diagnosed Date Resolved Date PMR (polymyalgia rheumatica) 11/16/2011 12/01/2023 Acute cystitis 09/03/2009 04/11/2011 Dyslipidemia, goal to be determined 05/16/2009 12/01/2023 Overview: Per Lipid Taxonomy. Benign neoplasm of colon 07/29/200807/2023 Overview: fair prep- 2 mm polyp removed, repeat in 3 yrs, adenomatous polyps MEDICATION USE AGREEMENT 12/27/200705/2009 Overview: Managed by Dr Nuno ([phone]). To view the Medication Usage Agreement, go to Action, Patient Files. Benign neoplasm of colon 11/10/200707/2023 Overview: biopsies--acid reflux, negative for Amin's and H.Pylori Myalgia and myositis 05/11/2007 024 Migraine with aura, intractable 05/11/2007 12/01/2023 Mixed dyslipidemia 05/11/200705/16/200 9 Overview: Per Lipid Taxonomy. Chronic sinusitis 05/13/2017 documented as of this encounter (statuses as of 03/13/2024) Immunizations Name Administration Dates Next Due Pneumococcal Conjugate Vacci ne, 20-valent ([id number]) 03/07/2024 Pneumococcal Polysaccharide PPV23 (Pneumovax) 01/09/2019 Seasonal [...] encounter Miscellaneous Notes * Telephone Encounter - Eduarda Albert OSA - 03/13/2024 3:44 PM EDT carrie/[employer] advised of previous message. * Telephone Encounter - Kary Gimenez CMA - 03/06/2024 11:17 AM EDT Fax was received and it look questionable. I called christiane. She said to shred it. She doesn't wantto proceed with this. She had talked to them but has changed her mind. * Telephone Encounter - Shahla Hamlin MD - 03/02/2024 11:42 AM EDT Can we call the pt and see whether she was aware about this [employer] enquiry * Telephone Encounter - David Garcia OSA - 03/02/2024 10:09 AM EDT Caller requesting the following information to be faxed: Name/Company of caller: Carrie with [employer] Information requested to be faxed: Pharmacogentic test form. Carrie is calling to confirm form wasreceived. Fax number: [phone] Attention to Name/Company: [employer] Any additional information?: Reference # [id number] documented in this encounter Plan of Treatment Upcoming Encounters Date Type Department Care Team (Late st Contact Info) Description 03/21/2024 10:20 AM EDT Nurse Only Ancillary [address] [place] [address] [place], Nurse [address] [place] [address] 03/22/2024 1:00 PM EDT Nurse Only Ancillary [address] [place] [address] [place], Nurse [address] [place] [address] 03/28/2024 3:00 PM EDT Office Visit Ophthalmology, [place] [address] Felipe Pandey MD 21 [facility] [place] [address] 04/13/2024 1:00 PM EST Imaging Radiology, [address] [place] [address] 04/14/2024 10:30 AM EST Office Visit Gastroenterology [address] [place] [address] Cheri Jay CRNP [address] [place] [address] 05/22/2024 9:20 AM EST Office Visit Neurology [facility] [place] [facility] [place] [address] Afshan Bee MD 200 [facility] [place] [address] 11/22/2024 8:00 AM EDT Office Visit Family Medicine [address] [place] [phone] Shahla Hamlin MD [address] [place] [address] [place] [address] Scheduled Procedures Name Priority Associated Diagnoses Date/Ti [...] *SPIROMETRY ONCE FOR ASTHMA-ADULT 12/04/2023 COVID-19 Vaccine (1 - season) 2024 Mammogram 12/07/2024 12/08/2023, 07/30, [...] filedocumented as of this encounter Care Teams Strike On Machine Operator Relationship Specialty Start Date End Date Shahla Hamlin MD [address] [place] [address] [place] [address] PCP - General Family Medicine 02/24/24 documented as of this encounter
--- OUTSIDE RECORDS SUMMARY | 2024-09-01 18:29 | External Medical Summary | Summary of Care ---
Author Name Unknown Organization [facility] Address [address] [place] [address] Phone [phone] Care Team Providers Care Administrative And Program Specialist Name Role Phone Juwan Shi MD Primary Care Provide r Reason for Visit * Reason Onset Date Comments Medication Refill 03/03/2024 Encounter Details Date Type Department Care Team (Late st Contact Info) Description 03/03/2024 Refill Family Medicine [address] [phone] Juwan Shi MD [address] [place], [place] [address] [address] Fibromyalgia Allergies Active Allergy Reactions Criticality Noted Date Comments Iodinated Contrast Media Edema face/lips/tongue High 05/11/2007 hives documented as of this encounter (statuses as of 03/06/2024) Medications Medication Sig Dispensed Refills Start Date End Date Status ULTRAM 50 MG PO TABS Take by mouth. Active CALCIUM 600 MG PO TABS 1 tablet [...] MEDS 90 Tab 1 03/14/2019 Active Ipratropium [place] HFA 17 MCG/ACT Inhalation Aerosol Solution (Atrovent Hfa) Inhale 2 Puffs by mouth every 6 hours. Active Lubiprostone 24 MCG Oral Capsule (Amitiza) Take 1 Capsule by mouth 2 times a day with morning and evening meals. Active Atorvastatin Calcium 20 MG Oral Tablet [...] Active Ajovy 225 MG/1.5ML Subcutaneous Solution Auto-injector (Mall[employer]ee.[employer]-vfrm )Indications:Intra ctable migraine with aura with status migrainosus Inject 1.5 ml under the skin once a month 1.5 mL 5 12/10/2023 Active SUMAtriptan Succinate 50 MG Oral Tablet (Imitrex)Indicatio [...] mouth every night at bedtime. 30 Capsule 03/06/2024 Active Pregabalin 75 MG Oral Capsule (Lyrica)Indication s:Fibromyalgia TAKE 1 CAPSULE BY MOUTH EVERY NIGHT AT BEDTIME. 30 Capsule 01/03/2024 Discontinue d(Refill) documented as of this encounter (statuses as of 03/06/2024) Active Problems Problem Noted Date Diagnosed Date [...] as of this encounter (statuses as of 03/06/2024) Resolved Problems Problem Noted Date Diagnosed Date Resolved Date PMR (polymyalgia rheumatica) 11/16/2011 12/01/2023 Acute cystitis 09/03/2009 04/11/2011 Dyslipidemia, goal to be determined 05/16/2009 12/01/2023 Overview: Per Lipid Taxonomy. Benign neoplasm of colon 07/29/200807/2023 Overview: fair prep- 2 mm polyp removed, repeat in 3 yrs, adenomatous polyps MEDICATION USE AGREEMENT 12/27/200705/2009 Overview: Managed by Dr Nuno ([phone]). To view the Medication Usage Agreement, go to Action, Patient Files. Benign neoplasm of colon 11/10/200707/2023 Overview: biopsies--acid reflux, negative for Amin's and H.Pylori Myalgia and myositis 05/11/2007 024 Migraine with aura, intractable 05/11/2007 12/01/2023 Mixed dyslipidemia 05/11/2007 9 Overview: Per Lipid Taxonomy. Chronic sinusitis 05/13/2017 documented as of this encounter (statuses as of 03/06/2024) Immunizations Name Administration Dates Next Due Pneumococcal [...] encounter Miscellaneous Notes * Telephone Encounter - Juwan Shi MD - 03/06/2024 7:27 AM EDT Signed Prescriptions: Disp Refills Pregabalin 75 MG Oral Capsule (Lyrica) 30 Cap*0 Sig: Take 1 Capsule by mouth every night at bedtime. Authorizing Provider: JUWAN SHI * Telephone Encounter - Hayley Alvarado [facility] - 03/05/2024 3:32 PM EDT Pending Prescriptions: Disp Refills Pregabalin 75 MG Oral Capsule (Lyrica) 30 Cap*0 Sig: Take 1 Capsule by mouth every night at bedtime. * Telephone Encounter - Hayley Alvarado [facility] - 03/05/2024 3:32 PM EDT I have reviewed the patient’s controlled substance dispensing history in the Prescription Drug Monitoring Program in compliance with the [facility] regulations before prescribing a controlled substance. PDMP checked on 03/05/2024. Pending Prescriptions: Disp Refills Pregabalin 75 MG Oral Capsule (Lyrica) 30 Cap*0 Sig: Take 1 Capsule by mouth every night at bedtime. Last Visit: 12/01/2023 (in office), Visit date not found (telemedicine) Next Visit: 03/07/2024 Date medication was last filled: 02/07/24 Date medication is due for refill: 03/07/24 [facility]acy: [id number] [id number] [place] Is this request for a controlled substance? Yes and Urine Drug Screen Not completed Toxicology results: No results found for this or any previous visit. Please approve if appropriate. Thank you, Hayley Alvarado, Fiord[place] Clinical Pharmacist [facility] ([facility]) 03/05/24 3:32 PM [phone] * Telephone Encounter - Viktor Ybarra PHARM Tech - 03/03/2024 10:54 AM EDT Did you pend patient's preferred pharmacy and medication before forwarding?yes [facility]acy[id number] [id number] Pending Prescriptions: Disp Refills Pregabalin 75 MG Oral Capsule (Lyrica) 30 Cap*0 Sig: Take 1 Capsule by mouth every night at bedtime. Last Visit: 12/01/2023 (in office), Visit date not found (telemedicine) Next Visit: 03/07/2024 If no future appointments scheduled, and last appointment is greater than a year ago, please schedule patient for a follow-up appointment Last date the medication was ordered: 01/03/24 Is this request for a controlled substance?Yes, What was the last refill date 01/03/24 w/ quantity 30 and dosage 75 mg and Urine Drug Screen Not completed Urine Drug Screen:No results found for this or any previous visit. Patient Phone Numbers [employer] [phone] Labs: Lab Results Component Value Date/Time CREAT [...] 10:00 AM EDT Office Visit Family Medicine [address] [place] [phone] Juwan Shi MD [address] [place] [address] [place] [address] 03/28/2024 3:00 PM EDT Office Visit Ophthalmology, [address] [address] [place] [address] Felipe Pandey MD [facility] [place] [address] 04/14/2024 10:30 AM EST Office Visit Gastroenterology [address] [place] [address] Cheri Jay CRNP [address] [place] [address] 05/22/2024 9:20 AM EST [facility] [place] [address] Afshan Bee MD [address] [facility] [place] [address] Scheduled Procedures Name Priority Associated Diagnoses Date/Ti me COLONOSCOPY FLEXIBLE PROXIMA L DIAGNOSTIC Recall Special screening for malignant neoplasms, colon Health Maintenance Due Date Last Done Comments DXA Scan 1957 Cologuard 2002 Fecal Occult Blood Test 2002 Sigmoidoscopy 2002 Zoster Vaccines (1 of 2) 2007 Depression Monitoring 05/13/2018 05/13/2017 DTap/Tdap Vaccines (2 - Td or Tdap) 06/17/2019 06/17/2009 Pneumococcal Vaccine: 65+ Years (2 of 2 - PCV) 01/10/2020 01/09/2019 Adult Wellness Visit 2023 *SPIROMETRY ONCE FOR ASTHMA-ADULT 12/04/2023 COVID-19 Vaccine ( - 2023- season) 2024 Mammogram 12/07/2024 12/08/2023, 07/30, 08/28/2014, [...] Completed 02/24/2024, 02/06/2016, 01/21/2015, Additional history exists HPV (Gardasil) Vaccine Aged [...] unspecified documented in this encounter Care Teams Administrative And Program Specialist Relationship Specialty Start Date End Date Juwan Shi MD [address] [place] [address] [place] [address] PCP - General Family Medicine 02/24/24 documented as of this encounter
--- OUTSIDE RECORDS SUMMARY | 2024-09-01 18:29 | External Medical Summary | Summary of Care ---
Author Name Unknown Organization [facility] Address [address] [place] [address] Phone [phone] Care Team Providers Care Test Engine Mechanic Name Role Phone Shahla Hamlin MD Primary Care Provide r Reason for Visit * Reason Comments Re-Check 3 mo Encounter Details Date Type Department Care Team (Late st Contact Info) Description 03/07/2024 10:00 AM EDT Office Visit Family Medicine [address] [phone] Shahla Hamlin MD [address] [place] [address] [place] [address] Prediabetes*; Fibromyalgia; Postmenopausal status, age-related; Need [...] MEDS 90 Tab 1 03/14/2019 Active Ipratropium [place] HFA 17 MCG/ACT Inhalation Aerosol Solution (Atrovent [...] Active Ajovy 225 MG/1.5ML Subcutaneous Solution Auto-injector ([facility] )Indications:Intra ctable migraine with aura with status [...] 03/07/2024 Active Lubiprostone 24 MCG Oral Capsule (Amitiza)Indicatio ns:Irritable bowel syndrome with constipation Take 1 Capsule by mouth 2 times a day with morning and evening meals. 60 Capsule 1 03/07/2024 Active ULTRAM 50 MG PO TABS Take by mouth. 4 Discontinue d(Medicatio n List Clean Up) Lubiprostone 24 MCG Oral Capsule (Amitiza) Take 1 Capsule by mouth 2 times a day with morning and evening meals. 4 Discontinue d(Refill) Pregabalin 75 MG Oral Capsule (Lyrica)Indication s:Fibromyalgia Take 1 Capsule by mouth every night at bedtime. 30 Capsule 03/06/2024 4 Discontinue d(Refill) Arnuity Ellipta 100 MCG/ACT Inhalation Aerosol Powder Breath Activated (fluticasone Furoate) Inhale 1 Puff by mouth. 4 Discontinue d(Medicatio n List Clean Up) documented as of this encounter (statuses as [...] AGREEMENT 12/27/200705/2009 Overview: Managed by Dr Nuno ([phone]). To view the Medication Usage Agreement, go [...] Next Due Pneumococcal Conjugate Vacci ne, 20-valent ([id number]) 03/07/2024 Pneumococcal Polysaccharide PPV23 (Pneumovax) 01/09/2019 Seasonal [...] than one site may be scanned. © 0087-3186 Carmine [facility], [address] [place] [address]. All rights reserved. This information is not [...] AND OTHER MEDS 90 Tab 1 Ipratropium [place] HFA 17 MCG/ACT Inhalation Aerosol Solution (Atrovent [...] 1 Ajovy 225 MG/1.5ML Subcutaneous Solution Auto-injector ([facility]) Inject 1.5 ml under the skin once [...] performed by Inez Kumar MD at ENDOSCOPY [facility] COLONOSCOPY, DIAGNOSTIC (RECTUM) 02/28/2016 benign polyp, diverticulosis, repeat 10 yrs/COLONOSCOPY FLEXIBLE PROXIMAL DIAGNOSTIC performed by Inez Kumar MD at [facility]COPY [facility] EGD, FLEXIBLE, DIAGNOSTIC 02/22/2014 retained food in stomach, repeat w/ ext prep/ESOPHAGOGASTRODUODENOSCOPY (EGD), FLEXIBLE, TRANSORAL,DIAGNOSTIC performed by Inez Kumar MD at [facility] EGD, FLEXIBLE, DIAGNOSTIC 03/08/2014 bx show reactive gastropathy/ESOPHAGOGASTRODUODENOSCOPY (EGD), FLEXIBLE, TRANSORAL, DIAGNOSTIC performed by Inez Kumar MD at ENDOSCOPY [facility] EGD, FLEXIBLE, DIAGNOSTIC 02/28/2016 normal bx/ESOPHAGOGASTRODUODENOSCOPY (EGD), FLEXIBLE, TRANSORAL, DIAGNOSTIC performed by Inez Kumar MD at ENDOSCOPY [facility] EGD, FLEXIBLE, DIAGNOSTIC 11/28/2018 Full stomach, procedure aborted/ESOPHAGOGASTRODUODENOSCOPY (EGD), FLEXIBLE, TRANSORAL, DIAGNOSTIC performed by Inez Kumar MD at ENDOSCOPY [facility] EGD, FLEXIBLE, DIAGNOSTIC 12/15/2018 normal/ESOPHAGOGASTRODUODENOSCOPY (EGD), FLEXIBLE, TRANSORAL, DIAGNOSTIC performed by Inez Kumar MD at ENDOSCOPY [facility] EGD, FLEXIBLE, W/BIOPSY 11/10/07 biopsies--acid reflux, [...] pneumococcal vaccination - PNEUMOCOCCAL VACC, PCV20, IM ([id number]) Need for shingles vaccine - Zoster Vac [...] BP cehck Shahla Hamlin MD Family medicine, [address] [address] * Kary Gimenez CMA - 03/07/2024 10:18 [...] Description 03/28/2024 3:00 PM EDT Office Visit [facility] [address] Felipe Pandey [place] [address] 04/14/2024 10:30 AM EST Office Visit Gastroenterology [address] [place] [address] Cheri Jay CRNP [address] [place] [address] 05/22/2024 9:20 AM EST Office Visit Neurology [facility] [address] [facility] [place] [address] Afshan Bee MD [address] [place] [address] Pending Results Name Type Priority Associated Diagnoses Date /Time CBC WITH WBC DIFFERENTIAL AND ANEMIA REFLEX WORKUP Lab Routine Anemia, unspecified type 03/07/2024 10:47 AM EDT ANEMIA CBC Lab Routine Anemia, unspecified type 03/07/2024 10:47 AM EDT DIFFERENTIAL, AUTOMATED Lab Routine Anemia, unspecified type 03/07/2024 10:47 AM EDT ANEMIA REFLEX CHEMISTRY HOLD Lab Routine Anemia, unspecified type 03/07/2024 10:47 AM EDT Scheduled Orders Name Type Priority Associated Diagnoses Orde r Schedule DEXA SCAN/BONE MINERAL AXIAL Medical Imaging Routine Postmenopausal status, age-related Ordered: 03/07/2024 Scheduled Procedures Name Priority Associated Diagnoses Date/Ti [...] as of this encounter Visit Diagnoses Diagnosis Prediabetes- Primary [...] syndrome documented in this encounter Care Teams Test Engine Mechanic Relationship Specialty Start Date End Date Shahla Hamlin MD [address] [place] [address] [place] [phone] PCP - General Family Medicine 02/24/24 documented as of this encounter"
--- OUTSIDE RECORDS SUMMARY | 2024-09-01 18:29 | External Medical Summary | Summary of Care ---
Author Name Unknown Organization [facility] Address [address] [place] [address] Phone [phone] Care Team Providers Care Knit Goods Press Hand Name Role Phone Shahla Hamlin MD Primary Care Provide r Reason for Visit * Reason Comments Re-Check 3 mo Encounter Details Date Type Department Care Team (Late st Contact Info) Description 03/07/2024 10:00 AM EDT Office Visit Family Medicine [address] [phone] Shahla Hamlin MD [address] [place] [address] [place] [address] Prediabetes*; Fibromyalgia; Postmenopausal status, age-related; [...] MEDS 90 Tab 1 03/14/2019 Active Ipratropium [place] HFA 17 MCG/ACT Inhalation Aerosol Solution (Atrovent [...] Active Ajovy 225 MG/1.5ML Subcutaneous Solution Auto-injector ([facility] )Indications:Intra ctable migraine with aura with status [...] AGREEMENT 12/27/200705/2009 Overview: Managed by Dr Nuno ([phone]). To view the Medication Usage Agreement, go [...] Next Due Pneumococcal Conjugate Vacci ne, 20-valent ([id number]) 03/07/2024 Pneumococcal Polysaccharide PPV23 (Pneumovax) 01/09/2019 Seasonal [...] than one site may be scanned. © 5319-0202 Carmine [facility], [address] [place] [address]. All rights reserved. This information is not [...] AND OTHER MEDS 90 Tab 1 Ipratropium [place] HFA 17 MCG/ACT Inhalation Aerosol Solution (Atrovent [...] 1 Ajovy 225 MG/1.5ML Subcutaneous Solution Auto-injector ([employer]) Inject 1.5 ml under the skin once [...] performed by Inez Kumar MD at ENDOSCOPY [facility] COLONOSCOPY, DIAGNOSTIC (RECTUM) 02/28/2016 benign polyp, diverticulosis, repeat 10 yrs/COLONOSCOPY FLEXIBLE PROXIMAL DIAGNOSTIC performed by Inez Kumar MD at ENDOSCOPY [facility] EGD, FLEXIBLE, DIAGNOSTIC 02/22/2014 retained food in stomach, repeat w/ ext prep/ESOPHAGOGASTRODUODENOSCOPY (EGD), FLEXIBLE, TRANSORAL,DIAGNOSTIC performed by Inez Kumar MD at ENDOSCOPY [facility] EGD, FLEXIBLE, DIAGNOSTIC 03/08/2014 bx show reactive gastropathy/ESOPHAGOGASTRODUODENOSCOPY (EGD), FLEXIBLE, TRANSORAL, DIAGNOSTIC performed by Inez Kumar MD at ENDOSCOPY [facility] EGD, FLEXIBLE, DIAGNOSTIC 02/28/2016 normal bx/ESOPHAGOGASTRODUODENOSCOPY (EGD), FLEXIBLE, TRANSORAL, DIAGNOSTIC performed by Inez Kumar MD at ENDOSCOPY [facility] EGD, FLEXIBLE, DIAGNOSTIC 11/28/2018 Full stomach, procedure aborted/ESOPHAGOGASTRODUODENOSCOPY (EGD), FLEXIBLE, TRANSORAL, DIAGNOSTIC performed by Inez Kumar MD at ENDOSCOPY [facility] EGD, FLEXIBLE, DIAGNOSTIC 12/15/2018 normal/ESOPHAGOGASTRODUODENOSCOPY (EGD), FLEXIBLE, TRANSORAL, DIAGNOSTIC performed by Inez Kumar MD at ENDOSCOPY [facility] EGD, FLEXIBLE, W/BIOPSY 11/10/07 biopsies--acid reflux, [...] pneumococcal vaccination - PNEUMOCOCCAL VACC, PCV20, IM ([id number]) Need for shingles vaccine - Zoster Vac [...] BP cehck Shahla Hamlin MD Family medicine, [address] [address] * Kary Gimenez CMA - 03/07/2024 10:18 [...] Team (Late st Contact Info) Description 03/07/2024 10:50 AM EDT Laboratory Laboratory [address] [place] [phone] [place] [address] Arrived 03/28/2024 3:00 PM EDT Office Visit Ophthalmology, [address] [place] [address] Felipe Pandey MD [address] [place] [address] 04/14/2024 10:30 AM EST Office Visit Gastroenterology [address] [place] [address] Cheri Jay CRNP [address] [place] [address] 05/22/2024 9:20 AM EST Office Visit Neurology [facility] [address] [place] [address] Afshan Bee MD [address] [place] [address] Pending Results Name Type Priority Associated Diagnoses [...] syndrome documented in this encounter Care Teams Knit Goods Press Hand Relationship Specialty Start Date End Date Shahla Hamlin MD [address] [place] [address] [place] [phone] PCP - General Family Medicine 02/24/24 documented as of this encounter"
--- OUTSIDE RECORDS SUMMARY | 2024-09-01 18:29 | External Medical Summary ---
Author Name Unknown Address Unknown Organization K01:[facility] - [address] [facility] [place] [address] Laboratory Report Ordering Provider Test Date Status JOSE GUADALUPE ECHEVERRIA 03/07/2024 10:47:14 Camilla l Observation Date Value Abnormality Reference (Units ) Status SYNC LEUKOCYTES IN BLOOD BY AUTOMATED COUNT 03/07/2024 10:47:14 10.52 4.00-10.80 (K/uL) Final Segs 03/07/2024 10:47:14 67.7 40.0-75.0 (%) Final Lymphs % 03/07/2024 10:47:14 21.1 18.0-42.0 (%) Final Monos 03/07/2024 10:47:14 9.7 1.0-11.0 (%) Final Eosinophils 03/07/2024 10:47:14 0.6 0.0-6.0 (%) Final Basos 03/07/2024 10:47:14 0.7 0.0-2.0 (%) Final Immature Granulocyte, Percent 03/07/2024 10:47:14 0.2 0.0-2.0 (%) Final Absolute Segs 03/07/2024 10:47:14 7.13 1.80-7.70 (K/uL) Final Lymphs, absolute 03/07/2024 10:47:14 2.22 1.00-4.80 (K/ul) Final Monos, Abs 03/07/2024 10:47:14 1.02 0.00-1.10 (K/uL) Final Eos, Abs 03/07/2024 10:47:14 0.06 0.00-0.70 (K/uL) Final Basos, Abs 03/07/2024 10:47:14 0.07 0.00-0.20 (K/uL) Final Immature Granulocytes, Number 03/07/2024 10:47:14 0.02 0.00-0.20 (K/uL) Final Performing Location [facility] - [address] [facility] [address]
--- OUTSIDE RECORDS SUMMARY | 2024-09-01 18:29 | External Medical Summary | Summary of Care ---
Author Name Unknown Organization [facility] Address [address] [place] [address] Phone [phone] Care Team Providers Care Child Day Care Provider Name Role Phone Shahla Hamlin MD Primary Care Provide r Reason for Visit * Reason Comments Outpatient Testing Encounter Details Date Type Department Care Team (Late st Contact Info) Description 03/07/2024 10:50 AM EDT Laboratory Laboratory [address] [place] [phone] [address] [place] [address] Arrived Allergies Active Allergy Reactions Criticality Noted [...] 11 06/22/2017 Active Azelastine HCl 137 MCG/SPRAY SOLNIndications:Quality Control Expert awais sinusitis,Chronic rhinitis instill 2 sprays into [...] MEDS 90 Tab 1 03/14/2019 Active Ipratropium [place] HFA 17 MCG/ACT Inhalation Aerosol Solution (Atrovent [...] Active Ajovy 225 MG/1.5ML Subcutaneous Solution Auto-injector ([facility])I ndications:Intractab le migraine with aura with status [...] AGREEMENT 12/27/200705/2009 Overview: Managed by Dr Nuno ([phone]). To view the Medication Usage Agreement, go [...] Next Due Pneumococcal Conjugate Vacci ne, 20-valent ([id number]) 03/07/2024 Pneumococcal Polysaccharide PPV23 (Pneumovax) 01/09/2019 Seasonal [...] Office Visit Ophthalmology, [address] [address] [place] [address] Felipe Pandey MD [address] [place] [address] 04/14/2024 10:30 AM EST Office Visit Gastroenterology [address] [place] [address] Cheri Jay CRNP [address] [place] [address] 05/22/2024 9:20 AM EST Office Visit Neurology [facility] [address] [place] [address] Afshan Bee MD [address] [place] [address] Scheduled Procedures Name Priority Associated Diagnoses Date/Ti [...] filedocumented as of this encounter Care Teams Child Day Care Provider Relationship Specialty Start Date End Date Shahla Hamlin MD [address] [place] [address] [place] [phone] PCP - General Family Medicine 02/24/24 documented as of this encounter
--- OUTSIDE RECORDS SUMMARY | 2024-09-01 18:29 | External Medical Summary | Summary of Care ---
Author Name Unknown Organization [facility] Address [address] [place] [address] Phone [phone] Care Team Providers Care Entertainment Musician Name Role Phone Shahla Hamlin MD Primary Care Provide r Reason for Visit * Reason Onset Date Comments Fax 03/02/2024 [employer] test Encounter Details Date Type Department Care Team (Late st Contact Info) Description 03/02/2024 Telephone Family Medicine [address] [phone] Shahla Hamlin MD [address] [place] [address] [place] [address] Fax ([employer] test) Allergies Active Allergy [...] MEDS 90 Tab 1 03/14/2019 Active Ipratropium [place] HFA 17 MCG/ACT Inhalation Aerosol Solution (Atrovent [...] Active Ajovy 225 MG/1.5ML Subcutaneous Solution Auto-injector (Frekalyanezumab-[facility] )Indications:Intra ctable migraine with aura with status [...] AGREEMENT 12/27/200705/2009 Overview: Managed by Dr Nuno ([phone]). To view the Medication Usage Agreement, go [...] encounter Miscellaneous Notes * Telephone Encounter - Kary Gimenez CMA [...] calling to confirm form wasreceived. Fax number: [phone] Attention to Name/Company: [employer] Any additional information?: Reference # [id number] documented in this encounter Plan of Treatment Upcoming Encounters Date Type Department Care Team (Late st Contact Info) Description 03/07/2024 10:00 AM EDT Office Visit Family Medicine [address] [place] [phone] Shahla Hamlin MD [address] [place] [address] [place] [address] 03/28/2024 3:00 PM EDT Office Visit [place]is [place] [address] Felipe Pandey MD [address] [place] [address] 04/14/2024 10:30 AM EST Office Visit Gastroenterology [address] [place] [address] Cheri Jay CRNP [address] [place] [address] 05/22/2024 9:20 AM EST Office Visit Neurology [facility] [address] [facility] [place] [address] Afshan Bee MD [address] [facility] [place] [address] Scheduled Procedures Name Priority Associated Diagnoses Date/Ti [...] filedocumented as of this encounter Care Teams Entertainment Musician Relationship Specialty Start Date End Date Shahla Hamlin MD [address] [place] [address] [place] [address] PCP - General Family Medicine 02/24/24 documented as of this encounter
--- OUTSIDE RECORDS SUMMARY | 2024-09-01 18:29 | External Medical Summary ---
Author Name Unknown Address Unknown Organization K01:[facility] [place] [address] [place], [place] [address] [address] Laboratory Report Ordering Provider Test Date Status JOSE GUADALUPE ECHEVERRIA 03/07/2024 10:47:14 Camilla l Observation Date Value Abnormality Reference (Units ) Status WBC, Total 03/07/2024 10:47:14 10.52 4.00-10.8 0 (K/uL) Final RBC 03/07/2024 10:47:14 4.03 3.85-5.15 (M/uL) Final Hemoglobin 03/07/2024 10:47:14 13.0 12.0-15.3 (g/dL) Final Anemia reflex testing trigge rs on a HGB < 12.0 for Females and HGB < 13.0 for Males in accordance with the WHO Anemia Guidelines
Anemia reflex testing triggers on a HGB < 12.0 for Females and HGB < 13.0 for Males in accordance with the WHO Anemia Guidelines HCT 03/07/2024 10:47:14 38.8 36.0-45.2 (%) Final MCV 03/07/2024 10:47:14 96.3 81.5-97.5 (fL) Final MCH 03/07/2024 10:47:14 32.3 27.0-34.0 (pg) Final MCHC 03/07/2024 10:47:14 33.5 32.0-36.0 (g/dL) Final RDW 03/07/2024 10:47:14 13.3 11.5-15.5 (%) Final Platelets 03/07/2024 10:47:14 208 140-400 (K /uL) Final MPV 03/07/2024 10:47:14 10.2 6.6-11.1 ( fL) Final Nucleated erythrocytes/100 leukocytes [Ratio] in Blood by Automated count 03/07/2024 10:47:14 0 <=0 (/100 WBCs) Fi [facility] Performing Location [facility] [place] [address] [facility] [address]
[2024-09-01 19:41] LABS: Appearance Urine Clear (Clear); Bacteria Urine Automated 2+ (None Seen); Bilirubin Urine Negative (Negative); Blood Urine Negative (Negative); Cast Urine Automated 0-2 /lpf (0-2); Color Urine Yellow; Epithelial Cell Urine Auto 0-2 /hpf (0-2); Glucose Urine UA Negative (Negative); Ketones Urine Negative (Negative); Leukocyte Esterase Urine Trace (Negative); Nitrite Urine Positive (Negative); Protein Urine Negative (Negative); RBC Urine Automated 0-2 /hpf (0-2); Specific Gravity Urine 1.014 (1.000-1.030); Urobilinogen Urine Negative (Negative); pH Urine 5.5 (4.5-7.5)
[2024-09-01 19:55] LABS: Amphetamines+Metham, Urine Neg (Neg); Barbiturates, Urine Neg (Neg); Benzodiazepine, Urine Neg (Neg); Cocaine, Urine Neg (Neg); Fentanyl, Urine Neg (Neg); MDMA (Ecstacy), Urine Neg (Neg); Marijuana, Urine Neg (Neg); Methadone, Urine Neg (Neg); Opiate, Urine Neg (Neg); Phencyclidine, Urine Neg (Neg)
[2024-09-01] MEDS ORDERED: AMITRIPTYLINE HCL 25 MG TAB PO SCH (21:00)
[2024-09-01] MEDS: ESCITALOPRAM OXALATE 20 MG TAB PO SCH (21:06)
[2024-09-01] MEDS: HEPARIN SOD 5,000 UNIT/0.5 ML VIAL SQ SCH (21:06)
[2024-09-01] MEDS: HYOSCYAMINE SULFATE 0.125 MG TAB PO SCH (21:06)
[2024-09-01] MEDS: AZELASTINE HCL 0.1% NASAL 200 SPRAYS/27,400 MCG BTL SCH (21:06)
[2024-09-01] MEDS: PREGABALIN 75 MG CAP PO SCH (21:06)
--- OUTSIDE RECORDS SUMMARY | 2024-09-02 03:25 | External Medical Summary | Summary of Care ---
Author Name Unknown Organization [facility] Address [address] [facility] [place] [address] Phone [phone] Care Team Providers Care Community Coordinator [employer] Name Role Phone Shahla Hamlin MD Primary Care Provide r Reason for Visit * Reason Comments Follow Up Still having trouble swallowing. Pain in chest worse after she eats Encounter Details Date Type Department Care Team (Late st Contact Info) Description 09/01/2024 9:00 AM EDT Office Visit Gastroenterology [address] [place] [address] Cheri Jay CRNP [address] [place] [phone] Fatigue, unspecified type*; Gastroesophageal reflux disease without esophagitis; Shortness of breath; Other chest pain Allergies Active Allergy Reactions Criticality Noted Date Comments Iodinated Contrast Media Edema face/lips/tongue High 05/11/2007 hives documented as of this encounter (statuses as of 09/01/2024) Medications CALCIUM 600 MG PO TABS 1 [...] into each nostril once daily 17 g 8 Active levothyroxine (LEVOXYL) 25 MCG TabletIndications :Hypothyroidism take 1 tablet by mouth every morning 30 MINUTES BEFORE BREAKFAST AND OTHER MEDS 90 Tab 1 9 Active Ipratropium [place] HFA 17 MCG/ACT Inhalation Aerosol Solution (Atrovent [...] Active Additional Information Patient not taking.Reported on 09/01/2024 Zoster Vac Recomb Adjuvanted 50 MCG/0.5ML Intramuscular [...] each day 30 Tablet 4 4 Active Additional Information Patient not taking.Reported on 09/01/2024 SUMAtriptan Succinate 50 MG Oral Tablet (Imitrex)Indicati [...] before bedtime. 60 Tablet 3 5 Active Escitalopram Oxalate 20 MG Oral Tablet (Lexapro) TAKE 1 TABLET BY MOUTH EVERY DAY 90 Tablet 3 5 Active documented as of this encounter (statuses as of 09/01/2024) Active Problems Problem Noted Date Diagnosed Date [...] as of this encounter (statuses as of 09/01/2024) Resolved Problems Problem Noted Date Diagnosed Date Resolved Date PMR (polymyalgia rheumatica) 11/16/2011 12/01/2023 Acute cystitis 09/03/2009 04/11/2011 Dyslipidemia, goal to be determined 05/16/2009 12/01/2023 Overview (05/16/2009): Per Lipid Taxonomy. Benign neoplasm of colon 07/29/200807/2023 Overview (08/24/2008): fair prep- 2 mm polyp removed, repeat in 3 yrs, adenomatous polyps MEDICATION USE AGREEMENT 12/27/200705/2009 Overview (12/27/2007): Managed by Dr Nuno ([phone]). To view the Medication Usage Agreement, go [...] as of this encounter (statuses as of 09/01/2024) Immunizations Name Administration Dates Next Due COVID-19 mRNA, LNP-s, PF, 18 + or 6-11Yrs (Moderna) 01/07/2022,05/06/2021,09/13/2020,08/16 COVID-19, MRNA-LNP, PF, 30 M CG/0.3 mL, 12 YRS AND ABOVE, IM (PFIZER-Comirnaty) 03/22/2024 Pneumococcal Conjugate Vacci ne, 20-valent ([id number]) 03/07/2024 Pneumococcal Polysaccharide PPV23 (Pneumovax) 01/09/2019 Seasonal [...] Sign Reading Time Taken Comments Blood Pressure 122/64 09/01/2024 9:00 AM EDT Pulse 37 09/01/2024 9:00 AM EDT Temperature 36.6 °C (97.9 °F) 09/01/2024 9:00 AM ED T Respiratory Rate - - Oxygen Saturation 95% 09/01/2024 9:00 AM EDT Inhaled Oxygen Concentration - - Weight 68.1 kg (150 lb 1.6 oz) 09/01/2024 9:00 A M EDT Height - - Body Mass Index 29.31 05/19/2024 2:50 PM EST documented in this encounter Progress Notes * Cheri Jay CRNP - 09/01/2024 8:56 AM EDT Zeny Nuñez is a 69 year old female who presented today for f/u dysphagia and constipation symptoms. She is c/o fatigue, chest pain radiating to back and jaw, SOB x 2 days. Feels dizzy at times and reports BP at home sometimes can be high. VS:BP 122/64 | Pulse 37 | Temp 36.6 °C (97.9 °F) | Wt68.1 kg (150 lb 1.6 oz) | SpO2 95% | BMI 29.31 kg/m² | BSA 1.7 m² Current Outpatient Medications Medication Sig Dispense Refill [...] 1 Tablet by mouth in the morning. Multi For Her Oral Tablet Take 1 [...] morning and evening meals. 180 Capsule 1 SUMAtriptan Succinate 50 MG Oral Tablet (Imitrex) TAKE 1 TABLET AT ONSET OF MIGRAINE, MAY REPEAT IN2 HOURS. MAX 2 DOSES IN 24 HOUR 9 Tablet 1 Esomeprazole Magnesium 40 MG Oral Capsule Delayed Release Take 1 Capsule by mouth daily before breakfast. 90 Capsule 3 Hyoscyamine Sulfate 0.125 MG Oral Tablet (Levsin) Take 1 Tablet by mouth in the morning and 1 Tablet before bedtime. 60 Tablet 3 Escitalopram Oxalate 20 MG Oral Tablet (Lexapro) TAKE 1 TABLET BY MOUTH EVERY DAY 90 Tablet 3 Ipratropium [place] HFA 17 MCG/ACT Inhalation Aerosol Solution (Atrovent Hfa) Inhale 2 Puffs by mouth every 6 hours. (Patient not taking: Reported on 04/14/2024) Ajovy [...] (Atogepant) Take one by mouth each day (Patient not taking: Reported on 09/01/2024) 30 Tablet 4 No current facility-administered medications for this visit. Exam: General - appears lethargic, no acute distress CV - HR, bradycardic, no murmur or gallops Respiratory - CTA bilateral lobes Ext - No edema Neuro - Lethargic, but oriented x 3 EKG in clinic showed marked sinus bradycardia with premature arterial complexes, incomplete left bundle branch block. Compared to previous EKG, this was new and abnormal. Referred pt to ED and offered ambulance transport. Pt however opts to go by personal car with her driving (Felipe Nuñez), and will be going to [facility]. [facility]: Natividad Whitlock. Clinic notes and EKG will be faxed there as well. documented in this encounter Nursing Notes * Mildred Cole LPN - 09/01/2024 8:58 AM EDT Chief Complaint Patient presents with Follow Up Still having trouble swallowing. Pain in chest worse after she eats documented in this encounter Plan of Treatment Upcoming Encounters Date Type Department Care Team (Late st Contact Info) Description 10/13/2024 12:30 PM EDT Office Visit Gastroenterology [address] [place] [address] Cheri Jay CRNP [address] [place] [phone] 11/22/2024 8:00 AM EDT Office Visit Family Medicine [address] [place] [phone] Shahla Hamlin MD [address] [place] [address] [place] [address] 03/26/2025 1:00 PM EDT Nurse Only Ancillary [address] [place] [address] [place], Nurse Annual [facility] [address] [place] [address] [place] [phone] Scheduled Orders Name Type Priority Associated Diagnoses Orde r Schedule EKG EKG Routine Ordered: 09/01 Scheduled Procedures Name Priority Associated Diagnoses Date/Ti [...] 12/04/2023 COVID-19 Vaccine ( - season) 2024 03/22/2024, 01/07/2022, 05/06/2021, Additional history [...] as of this encounter Visit Diagnoses Diagnosis Fatigue, unspecified type- Primary Gastroesophageal reflux disease without esophagitis Esophageal reflux Shortness of breath Other chest pain documented in this encounter Care Teams Community [employer]inator [employer] Relationship Specialty Start Date End Date Shahla Hamlin MD [address] [place] [address] [place] [phone] PCP - General Family Medicine 02/24/24 documented as of this encounter"
--- OUTSIDE RECORDS SUMMARY | 2024-09-02 03:25 | External Medical Summary | Summary of Care ---
Author Name Unknown Organization [facility] Address [address] [facility] [place] [address] Phone [phone] Care Team Providers Care Two Way Radio Technician Name Role Phone Shahla Hamlin MD Primary Care Provide r Reason for Visit * Reason Onset Date Comments Appointment 09/01/2024 Encounter Details Date Type Department Care Team (Late st Contact Info) Description 09/01/2024 Telephone Gastroenterology [address] [place] [address] Cheri Jay CRNP [address] [place] [address] Appointment Allergies Active Allergy Reactions Criticality Noted [...] MEDS 90 Tab 1 9 Active Ipratropium [place] HFA 17 MCG/ACT Inhalation Aerosol Solution (Atrovent Hfa) Inhale 2 Puffs by mouth every 6 hours. Active Atorvastatin Calcium 20 MG Oral Tablet (Lipitor) Take 1 Tablet by mouth in the morning. 4 Active Ajovy 225 MG/1.5ML Subcutaneous Solution Auto-injector (Freterese-vfr m)Indications:Int ractable migraine with aura with status [...] 12/27/200705/2009 Overview (12/27/2007): Managed by Dr Nuno ([phone]). To view the Medication Usage Agreement, go [...] (PFIZER-Comirnaty) 03/22/2024 Pneumococcal Conjugate Vacci ne, 20-valent ([id number]) 03/07/2024 Pneumococcal Polysaccharide PPV23 (Pneumovax) 01/09/2019 Seasonal [...] No 03/22/2024 Does the household have a zuni hospitallar source of income? (Household - for ages [...] Telephone Encounter - Concetta Stern OSA - 09/01/2024 9:45 AM EDT Pt is rescheduled for 10/13/24 and I sent her a my G msg. MENDEZ Phelps 09/01/2024 9:46 AM * Telephone Encounter - Cheri Jay CRNP - 09/01/2024 9:34 AM EDT Pt came for GI f/u appt (dysphagia, constipation) however referred to [facility] ED for CP, SOB, fatigue and dizziness symptoms. Pls arrange f/u in Gi clinic in 1 month's time AGNES Bahena documented in this encounter Plan of Treatment Upcoming Encounters Date Type Department Care Team (Late st Contact Info) Description 10/13/2024 12:30 PM EDT Office Visit Gastroenterology [address] [place] [address] Cheri Jay CRNP [address] [place] [address] 11/22/2024 8:00 AM EDT Office Visit Family Medicine [address] [place] [phone] Shahla Hamlin MD [address] [place] [address] [place] [address] 03/26/2025 1:00 PM EDT Nurse Only Ancillary [address] [place] [address] [place], Nurse Annual [address] [place] [address] Scheduled Procedures Name Priority Associated Diagnoses Date/Ti [...] filedocumented as of this encounter Care Teams Two Way Radio Technician Relationship Specialty Start Date End Date Shahla Hamlin MD [address] [place] [address] [place] [phone] PCP - General Family Medicine 02/24/24 documented as of this encounter
[2024-09-02] MEDS: LEVOTHYROXINE SODIUM 25 MCG TABLET PO SCH (06:27)
[2024-09-02 09:54] LABS: Basophils # (auto) 0.03 K/uL (0.00-0.20); Basophils % (auto) 0.5 %; Eosinophils # (auto) 0.08 K/uL (0.00-0.50); Eosinophils % (auto) 1.3 %; Hematocrit (blood only) 29.1 % (37.0-47.0); Immature Granulocytes # (auto) 0.01 K/uL (0.01-0.20); Immature Granulocytes % (auto) 0.2 %; Lymphocytes % (auto) 26.6 %; Mean Corpuscular Hemoglobin 32.3 pg (25.0-34.0); Mean Corpuscular Hgb Conc 34.4 g/dL (32.0-36.0); Mean Corpuscular Volume 93.9 fL (80.0-100.0); Mean Platelet Volume 9.8 fL (9.4-12.4); Monocytes # (auto) 1.16 K/uL (0.11-0.59); Monocytes % (auto) 19.3 %; Neutrophils # (auto) 3.14 K/uL (1.40-6.50); Neutrophils % (auto) 52.1 %; Platelet Count 163 K/uL (130-400); RDW Standard Deviation 44.3 fL (36.4-46.3); White Blood Count 6.02 K/ul (4.8-10.8)
[2024-09-02] MEDS: ATORVASTATIN 20 MG TAB PO SCH (10:01)
[2024-09-02] MEDS: FLUTICASONE PROPIONATE NA SPR 16 GM BTL SCH (10:02)
[2024-09-02] MEDS: PANTOprazole 40 MG TAB PO SCH (10:04)
[2024-09-02] MEDS: ACETAMINOPHEN 500 MG TAB PO PRN (10:05)
[2024-09-02] MEDS: FLUTICASONE FUROATE 100MCG 14 PUFFS/INHALER INH SCH (10:06)
[2024-09-02 10:15] LABS: A calco-baum cmplx NotReported Not Detected (NotDetected); Bact fragilis Not Reported Not Detected (NotDetected); Blood Culture Id Panel See PCR Comment (NotDetected); C auris Not Reported Not Detected (NotDetected); Calbicans Not Reported Not Detected (NotDetected); Candida glabrata Not Reported Not Detected (NotDetected); Candida krusei Not Reported Not Detected (NotDetected); Cneoformans/gatti Not Reported Not Detected (NotDetected); Cparapsilosis Not Reported Not Detected (NotDetected); E cloacae compx Not Reported Not Detected (NotDetected); Efaecalis Not Reported Not Detected (NotDetected); Efaecium Not Reported Not Detected (NotDetected); Enterobacterales Not Reported Not Detected (NotDetected); Escherichia coli Not Reported Not Detected (NotDetected); H influenzae Not Reported Not Detected (NotDetected); K aerogenes Not Reported Not Detected (NotDetected); Koxytoca Not Reported Not Detected (NotDetected); Kpneumoniae grp Not Reported Not Detected (NotDetected); Lmonocyt Not Reported Not Detected (NotDetected); N meningitidis Not Reported Not Detected (NotDetected); P aeruginosa Not Reported Not Detected (NotDetected); Proteus spp Not Reported Not Detected (NotDetected); Salmonella spp Not Reported Not Detected (NotDetected); Staph lugdunensis Not Reported Not Detected (NotDetected); Staph spp. Not Reported DETECTED (NotDetected); Staphaureus Not Reported Not Detected (NotDetected); Staphepi Not Reported DETECTED (NotDetected); Stenmaltophilia Not Reported Not Detected (NotDetected); Strep agal(GrpB) Not Reported Not Detected (NotDetected); Strep pneum Not Reported Not Detected (NotDetected); Strep pyog (GrpA) Not Reported Not Detected (NotDetected); Strep spp Not Reported Not Detected (NotDetected)
[2024-09-02 10:21] LABS: Calcium 8.6 mg/dl (8.6-10.3); Magnesium 1.7 mg/dl (1.7-2.4); Potassium 4.3 mmol/L (3.5-5.1)
[2024-09-02 10:25] LABS: mecAC Resistant Gene DETECTED (NotDetected)
[2024-09-02 10:26] LABS: Staphylococcus epidermidis DETECTED (NotDetected); Staphylococcus spp. DETECTED (NotDetected)
--- NOTE | 2024-09-02 10:38 | Critical Care Progress Note ---
Date of Service September 02, 2024 Assessment & Plan (1) Symptomatic bradycardia: (2) Abnormal finding on urinalysis: (3) Right arm weakness: Plan 69-year-old female with a history of esophageal dysmotility, fibromyalgia, depression, anxiety, hypothyroidism and chronic migraines who presented to the hospital per the request of her mushroom packer due to symptomatic bradycardia identified in the office visit. Neurologic: Patient complaining of right arm heaviness and right leg heaviness. Will proceed with MRI brain. Symptoms began around 10 PM last night 09/01/24 continue home psych meds. Continue pregabalin for history of chronic pain. Pulmonary: X-ray unremarkable. Mild crackles at the lung bases. Perhaps some mild element of pulmonary edema. Cardiovascular: Patient with symptomatic sinus bradycardia of unclear etiology. Possibly from increased vagal tone. Possible underlying autonomic dysfunction. Hypothyroidism, hypomagnesemia and congenital heart disease ruled out. Appreciate cardiology input. Dr. Servin is requesting that the patient remain on dopamine to maintain heart rates above 40 and maps above 65. Actively titrating dopamine. Gastrointestinal: Patient with a history of esophageal dysmotility on a chronic slippery diet. Continue PPI. LFTs unremarkable. Renal: No significant issues. Replace electrolytes as needed. Monitor urine output closely. Infectious disease: UA positive. Urine culture pending. Blood culture positive for Staphylococcus epidermis. Suspect contaminant. Repeat blood cultures today. Start ceftriaxone for positive UA and nonspecific symptoms. Hematologic: No significant issues. Hemoglobin trended down to 10 likely related to hemodilution. Will follow. Endocrine: Continue home levothyroxine. TSH normal. Maintain euglycemia. Lines and tubes: Continue peripheral IVs and Carson catheter VTE prophylaxis: Heparin 5000 units twice daily. SCDs. CODE STATUS: Full Family at bedside: None available at bedside Disposition: ICU until she is off of dopamine. Discussed with pharmacist, bedside nurse and cardiology ADAIR. I have personally spent 36 minutes of critical care time in the direct management of this patient. This is a life/limb threatening event. This includes time spent evaluating patient, direct bedside care, chart review, placing orders, interpretation of diagnostic studies, discussion with consultants, patient, and family members, as well as other required patient management activities. This time is exclusive of all separately billable procedures, and teaching time and separate from and in addition to any other critical care service time. Thank you for allowing us to participate in the care of this patient. Admission and Anticipated Discharge Date Admission Date: September 01, 2024 Subjective Patient a bit lethargic this morning and complaining of some right arm heaviness which was originally thought to be related to her dopamine infusion and this was switched to the left arm. She is still complaining of the same heaviness and weakness. She also has some numbness and tingling of her right arm. She has been afebrile. She remains on a dopamine infusion. Urinalysis came back positive for nitrites and leuk esterase. 2+ bacteria noted. Blood cultures did come back positive for Staph epidermidis. Review of Systems Review of Systems: All systems reviewed & are unremarkable except as noted in HPI & below Physical Exam Constitutional: well nourished and + ill appearing; no acute distress Respiratory: normal respiratory effort; no respiratory distress and no labored breathing Auscultation: + crackles; no rales, no rhonchi and no wheezes Cardiovascular: Rate/Rhythm: regular rate, regular rhythm and + bradycardic Heart Sounds: normal S1 and normal S2; no murmur Vessels: no JVD Extremities: + pedal edema Gastrointestinal (Abdomen): Inspection/Auscultation: abdomen normal to inspection and normal bowel sounds; abdomen not distended Neurologic: CN's II-XI intact bilaterally and moves all extremities (Mild weakness in the right upper and right lower extremity) Results & Data Results & Data Vital Signs (Past 12 Hours) Vital Signs Temp Pulse Pulse Resp BP BP Pulse Ox 09/02/24 08:31 46 L 15 102/50 L 97 09/02/24 08:00 36.8 C 52 L 16 97/49 L 98 09/02/24 07:01 72 16 134/66 98 09/02/24 07:00 09/02/24 06:00 49 L 8 L 100 09/02/24 06:00 113/51 L 09/02/24 05:30 52 L 18 92 09/02/24 05:06 54 L 14 100 09/02/24 05:00 48 L 139/64 09/02/24 04:42 48 L 15 97 09/02/24 04:06 46 L 14 98 09/02/24 04:00 107/52 L 09/02/24 04:00 50 L 14 107/52 L 98 09/02/24 03:00 36.9 C 63 04/05/25 02:00 36.9 C 65 18 122/52 L 96 09/02/24 00:00 47 L O2 Del Method O2 Flow Rate 09/02/24 08:31 Nasal Cannula 3 09/02/24 08:00 Nasal Cannula 3 09/02/24 07:01 Nasal Cannula 3 09/02/24 07:00 Nasal Cannula 3 09/02/24 06:00 09/02/24 06:00 09/02/24 05:30 09/02/24 05:06 09/02/24 05:00 09/02/24 04:42 09/02/24 04:06 09/02/24 04:00 09/02/24 04:00 Nasal Cannula 3 09/02/24 03:00 09/02/24 02:00 Nasal Cannula 3 09/02/24 00:00 Coding Level of Care Code 35838 CRITICAL CARE 1ST 30-74M Diagnoses Symptomatic bradycardia R00.1 Abnormal finding on urinalysis R82.90 Right arm weakness R29.898
[2024-09-02] MEDS: GADOBUTROL 15ML VIAL IV ONE (11:28)
--- NOTE | 2024-09-02 11:37 | Cardiology Progress Note ---
Date of Service September 02, 2024 Assessment & Plan (1) Symptomatic bradycardia: Plan 69-year-old female presents with symptomatic sinus bradycardia. Heart rate trending down to the 20s and 30s with occasional PACs. Longest sinus pause recorded 3.5 seconds. Normal thyroid function and magnesium level/electrolytes. Lyme screen and UDS negative. ECG without ischemic changes. Bedside echocardiogram demonstrating normal wall motion and preserved LV function. - heart rate 40-60s on telemetry - continue dopamine gtt for heart rate support - Methocarbamol has been shown to cause bradycardia and this medication has been held during hospitalization - continue to monitor on telemetry - blood cultures 1/2 positive, possible contamination, will await repeat results - likely PPM placement on Wednesday Case discussed with supervising physician, further recommendations per Dr. Marmolejo. I spent a total of 35 minutes on the date of service in preparation, delivery, and documentation of the care provided to this patient excluding any time spent in the performance of separately billed services. This visit was a split-shared visit with the substantial portion of the decision making performed by the supervising tombstone polisher/billing provider. Admission and Anticipated Discharge Date Admission Date: September 01, 2024 Supervising Physician Co-Signing Physician Notes I spent a total of 40 minutes on the date of service in preparation, delivery, and documentation of the care provided to this patient, excluding any time spent in the performance of separately billed services. I have personally performed a history and physical examination on the patient. I have reviewed the advance practitioner's documentation, and I agree with, and take responsibility for the plan of care. 69-year-old female with a past medical history of esophageal dysmotility, hypothyroidism, HLD, migraines, history of benign positional vertigo presented from her manager provider relations office yesterday with symptoms of weakness fatigue and was noted to be bradycardic with heart rates in the 40s. She was admitted to the ICU and was started on low-dose dopamine. Her heart rates since have trended up to the 50s to 60s she is otherwise hemodynamically stable. Still having some weakness fatigue. Unclear etiology of her bradycardia and any cardiac the moment. Her ECG showed sinus bradycardia with heart rate of 40 bpm with no acute ischemic changes. Echocardiogram done showed LVEF of 55-60% with normal RV size and systolic function, and mild aortic regurgitation. Case was discussed by cardiology team yesterday with electrophysiology and plan is tentatively for a pacemaker on Wednesday for symptomatic bradycardia. Her blood cultures positive for Staph epidermidis but this is likely a contaminant and repeat blood cultures are pending. She is being treated for a UTI. Continue to monitor in the ICU on low-dose dopamine. Subjective 69-year-old female was seen today in cardiology follow up for symptomatic sinus bradycardia. She remains in ICU, is on dopamine gtt. Heart rates in 50s. On exam today, she states she feels tired and has dizziness. Noted to have right arm numbness, heaviness, MRI brain pending. Denies chest pain. Review of Systems Review of Systems: CONSTITUTIONAL: No change in weight, No weakness, No fatigue and No fevers, No sweats or chills. PULMONARY: No cough, sputum, or hemoptysis, No wheezing, No shortness of breath and No recent change in breathing. CARDIOVASCULAR: No chest pain, No dyspnea on exertion, No edema, No palpitations and No syncope. GASTROINTESTINAL: No abdominal pain, No change in bowel habits, No significant heartburn, No nausea, No vomiting, No diarrhea, No constipation, No blood in stools or black tarry stools. No dysphagia. HEMATOLOGIC: No abnormal bleeding and No bruising. NEUROLOGICAL: Normal balance, No headaches and No weakness. Physical Exam Physical Exam: General: No acute distress. A+Ox3. HEENT: Normocephalic. Atraumatic. PERRL. EOMI. Conjunctiva and sclera clear. NECK: No carotid bruits. No JVD. Carotid upstrokes are brisk. Heart: Bradycardic. S1 and S2 noted. No murmur. No rubs or gallops. PMI non displaced. Lungs: Clear to auscultation. No wheezes. No rhonchi. No rales. Abdomen: Normal bowel sounds. Soft. Nontender. No masses or organomegaly. No abdominal bruits. Extremities: No edema. No clubbing or cyanosis. Pulses: radial=2/4, posterior tibial=2/4, dorsalis pedis = 2/4. NEURO: No focal deficits. PSYCH: Appropriate affect and insight. Results & Data Vital Signs (Past 12 Hours) Vital Signs Temp Pulse Pulse Resp BP BP Pulse Ox 09/02/24 10:30 52 L 16 108/60 97 09/02/24 10:03 79 22 111/68 98 04/05/25 09:30 54 L 19 127/95 98 09/02/24 09:00 53 L 21 111/52 L 98 09/02/24 08:31 46 L 15 102/50 L 97 09/02/24 08:00 36.8 C 52 L 16 97/49 L 98 09/02/24 07:01 72 16 134/66 98 09/02/24 07:00 09/02/24 06:00 49 L 8 L 100 09/02/24 06:00 113/51 L 09/02/24 05:30 52 L 18 92 09/02/24 05:06 54 L 14 100 09/02/24 05:00 48 L 139/64 09/02/24 04:42 48 L 15 97 09/02/24 04:06 46 L 14 98 09/02/24 04:00 107/52 L 09/02/24 04:00 50 L 14 107/52 L 98 09/02/24 03:00 36.9 C 63 09/02/24 02:00 36.9 C 65 18 122/52 L 96 09/02/24 00:00 47 L O2 Del Method O2 Flow Rate 09/02/24 10:30 Nasal Cannula 3 09/02/24 10:03 Nasal Cannula 3 09/02/24 09:30 Nasal Cannula 3 09/02/24 09:00 Nasal Cannula 3 09/02/24 08:31 Nasal Cannula 3 09/02/24 08:00 Nasal Cannula 3 09/02/24 07:01 Nasal Cannula 3 09/02/24 07:00 Nasal Cannula 3 09/02/24 06:00 09/02/24 06:00 09/02/24 05:30 09/02/24 05:06 09/02/24 05:00 09/02/24 04:42 09/02/24 04:06 09/02/24 04:00 09/02/24 04:00 Nasal Cannula 3 09/02/24 03:00 09/02/24 02:00 Nasal Cannula 3 09/02/24 00:00 Laboratory Results Cardiac Enzymes 09/01/24 Range/Units 16:33 Troponin I High Sens 2.8 (0-14) pg/ml CBC 09/02/24 Range/Units 09:40 WBC 6.02 (4.8-10.8) K/ul RBC 3.10 L (4.20-5.40) M/uL Hgb 10.0 L (12.0-16.0) g/dl Hct 29.1 L (37.0-47.0) % Plt Count 163 (130-400) K/uL Neut # (Auto) 3.14 (1.40-6.50) K/uL Lymph # (Auto) 1.60 (1.20-3.40) K/uL [place] # (Auto) 1.16 H (0.11-0.59) K/uL Eos # (Auto) 0.08 (0.00-0.50) K/uL Baso # (Auto) 0.03 (0.00-0.20) K/uL Comprehensive Metabolic Panel 09/02/24 Range/Units 09:40 Sodium 138 (136-145) mmol/L Potassium 4.3 (3.5-5.1) mmol/L Chloride 107 (98-107) mmol/L Carbon Dioxide 26 (21-32) mmol/L BUN 15 (6-23) mg/dl Creatinine 0.69 D (0.6-1.2) mg/dl Calcium 8.6 (8.6-10.3) mg/dl Intake and Output 09/01/24 09/02/24 09/02/24 22:59 06:59 14:59 Intake Total 696.977 / 2936.019 236.055 / 2936.019 44.765 / 44.765 Output Total 525 / 1255 730 / 1255 290 / 290 Balance 171.977 / 1681.019 -493.945 / 1681.019 -245.235 / -245.235 Intake: IV 696.977 / 2936.019 236.055 / 2936.019 44.765 / 44.765 DOPamine / D5W 400 mg In 250 ml 196.977 / 436.019 236.055 / 436.019 44.765 / 44.765 @ 8.5 MCG/KG/MIN 21.675 mls/hr IV .[id number] [facility] Rx#:[id number] Sodium Chloride 0.9% 500 ml @ 500 / 500 999 mls/hr IV .Q31M ONE Rx#: [id number] Output: Urine Amount (Catheter) 525 / 1255 730 / 1255 290 / 290 Carson/Indwelling 525 / 1255 730 / 1255 290 / 290 Other: Weight 64.3 kg 66.5 kg Weight Measurement Method Built in [facility] Built in [facility]
[2024-09-02] MEDS: MECLIZINE 12.5 MG TAB PO SCH (12:20)
[2024-09-02] MEDS: cefTRIAXone SODIUM 2,000 MG/50 ML BAG IV SCH (12:20)
--- NOTE | 2024-09-02 13:05 | Magnetic Resonance Report ---
MR brain wo/w con HISTORY: 69 years-old Female weakness of right arm acute weakness with stroke like symptoms COMPARISON: 04/15/2011 brain MRI, head CT 03/16/2017 TECHNIQUE: Multiplanar multisequence MRI of the brain was obtained with and without IV contrast FINDINGS: Motion degraded exam. Partially empty sella. No restricted diffusion to suggest acute or subacute inf arct. No acute intracranial hemorrhage, midline shift, abnormal extra-axial collection, hydrocephalus or intra-axial mass. Involutional changes with moderate and progressively worsened patchy T2/FLAIR h yperintense foci throughout the white matter of the cerebral hemispheres. No abnormal intracranial en hancement. Cerebral venous sinuses and major arterial flow voids appear patent. Moderate mastoid effusions. Marjan re near complete opacification of the right sphenoid sinus. Small left maxillary air-fluid level. Pos toperative changes of the nasal turbinates and paranasal sinuses. IMPRESSION: 1. Motion degraded exam without acute intracranial abnormality. No acute or subacute infarct. 2. Involutional changes with progressively worsened chronic microvascular ischemic disease. 3. No abnormal enhancement. 4. Paranasal sinus disease as above. ACT 112: Negative or not required by law. The above report was generated using voice recognition software. It may contain grammatical, syntax o r spelling errors. Electronically signed by: Emmanuel Pendleton M.D. 09/02/2024 1:02 PM
[2024-09-02] MEDS ORDERED: STAT IV Infusion **Titration per Protocol STA (13:06)
[2024-09-02] MEDS: NOREPINEPHRINE/D5W 4 MG/250 ML PLCT IV SCH (13:15)
[2024-09-02] MEDS: NOREPINEPHRINE/D5W 4 MG/250 ML IV ONE (13:16)
--- NOTE | 2024-09-02 14:52 | Hospitalist Progress Note ---
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 Symptomatic bradycardia Chest Pain Pt presenting from her GI appt where her HR was noted to be 37. Presents with dizziness, chest tightness Unclear etiology DD: ? Secondary to amitriptyline, sumatriptan --Normal TSH --Lyme screen negative --ECHO: EF 55 to 60%. Left ventricle wall motion is normal. Mild aortic reg urgitation. Trace mitral, tricuspid regurgitation. Estimated systolic pulmonary pressure 36 mmHg --On dopamine, norepinephrine drip --Appreciate cardiology, critical care input Avoid AV jason blocking agents Urinary tract infection Urine culture growing E. coli Initial blood cultures 06/03: Gram-positive cocci in clusters. ? Contaminated sample Bio fire: Staph epidermidis Repeat blood cultures pending Empirically on Rocephin IV fluids as needed Right upper extremity heaviness/numbness MRI Brain:No acute or subacute infarct. Involutional changes with progressively worsened chronic microvascular ischemic disease. No abnormal enhancement. Monitor Chronic medical problems: GERD- continue ppi Constipation-continue lubiprostone Dysphagia/esophageal stricture S/P dilatation -continue hyoscyamine Hypothyroidism-continue levothyroxine HLD-continue statin MDD, Fibromyalgia- continue home meds H/O Asthma: Continue home inhalers Mood disorder: Hold amitriptyline for now, On escitalopram DVT Px: Heparin SQ CODE STATUS Full code Admission and Anticipated Discharge Date Admission Date: September 01, 2024 Subjective Patient is seen and examined at bedside States having dizziness today On dopamine drip Also reports mild right upper extremity weakness and numbness Denies any dysuria, chest pain, dyspnea Review of Systems Review of Systems: All systems reviewed & are unremarkable except as noted in Subjective Physical Exam Physical Exam: Physical Exam: Vitals signs as noted above General Appearance:Moderately built and nourished, no apparent distress Head: normocephalic, Atraumatic Eyes: normal inspection, EOMI Neck: supple, Trachea midline Respiratory/Chest: Normal breath sounds, CTA, No accessory muscle use Cardiovascular: S1, S2, No murmur, bradycardia Abdomen/GI:Soft, Non tender, Bowel sounds present Extremities/Musculoskeletal:normal inspection, no edema, RUE mild weakness Neurologic/Psych:AAOX3, grossly no focal neurological deficits Skin: normal color, warm Results & Data Results & Data Vital Signs (Past 12 Hours) Vital Signs Temp Pulse Pulse Resp BP BP Pulse Ox 09/02/24 14:00 45 L 16 132/68 98 09/02/24 13:46 49 L 14 129/63 99 09/02/24 13:33 52 L 15 129/63 97 09/02/24 13:22 48 L 20 106/48 L 96 09/02/24 13:04 75 14 72/57 L 97 09/02/24 13:01 69 20 72/47 L 97 09/02/24 12:30 68 17 101/67 99 09/02/24 12:00 51 L 17 92/50 L 97 09/02/24 12:00 36.6 C 09/02/24 11:52 59 L 17 97/49 L 94 09/02/24 10:30 52 L 16 108/60 97 09/02/24 10:03 79 22 111/68 98 09/02/24 09:30 54 L 19 127/95 98 09/02/24 09:00 53 L 21 111/52 L 98 09/02/24 08:31 46 L 15 102/50 L 97 09/02/24 08:00 36.8 C 52 L 16 97/49 L 98 09/02/24 07:01 72 16 134/66 98 09/02/24 07:00 09/02/24 06:00 49 L 8 L 100 09/02/24 06:00 113/51 L 09/02/24 05:30 52 L 18 92 09/02/24 05:06 54 L 14 100 09/02/24 05:00 48 L 139/64 09/02/24 04:42 48 L 15 97 09/02/24 04:06 46 L 14 98 09/02/24 04:00 107/52 L 09/02/24 04:00 50 L 14 107/52 L 98 09/02/24 03:00 36.9 C 63 O2 Del Method O2 Flow Rate 09/02/24 14:00 Nasal Cannula 3 09/02/24 13:46 Nasal Cannula 3 09/02/24 13:33 Nasal Cannula 3 09/02/24 13:22 Nasal Cannula 3 09/02/24 13:04 Nasal Cannula 3 09/02/24 13:01 Nasal Cannula 3 09/02/24 12:30 Nasal Cannula 3 09/02/24 12:00 Nasal Cannula 3 09/02/24 12:00 09/02/24 11:52 Nasal Cannula 3 09/02/24 10:30 Nasal Cannula 3 09/02/24 10:03 Nasal Cannula 3 09/02/24 09:30 Nasal Cannula 3 09/02/24 09:00 Nasal Cannula 3 09/02/24 08:31 Nasal Cannula 3 09/02/24 08:00 Nasal Cannula 3 09/02/24 07:01 Nasal Cannula 3 09/02/24 07:00 Nasal Cannula 3 09/02/24 06:00 09/02/24 06:00 09/02/24 05:30 09/02/24 05:06 09/02/24 05:00 09/02/24 04:42 09/02/24 04:06 09/02/24 04:00 09/02/24 04:00 Nasal Cannula 3 09/02/24 03:00 Laboratory Results Short CBC 09/02/24 Range/Units 09:40 WBC 6.02 (4.8-10.8) K/ul Hgb 10.0 L (12.0-16.0) g/dl Hct 29.1 L (37.0-47.0) % Plt Count 163 (130-400) K/uL BMP 09/02/24 09:40 Sodium 138 Potassium 4.3 Chloride 107 Carbon Dioxide 26 BUN 15 Creatinine 0.69 D Calcium 8.6 Urine 09/01/24 Range/Units 19:20 Urine Color Yellow Urine Appearance Clear (Clear) Urine pH 5.5 (4.5-7.5) Ur Specific [place] 1.014 (1.000-1.030) Urine Protein Negative (Negative) Urine Glucose (UA) Negative (Negative)
[2024-09-02] MEDS ORDERED: VANCOMYCIN CONSULT ACTIVE PRN ×2 (19:08)
[2024-09-02] MEDS: VANCOMYCIN HCL 1,500 MG in SODIUM CHLORIDE 0.9% 500 ML IV ONE (19:29)
[2024-09-03] MEDS: VANCOMYCIN HCL 1,000 MG in SODIUM CHLORIDE 0.9% 250 ML IV SCH (04:12)
[2024-09-03 05:05] LABS: Hematocrit (blood only) 27.1 % (37.0-47.0); Mean Corpuscular Hemoglobin 32.3 pg (25.0-34.0); Mean Corpuscular Hgb Conc 33.2 g/dL (32.0-36.0); Mean Corpuscular Volume 97.1 fL (80.0-100.0); Mean Platelet Volume 9.9 fL (9.4-12.4); Platelet Count 152 K/uL (130-400); RDW Coefficient of Variation 13.5 % (11.5-14.5); RDW Standard Deviation 47.2 fL (36.4-46.3); Red Blood Count 2.79 M/uL (4.20-5.40); White Blood Count 4.36 K/ul (4.8-10.8)
[2024-09-03 05:21] LABS: BUN Creatinine Ratio 24.6 (10-20); Calcium 8.1 mg/dl (8.6-10.3); Magnesium 1.9 mg/dl (1.7-2.4); Potassium 4.5 mmol/L (3.5-5.1)
[2024-09-03] MEDS: MAGNESIUM SULFATE / D5W 1 GM/100 ML BAG IV SCH (06:10)
[2024-09-03] MEDS: PANTOprazole 40 MG/10 ML SYR IV SCH (08:58)
--- NOTE | 2024-09-03 09:32 | Critical Care Progress Note ---
Date of Service September 03, 2024 Assessment & Plan (1) Symptomatic bradycardia: (2) Abnormal finding on urinalysis: (3) Right arm weakness: (4) E. 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 Neurologic: MRI brain ordered given right-sided weakness yesterday. MRI brain 09/02/2024 was motion degraded without acute changes. Involutional changes with progressively worsening chronic microvascular ischemic disease. Continue pregabalin for history of chronic pain. Pulmonary: X-ray unremarkable. Mild crackles at the lung bases. Perhaps some mild element of pulmonary edema. Cardiovascular: Patient with symptomatic sinus bradycardia of unclear etiology. Possibly from increased vagal tone. Possible underlying autonomic dysfunction. Hypothyroidism, hypomagnesemia and congenital heart disease ruled out. Appreciate cardiology input. Dopamine and Levophed have been weaned off. Maintain MAP above 60 mmHg. Gastrointestinal: Patient with a history of esophageal dysmotility on a chronic slippery diet. Continue PPI. LFTs unremarkable. Renal: No significant issues. Replace electrolytes as needed. Monitor urine output closely. Infectious disease: UA positive. Greater than 100,000 colonies of E. coli. Continue ceftriaxone. Blood culture positive for Staphylococcus epidermis. MRSE. Empiric vancomycin started and repeat blood cultures were obtained 09/02/2024 prior to starting vanc omycin. If repeat blood cultures are negative, will discontinue vancomycin. Hematologic: No significant issues. Hemoglobin continues to trend down to 9 g/dL. Will hold DVT prophylaxis. No active signs of bleeding. Endocrine: Continue home levothyroxine. TSH normal. Maintain euglycemia. Lines and tubes: Continue peripheral IVs and Carson catheter VTE prophylaxis: Heparin 5000 units twice daily. Chemical DVT prophylaxis on hold due to dropping hemoglobin. CODE STATUS: Full Family at bedside: None available at bedside Disposition: Cardiology indicating that patient may get pacemaker tomorrow. Will keep her in the ICU for today and reevaluate ICU needs tomorrow. Admission and Anticipated Discharge Date Admission Date: September 01, 2024 Subjective Patient has been off vasopressors since yesterday evening. Denies any headache, shortness of breath, chest pain or dizziness. No fevers. Review of Systems Review of Systems: All systems reviewed & are unremarkable except as noted in HPI & below Physical Exam Constitutional: well nourished and + ill appearing; no acute distress Respiratory: normal respiratory effort; no respiratory distress and no labored breathing Auscultation: + crackles; no rales, no rhonchi and no wheezes Cardiovascular: Rate/Rhythm: regular rate, regular rhythm and + bradycardic Heart Sounds: normal S1 and normal S2; no murmur Vessels: no JVD Extremities: + pedal edema Gastrointestinal (Abdomen): Inspection/Auscultation: abdomen normal to inspection and normal bowel sounds; abdomen not distended Neurologic: CN's II-XI intact bilaterally and moves all extremities (Mild weakness in the right upper and right lower extremity) Results & Data Results & Data Vital Signs (Past 12 Hours) Vital Signs Temp Pulse Pulse Resp BP BP Pulse Ox 09/03/24 08:00 62 20 111/54 L 96 09/03/24 07:00 63 14 104/51 L 96 09/03/24 06:00 67 21 96/66 L 98 09/03/24 05:01 86/63 L 09/03/24 05:00 61 15 96 09/03/24 04:00 36.9 C 55 L 14 105/68 96 09/03/24 03:00 94/60 L 09/03/24 03:00 56 L 19 94/60 L 96 09/03/24 02:00 98/63 L 09/03/24 02:00 60 19 96 09/03/24 01:01 91/69 L 09/03/24 01:00 69 26 H 96 09/03/24 00:30 100/64 09/03/24 00:09 64 20 96 09/03/24 00:00 36.9 C 99/58 L 09/03/24 00:00 76 09/02/24 22:00 36.9 C 76 20 111/59 L 93 O2 Del Method O2 Flow Rate 09/03/24 08:00 Nasal Cannula 2 09/03/24 07:00 Nasal Cannula 2 09/03/24 06:00 09/03/24 05:01 09/03/24 05:00 09/03/24 04:00 Nasal Cannula 2 09/03/24 03:00 09/03/24 03:00 09/03/24 02:00 09/03/24 02:00 09/03/24 01:01 09/03/24 01:00 09/03/24 00:30 09/03/24 00:09 09/03/24 00:00 09/03/24 00:00 09/02/24 22:00 Room Air Coding Level of Care Code 27865 SUB INP/OBS CARE 2/35MIN Diagnoses Symptomatic bradycardia R00.1 Abnormal finding on urinalysis R82.90 Right arm weakness R29.898 E. coli UTI N39.0; B96.20 Shock R57.9 Positive blood culture R78.81
--- NOTE | 2024-09-03 10:50 | Pharmacy Report ---
Pharmacy PK ABX Note - Date of Service September 03, 2024 - Assessment and Plan Assessment 69 year old F receiving Vancomycin and Ceftriaxone for treatment of bacteremia and UTI, respectively. * Day #2 of antimicrobial therapy. * Afebrile. No white ocunt. SCr stable at 0.69 mg/dL. Procal and lactate negative. * Urine culture growing E. coli that is sensitive to Rocephin. * Blood culture growing MRSE and Staph werneri in 1/4 bottles. This likely represents contamination but will continue Vanc until repeat blood cultures from today show no growth per disbursing officer. Of note, repeat blood cultures were drawn prior to abx starting. Plan Vancomycin * Loading dose: 1500 mg IV x 1 * Maintenance dose: 1000 mg IV every 12 hours * Regimen is predicted to achieve target AUC/WERO of 400-600 mg/L.hr * No level will be ordered unless therapy extends beyond 48 hours. Ceftriaxone * 2000 mg IV every 24 hours Pharmacy will continue to follow and will adjust dose/frequency as necessary. Thank you. Pharmacy has transitioned to AUC monitoring for vancomycin. AUC/WERO is the preferred PK/PD target and is associated with decreased risk of nephrotoxicity compared to traditional trough targets.
--- NOTE | 2024-09-03 11:45 | Cardiology Progress Note ---
Date of Service September 03, 2024 Assessment & Plan (1) Symptomatic bradycardia: Plan 69-year-old female presents with symptomatic sinus bradycardia. Heart rate trending down to the 20s and 30s with occasional PACs. Longest sinus pause recorded 3.5 seconds. ECG without ischemic changes. Bedside echocardiogram demonstrating normal wall motion and preserved LV function. Unclear etiology of bradycardia. - heart rate 50-60s on telemetry while off dopamine gtt - continue to monitor on telemetry - mild anemia, hgb today 9.0 - blood cultures 1/2 positive, likely contaminate, will await repeat results - antibiotics for UTI per primary - EP consult for possible PPM placement tomorrow, NPO after midnight Case discussed with attending physician, further recommendations per Dr. Marmolejo. I spent a total of 30 minutes on the date of service in preparation, delivery, and documentation of the care provided to this patient excluding any time spent in the performance of separately billed services. This visit was a split-shared visit with the substantial portion of the decision making performed by the supervising leg man/billing provider. Admission and Anticipated Discharge Date Admission Date: September 01, 2024 Supervising Physician Co-Signing Physician Notes I spent a total of 30 minutes on the date of service in preparation, delivery, and documentation of the care provided to this patient, excluding any time spent in the performance of separately billed services. I have personally performed a history and physical examination on the patient. I have reviewed the advance practitioner's documentation, and I agree with, and take responsibility for the plan of care. 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 She was admitted to the ICU and was started on low-dose dopamine. Her heart rates since have trended up to the 50s to 60s she is otherwise hemodynamically stable. Still having some weakness fatigue. Unclear etiology of her bradycardia and any cardiac the moment. Her ECG showed sinus bradycardia with heart rate of 40 bpm with no acute ischemic changes. Echocardiogram done showed LVEF of 55-60% with normal RV size and systolic function, and mild aortic regurgitation. Case was discussed by cardiology team with electrophysiology and plan is tentatively for a pacemaker on [place] for symptomatic bradycardia. Her blood cultures positive for Staph epidermidis but this is likely a contaminant and repeat blood cultures are negative. She is being treated for a UTI and her urine cultures are positive for E. coli. She has been off dopamine since yesterday and her heart rates currently are in the 60s to 70s. Patient remains with dizziness and vague symptoms of lightheadedness despite the improvement in her heart rate. Keep patient n.p.o. after midnight and she will be evaluated by EP in the morning for possible pacemaker. Subjective 69-year-old female was seen today in cardiology follow up for symptomatic sinus bradycardia. Notes fatigue and lightheadedness, dizziness. Denies chest pain. Now off dopamine drip. Heart rates in the 50s on telemetry. Review of Systems Review of Systems: CONSTITUTIONAL: No change in weight, No weakness, +fatigue and No fevers, No sweats or chills. PULMONARY: No cough, sputum, or hemoptysis, No wheezing, No shortness of breath and No recent change in breathing. CARDIOVASCULAR: No chest pain, No dyspnea on exertion, No edema, No palpitations and No syncope. GASTROINTESTINAL: No abdominal pain, No change in bowel habits, No significant heartburn, No nausea, No vomiting, No diarrhea, No constipation, No blood in stools or black tarry stools. No dysphagia. HEMATOLOGIC: No abnormal bleeding and No bruising. NEUROLOGICAL: Normal balance, No headaches and No weakness. Physical Exam Physical Exam: General: No acute distress. A+Ox3. HEENT: Normocephalic. Atraumatic. PERRL. EOMI. Conjunctiva and sclera clear. NECK: No carotid bruits. No JVD. Carotid upstrokes are brisk. Heart: Bradycardic. S1 and S2 noted. No murmur. No rubs or gallops. PMI non displaced. Lungs: Clear to auscultation. No wheezes. No rhonchi. No rales. Abdomen: Normal bowel sounds. Soft. Nontender. No masses or organomegaly. No abdominal bruits. Extremities: No edema. No clubbing or cyanosis. Pulses: radial=2/4, posterior tibial=2/4, dorsalis pedis = 2/4. NEURO: No focal deficits. PSYCH: Appropriate affect and insight. Results & Data Vital Signs (Past 12 Hours) Vital Signs Temp Pulse Pulse Resp BP BP Pulse Ox 09/03/24 11:00 64 14 96/66 L 92 09/03/24 10:00 55 L 17 95/56 L 94 09/03/24 09:06 51 L 19 105/52 L 91 09/03/24 09:00 46 L 16 105/52 L 94 09/03/24 08:00 36.5 C 09/03/24 08:00 62 20 111/54 L 96 09/03/24 07:00 63 14 104/51 L 96 09/03/24 06:00 67 21 96/66 L 98 09/03/24 05:01 86/63 L 09/03/24 05:00 61 15 96 09/03/24 04:00 36.9 C 55 L 14 105/68 96 09/03/24 03:00 94/60 L 09/03/24 03:00 56 L 19 94/60 L 96 09/03/24 02:00 98/63 L 09/03/24 02:00 60 19 96 09/03/24 01:01 91/69 L 09/03/24 01:00 69 26 H 96 09/03/24 00:30 100/64 09/03/24 00:09 64 20 96 09/03/24 00:00 36.9 C 99/58 L 09/03/24 00:00 76 O2 Del Method O2 Flow Rate 09/03/24 11:00 Room Air 09/03/24 10:00 Room Air 09/03/24 09:06 Room Air 09/03/24 09:00 Room Air 09/03/24 08:00 09/03/24 08:00 Nasal Cannula 2 09/03/24 07:00 Nasal Cannula 2 09/03/24 06:00 09/03/24 05:01 09/03/24 05:00 09/03/24 04:00 Nasal Cannula 2 09/03/24 03:00 09/03/24 03:00 09/03/24 02:00 09/03/24 02:00 09/03/24 01:01 09/03/24 01:00 09/03/24 00:30 09/03/24 00:09 09/03/24 00:00 09/03/24 00:00 Laboratory Results CBC 09/03/24 Range/Units 04:51 WBC 4.36 L (4.8-10.8) K/ul RBC 2.79 L (4.20-5.40) M/uL Hgb 9.0 L (12.0-16.0) g/dl Hct 27.1 L (37.0-47.0) % Plt Count 152 (130-400) K/uL Comprehensive Metabolic Panel 09/03/24 Range/Units 04:51 Sodium 139 (136-145) mmol/L Potassium 4.5 (3.5-5.1) mmol/L Chloride 109 H (98-107) mmol/L Carbon Dioxide 27 (21-32) mmol/L BUN 17 (6-23) mg/dl Creatinine 0.69 (0.6-1.2) mg/dl Glucose 97 (70-99(Fasting)) mg/dl Calcium 8.1 L (8.6-10.3) mg/dl Intake and Output 09/02/24 09/03/24 09/03/24 22:59 06:59 14:59 Intake Total 76.587 / 1274.597 800 / 1274.597 680 / 680 Output Total 920 / 1890 465 / 1890 130 / 130 Balance -843.413 / -615.403 335 / -615.403 550 / 550 Intake: IV 76.587 / 1034.597 800 / 1034.597 200 / 200 DOPamine / D5W 400 mg In 250 ml 2.347 / 110.357 @ 0 mls/hr IV .Q0M [facility] Rx#: [id number] Magnesium Sulfate / D5w 1 gm In 200 / 200 100 ml @ 50 mls/hr IV Q2H [facility] Rx#:[id number] Norepinephrine/D5w 4 mg In 250 74.240 / 74.240 0 / 0 ml @ 0 MCG/KG/MIN IV .Q0M [facility] Rx#:[id number] Vancomycin HCl 1,000 mg In 270 / 270 Sodium Chloride 0.9% 250 ml @ 200 mls/hr IV Q12H [facility] Rx#: [id number] Vancomycin HCl 1,500 mg In 530 / 530 Sodium Chloride 0.9% 500 ml @ 200 mls/hr IV ONE ONE Rx#: [id number] Oral 480 / 480 Output: Urine Amount (Catheter) 920 / 1890 465 / 1890 130 / 130 Carson/Indwelling 920 1889 465 1889 130 / 130 Other: Weight 66.8 kg Weight Measurement Method Built in [facility]
--- NOTE | 2024-09-03 14:23 | Hospitalist Progress Note ---
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 Symptomatic bradycardia Chest Pain Pt presenting from her GI appt where her HR was noted to be 37. Presents with dizziness, chest tightness Unclear etiology DD: ? Secondary to amitriptyline, sumatriptan --Normal TSH --Lyme screen negative --ECHO: EF 55 to 60%. Left ventricle wall motion is normal. Mild aortic reg urgitation. Trace mitral, tricuspid regurgitation. Estimated systolic pulmonary pressure 36 mmHg --off dopamine, norepinephrine drip --Appreciate cardiology, critical care input Avoid AV jason blocking agents -- N.p.o. after midnight for pacemaker placement tomorrow Urinary tract infection Urine culture grew E. coli Initial blood cultures 06/03: Staph. ? Contaminated sample Bio fire: Staph epidermidis, staph Warneri Repeat blood cultures: Negative to date Empirically on Rocephin IV fluids as needed Right upper extremity heaviness/numbness MRI Brain:No acute or subacute infarct. Involutional changes with progressively worsened chronic microvascular ischemic disease. No abnormal enhancement. Improved Monitor Chronic medical problems: GERD- continue ppi Constipation-continue lubiprostone Dysphagia/esophageal stricture S/P dilatation -continue hyoscyamine, slippery diet Hypothyroidism-continue levothyroxine HLD-continue statin MDD, Fibromyalgia- continue home meds H/O Asthma: Continue home inhalers Mood disorder: Hold amitriptyline for now, On escitalopram DVT Px: Heparin SQ CODE STATUS Full code Admission and Anticipated Discharge Date Admission Date: September 01, 2024 Subjective Patient is seen and examined at bedside Right upper extremity weakness, numbness resolved Off dopamine drip Continues to complain of dizziness and some chest tightness No other complaints today Review of Systems Review of Systems: All systems reviewed & are unremarkable except as noted in Subjective Physical Exam Physical Exam: Physical Exam: Vitals signs as noted above General Appearance:Moderately built and nourished, no apparent distress Head: normocephalic, Atraumatic Eyes: normal inspection, EOMI Neck: supple, Trachea midline Respiratory/Chest: Normal breath sounds, CTA, No accessory muscle use Cardiovascular: S1, S2, No murmur Abdomen/GI:Soft, Non tender, Bowel sounds present Extremities/Musculoskeletal:normal inspection, no edema, RUE mild weakness Neurologic/Psych:AAOX3, grossly no focal neurological deficits Skin: normal color, warm Results & Data Results & Data Vital Signs (Past 12 Hours) Vital Signs Temp Pulse Pulse Resp BP BP Pulse Ox 09/03/24 13:00 69 21 127/72 93 09/03/24 12:00 36.6 C 77 20 127/57 L 98 09/03/24 11:00 64 14 96/66 L 92 09/03/24 10:00 55 L 17 95/56 L 94 09/03/24 09:06 51 L 19 105/52 L 91 09/03/24 09:00 46 L 16 105/52 L 94 09/03/24 08:00 36.5 C 09/03/24 08:00 62 20 111/54 L 96 09/03/24 07:00 63 14 104/51 L 96 09/03/24 06:00 67 21 96/66 L 98 09/03/24 05:01 86/63 L 09/03/24 05:00 61 15 96 09/03/24 04:00 36.9 C 55 L 14 105/68 96 09/03/24 03:00 94/60 L 09/03/24 03:00 56 L 19 94/60 L 96 O2 Del Method O2 Flow Rate 09/03/24 13:00 Room Air 09/03/24 12:00 Room Air 09/03/24 11:00 Room Air 09/03/24 10:00 Room Air 09/03/24 09:06 Room Air 09/03/24 09:00 Room Air 09/03/24 08:00 09/03/24 08:00 Nasal Cannula 2 09/03/24 07:00 Nasal Cannula 2 09/03/24 06:00 09/03/24 05:01 09/03/24 05:00 09/03/24 04:00 Nasal Cannula 2 09/03/24 03:00 09/03/24 03:00 Laboratory Results Short CBC 09/03/24 Range/Units 04:51 WBC 4.36 L (4.8-10.8) K/ul Hgb 9.0 L (12.0-16.0) g/dl Hct 27.1 L (37.0-47.0) % Plt Count 152 (130-400) K/uL BMP 09/03/24 04:51 Sodium 139 Potassium 4.5 Chloride 109 H Carbon Dioxide 27 BUN 17 Creatinine 0.69 Glucose 97 Calcium 8.1 L
[2024-09-04 05:19] LABS: Hematocrit (blood only) 29.2 % (37.0-47.0); Hemoglobin 9.9 g/dl (12.0-16.0); Mean Corpuscular Hemoglobin 32.1 pg (25.0-34.0); Mean Corpuscular Hgb Conc 33.9 g/dL (32.0-36.0); Mean Corpuscular Volume 94.8 fL (80.0-100.0); Platelet Count 174 K/uL (130-400); RDW Coefficient of Variation 13.3 % (11.5-14.5); RDW Standard Deviation 46.2 fL (36.4-46.3); Red Blood Count 3.08 M/uL (4.20-5.40); White Blood Count 5.84 K/ul (4.8-10.8)
[2024-09-04 05:34] LABS: BUN Creatinine Ratio 17.1 (10-20); Calcium 8.5 mg/dl (8.6-10.3); Creatinine Clr Calc Pharmacy 68.2 ml/min; Magnesium 2.1 mg/dl (1.7-2.4); Phosphorus 3.5 mg/dl (2.5-4.9); Potassium 4.3 mmol/L (3.5-5.1)
--- NOTE | 2024-09-04 08:02 | History & Physical Bridge Note ---
Date of Service September 04, 2024 History & Physical Bridge Note I have examined the patient, reviewed the History & Physical and in the interval since the performance of the History & Physical I have noted the following changes of clinical significance: Pt has persistent SB not terribly symptomatic but was recommended a pacemaker prior to hospital discharge; discussed the procedure and risks and consents signed
--- NOTE | 2024-09-04 08:05 | Pre Anesthesia Assessment ---
Date of Service September 04, 2024 Pre Sedation Assessment Vital Signs Temp Pulse Pulse Resp BP BP Pulse Ox 09/04/24 07:30 58 L 16 161/81 H 94 09/04/24 07:00 09/04/24 07:00 36.9 C 77 19 142/83 H 96 09/04/24 05:09 51 L 11 L 96 09/04/24 05:01 139/51 L 09/04/24 05:01 139/51 L 09/04/24 05:01 139/51 L 09/04/24 05:01 139/51 L 09/04/24 05:01 139/51 L 09/04/24 05:01 139/51 L 09/04/24 05:01 139/51 L 09/04/24 05:01 139/51 L 09/04/24 05:01 139/51 L 09/04/24 05:01 139/51 L 09/04/24 05:01 139/51 L 09/04/24 05:01 139/51 L 09/04/24 05:01 139/51 L 09/04/24 05:01 139/51 L 09/04/24 05:01 139/51 L 09/04/24 05:01 139/51 L 09/04/24 05:01 139/51 L 09/04/24 05:01 139/51 L 09/04/24 05:01 139/51 L 09/04/24 04:00 36.8 C 50 L 16 157/75 H 91 09/04/24 03:00 58 L 18 93 09/04/24 03:00 128/78 09/04/24 02:00 72 16 118/90 97 09/04/24 01:00 75 20 128/69 93 09/04/24 00:00 76 09/04/24 00:00 36.9 C 20 127/70 90 09/03/24 21:01 143/72 H 09/03/24 20:51 69 17 96 09/03/24 20:00 139/83 09/03/24 20:00 62 18 87 L 09/03/24 20:00 09/03/24 19:03 55 L 17 131/78 97 09/03/24 18:00 83 20 133/73 95 09/03/24 17:05 72 19 122/69 94 09/03/24 16:00 36.5 C 88 19 140/65 94 09/03/24 15:00 69 20 125/67 95 09/03/24 14:00 73 18 139/85 95 09/03/24 13:00 69 21 127/72 93 09/03/24 12:00 36.6 C 77 20 127/57 L 98 09/03/24 11:00 64 14 96/66 L 92 09/03/24 10:00 55 L 17 95/56 L 94 09/03/24 09:06 51 L 19 105/52 L 91 09/03/24 09:00 46 L 16 105/52 L 94 O2 Del Method 09/04/24 07:30 Room Air 09/04/24 07:00 Room Air 09/04/24 07:00 Room Air 09/04/24 05:09 09/04/24 05:01 09/04/24 05:01 09/04/24 05:01 09/04/24 05:01 09/04/24 05:01 09/04/24 05:01 09/04/24 05:01 09/04/24 05:01 09/04/24 05:01 09/04/24 05:01 09/04/24 05:01 09/04/24 05:01 09/04/24 05:01 09/04/24 05:01 09/04/24 05:01 09/04/24 05:01 09/04/24 05:01 09/04/24 05:01 09/04/24 05:01 09/04/24 04:00 Room Air 09/04/24 03:00 09/04/24 03:00 09/04/24 02:00 09/04/24 01:00 09/04/24 00:00 09/04/24 00:00 Room Air 09/03/24 21:01 09/03/24 20:51 09/03/24 20:00 09/03/24 20:00 09/03/24 20:00 Room Air 09/03/24 19:03 09/03/24 18:00 Room Air 09/03/24 17:05 Room Air 09/03/24 16:00 Room Air 09/03/24 15:00 Room Air 09/03/24 14:00 Room Air 09/03/24 13:00 Room Air 09/03/24 12:00 Room Air 09/03/24 11:00 Room Air 09/03/24 10:00 Room Air 09/03/24 09:06 Room Air 09/03/24 09:00 Room Air Cardiovascular + bradycardic Respiratory normal respiratory effort, lungs clear to auscultation Pre-Sedation Airway Assessment Smoking Status: Never smoker Hx Sleep Apnea: No Hx Difficult Intubation: No Short, Thick Neck: No Thyromental Distance: > or= 3.5 Finger Breadths Oral Cavity: + WNL Mallampati Class: III ASA: ASA3 NPO Status Date of Last Intake of Fluids: 09/03/24 Time of Last Intake of Fluids: 21:30 Date of Last Intake of Solid Food: 09/03/24 Time of Last Intake of Solid Foods: 18:00 Procedure Planning Contraindications for Sedation: none Current Medications Reviewed: Yes Notes The planned sedation has been discussed with the patient. Informed Consent was obtained. I have identified the patient, determined the appropriateness of sedation and have assessed the patient immediately prior to the procedure. All medicine(s) and interventions are by my order.
[2024-09-04] MEDS: WATER, STERILE FOR INJ 10 ML VIAL ONE ×2 (08:48→08:50)
[2024-09-04] MEDS: LIDOCAINE 1% LOCAL 20 ML VIAL ONE (08:48)
[2024-09-04] MEDS: VANCOMYCIN HCL 1000MG/20ML VIAL ONE ×2 (08:48→08:49)
[2024-09-04] MEDS: BUPIVACAINE 0.25% PF 30 ML VIAL ONE ×2 (08:48→08:49)
[2024-09-04] MEDS: ceFAZolin 330 MG/ML 1 GM VIAL ONE (08:49)
[2024-09-04] MEDS: methylPREDNISolone 125 MG/2 ML VIAL ONE (08:50)
[2024-09-04] MEDS: diphenhydrAMINE 50 MG/ML VIAL ONE (08:50)
[2024-09-04] MEDS: fentaNYL citrate PF 100 MCG/2 ML VIAL ONE ×2 (09:17→09:19)
[2024-09-04] MEDS: MIDAZOLAM HCL 5 MG/ML 1 ML VIAL ONE (09:18)
--- NOTE | 2024-09-04 09:28 | Critical Care Progress Note ---
Date of Service September 04, 2024 Assessment & Plan (1) Symptomatic bradycardia: (2) Abnormal finding on urinalysis: (3) Right arm weakness: (4) E. coli UTI: (5) Shock: (6) Positive blood culture: Plan Reason for ICU Admission: 69-year-old female with a history of esophageal dysmotility, fibromyalgia, depression, anxiety, hypothyroidism and chronic migraines who presented to the hospital per the request of her settlement agent due to symptomatic bradycardia identified in the office visit. 24 Hour Events: Patient underwent pacemaker placement earlier this morning successfully and uneventfully. She had an uneventful night. She is currently pacing in the 80s. Neurologic: MRI brain ordered given right-sided weakness yesterday. MRI brain 09/02/2024 was motion degraded without acute changes. Involutional changes with progressively worsening chronic microvascular ischemic disease. Continue pregabalin for history of chronic pain. Pulmonary: X-ray unremarkable. Mild crackles at the lung bases. Perhaps some mild element of pulmonary edema. Cardiovascular: Patient with symptomatic sinus bradycardia of unclear etiology. Hypothyroidism, hypomagnesemia and congenital heart disease ruled out. Appreciate cardiology input. Dopamine and Levophed have been weaned off. Pacer placed today. Gastrointestinal: Patient with a history of esophageal dysmotility on a chronic slippery diet. Renal: No significant issues. Replace electrolytes as needed. Monitor urine output closely. Infectious disease: UA positive. Greater than 100,000 colonies of E. coli. Treated with Rocephin. Blood cultures initially positive with follow-up that were unremarkable. Hematologic: No significant issues. Hemoglobin continues to trend down to 9 g/dL. Will hold DVT prophylaxis. No active signs of bleeding. Endocrine: Continue home levothyroxine. TSH normal. Maintain euglycemia. Lines and tubes: Continue peripheral IV. Discontinue Carson catheter after pacer placement. VTE prophylaxis: Heparin 5000 units twice daily. Chemical DVT prophylaxis on hold due to dropping hemoglobin. CODE STATUS: Full Family at bedside: available at bedside. Disposition: Stable for downgrade from the ICU today. Admission and Anticipated Discharge Date Admission Date: September 01, 2024 Subjective Patient seen and evaluated at bedside. She had just undergone placement of pacemaker. She is eating breakfast and states that she is feeling well. She has some pain at the site of insertion, but is tolerable. She offers no complaints of chest pain, pleuritic discomfort, or cough. Review of Systems Review of Systems: Per HPI Physical Exam Constitutional: well nourished and + ill appearing; no acute distress Respiratory: normal respiratory effort; no respiratory distress and no labored breathing Auscultation: + crackles; no rales, no rhonchi and no wheezes Cardiovascular: Rate/Rhythm: regular rate, regular rhythm and + bradycardic Heart Sounds: normal S1 and normal S2; no murmur Vessels: no JVD Extremities: + pedal edema Gastrointestinal (Abdomen): Inspection/Auscultation: abdomen normal to inspection and normal bowel sounds; abdomen not distended Skin: LEFT upper chest wall dressing clean, dry, and intact. Neurologic: CN's II-XI intact bilaterally and moves all extremities (Mild weakness in the right upper and right lower extremity) Results & Data Results & Data Vital Signs (Past 12 Hours) Vital Signs Temp Pulse Pulse Resp BP BP Pulse Ox 09/04/24 07:30 58 L 16 161/81 H 94 09/04/24 07:00 09/04/24 07:00 36.9 C 77 19 142/83 H 96 09/04/24 05:09 51 L 11 L 96 09/04/24 05:01 139/51 L 09/04/24 05:01 139/51 L 09/04/24 05:01 139/51 L 09/04/24 05:01 139/51 L 09/04/24 05:01 139/51 L 09/04/24 05:01 139/51 L 09/04/24 05:01 139/51 L 09/04/24 05:01 139/51 L 09/04/24 05:01 139/51 L 09/04/24 05:01 139/51 L 09/04/24 05:01 139/51 L 09/04/24 05:01 139/51 L 09/04/24 05:01 139/51 L 09/04/24 05:01 139/51 L 09/04/24 05:01 139/51 L 09/04/24 05:01 139/51 L 09/04/24 05:01 139/51 L 09/04/24 05:01 139/51 L 09/04/24 05:01 139/51 L 09/04/24 04:00 36.8 C 50 L 16 157/75 H 91 09/04/24 03:00 58 L 18 93 09/04/24 03:00 128/78 09/04/24 02:00 72 16 118/90 97 09/04/24 01:00 75 20 128/69 93 09/04/24 00:00 76 09/04/24 00:00 36.9 C 20 127/70 90 O2 Del Method 09/04/24 07:30 Room Air 09/04/24 07:00 Room Air 09/04/24 07:00 Room Air 09/04/24 05:09 09/04/24 05:01 09/04/24 05:01 09/04/24 05:01 09/04/24 05:01 09/04/24 05:01 09/04/24 05:01 09/04/24 05:01 09/04/24 05:01 09/04/24 05:01 09/04/24 05:01 09/04/24 05:01 09/04/24 05:01 09/04/24 05:01 09/04/24 05:01 09/04/24 05:01 09/04/24 05:01 09/04/24 05:01 09/04/24 05:01 09/04/24 05:01 09/04/24 04:00 Room Air 09/04/24 03:00 09/04/24 03:00 09/04/24 02:00 09/04/24 01:00 09/04/24 00:00 09/04/24 00:00 Room Air Coding Level of Care Code 13679 SUB INP/OBS CARE 2/35MIN Diagnoses Symptomatic bradycardia R00.1 Abnormal finding on urinalysis R82.90 Right arm weakness R29.898 E. coli UTI N39.0; B96.20 Shock R57.9 Positive blood culture R78.81
[2024-09-04] MEDS: MIDAZOLAM HCL 1 MG/ML 2ML VIAL ONE (09:30)
--- NOTE | 2024-09-04 09:31 | Post Anesthesia Assessment ---
Date of Service September 04, 2024 Post Sedation Assessment Vital Signs Temp Pulse Pulse Resp BP BP Pulse Ox 09/04/24 07:30 58 L 16 161/81 H 94 09/04/24 07:00 09/04/24 07:00 36.9 C 77 19 142/83 H 96 09/04/24 05:09 51 L 11 L 96 09/04/24 05:01 139/51 L 09/04/24 05:01 139/51 L 09/04/24 05:01 139/51 L 09/04/24 05:01 139/51 L 09/04/24 05:01 139/51 L 09/04/24 05:01 139/51 L 09/04/24 05:01 139/51 L 09/04/24 05:01 139/51 L 09/04/24 05:01 139/51 L 09/04/24 05:01 139/51 L 09/04/24 05:01 139/51 L 09/04/24 05:01 139/51 L 09/04/24 05:01 139/51 L 09/04/24 05:01 139/51 L 09/04/24 05:01 139/51 L 09/04/24 05:01 139/51 L 09/04/24 05:01 139/51 L 09/04/24 05:01 139/51 L 09/04/24 05:01 139/51 L 09/04/24 04:00 36.8 C 50 L 16 157/75 H 91 09/04/24 03:00 58 L 18 93 09/04/24 03:00 128/78 09/04/24 02:00 72 16 118/90 97 09/04/24 01:00 75 20 128/69 93 09/04/24 00:00 76 09/04/24 00:00 36.9 C 20 127/70 90 09/03/24 21:01 143/72 H 09/03/24 20:51 69 17 96 09/03/24 20:00 139/83 09/03/24 20:00 62 18 87 L 09/03/24 20:00 09/03/24 19:03 55 L 17 131/78 97 09/03/24 18:00 83 20 133/73 95 09/03/24 17:05 72 19 122/69 94 09/03/24 16:00 36.5 C 88 19 140/65 94 09/03/24 15:00 69 20 125/67 95 09/03/24 14:00 73 18 139/85 95 09/03/24 13:00 69 21 127/72 93 09/03/24 12:00 36.6 C 77 20 127/57 L 98 09/03/24 11:00 64 14 96/66 L 92 09/03/24 10:00 55 L 17 95/56 L 94 O2 Del Method 09/04/24 07:30 Room Air 09/04/24 07:00 Room Air 09/04/24 07:00 Room Air 09/04/24 05:09 09/04/24 05:01 09/04/24 05:01 09/04/24 05:01 09/04/24 05:01 09/04/24 05:01 09/04/24 05:01 09/04/24 05:01 09/04/24 05:01 09/04/24 05:01 09/04/24 05:01 09/04/24 05:01 09/04/24 05:01 09/04/24 05:01 09/04/24 05:01 09/04/24 05:01 09/04/24 05:01 09/04/24 05:01 09/04/24 05:01 09/04/24 05:01 09/04/24 04:00 Room Air 09/04/24 03:00 09/04/24 03:00 09/04/24 02:00 09/04/24 01:00 09/04/24 00:00 09/04/24 00:00 Room Air 09/03/24 21:01 09/03/24 20:51 09/03/24 20:00 09/03/24 20:00 09/03/24 20:00 Room Air 09/03/24 19:03 09/03/24 18:00 Room Air 09/03/24 17:05 Room Air 09/03/24 16:00 Room Air 09/03/24 15:00 Room Air 09/03/24 14:00 Room Air 09/03/24 13:00 Room Air 09/03/24 12:00 Room Air 09/03/24 11:00 Room Air 09/03/24 10:00 Room Air Recovery Score Activity: Moves 4 extremities Respiration: Deep Breath/Cough Circulation: +/-20% PreAnes Value Consciousness: Fully Awake Oxygen Saturation: > 92% On Room Air Discharge Sedation Level of Care: Fast Track Phase II Post Sedation Plan On clinical assessment, the patient appears to have tolerated the sedation without complications. Patient is recovering as anticipated. Patient will continue to be monitored by nursing and may be discharged when sedation discharge criteria are met per below protocol. Upon Completions of procedure up to 15 minutes continue every 5 minute vital signs and the P.A.R. score; then discharge to a Phase I or Fast Track to Phase II per the following guidelines: * Discharge Patient to appropriate Phase II area if PAR is 8 or greater or return to pre- procedure baseline. The post - procedure orders will be as directed. * If PAR score is less than 8 or not return to pre-procedure baseline then patient will follow Phase I monitoring till PAR is reached for Phase II. The Phase I may be done in procedure room or may call to secure a Phase I area. * If naloxone or flumazenil are used for reversal, hold in Phase I for continued monitoring from when last reversal dose was given for a minimum of 60 minutes or longer pending the nurse and/or physician discretion of patient condition before discharge to Phase II. Please call the Sedation Physician to re-evaluate and complete post-note for discharge to Phase II area. Do NOT discharge from procedure sedation or Phase 1 until post- sedation evaluation note is complete by procedure /sedation MD Sedation Discharge Instructions to be given to the patient at discharge to home.
--- NOTE | 2024-09-04 11:00 | Cardiology Progress Note ---
Date of Service September 04, 2024 Assessment & Plan (1) Symptomatic bradycardia: Plan 69-year-old female presents with symptomatic sinus bradycardia. Heart rate trending down to the 20s and 30s with occasional PACs. Longest sinus pause recorded 3.5 seconds. ECG without ischemic changes. Bedside echocardiogram demonstrating normal wall motion and preserved LV function. Unclear etiology of bradycardia. - heart rate 50-60s on telemetry while off dopamine gtt - continue to monitor on telemetry - mild anemia, hgb today 9.0 - blood cultures 1/2 positive, likely contaminate, will await repeat results - antibiotics for UTI per primary - EP consult for possible PPM placement tomorrow, NPO after midnight 09/04/2024 Symptomatic bradycardia status post dual-chamber pacemaker insertion. Note symptoms minimal and discussed with patient to expect improved prognosis, reduced future events by pacemaker insertion. May not expect significant clinical change Will review chest x-ray today Pending review of EKG and x-ray may be stable for discharge from cardiac standpoint Plan on discharge for pacer clinic follow-up for wound check I spent a total of 40 minutes on the date of service in preparation, delivery, and documentation of the care provided to this patient excluding any time spent in the performance of separately billed services. Admission and Anticipated Discharge Date Admission Date: September 01, 2024 Subjective Patient seen and examined post pacemaker. Mild incisional discomfort but otherwise doing well eating breakfast. No chest pains or discomfort. Heart rate sinus rhythm 80s. Physical Exam Constitutional: well nourished; no acute distress ENMT: Mallampati Class: III Respiratory: normal respiratory effort, lungs clear to auscultation normal respiratory effort; no respiratory distress and no labored breathing Auscultation: no crackles, no rales, no rhonchi and no wheezes Cardiovascular: Rate/Rhythm: regular rate and regular rhythm Heart Sounds: normal S1 and normal S2; no murmur Vessels: no JVD Extremities: + edema Chest (Breasts): Chest: + pacemaker Gastrointestinal (Abdomen): Inspection/Auscultation: abdomen normal to inspection and normal bowel sounds; abdomen not distended Neurologic: CN's II-XI intact bilaterally and moves all extremities Results & Data Vital Signs (Past 12 Hours) Vital Signs Temp Pulse Pulse Resp BP BP Pulse Ox 09/04/24 10:30 81 24 141/88 H 93 09/04/24 10:05 36.5 C 73 17 154/83 H 93 09/04/24 09:55 72 16 151/73 H 94 09/04/24 09:40 75 16 151/107 H 94 09/04/24 07:30 58 L 16 161/81 H 94 09/04/24 07:00 09/04/24 07:00 36.9 C 77 19 142/83 H 96 09/04/24 05:09 51 L 11 L 96 09/04/24 05:01 139/51 L 09/04/24 05:01 139/51 L 09/04/24 05:01 139/51 L 09/04/24 05:01 139/51 L 09/04/24 05:01 139/51 L 09/04/24 05:01 139/51 L 09/04/24 05:01 139/51 L 09/04/24 05:01 139/51 L 09/04/24 05:01 139/51 L 09/04/24 05:01 139/51 L 09/04/24 05:01 139/51 L 09/04/24 05:01 139/51 L 09/04/24 05:01 139/51 L 09/04/24 05:01 139/51 L 09/04/24 05:01 139/51 L 09/04/24 05:01 139/51 L 09/04/24 05:01 139/51 L 09/04/24 05:01 139/51 L 09/04/24 05:01 139/51 L 09/04/24 04:00 36.8 C 50 L 16 157/75 H 91 09/04/24 03:00 58 L 18 93 09/04/24 03:00 128/78 09/04/24 02:00 72 16 118/90 97 09/04/24 01:00 75 20 128/69 93 09/04/24 00:00 76 09/04/24 00:00 36.9 C 20 127/70 90 O2 Del Method 09/04/24 10:30 Room Air 09/04/24 10:05 Room Air 09/04/24 09:55 Room Air 09/04/24 09:40 Room Air 09/04/24 07:30 Room Air 09/04/24 07:00 Room Air 09/04/24 07:00 Room Air 09/04/24 05:09 09/04/24 05:01 09/04/24 05:01 09/04/24 05:01 09/04/24 05:01 09/04/24 05:01 09/04/24 05:01 09/04/24 05:01 09/04/24 05:01 09/04/24 05:01 09/04/24 05:01 09/04/24 05:01 09/04/24 05:01 09/04/24 05:01 09/04/24 05:01 09/04/24 05:01 09/04/24 05:01 09/04/24 05:01 09/04/24 05:01 09/04/24 05:01 09/04/24 04:00 Room Air 09/04/24 03:00 09/04/24 03:00 09/04/24 02:00 09/04/24 01:00 09/04/24 00:00 09/04/24 00:00 Room Air Laboratory Results Laboratory Results - last 24 hr 09/04/24 04:37 WBC 5.84 RBC 3.08 L Hgb 9.9 L Hct 29.2 L MCV 94.8 MCH 32.1 MCHC 33.9 RDW Std Deviation 46.2 RDW Coeff of Nichole 13.3 Plt Count 174 MPV 10.0 Sodium 139 Potassium 4.3 Chloride 106 Carbon Dioxide 30 Anion Gap 3 BUN 12 Creatinine 0.70 Est Cr Clr Drug Dosing 68.2 eGFR 94.73 BUN/Creatinine Ratio 17.1 Glucose 92 Calcium 8.5 L Phosphorus 3.5 Magnesium 2.1
[2024-09-04] MEDS: oxyCODONE HCL IR 5 MG TAB (IMMEDIATE RELEASE) PO STA (12:07)
--- NOTE | 2024-09-04 12:10 | XRay Report ---
XR chest 1V portable CLINICAL HISTORY: s/p ppm ensure no PTX COMPARISON STUDY: 09/01/2024 FINDINGS: Heart size and pulmonary vasculature are normal. There is interval dual lead left-sided car diac pacemaker. There is no pulmonary consolidation or pleural effusion. No pneumothorax seen. IMPRESSION: No pneumothorax seen. ACT 112: Negative or not required by law. Electronically signed by: David Alvarado M.D. 09/04/2024 12:09 PM
--- NOTE | 2024-09-04 13:48 | Communication Note ---
Date of Service: September 04, 2024 Post pacemaker procedural imaging with x-ray no evidence of pneumothorax EKG normal sinus rhythm with normal tracing
--- NOTE | 2024-09-04 14:57 | Hospitalist Progress Note ---
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 Symptomatic bradycardia Chest Pain Pt presenting from her GI appt where her HR was noted to be 37. Presents with dizziness, chest tightness Unclear etiology DD: ? Secondary to amitriptyline, sumatriptan --S/P pacemaker placement on 09/04/2024 --Normal TSH --Lyme screen negative --ECHO: EF 55 to 60%. Left ventricle wall motion is normal. Mild aortic regurgitation. Trace mitral, tricuspid regurgitation. Estimated systolic pulmonary pressure 36 mmHg --off dopamine, norepinephrine drip --Appreciate cardiology, critical care input Downgrade out of ICU today Needs follow-up with cardiology for pacemaker check Urinary tract infection Urine culture grew E. coli Initial blood cultures 06/03: Staph. ? Contaminated sample Bio fire: Staph epidermidis, staph Warneri Repeat blood cultures: Negative to date Empirically on Rocephin IV fluids as needed Repeat blood cultures remain negative to date Consider to discharge tomorrow if blood cultures remain negative Right upper extremity heaviness/numbness MRI Brain:No acute or subacute infarct. Involutional changes with progressively worsened chronic microvascular ischemic disease. No abnormal enhancement. Improved Monitor Chronic medical problems: GERD- continue ppi Constipation-continue lubiprostone Dysphagia/esophageal stricture S/P dilatation -continue hyoscyamine, slippery diet Hypothyroidism-continue levothyroxine HLD-continue statin MDD, Fibromyalgia- continue home meds H/O Asthma: Continue home inhalers Mood disorder: Hold amitriptyline for now, On escitalopram DVT Px: Heparin SQ CODE STATUS Full code Admission and Anticipated Discharge Date Admission Date: September 01, 2024 Subjective Patient is seen and examined at bedside Patient had pacemaker placement this morning States having some soreness at pacemaker site Dizziness resolved Family at bedside No other complaints today Review of Systems Review of Systems: All systems reviewed & are unremarkable except as noted in Subjective Physical Exam Physical Exam: Physical Exam: Vitals signs as noted above General Appearance:Moderately built and nourished, no apparent distress Head: normocephalic, Atraumatic Eyes: normal inspection, EOMI Neck: supple, Trachea midline Respiratory/Chest: Normal breath sounds, CTA, No accessory muscle use Cardiovascular: S1, S2, No murmur Abdomen/GI:Soft, Non tender, Bowel sounds present Extremities/Musculoskeletal:normal inspection, no edema, RUE mild weakness Neurologic/Psych:AAOX3, grossly no focal neurological deficits Skin: normal color, warm Results & Data Results & Data Vital Signs (Past 12 Hours) Vital Signs Temp Pulse Pulse Resp BP BP Pulse Ox 09/04/24 14:00 74 23 136/78 91 09/04/24 13:02 74 15 130/72 91 09/04/24 11:32 98 H 24 120/78 93 09/04/24 11:01 84 21 126/74 92 09/04/24 10:30 81 24 141/88 H 93 09/04/24 10:05 36.5 C 73 17 154/83 H 93 09/04/24 09:55 72 16 151/73 H 94 09/04/24 09:40 75 16 151/107 H 94 09/04/24 07:30 58 L 16 161/81 H 94 09/04/24 07:00 09/04/24 07:00 36.9 C 77 19 142/83 H 96 09/04/24 05:09 51 L 11 L 96 09/04/24 05:01 139/51 L 09/04/24 05:01 139/51 L 09/04/24 05:01 139/51 L 09/04/24 05:01 139/51 L 09/04/24 05:01 139/51 L 09/04/24 05:01 139/51 L 09/04/24 05:01 139/51 L 09/04/24 05:01 139/51 L 09/04/24 05:01 139/51 L 09/04/24 05:01 139/51 L 09/04/24 05:01 139/51 L 09/04/24 05:01 139/51 L 09/04/24 05:01 139/51 L 09/04/24 05:01 139/51 L 09/04/24 05:01 139/51 L 09/04/24 05:01 139/51 L 09/04/24 05:01 139/51 L 09/04/24 05:01 139/51 L 09/04/24 05:01 139/51 L 09/04/24 04:00 36.8 C 50 L 16 157/75 H 91 09/04/24 03:00 58 L 18 93 09/04/24 03:00 128/78 O2 Del Method 09/04/24 14:00 Room Air 09/04/24 13:02 Room Air 09/04/24 11:32 Room Air 09/04/24 11:01 Room Air 09/04/24 10:30 Room Air 09/04/24 10:05 Room Air 09/04/24 09:55 Room Air 09/04/24 09:40 Room Air 09/04/24 07:30 Room Air 09/04/24 07:00 Room Air 09/04/24 07:00 Room Air 09/04/24 05:09 09/04/24 05:01 09/04/24 05:01 09/04/24 05:01 09/04/24 05:01 09/04/24 05:01 09/04/24 05:01 09/04/24 05:01 09/04/24 05:01 09/04/24 05:01 09/04/24 05:01 09/04/24 05:01 09/04/24 05:01 09/04/24 05:01 09/04/24 05:01 09/04/24 05:01 09/04/24 05:01 09/04/24 05:01 09/04/24 05:01 09/04/24 05:01 09/04/24 04:00 Room Air 09/04/24 03:00 09/04/24 03:00 Laboratory Results Short CBC 09/04/24 Range/Units 04:37 WBC 5.84 (4.8-10.8) K/ul Hgb 9.9 L (12.0-16.0) g/dl Hct 29.2 L (37.0-47.0) % Plt Count 174 (130-400) K/uL BMP 09/04/24 04:37 Sodium 139 Potassium 4.3 Chloride 106 Carbon Dioxide 30 BUN 12 Creatinine 0.70 Glucose 92 Calcium 8.5 L
--- NOTE | 2024-09-04 21:26 | Electrocardiogram Report ---
Test Reason : Blood Pressure : */* mmHG Vent. Rate : 89 BPM Atrial Rate : 89 BPM P-R Int : 192 ms QRS Dur : 114 ms QT Int : 380 ms P-R-T Axes : 62 31 41 degrees QTcB Int : 462 ms Normal sinus rhythm Normal ECG When compared with ECG of 01-Sep-2024 10:11, Vent. rate has increased by 49 bpm QT has lengthened Confirmed by Сергей Gutierrez ([id number]) on 09/04/2024 9:26:07 PM Referred By: REFERRED SELF Confirmed By: Сергей Gutierrez
[2024-09-05 05:30] LABS: Hematocrit (blood only) 27.5 % (37.0-47.0); Hemoglobin 9.5 g/dl (12.0-16.0); Mean Corpuscular Hemoglobin 32.2 pg (25.0-34.0); Mean Corpuscular Hgb Conc 34.5 g/dL (32.0-36.0); Mean Corpuscular Volume 93.2 fL (80.0-100.0); Mean Platelet Volume 10.2 fL (9.4-12.4); Platelet Count 214 K/uL (130-400); RDW Coefficient of Variation 13.2 % (11.5-14.5); RDW Standard Deviation 44.9 fL (36.4-46.3); Red Blood Count 2.95 M/uL (4.20-5.40); White Blood Count 9.88 K/ul (4.8-10.8)
[2024-09-05 05:41] LABS: BUN Creatinine Ratio 20.5 (10-20); Calcium 8.8 mg/dl (8.6-10.3); Creatinine Clr Calc Pharmacy 66.2 ml/min; Potassium 4.3 mmol/L (3.5-5.1)
[2024-09-05 06:59] VITALS: RESP 16
--- NOTE | 2024-09-05 09:19 | Cardiology Progress Note ---
Date of Service September 05, 2024 Assessment & Plan (1) Symptomatic bradycardia: (2) Status post placement of cardiac pacemaker: (3) HTN, goal below 130/80: Plan Symptomatic bradycardia. Status post September 04, 2024 dual-chamber pacemaker implantation ([employer] Assurity MRI 2272, serial #[id number]). Post pacemaker instructions reviewed with patient and . [facility] appointment scheduled for September 19, 2024 at 11:15 AM at [facility]. Hypertension. Recommend trial of metoprolol succinate 25 mg/day noting observed blood pressure, complaints of chronic exertional dyspnea/chest tightness, history of migraine headaches. Recommend outpatient Lexiscan nuclear stress testing and cardiology follow-up in [place]. Please contact with any cardiac questions or concerns. Admission and Anticipated Discharge Date Admission Date: September 01, 2024 Supervising Physician Co-Signing Physician Notes Patient seen and examined personally. Currently ambulatory in the hallway Full assessment and plan as outlined above by advanced provider Stable for discharge today Will need wound check in 1 week's time through pacer clinic Subjective Patient seen and examined. Chart, medications, telemetry reviewed. at bedside. Status post September 04, 2024 dual-chamber pacemaker implantation ([employer] Assurity MRI 2272, serial #[id number]) No issues or concerns on device interrogation performed earlier this morning by [place] personal service representative No pleuritic chest pain. No shortness of breath. No palpitations. No subjective fevers or chills Telemetry: Sinus/sinus tachycardia Physical Exam Physical Exam: General: NAD. HENT: Normocephalic. Atraumatic. Eyes: PER. Conjunctiva pink, sclera clear. Neck: No JVD. Heart: RRR. Systolic ejection murmur. No diastolic murmur. No rub. Lungs: Clear to auscultation. Abdomen: +BS. Soft. Nontender. No masses or organomegaly. Extremities: Minimal distal edema. No clubbing. No cyanosis. Limited neurological examination is without focal deficits. Pulses: Posterior tibial=2/4. Results & Data Vital Signs (Past 12 Hours) Vital Signs Temp Pulse Pulse Resp BP Pulse Ox O2 Del Method 09/05/24 07:00 Room Air 09/05/24 06:51 36.4 C L 79 16 149/97 H 95 Room Air 09/05/24 02:13 36.8 C 91 H 18 177/90 H 97 Room Air 09/05/24 00:00 88 09/04/24 23:00 36.9 C 91 H 19 166/93 H 93 Room Air Laboratory Results CBC 09/05/24 Range/Units 04:42 WBC 9.88 (4.8-10.8) K/ul RBC 2.95 L (4.20-5.40) M/uL Hgb 9.5 L (12.0-16.0) g/dl Hct 27.5 L (37.0-47.0) % Plt Count 214 (130-400) K/uL Comprehensive Metabolic Panel 09/05/24 Range/Units 04:42 Sodium 136 (136-145) mmol/L Potassium 4.3 (3.5-5.1) mmol/L Chloride 103 (98-107) mmol/L Carbon Dioxide 29 (21-32) mmol/L BUN 15 (6-23) mg/dl Creatinine 0.73 (0.6-1.2) mg/dl Glucose 145 H (70-99(Fasting)) mg/dl Calcium 8.8 (8.6-10.3) mg/dl Intake and Output 09/04/24 09/05/24 09/05/24 22:59 06:59 14:59 Output Total Balance -276 Output: # Bowel Movements Other: # Unmeasured Voids 2 2
[2024-09-05] MEDS: PANTOprazole 40 MG TAB PO SCH (09:35)
--- NOTE | 2024-09-05 10:52 | Hospitalist Progress Note ---
Date of Service September 05, 2024 Assessment & Plan (1) Symptomatic bradycardia: Plan Patient is a 69-year-old female with past medical history significant for chronic dysphagia, fibromyalgia, anxiety, restless leg syndrome, asthma, migraines, MDD, hypothyroidism, GERD who presents from her measurer machine's office with concern for symptomatic bradycardia. Symptomatic bradycardia Chest Pain Pt presenting from her GI appt where her HR was noted to be 37. Presents with dizziness, chest tightness Unclear etiology DD: ? Secondary to amitriptyline, sumatriptan --S/P pacemaker placement on 09/04/2024 --Normal TSH --Lyme screen negative --ECHO: EF 55 to 60%. Left ventricle wall motion is normal. Mild aortic regurgitation. Trace mitral, tricuspid regurgitation. Estimated systolic pulmonary pressure 36 mmHg --off dopamine, norepinephrine drip --Appreciate cardiology, critical care input Remains medically stable and denies any significant cardiac and respiratory symptoms Was seen by concrete stone fabricator today and she can be discharged this afternoon She has been ambulating well without any difficulties Urinary tract infection Urine culture grew E. coli Initial blood cultures 06/03: Staph. ? Contaminated sample Bio fire: Staph epidermidis, staph Warneri Repeat blood cultures: Negative to date Empirically on Rocephin IV fluids as needed Repeat blood cultures remain negative to date Consider to discharge tomorrow if blood cultures remain negative Antibiotics will be changed to oral Keflex and to finish the course for 7 days in total Her repeat blood cultures have been negative Right upper extremity heaviness/numbness MRI Brain:No acute or subacute infarct. Involutional changes with progressively worsened chronic microvascular ischemic disease. No abnormal enhancement. Improved Denies any problem with the right upper extremity Chronic medical problems: GERD- continue ppi Constipation-continue lubiprostone Dysphagia/esophageal stricture S/P dilatation -continue hyoscyamine, slippery diet Hypothyroidism-continue levothyroxine HLD-continue statin MDD, Fibromyalgia- continue home meds H/O Asthma: Continue home inhalers Mood disorder: Hold amitriptyline for now, On escitalopram DVT Px: Heparin SQ CODE STATUS Full code Will be discharged home this afternoon Admission and Anticipated Discharge Date Admission Date: September 01, 2024 Subjective 09/05/2024 The patient was seen and examined in telemetry and in the presence of the chest due to persistent congestion and infectious process. She has been feeling much better and complains to have minimal pain at the pacemaker insertion site Denies any other significant symptoms and has been ambulating Review of Systems Review of Systems: All systems reviewed and are unremarkable except as noted below Physical Exam Physical Exam: Sitting on a chair without any acute distress Constitutional: well developed, well nourished and + ill appearing Eyes: PERRL, conjunctivae normal, anicteric sclerae ENMT: external ear and nose normal, oropharynx normal Neck: trachea midline, no thyromegaly Respiratory: no respiratory distress Auscultation: + diminished lung sounds and + crackles ( minimal crackles at the bases) Cardiovascular: Rate/Rhythm: regular rate and regular rhythm; not bradycardic Heart Sounds: normal S1 and normal S2 Extremities: no edema Gastrointestinal (Abdomen): Inspection/Auscultation: normal bowel sounds; abdomen not distended Percussion/Palpation: abdomen soft; abdomen nontender Musculoskeletal: No acute arthritis involving any of the joint Neurologic: normal touch/pain/proprioception and moves all extremities; no focal motor deficits Psychiatric: A+Ox3, euthymic affect Lymphatic: no cervical or axillary lymphadenopathy Results & Data Results & Data Vital Signs (Past 12 Hours) Vital Signs Temp Pulse Pulse Resp BP Pulse Ox O2 Del Method 09/05/24 07:00 Room Air 09/05/24 06:51 36.4 C L 79 16 149/97 H 95 Room Air 09/05/24 02:13 36.8 C 91 H 18 177/90 H 97 Room Air 09/05/24 00:00 88 09/04/24 23:00 36.9 C 91 H 19 166/93 H 93 Room Air Laboratory Results Short CBC 09/05/24 Range/Units 04:42 WBC 9.88 (4.8-10.8) K/ul Hgb 9.5 L (12.0-16.0) g/dl Hct 27.5 L (37.0-47.0) % Plt Count 214 (130-400) K/uL BMP 09/05/24 04:42 Sodium 136 Potassium 4.3 Chloride 103 Carbon Dioxide 29 BUN 15 Creatinine 0.73 Glucose 145 H Calcium 8.8 Medications Administered Current Inpatient Medications Acetaminophen (Acetaminophen 500 Mg Tab) 500 mg PO Q6H PRN PRN Reason: Pain Stop: 10/01/24 15:24 Last Admin: 09/04/24 21:40 Dose: 500 mg Albuterol (Albuterol Hfa 8 Gm Inhaler) 2 puffs INH QID PRN PRN Reason: Shortness Of Breath Or Wheezing Stop: 10/01/24 15:24 Amitriptyline HCl (Amitriptyline Hcl 25 Mg Tab) 75 mg PO HS [facility] Stop: 10/01/24 20:59 Atorvastatin Calcium (Atorvastatin 20 Mg Tab) 20 mg PO DAILY ECTOR Stop: 10/02/24 08:59 Last Admin: 09/05/24 09:32 Dose: 20 mg Azelastine HCl (Azelastine Hcl 0.1% Nasal 200 Sprays/27,400 Mcg Btl) 2 sprays NA BID ECTOR Stop: 10/01/24 20:59 Last Admin: 09/05/24 09:33 Dose: 2 sprays Escitalopram Oxalate (Escitalopram Oxalate 20 Mg Tab) 20 mg PO QPM [facility] Stop: 10/01/24 20:59 Last Admin: 09/04/24 21:16 Dose: 20 mg Fluticasone Furoate (Fluticasone Furoate 100mcg 14 Puffs/Inhaler) 1 puffs INH DAILY ECTOR Stop: 10/02/24 08:59 Last Admin: 09/05/24 09:35 Dose: 1 puffs Fluticasone Propionate (Fluticasone Propionate Na Spr 16 Gm Btl) 2 sprays NA DAILY ECTOR Stop: 10/02/24 08:59 Last Admin: 09/05/24 09:33 Dose: 2 sprays Heparin Sodium (Porcine) (Heparin Sod 5,000 Unit/0.5 Ml Vial) 5,000 units SQ Q12 ECTOR Stop: 10/01/24 20:59 Last Admin: 09/02/24 21:19 Dose: 5,000 units Hyoscyamine (Hyoscyamine Sulfate 0.125 Mg Tab) 0.125 mg PO BID ECTOR Stop: 10/01/24 20:59 Last Admin: 09/05/24 09:34 Dose: 0.125 mg Levothyroxine Sodium (Levothyroxine Sodium 25 Mcg Tablet) 25 mcg PO DAILYBB [facility] Stop: 10/02/24 06:29 Last Admin: 09/05/24 06:46 Dose: 25 mcg Lubiprostone (Lubiprostone 8 Mcg Cap) 24 mcg PO BID ECTOR Stop: 10/01/24 16:59 Last Admin: 09/05/24 09:34 Dose: 24 mcg Meclizine HCl (Meclizine 12.5 Mg Tab) 12.5 mg PO BID ECTOR Stop: 10/02/24 10:59 Last Admin: 09/05/24 09:34 Dose: 12.5 mg Pantoprazole Sodium (Pantoprazole 40 Mg Tab) 40 mg PO QAM ECTOR Stop: 10/05/24 08:59 Last Admin: 09/05/24 09:35 Dose: 40 mg Pregabalin (Pregabalin 75 Mg Cap) 75 mg PO HS [facility] Stop: 10/01/24 20:59 Last Admin: 09/04/24 21:17 Dose: 75 mg Sumatriptan Succinate (Sumatriptan Succinate 50 Mg Tab) 50 mg PO BID PRN PRN Reason: Migraine Headache Stop: 10/01/24 15:24
[2024-09-05 11:15] VITALS: BP 144/70; PULSE 82; TEMP 98.6; O2SAT 94
[2024-09-05] MEDS: cephALEXin 500 MG CAP PO STA (11:34)
[2024-09-05] MEDS: METOPROLOL SUCC 25MG EXT REL TAB PO SCH (11:34)
--- NOTE | 2024-09-06 08:36 | Discharge Summary ---
Date of Service September 06, 2024 Admission HPI Per Admitting Provider Patient is a 69-year-old female with past medical history significant for chronic dysphagia, fibromyalgia, anxiety, restless leg syndrome, asthma, migraines, MDD, hypothyroidism, GERD who presents from her patient registration clerk's office with concern for symptomatic bradycardia. She states she was being seen by GI for further workup of her dysphagia. However while at her patient registration clerk office her heart rate was noted to be in the 30s. States she had an EKG completed which was also transmitted to her primary care provider. Patient has been frequently advised to present to the emergency room for further evaluation. States she has been dizzy but attributes this to her known history of vertigo. Also has been having a cough for the last 2 days with chest pain. She notes some shortness of breath as well. States she feels dizzy whenever she sits up in bed. in the ED patient noted to be bradycardic, in sinus rhythm with HR in the 20s and 30s. Received a dose of atropine 0.5mg. Cardiology contacted and consulted. Admission Exam Per Admitting Provider Physical Exam: General: Alert, oriented. Psych: Appropriate mood and affect Neuro: dizziness with exertion HEENT: NC/AT CV: bradycardic rate, regular Resp: Breath sounds clear bilaterally, no increased effort of breathing Abdomen: Soft, nontender Extremities: No edema in lower extremities bilaterally. Principal Diagnosis Symptomatic bradycardia status post pacemaker insertion on 09/04/2024, acute UTI Discharge Exam Sitting on a chair without any acute distress Constitutional well developed, well nourished and + ill appearing Eyes PERRL, conjunctivae normal, anicteric sclerae ENMT external ear and nose normal, oropharynx normal Neck trachea midline, no thyromegaly Respiratory no respiratory distress Auscultation: + diminished lung sounds and + crackles ( minimal crackles at the bases) Cardiovascular Rate/Rhythm: regular rate and regular rhythm; not bradycardic Heart Sounds: normal S1 and normal S2 Extremities: no edema Gastrointestinal (Abdomen) Inspection/Auscultation: normal bowel sounds; abdomen not distended Percussion/Palpation: abdomen soft; abdomen nontender Neurologic normal touch/pain/proprioception and moves all extremities; no focal motor deficits Psychiatric A+Ox3, euthymic affect Lymphatic no cervical or axillary lymphadenopathy Discharge Data Allergies Allergy/AdvReac Type Severity Reaction Status Date / Time Iodinated Contrast Media Allergy Severe EDEMA Verified 09/01/24 12:40 FACE/LIPS/TONGUE iodine Allergy Severe EDEMA Verified 09/01/24 12:40 FACE/LIPS/TONGUE pollen extracts Allergy Intermediate SNEEZING, Verified 09/01/24 12:40 COUGH, CONGESTION Consultations 09/01/24 11:48 ED Decision to Admit Stat 09/01/24 12:02 Consult Cardiology Stat 09/01/24 14:13 Consult Slope Tender Routine Procedures Performed Operation Date: 09/04/24 08:00 Actual Procedures p Pacer with A/V Leads (Dual) - Afshan Diaz DO s Venogram, Unilateral - Afshan Diaz DO Ordered Studies 09/02/24 09:30 MRI Brain [MR brain wo/w con] Urgent 09/04/24 08:00 EP Lab Images for PACS ONCE Hospital Course (1) Symptomatic bradycardia: Plan Patient is a 69-year-old female with past medical history significant for chronic dysphagia, fibromyalgia, anxiety, restless leg syndrome, asthma, migraines, MDD, hypothyroidism, GERD who presents from her patient registration clerk's office with concern for symptomatic bradycardia. Symptomatic bradycardia Chest Pain Pt presenting from her GI appt where her HR was noted to be 37. Presents with dizziness, chest tightness Unclear etiology DD: ? Secondary to amitriptyline, sumatriptan --S/P pacemaker placement on 09/04/2024 --Normal TSH --Lyme screen negative --ECHO: EF 55 to 60%. Left ventricle wall motion is normal. Mild aortic regurgitation. Trace mitral, tricuspid regurgitation. Estimated systolic pulmonary pressure 36 mmHg --off dopamine, norepinephrine drip --Appreciate cardiology, critical care input Remains medically stable and denies any significant cardiac and respiratory symptoms Was seen by surface supervisor today and she can be discharged this afternoon She has been ambulating well without any difficulties Urinary tract infection Urine culture grew E. coli Initial blood cultures 06/03: Staph. ? Contaminated sample Bio fire: Staph epidermidis, staph Warneri Repeat blood cultures: Negative to date Empirically on Rocephin IV fluids as needed Repeat blood cultures remain negative to date Consider to discharge tomorrow if blood cultures remain negative Antibiotics will be changed to oral Keflex and to finish the course for 7 days in total Her repeat blood cultures have been negative Right upper extremity heaviness/numbness MRI Brain:No acute or subacute infarct. Involutional changes with progressively worsened chronic microvascular ischemic disease. No abnormal enhancement. Improved Denies any problem with the right upper extremity Chronic medical problems: GERD- continue ppi Constipation-continue lubiprostone Dysphagia/esophageal stricture S/P dilatation -continue hyoscyamine, slippery diet Hypothyroidism-continue levothyroxine HLD-continue statin MDD, Fibromyalgia- continue home meds H/O Asthma: Continue home inhalers Mood disorder: Hold amitriptyline for now, On escitalopram DVT Px: Heparin SQ CODE STATUS Full code Will be discharged home this afternoon Total Time Total Time Spent Total Time Spent (In Minutes): 35 Minutes Discharge Plan Discharge Items Patient Disposition: Home - Self-Care Reason For Visit: SYMPTOMATIC BRADYCARDIA Discharge Diagnosis: Symptomatic bradycardia status post pacemaker insertion on 09/04/2024, acute UTI Condition on Discharge: Fair Activity: As commented below Activity Comment: do not lift the left elbow over the left shoulder for 1 month Lifting: No more than 10 pounds Lifting Comment: do not lift more than 10 pounds with the left arm for 2 weeks Bathing: Keep incision dry Bathing Comment: keep dressing on and dry until wound check-no shower Non-emergency contact: Primary Care Provider Call non-emergency contact if: you have any medication questions and your symptoms worsen Follow-up/Referrals: Shahla Hamlin MD [Primary Care Provider] - 09/12/24 9:00 am (Date & Time 09/12/2024 9:00 AM Provider: Shahla Hamlin MD Family Medicine [facility] ) Diet: Heart Healthy Addtl Attending Provider Instructions: Device and wound check at [facility] Cardiology on 09/19/2024 at 11:15am Pending Studies at Discharge: No Stand-Alone Forms: My [facility], Smoking Cessation Medications and DC Order Prescriptions: New metoprolol succinate 25 mg tablet extended release 24 hr 25 mg PO DAILY Qty: 30 0RF cephalexin 500 mg capsule 500 mg PO BID 7 Days Qty: 14 0RF Continued mometasone 50 mcg/actuation spray,non-aerosol 2 spray INTRANASAL DAILY amitriptyline 75 mg tablet 75 mg PO HS levothyroxine 25 mcg tablet 25 mcg PO QAM Rx Instructions: Last filled 02/2024 x90 day supply azelastine 137 mcg (0.1 %) aerosol,spray 2 spray Intranasal BID albuterol sulfate 90 mcg/actuation HFA aerosol inhaler 2 puff Inhalation QID PRN (Reason: Shortness Of Breath Or Wheezing) pregabalin [Lyrica] 75 mg Capsule 75 mg PO HS atorvastatin 20 mg tablet 20 mg PO DAILY escitalopram oxalate 20 mg tablet 20 mg PO QPM lubiprostone 24 mcg capsule 24 mcg PO BIDM Arnuity Ellipta 100 mcg/actuation blister with device 1 inh INHALATION DAILY sumatriptan succinate 50 mg tablet 50 mg PO DIRECTED PRN (Reason: Migraine Headache) Rx Instructions: One tab at onset of migraine, may repeat in 2 hours. Max 2 doses in 24 hours. acetaminophen 500 mg Tablet 500 mg PO Q6H PRN (Reason: Pain) hyoscyamine sulfate 0.125 mg tablet 0.125 mg PO BID esomeprazole magnesium 40 mg capsule,delayed release(DR/EC) 40 mg PO DAILY Discontinued ibuprofen 200 mg Tablet 200 mg PO Q6H PRN (Reason: Pain) Discharge Orders: Discharge Order (Routine); Ordered 09/05/24 Ordered By: Kayleigh Mittal Admission Data Admit Date/Time: 09/01/24 12:24 Attending Provider: Kayleigh Mittal Admit Provider: Theresa Joe Primary Care Provider: Shahla Hamlin Other Providers: Threesa Joe; Ross Servin; Jay Hernandez; Shaun Jolly
--- NOTE | 2024-09-25 12:25 | Operative Report ---
Post Operative Report DICTATED BY:Afshan Diaz D.O. DATE OF PROCEDURE:09/01/2024 PREOPERATIVE DIAGNOSES:irreversible symptomatic sinus bradycardia POSTOPERATIVE DIAGNOSIS: Same PROCEDURE: A dual-chamber rate responsive permanent pacemaker, along with a peripheral venogram under fluoroscopic guidance and intracardiac HIS bundle recordings SURGEON: Afshan Diaz DO ASSISTANTS: None. ANESTHESIA: Monitored conscious sedation administered under my supervision by Katia Torres Start time 08:30 end time 09:30, a total of 5 mg of Versed and 125 mcg of fentanyl. INTRAVENOUS FLUIDS: 0 mL. CONTRAST: 15 mL. ANTIBIOTICS: 1 grams of Ancef. ADDITIONAL MEDICATIONS: 1None BLOOD LOSS: 50 mL. URINE OUTPUT: Not applicable. SPECIMENS: None. FINDINGS: See below. DRAINS: None. COMPLICATIONS: None. CONDITION: Stable. INDICATIONS: This is a 69-year-old female who has a past medical history HLD, Hypothryoidism, GERD, esophageal dysmotility, fibromyalgia. Was admitted for irreversible symptomatic sinus bradycardia. She was recommended a pacemaker prior to hospital discharge. CONSENT: Consent was obtained prior to the patient going into the electrophysiology lab. The patient was informed of the risks, benefits, and alternatives to the procedure. Risks include, but not limited to, sudden cardiac , cardiac arrhythmias, cerebrovascular accident, myocardial infarction, injury to his blood vessels, chamber of the heart and lung, bleeding and infection. The patient understood these risks and agreed to the procedure as planned. Informed consent was obtained. DESCRIPTION OF PROCEDURE: The patient was brought into electrophysiology lab in a fasting state. She was connected to continuous cardiac monitoring. A timeout was performed to ensure the patient's identity and procedure correctly. She was prepped and draped in the left infraclavicular space in normal surgical standard fashion. Monitored conscious sedation was given throughout the procedure for the patient's comfort level. [place] precautions were maintained throughout the procedure. Prophylactic antibiotics were given prior to incision. A 20 mL of 1% lidocaine and bupivacaine mixture were given in the left deltopectoral groove. An incision was made in the left deltopectoral groove. Blunt dissection was performed down to the pectoralis muscle. Then, using blunt dissection over the pectoralis muscle within the pectoral fascia, a pacemaker pocket was created. Then, a peripheral venogram was performed to identify the axillary vein. Venous axillary access was obtained through a needlestick without any problems. A guidewire was inserted without any resistance. A 6- Armenian sheath was inserted over the guidewire without any resistance. Dilator was removed and a second guidewire was inserted through the sheath to allow for retained venous access. Then a 9 Armenian sheath was inserted over one of the guidewires. The guidewire and dilator were removed. Then, the CPS Mac Artist 3D large sheath was inserted through the 9-Armenian sheath over a Glidewire into the right ventricle. The Glidewire and dilator were removed. Then, the left bundle lead was advanced through the sheath and intracardiac electrogram His bundle recordings were performed when the camera was in SUAZO 10. Once I had an idea where the His bundle was-as I could not see a clear HIS. I then moved the camera to SUAZO 30 and marked where I estimated the His bundle was on my fluoroscopy screen. I came down about 2 cm from this in a line that would extend out to the apex and then started coming on pacing. Once I found an area where I had a nice W formed pace complex in my lead V1, I then moved the camera to [place] 30. Then the helix was extended into the septum. Then the helix locking tool was placed. Then the lead was screwed further into the septum while pacing by giving slow clockwise turns. The paced complex changed to a nice R' in V1 and the pacing stim to peak QRS in V6 was good. I did need to reposition the lead a few times before it advanced nicely. Of note I did have to reposition it one time. I then gave contrast through the sheath to see how far the lead was into the septum and then I slit the CPS Mac Artist 3D large sheath under fluoroscopic guidance and left the 9-Armenian sheath in while I positioned the right atrial lead. A 6-Armenian sheath was inserted over the retained guidewire, the guidewire and dilator removed. The right atrial lead was then advanced into right atrium and positioned into right atrial appendage under fluoroscopic guidance. There was adequate pacing and sensing thresholds and no diaphragmatic stimulation with high output pacing. The 6-Armenian sheath was peeled away and the lead was fixated to the pectoralis muscle using 0 silk suture. The 9-Armenian sheath around the left bundle lead was peeled away and the lead was fixated to pectoralis muscle using 0 silk suture. The pocket was flushed with copious amounts of vancomycin and saline wash and inspected for hemostasis. The leads were then attached to the pulse generator making sure the pins were in appropriate position, passed set screws, and set screws were all tightened. Pulse generator was then placed in the pocket, making sure the leads were lying flat beneath the device. The incision was closed in a 3-layer fashion using 2-0 Vicryl interrupted suture, followed by 3-0 Vicryl interrupted suture, followed by 4-0 Monocryl running stitch. Then a primaseal dressing was placed EQUIPMENT: 1. Pulse generator is a Myows MRI Model Number [id number] SN: [id number] 2. Right atrial lead, Verican UlitPace [id number] SN: [id number] 3. Left bundle lead, Verican UltiPace [id number] SN: [id number] INTRAPROCEDURAL FINDINGS: 1. Intracardiac electrogram His bundle recordings, AH is 98 milliseconds, HV is 43 milliseconds. 2. Right atrial lead, P waves 2.4 millivolts, impedance 460 ohms, threshold 1.1 volts at 0.5 milliseconds. 3. Left bundle lead, R waves 4.5 millivolts, impedance 610 ohms, threshold 1.1 volts at 0.5 milliseconds. FINAL MEASUREMENTS THROUGH THE DEVICE: 1. Right atrial lead, P waves 2millivolts, impedance 690 ohms, threshold 1.25 volt at 0.4 milliseconds. 2. Left bundle lead, R waves 6.6 millivolts, impedance 650 ohms, threshold 1.0 volts at 0.4 milliseconds. FINAL PARAMETERS: DDDR 60/130, right atrial amplitude 3.5 volts, pulse width 0.4 milliseconds, sensitivity 0.3 millivolts. Left bundle lead amplitude 3.5 volts, pulse width 0.4 milliseconds, sensitivity 1.2 millivolts. IMPRESSION: Successful dual chamber rate responsive permanent pacemaker under fluoroscopic guidance along with peripheral venogram and intracardiac electrogram His bundle recordings, all under fluoroscopic guidance secondary to irreversible symptomatic sinus bradycardia. PLAN: Monitor the patient post-procedure. A 12-lead ECG, chest x-ray. She is not to lift the left elbow or left shoulder for 1 month. She cannot lift more than 10 pounds with the left arm for 2 weeks. She is to keep the dressing on and dry until his wound check in 10 days.
== END 2024-09-05 12:40 | disposition home or self-care (01) | DRG 243 ==
LOC: ED 09:58 → SUATTDRO 12:24 → 1E 12:24
DX: R13.10 Dysphagia, unspecified; I10 Essential (primary) hypertension; G83.21 Monoplegia of upper limb affecting right dominant side; G81.91 Hemiplegia, unspecified affecting right dominant side; Z83.3 Family history of diabetes mellitus; G43.909 Migraine, unspecified, not intractable, without status migrainosus; G25.81 Restless legs syndrome; B96.20 Unspecified Escherichia coli [E. coli] as the cause of diseases classified elsewhere; E03.9 Hypothyroidism, unspecified; E78.5 Hyperlipidemia, unspecified; M79.7 Fibromyalgia; K21.9 Gastro-esophageal reflux disease without esophagitis; Z91.041 Radiographic dye allergy status; R00.1 Bradycardia, unspecified; K59.00 Constipation, unspecified; Z79.890 Hormone replacement therapy; K22.4 Dyskinesia of esophagus; I08.3 Combined rheumatic disorders of mitral, aortic and tricuspid valves; R57.9 Shock, unspecified; N39.0 Urinary tract infection, site not specified

== ENCOUNTER 2025-04-25 12:47 | Observation (INO) ==
--- NOTE | 2025-04-25 13:13 | Emergency Department Note ---
Impression & Plan Asthma exacerbation, Herpes zoster ED Provider Note NAME: AVINASH KOO AGE: 70 SEX: F : 1955 ARRIVES VIA: Walk-In INFORMANT: Patient, family ED PROVIDER(S): Morgan Tellez DO CHIEF COMPLAINT: SOB HPI: This is a 70-year-old female with the PMHx of Hypertension, dyslipidemia, asthma, migraines, fibromyalgia, and symptomatic bradycardia s/p PPM presenting to [facility] for further evaluation of shortness of breath. Patient is accompanied by her family who provide additional history. patient reports over the last few days she has had severe dyspnea. She states this occurs at rest. She states it is much worse with any type of exertional activity. Patient states that she has orthopnea. She notes that she has a rash on her lower back that is painful and itchy. Patient believes it to be shingles. They deny fever or chills. No cough or congestion. Denies chest pain or palpitations. They deny abdominal pain, nausea and vomiting. No urinary complaints. No recent changes in bowel movements. Patient denies recent changes in medications or OTC supplements. Patient offers no other complaints, today. ADDITIONAL HISTORY OBTAINED: Per HPI Chronic Medical/Social Conditions Affecting Care: Per HPI PAST MEDICAL HISTORY: See Below PAST SURGICAL HISTORY: See Below FAMILY HISTORY: See Below SOCIAL HISTORY: See Below HOME MEDICATIONS: See Below ALLERGIES: See Below VITALS: See Below PHYSICAL EXAMINATION: GENERAL: Sitting up in bed, alert, well appearing, well nourished, no distress, non-toxic EYE EXAM: normal conjunctiva. PERRL and EOM's grossly intact. OROPHARYNX: no exudate, no erythema, lips, buccal mucosa, and tongue normal and mucous membranes are moist NECK: supple, no nuchal rigidity, no adenopathy, non-tender LUNGS: tachypnea present. Minimal expiratory wheezing. Normal chest wall mechanics HEART: no murmurs, tachycardic rate, regular rhythm ABDOMEN: abdomen soft, non-tender, no masses, no rebound or guarding. BACK: Back is symmetrical on inspection and there is no deformity, no midline tenderness, no CVA tenderness. SKIN: Erythematous and vesicular rash over the left lower back UPPER EXTREMITIES: upper extremities are grossly normal. LOWER EXTREMITIES: No pitting edema. NEURO EXAM: Normal sensorium, GCS 15, normal speech, no gross weakness of arms, no gross weakness of legs. MEDICAL DECISION MAKING: Differential diagnoses includes but not limited to ACS, unstable angina, dysrhythmia, PNA, hypervolemia/pulmonary edema, CHF exacerbation, COPD exacerbation, PE, pneumothorax, pericardial effusion, cardiac tamponade, anxiety/psychogenic, viral URI, herpes zoster In summary, this is a 70 year old female who presented with SOB. Differential as above. Nursing notes and pertinent past medical records reviewed. Vital signs reviewed and the patient is mildly tachycardic and tachypneic but otherwise afebrile and hemodynamically stable. History and presentation revealed known history of asthma. Physical examination revealed as above. As a result of my initial evaluation, IV access was established and the patient was placed on CCRM. Therapeutics ordered include duonebs. Diagnostics interpreted by me include EKG and cardiac monitoring as listed below: -Cardiac Monitoring: An order was placed for continuous cardiac monitoring. The monitor shows a rate of 60-100s with regular rhythm. -ECG: Atrial paced rhythm at [address] segment changes to suggest STEMI. Intervals are within normal limits. Patient completed laboratory studies and imaging. Results independently interpreted by me are no leukocytosis or anemia. There is no significant electrolyte derangements or significant kidney dysfunction from baseline. No changes in LFTs. Trop normal. D dimer elevated. VBG shows mild acidosis. The patient was managed with duonebs. Patient's shortness of breath is unclear etiology. Patient has reported history of reactive airway disease. Unclear if she has had formal diagnosis but does use albuterol at home. Would consider asthma or COPD exacerbation. Similar symptoms do seem to be viral but they have been ongoing over the last month or so. She has had worsening progressive dyspnea on exertion. I did consider pulmonary embolism and a D-dimer was ordered as we have low clinical suspicion. This is mildly elevated. Patient has a severe contrast allergy. This is described as anaphylaxis. Patient will require VQ scan for further evaluation. Ultimately, the decision was made to admit the patient for asthma exacerbation with concerns for possible PE. I discussed the case with the hospitalist service via telephone/Tiger[employer] and they are agreeable to admit the patient to their services. Based on the above, including the patient's age, coexisting illnesses, labs, imaging, and exam findings the decision to treat as an inpatient. I discussed the patient with the hospitalist team who recommended admission to their services. They received the medications, treatments, interventions indicated above and their condition remained stable. I discussed my findings with the patient and their family and they understand and agree with the treatment plan. All patient / family questions were answered to their satisfaction. Consults/Care Managements Discussions: Per MDM ER treatment provided: See above Procedures:none Critical Care: None The chart was completed utilizing Voiceit Speech voice recognition software. Grammatical errors, random word insertions, pronoun errors, and incomplete sentences are an occasional consequence of this system due to software limitations, ambient noise, and hardware issues. Any formal questions or concerns about the content, text, or information contained within the body of this dictation should be directly addressed to the physician for clarification. Past Med/Surg History Problem List (Updated 04/30/25 @ 05:45 by Morgan Tellez DO) Herpes zoster (Acute) Asthma exacerbation (Acute) Dyslipidemia Family history of ischemic heart disease Chest pressure Hypothyroidism Anginal equivalent Asthma Herpes zoster HTN, goal below 130/80 Status post placement of cardiac pacemaker Positive blood culture Shock E. coli UTI Right arm weakness Abnormal finding on urinalysis Lightheadedness (Acute) Chest pain (Acute) Bradycardia (Acute) Symptomatic bradycardia Fibromyalgia (Chronic) Migraines (Chronic) Bronchitis (Acute) Cough (Acute) Shortness of breath (Acute) Medical History Thyroid disease Hyperlipemia Surgical History H/O sinus surgery Family History Mother Breast cancer Heart disease Cancer Diabetes Father Heart disease Stroke Cancer Brother Diabetes Colorectal cancer Hypertension Other No pertinent family history Social History Smoking Status: Never smoker Second Hand Exposure: Yes; Do You Dip or Chew Tobacco: No; Hx Alcohol Use: No Hx Substance Use: No Preferred Language: Kuwaiti Communication Ability: Effective 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 Beliefs That Will Affect Care: None marital status: Current Living Situation: Spouse Feels Safe at Home: Yes Assistive Devices: None Allergies Allergies Allergy/AdvReac Type Severity Reaction Status Date / Time Iodinated Contrast Media Allergy Severe EDEMA Verified 04/25/25 14:59 FACE/LIPS/TONGUE iodine Allergy Severe EDEMA Verified 04/25/25 14:59 FACE/LIPS/TONGUE pollen extracts Allergy Intermediate SNEEZING, Verified 04/25/25 14:59 COUGH, CONGESTION Home Meds Home Medications Medication Instructions Recorded Confirmed albuterol sulfate 90 mcg/actuation 2 puff inhalation QID PRN 04/19/18 04/25/25 aerosol inhaler Shortness Of Breath Or Wheezing azelastine 137 mcg (0.1 %) nasal 2 spray intranasal BID PRN 04/19/18 04/25/25 spray Congestion levothyroxine 25 mcg tablet 25 mcg PO DAILYBB 04/19/18 04/25/25 escitalopram oxalate 20 mg tablet 20 mg PO DAILY 09/18/23 04/25/25 esomeprazole magnesium 40 mg 40 mg PO DAILYBB 09/01/24 04/25/25 capsule,delayed release hyoscyamine sulfate 0.125 mg tablet 0.125 mg PO BID 09/01/24 04/25/25 calcium carbonate (Calcium 600) 600 mg PO DAILY 04/14/25 04/25/25 cholecalciferol (vitamin D3) 25 25 mcg PO DAILY 04/14/25 04/25/25 mcg (1,000 unit) capsule (Vitamin D3) fexofenadine 180 mg tablet 180 mg PO BID 04/14/25 04/25/25 fluticasone propionate 110 2 puff inhalation BID 04/14/25 04/25/25 mcg/actuation HFA aerosol inhaler linaclotide 145 mcg capsule 145 mcg PO DAILYBB 04/14/25 04/25/25 (Linzess) magnesium oxide 500 mg PO DAILY 04/14/25 04/25/25 methocarbamol 750 mg tablet 750 mg PO BID 04/14/25 04/25/25 [id number]-[id number] carb-vit K 1 tab PO DAILY 04/14/25 04/25/25 18 mg iron-400 mcg-500 mg tablet sucralfate 1 gram tablet (Carafate) 1 g PO ACHS 04/14/25 04/25/25 Previous Rx's Medication Instructions Recorded amitriptyline 75 mg tablet 75 mg PO HS #30 tabs 04/27/25 atorvastatin 20 mg tablet 20 mg PO DAILY #30 tabs 04/27/25 lidocaine 5 % topical patch 1 patch transdermal QAM #30 ea 04/27/25 metoprolol succinate 25 mg 25 mg PO DAILY #30 tabs 04/27/25 tablet,extended release 24 hr oxycodone 5 mg tablet 5 mg PO Q6H PRN pain #12 tabs 04/27/25 pregabalin 75 mg capsule (Lyrica) 75 mg PO BID #60 caps 04/27/25 valacyclovir 500 mg tablet 1,000 mg (2 x 500 mg) PO Q8H #15 04/27/25 tabs Results & Data (ED) Vital Signs Vital Signs - 24 hr 04/25/25 12:47 04/25/25 12:47 04/25/25 12:50 Temperature 36.5 C Temperature Source Oral Pulse Rate 103 H Pulse Rate from SpO2 Sensor Respiratory Rate 19 Respiratory Effort / Characteristics Non-Labored Spontaneous Respiratory Depth Normal Respiratory Pattern Regular Blood Pressure 122/71 Blood Pressure Mean 88 Pulse Oximetry 98 98 Oxygen Delivery Method Room Air Room Air Sepsis Recent Fever Within 48 Hours No Sepsis New/Unexplained Change in Mental Status N/A Sepsis Action Taken by Nursing No Action Required 04/25/25 12:58 04/25/25 13:00 04/25/25 13:01 Temperature Temperature Source Pulse Rate 60 Pulse Rate from SpO2 Sensor 59 L Respiratory Rate 22 Respiratory Effort / Characteristics Respiratory Depth Respiratory Pattern Blood Pressure 195/137 H 149/76 H Blood Pressure Mean 158 106 Pulse Oximetry 98 Oxygen Delivery Method Sepsis Recent Fever Within 48 Hours Sepsis New/Unexplained Change in Mental Status Sepsis Action Taken by Nursing 04/25/25 13:11 04/25/25 13:12 04/25/25 13:30 Temperature Temperature Source Pulse Rate 62 60 60 Pulse Rate from SpO2 Sensor 60 60 Respiratory Rate 14 16 Respiratory Effort / Characteristics Respiratory Depth Respiratory Pattern Blood Pressure Blood Pressure Mean Pulse Oximetry 96 96 Oxygen Delivery Method Sepsis Recent Fever Within 48 Hours Sepsis New/Unexplained Change in Mental Status Sepsis Action Taken by Nursing 04/25/25 13:31 04/25/25 14:00 04/25/25 14:11 Temperature Temperature Source Pulse Rate 60 Pulse Rate from SpO2 Sensor Respiratory Rate 18 Respiratory Effort / Characteristics Respiratory Depth Respiratory Pattern Blood Pressure 127/95 120/78 Blood Pressure Mean 106 103 Pulse Oximetry 95 Oxygen Delivery Method Room Air Sepsis Recent Fever Within 48 Hours Sepsis New/Unexplained Change in Mental Status Sepsis Action Taken by Nursing 04/25/25 14:12 Temperature Temperature Source Pulse Rate 60 Pulse Rate from SpO2 Sensor 60 Respiratory Rate 16 Respiratory Effort / Characteristics Respiratory Depth Respiratory Pattern Blood Pressure Blood Pressure Mean Pulse Oximetry 95 Oxygen Delivery Method Sepsis Recent Fever Within 48 Hours Sepsis New/Unexplained Change in Mental Status Sepsis Action Taken by Nursing Laboratory Data 04/26/25 05:42 04/26/25 05:42 Lab Results 04/25/25 Range/Units Unknown WBC 5.51 (4.8-10.8) K/ul RBC 3.91 L (4.20-5.40) M/uL Hgb 12.3 (12.0-16.0) g/dL Hct 36.3 L (37.0-47.0) % MCV 92.8 (80.0-100.0) fL MCH 31.5 (25.0-34.0) pg MCHC 33.9 (32.0-36.0) g/dL RDW Std Deviation 43.8 (36.4-46.3) fL RDW Coeff of Nichole 12.9 (11.5-14.5) % Plt Count 150 (130-400) K/uL MPV 9.6 (9.4-12.4) fL Immature Gran % (Auto) 0.0 % Neut % (Auto) 56.5 % Lymph % (Auto) 30.3 % [place] % (Auto) 10.5 % Eos % (Auto) 1.6 % Baso % (Auto) 1.1 % Neut # (Auto) 3.11 (1.40-6.50) K/uL Lymph # (Auto) 1.67 (1.20-3.40) K/uL [place] # (Auto) 0.58 (0.11-0.59) K/uL Eos # (Auto) 0.09 (0.00-0.50) K/uL Baso # (Auto) 0.06 (0.00-0.20) K/uL Immature Gran # (Auto) 0.00 L (0.01-0.20) K/uL Sodium 136 (136-145) mmol/L Potassium 4.6 (3.5-5.1) mmol/L Chloride 104 (98-107) mmol/L Carbon Dioxide 24 (21-32) mmol/L Anion Gap 8 (3-11) BUN 27 H (6-23) mg/dl Creatinine 1.12 (0.6-1.2) mg/dl Est Cr Clr Drug Dosing Not Reportable eGFR 53.56 BUN/Creatinine Ratio 24.1 H (10-20) Glucose 133 H (70-99(Fasting)) mg/dl Calcium 9.1 (8.6-10.3) mg/dl Magnesium 2.3 (1.7-2.4) mg/dl Total Bilirubin 0.4 (0.2-1.0) mg/dl AST 22 (13-39) U/L ALT 9 (7-52) U/L Alkaline Phosphatase 77 (34-104) U/L Troponin I High Sens 3.4 (0-14) pg/ml Total Protein 7.8 (6.0-8.3) gm/dl Albumin 4.3 (3.4-5.0) gm/dl Globulin 3.5 (2.5-4.0) gm/dl Albumin/Globulin Ratio 1.2 (0.9-2) Administered Medications Discontinued Medications Acetaminophen (Acetaminophen 325 Mg Tab) 650 mg PO Q4H PRN PRN Reason: Pain or Fever Stop: 05/25/25 17:11 Last Admin: 04/26/25 06:05 Dose: 650 mg Documented By: Admin: 04/25/25 21:51 Dose: 650 mg Documented By: GRACIELA Albuterol (Albut/Ipratrop 3mg/0.5mg Neb 3 Ml Vial) 3 ml INH NOW STA Stop: 04/25/25 13:02 Last Admin: 04/25/25 13:32 Dose: 3 ml Documented By: farhat Albuterol (Albut/Ipratrop 3mg/0.5mg Neb 3 Ml Vial) 3 ml NEB Q6R ECTOR; Protocol Stop: 05/25/25 18:59 Last Admin: 04/26/25 07:36 Dose: 3 ml Documented By: Admin: 04/26/25 00:53 Dose: 3 ml Documented By: Admin: 04/25/25 20:03 Dose: 3 ml Documented By: KAI Amitriptyline HCl (Amitriptyline Hcl 25 Mg Tab) 75 mg PO HS ECTOR Stop: 05/25/25 20:59 Last Admin: 04/26/25 20:23 Dose: 75 mg Documented By: Admin: 04/25/25 21:37 Dose: 75 mg Documented By: GRACIELA Atorvastatin Calcium (Atorvastatin 20 Mg Tab) 20 mg PO DAILY ECTOR Stop: 05/26/25 08:59 Last Admin: 04/27/25 09:16 Dose: 20 mg Documented By: Admin: 04/26/25 08:01 Dose: 20 mg Documented By: malena Budesonide (Budesonide 0.5 Mg/2 Ml Vial (Pulmicort)) 0.5 mg NEB BIDR ECTOR Stop: 05/25/25 18:59 Last Admin: 04/26/25 07:36 Dose: 0.5 mg Documented By: Admin: 04/25/25 20:03 Dose: 0.5 mg Documented By: KAI Calcium Carbonate (Calcium Carbonate 1250mg Tab) 1 tab PO DAILY ECTOR Stop: 05/26/25 08:59 Last Admin: 04/27/25 09:16 Dose: 1 tab Documented By: Admin: 04/26/25 08:01 Dose: 1 tab Documented By: malena Enoxaparin Sodium (Enoxaparin Inj 40 Mg/0.4 Ml Syr) 40 mg SQ HS ECTOR Stop: 05/25/25 20:59 Last Admin: 04/26/25 20:23 Dose: 40 mg Documented By: Admin: 04/25/25 21:39 Dose: 40 mg Documented By: GRACIELA Escitalopram Oxalate (Escitalopram Oxalate 20 Mg Tab) 20 mg PO DAILY ECTOR Stop: 05/26/25 08:59 Last Admin: 04/27/25 09:16 Dose: 20 mg Documented By: Admin: 04/26/25 08:02 Dose: 20 mg Documented By: malena Fexofenadine HCl (Fexofenadine Hcl 180 Mg Tab) 180 mg PO BID ECTOR Stop: 05/25/25 20:59 Last Admin: 04/27/25 09:16 Dose: 180 mg Documented By: Admin: 04/26/25 20:24 Dose: 180 mg Documented By: Admin: 04/26/25 08:01 Dose: 180 mg Documented By: malena Admin: 04/25/25 21:39 Dose: 180 mg Documented By: GRACIELA Furosemide (Furosemide 40 Mg/4 Ml Vial) 40 mg IV ONE ONE Stop: 04/25/25 15:24 Last Admin: 04/25/25 16:21 Dose: 40 mg Documented By: hector Hyoscyamine (Hyoscyamine Sulfate 0.125 Mg Tab) 0.125 mg PO BID ECTOR Stop: 05/25/25 20:59 Last Admin: 04/27/25 09:16 Dose: 0.125 mg Documented By: Admin: 04/26/25 20:24 Dose: 0.125 mg Documented By: Admin: 04/26/25 08:02 Dose: 0.125 mg Documented By: malena Admin: 04/25/25 21:39 Dose: 0.125 mg Documented By: GRACIELA Ketorolac Tromethamine (Ketorolac Tromethamine 15 Mg/Ml Vial) 15 mg IV NOW ONE Stop: 04/26/25 19:22 Last Admin: 04/26/25 19:34 Dose: 15 mg Documented By: JOHNNIE Levothyroxine Sodium (Levothyroxine Sodium 25 Mcg Tablet) 25 mcg PO DAILYBB [facility] Stop: 05/26/25 06:29 Last Admin: 04/27/25 05:53 Dose: 25 mcg Documented By: Admin: 04/26/25 05:59 Dose: 25 mcg Documented By: GRACIELA Lidocaine (Lidocaine 5% 1 Patch) 1 patch TD QAM ECTOR Stop: 05/26/25 19:29 Last Admin: 04/27/25 09:18 Dose: 1 patch Documented By: Admin: 04/26/25 20:11 Dose: 1 patch Documented By: JOHNNIE Linaclotide (Linaclotide 145 Mcg Capsule) 145 mcg PO DAILYBB [facility] Stop: 05/26/25 06:29 Last Admin: 04/27/25 05:53 Dose: 145 mcg Documented By: Admin: 04/26/25 08:01 Dose: 145 mcg Documented By: malena Magnesium Oxide (Magnesium Oxide 400 Mg Tab) 400 mg PO DAILY ECTOR Stop: 05/26/25 08:59 Last Admin: 04/27/25 09:16 Dose: 400 mg Documented By: Admin: 04/26/25 08:01 Dose: 400 mg Documented By: malena Methocarbamol (Methocarbamol 750 Mg Tablet) 750 mg PO BID ECTOR Stop: 05/25/25 20:59 Last Admin: 04/27/25 09:16 Dose: 750 mg Documented By: Admin: 04/26/25 20:24 Dose: 750 mg Documented By: Admin: 04/26/25 08:02 Dose: 750 mg Documented By: malena Admin: 04/25/25 21:38 Dose: 750 mg Documented By: GRACIELA Methylprednisolone (Methylprednisolone 125 Mg/2 Ml Vial) 125 mg IV NOW STA Stop: 04/25/25 15:20 Last Admin: 04/25/25 16:58 Dose: Not Given Documented By: CASA Metoprolol Succinate (Metoprolol Succ 25mg Ext Rel Tab) 25 mg PO DAILY ECTOR Stop: 05/26/25 08:59 Last Admin: 04/26/25 08:01 Dose: 25 mg Documented By: malena Miscellaneous (Remove Lidoderm Patch) 1 each N/A DAILY@2100 ECTOR Stop: 05/26/25 20:59 Last Admin: 04/26/25 20:19 Dose: Not Given Documented By: JOHNNIE Ondansetron HCl (Ondansetron Inj 2 Mg/Ml 2 Ml Vial) 4 mg IV Q6H PRN PRN Reason: Nausea Stop: 05/25/25 17:11 Last Admin: 04/26/25 13:41 Dose: 4 mg Documented By: malena Oxycodone HCl (Oxycodone Hcl Ir 5 Mg Tab (Immediate Release)) 5 mg PO Q4H PRN PRN Reason: Pain Stop: 05/10/25 08:11 Last Admin: 04/27/25 09:38 Dose: 5 mg Documented By: Admin: 04/27/25 02:47 Dose: 5 mg Documented By: Admin: 04/26/25 17:23 Dose: 5 mg Documented By: malena Admin: 04/26/25 12:35 Dose: 5 mg Documented By: malena Admin: 04/26/25 08:26 Dose: 5 mg Documented By: malena Pantoprazole Sodium (Pantoprazole 40 Mg Tab) 40 mg PO DAILYBB ECTOR Stop: 05/26/25 06:29 Last Admin: 04/27/25 05:54 Dose: 40 mg Documented By: Admin: 04/26/25 08:02 Dose: 40 mg Documented By: malena Pregabalin (Pregabalin 75 Mg Cap) 75 mg PO HS ECTOR Stop: 05/25/25 20:59 Last Admin: 04/25/25 21:39 Dose: 75 mg Documented By: GRACIELA Pregabalin (Pregabalin 100 Mg Cap) 100 mg PO HS ECTOR Stop: 05/26/25 19:29 Last Admin: 04/26/25 19:34 Dose: 100 mg Documented By: JOHNNIE Sucralfate (Sucralfate 1 Gm Tab) 1 gm PO ACHS ECTOR Stop: 05/25/25 17:29 Last Admin: 04/27/25 12:06 Dose: 1 gm Documented By: Admin: 04/27/25 09:15 Dose: Not Given Documented By: Admin: 04/26/25 20:22 Dose: 1 gm Documented By: Admin: 04/26/25 17:23 Dose: 1 gm Documented By: malena Admin: 04/26/25 12:32 Dose: 1 gm Documented By: malena Admin: 04/26/25 08:01 Dose: 1 gm Documented By: malena Admin: 04/25/25 21:38 Dose: 1 gm Documented By: Admin: 04/25/25 18:24 Dose: Not Given Documented By: DENIA Valacyclovir HCl (Valacyclovir Hcl 500 Mg Tablet) 1,000 mg PO NOW ONE Stop: 04/25/25 15:27 Last Admin: 04/25/25 16:21 Dose: 1,000 mg Documented By: hector Valacyclovir HCl (Valacyclovir Hcl 500 Mg Tablet) 1,000 mg PO Q8H ECTOR Stop: 05/05/25 21:59 Last Admin: 04/27/25 13:52 Dose: 1,000 mg Documented By: Admin: 04/27/25 05:52 Dose: 1,000 mg Documented By: Admin: 04/26/25 20:22 Dose: 1,000 mg Documented By: Admin: 04/26/25 13:41 Dose: 1,000 mg Documented By: malena Admin: 04/26/25 05:59 Dose: 1,000 mg Documented By: Admin: 04/25/25 21:38 Dose: 1,000 mg Documented By: SHUKRIK Vitamin D (Cholecalciferol 25 Mcg (1000 Units) Tab) 25 mcg PO DAILY ECTOR Stop: 05/26/25 08:59 Last Admin: 04/27/25 09:16 Dose: 25 mcg Documented By: Admin: 04/26/25 08:01 Dose: 25 mcg Documented By: malena Imaging Data Radiologist's Impression: Chest X-Ray 04/25/25 13:01 XR chest 1V portable CLINICAL HISTORY: Dyspnea COMPARISON STUDY: 04/14/2025 FINDINGS: Stable pacemaker and left shoulder prosthesis. Heart size and pulmonary vasculature are normal. No consolidation or pleural effusion. No pneumothorax. IMPRESSION: No acute findings. ACT 112: Negative or not required by law. Electronically signed by: David Alvarado M.D. 04/25/2025 1:35 PM Discharge Plan Visit Data Chief Complaint: Shortness of Breath/Dyspnea Stated Complaint: SOB, POSSIBLE SHINGLES ED Provider: Morgan Tellez Discharge Problem: Asthma exacerbation, Herpes zoster Patient Disposition: Admitted As Inpatient Condition: Fair Discharge Instructions Interventions: ED Discharge Assessment Last Done: 04/25/25 18:14
[2025-04-25 13:23] LABS: Hematocrit (blood only) 36.3 % (37.0-47.0); Hemoglobin 12.3 g/dL (12.0-16.0); Immature Granulocytes # (auto) 0.00 K/uL (0.01-0.20); Immature Granulocytes % (auto) 0.0 %; Mean Corpuscular Hemoglobin 31.5 pg (25.0-34.0); Mean Corpuscular Volume 92.8 fL (80.0-100.0); Platelet Count 150 K/uL (130-400); RDW Standard Deviation 43.8 fL (36.4-46.3); Red Blood Count 3.91 M/uL (4.20-5.40); White Blood Count 5.51 K/ul (4.8-10.8)
[2025-04-25] MEDS: ALBUT/IPRATROP 3MG/0.5MG NEB 3 ML VIAL INH STA (13:32)
--- NOTE | 2025-04-25 13:36 | XRay Report ---
XR chest 1V portable CLINICAL HISTORY: Dyspnea COMPARISON STUDY: 04/14/2025 FINDINGS: Stable pacemaker and left shoulder prosthesis. Heart size and pulmonary vasculature are nor mal. No consolidation or pleural effusion. No pneumothorax. IMPRESSION: No acute findings. ACT 112: Negative or not required by law. Electronically signed by: David Alvarado M.D. 04/25/2025 1:35 PM
[2025-04-25 13:42] LABS: Alanine Aminotransferase 9 U/L (7-52); Albumin Globulin Ratio 1.2 (0.9-2); Albumin Level 4.3 gm/dl (3.4-5.0); Alkaline Phosphatase 77 U/L (34-104); Anion Gap 8 (3-11); Bilirubin,Total 0.4 mg/dl (0.2-1.0); Blood Urea Nitrogen 27 mg/dl (6-23); Calcium 9.1 mg/dl (8.6-10.3); Carbon Dioxide 24 mmol/L (21-32); Chloride 104 mmol/L (98-107); Globulin 3.5 gm/dl (2.5-4.0); Glucose 133 mg/dl (70-99(Fasting)); Magnesium 2.3 mg/dl (1.7-2.4); Potassium 4.6 mmol/L (3.5-5.1); Sodium 136 mmol/L (136-145); Total Protein 7.8 gm/dl (6.0-8.3)
[2025-04-25 14:02] LABS: INR 1.0 (0.9-1.1); Partial Thromboplastin Time 23 Seconds (21-31); Prothrombin Time 10.2 Seconds (9.0-12.0)
--- NOTE | 2025-04-25 14:52 | History & Physical Report ---
Date of Service April 25, 2025 Assessment & Plan (1) SWE[place]Y (dyspnea on exertion): (2) Herpes zoster: (3) Asthma: Plan This is a 70 yr old F who has significant past medical history of mild persistent asthma, prediabetes, hypothyroidism, fibromyalgia, RLS, history of bradycardia s/p post pacemaker placement, depression with anxiety and history of migraine who presents to ED secondary to shortness of breath x 1 month. #Dyspnea on exertion pt with progressively worse SOB and decreased functional status over last month, SOB is out of proportion to exam findings/work up Ddx: possible asthma exac, PE, CHF exac admit to PCU will start on budesonide neb and duoneb scheduled will hold on IV solumedrol due to concern for zoster VQ Scan ordered given elevated d-dimer and severe contrast allergy Trial 40mg IV Lasix as pt does have weight gain despite poor intake, per med itech 08/2024 pt was ~68kg so appears to be up 10kg update echo, last done in 09/22 with preserved function interrogate pacemaker, b/l venous Doppler given elevated dimer consider dry CT chest if above work up unremarkable #Herpes Zoster rash appears consistent with zoster, but does cross 2 dermatomes Left lower extending to suprapubic region and stops centrally, along with R lateral/medial thigh tx with Valtrex 1g TID x 10 days #Hx of bradycardia s/p PPM 08/2024 will interrogate pacemaker, continue BB Chronic medical problems: GERD- continue ppi Constipation-continue Linzess Dysphagia/esophageal stricture S/P dilatation -continue hyoscyamine Hypothyroidism-continue levothyroxine HLD-continue statin MDD, Fibromyalgia- continue home meds Mood disorder: continue amitriptyline, escitalopram DVT Ppx: SQ Lovenox FULL CODE PCP: Gayla Dispo: admit to tele Pt was seen and examined in collaboration with Dr. Mittal, please see addendum I spent a total of 64 minutes coordinating, documenting and providing care for this patient excluding time spent in the performance of separately billed services or time spent by another provider/QHP. History of Present Illness Chief Complaint: SOB x 1 month Primary Care Provider: Anabel Greene This is a 70 yr old F who has significant past medical history of mild persistent asthma, prediabetes, hypothyroidism, fibromyalgia, RLS, history of bradycardia s/p post pacemaker placement, depression with anxiety and history of migraine who presents to ED secondary to shortness of breath x 1 month. History is obtained from at bedside as well as external chart review. Patient reports progressive shortness of breath over the last 1 month. Symptoms have been gradually worsening. Initially started with longer distances but currently is unable to ambulate very short distances without getting significantly short of breath. At home she has been monitoring her oxygen in which she reports with short distance her O2 decreases into the 80s and her heart rate elevates. She also feels chest heaviness. Symptoms even occur with minimal exertion while seated. She does have a known history of asthma. She has never felt like this in the past with her asthma. Her Flovent. She has been using her albuterol more frequently occasionally daily. She does feel minimal relief with the albuterol. She denies any recent respiratory symptoms. She further denies any cough. She complains of feeling chills and sweaty but denies any documented fever. She denies any hemoptysis, palpitation, nausea, vomiting, change in her bowel or urinary habits. She does get lightheaded and dizzy when walking. She also reports early satiety, decreased intake over the last month and increased weight gain. Unknown of weight gain amount; however, she only has a few pairs of pants that currently fit. She denies prior history of heart failure. She denies any tobacco or alcohol use. In ED patient remained hemodynamically stable and was saturating normally on room air. Her respiratory viral panel was negative. Chest x-ray was without cardiopulmonary disease. Her troponin was unremarkable. Her D-dimer was elevated at 880. Patient has a severe reaction to contrast dye therefore CTA not performed. Patient also reports a painful rash located on her left low back, suprapubic region and right medial thigh. This has been present for 2 days and she is concerned regarding shingles. Allergies Allergy/AdvReac Type Severity Reaction Status Date / Time Iodinated Contrast Media Allergy Severe EDEMA Verified 04/25/25 14:59 FACE/LIPS/TONGUE iodine Allergy Severe EDEMA Verified 04/25/25 14:59 FACE/LIPS/TONGUE pollen extracts Allergy Intermediate SNEEZING, Verified 04/25/25 14:59 COUGH, CONGESTION Home Medications Medication Instructions Recorded Confirmed Type albuterol sulfate 90 mcg/actuation 2 puff inhalation QID PRN 04/19/18 04/25/25 History aerosol inhaler Shortness Of Breath Or Wheezing amitriptyline 75 mg tablet 75 mg PO HS 04/19/18 04/25/25 History azelastine 137 mcg (0.1 %) nasal 2 spray intranasal BID PRN 04/19/18 04/25/25 History spray Congestion levothyroxine 25 mcg tablet 25 mcg PO DAILYBB 04/19/18 04/25/25 History pregabalin 75 mg capsule (Lyrica) 75 mg PO HS 04/19/18 04/25/25 History atorvastatin 20 mg tablet 20 mg PO DAILY 09/18/23 04/25/25 History escitalopram oxalate 20 mg tablet 20 mg PO DAILY 09/18/23 04/25/25 History esomeprazole magnesium 40 mg 40 mg PO DAILYBB 09/01/24 04/25/25 History capsule,delayed release hyoscyamine sulfate 0.125 mg tablet 0.125 mg PO BID 09/01/24 04/25/25 History metoprolol succinate 25 mg 25 mg PO DAILY #30 tabs 09/05/24 04/25/25 Rx tablet,extended release 24 hr calcium carbonate (Calcium 600) 600 mg PO DAILY 04/14/25 04/25/25 History cholecalciferol (vitamin D3) 25 25 mcg PO DAILY 04/14/25 04/25/25 History mcg (1,000 unit) capsule (Vitamin D3) fexofenadine 180 mg tablet 180 mg PO BID 04/14/25 04/25/25 History fluticasone propionate 110 2 puff inhalation BID 04/14/25 04/25/25 History mcg/actuation HFA aerosol inhaler linaclotide 145 mcg capsule 145 mcg PO DAILYBB 04/14/25 04/25/25 History (Linzess) magnesium oxide 500 mg PO DAILY 04/14/25 04/25/25 History methocarbamol 750 mg tablet 750 mg PO BID 04/14/25 04/25/25 History bataziws-tlp-fbhx-FA-Ca carb-vit K 1 tab PO DAILY 04/14/25 04/25/25 History 18 mg iron-400 mcg-500 mg tablet sucralfate 1 gram tablet (Carafate) 1 g PO ACHS 04/14/25 04/25/25 History Past Med/Surg History Problem List (Updated 04/25/25 @ 15:42 by Maria R Buckley PA-C) Asthma Herpes zoster [place] (dyspnea on exertion) (Acute) HTN, goal below 130/80 Status post placement of cardiac pacemaker Positive blood culture Shock E. coli UTI Right arm weakness Abnormal finding on urinalysis Lightheadedness (Acute) Chest pain (Acute) Bradycardia (Acute) Symptomatic bradycardia Fibromyalgia (Chronic) Migraines (Chronic) Bronchitis (Acute) Cough (Acute) Shortness of breath (Acute) Medical History Thyroid disease Hyperlipemia Surgical History H/O sinus surgery Family History Mother Breast cancer Heart disease Cancer Diabetes Father Heart disease Stroke Cancer Brother Diabetes Colorectal cancer Hypertension Other No pertinent family history Social History Smoking Status: Former smoker Hx Alcohol Use: No Hx Substance Use: No Preferred Language: Ukrainian Communication Ability: Effective Screener Operator Required: No Beliefs That Will Affect Care: None marital status: Current Living Situation: Spouse Feels Safe at Home: Yes Assistive Devices: None Review of Systems Review of Systems: All systems reviewed & are unremarkable except as noted in HPI & below Physical Exam Physical Exam: Constitutional: WD/WN, vitals as above, NAD but gets dyspneic with minimal bed mobility, sitting up in bed, pleasant, conversing easily Head: Normocephalic, Atraumatic Eyes: conjunctivae normal, anicteric sclerae ENMT: external ear and nose normal, oropharynx normal Neck: trachea midline, no thyromegaly normal visual inspection Respiratory: CTAB, minimal wheezing, no r/r, normal inspection, no accessory muscle use Cardiovascular: RRR, no murmur, trace b/l edema Chest: normal inspection of chest Abdomen: S, NT, ND, +BS x 4 Musculoskeletal: no cyanosis or clubbing, extremities AROM x 4 Skin: vesicular lesion to suprapubic region and Left lower buttock consistent with similar dermatomes along with right lateral/anterior thigh, warm and dry normal turgor Neurologic: PERRL, EOMI, accommodation nl, no face palsy, no dysarthria CN's II-XI intact bilaterally and moves all extremities Psychiatric: A+Ox3, euthymic affect Results & Data Results & Data Vital Signs (Past 12 Hours) Vital Signs Temp Pulse Resp BP Pulse Ox O2 Del Method 04/25/25 14:11 60 18 95 Room Air 04/25/25 13:11 62 04/25/25 12:50 36.5 C 103 H 19 122/71 98 Room Air Laboratory Results I have independently reviewed and interpreted patient's admitting labs including CBC, CMP, PTT, PT/INR,dimer and troponin. Diagnostic Findings Chest X-Ray 04/25/25 13:01 XR chest 1V portable CLINICAL HISTORY: Dyspnea COMPARISON STUDY: 04/14/2025 FINDINGS: Stable pacemaker and left shoulder prosthesis. Heart size and pulmonary vasculature are normal. No consolidation or pleural effusion. No pneumothorax. IMPRESSION: No acute findings. ACT 112: Negative or not required by law. Electronically signed by: David Alvarado M.D. 04/25/2025 1:35 PM Medications Administered Medication List Discontinued Medications Albuterol (Albut/Ipratrop 3mg/0.5mg Neb 3 Ml Vial) 3 ml INH NOW STA Stop: 04/25/25 13:02 Last Admin: 04/25/25 13:32 Dose: 3 ml Documented By: cad ECG Additional Comments: I have independently reviewed and interpreted patient's admitting EKG which revealed: 60 atrial paced qtc 400 ms COVID-19 Results Results COVID-19 Adm Lab Results: RBC 3.91 M/uL (4.20-5.40) L 04/25/25 WBC 5.51 K/ul (4.8-10.8) 04/25/25 Hgb 12.3 g/dL (12.0-16.0) 04/25/25 Hct 36.3 % (37.0-47.0) L 04/25/25 Plt Count 150 K/uL (130-400) 04/25/25 Neutrophils (%) (Auto) 56.5 % 04/25/25 Lymphocytes (%) (Auto) 30.3 % 04/25/25 Monocytes # (Auto) 0.58 K/uL (0.11-0.59) 04/25/25 Eosinophils # (Auto) 0.09 K/uL (0.00-0.50) 04/25/25 Immature Granulocyte % (Auto) 0.0 % 04/25/25 Neutrophils # (Auto) 3.11 K/uL (1.40-6.50) 04/25/25 Lymphocytes # (Auto) 1.67 K/uL (1.20-3.40) 04/25/25 Monocytes # (Auto) 0.58 K/uL (0.11-0.59) 04/25/25 Eosinophils # (Auto) 0.09 K/uL (0.00-0.50) 04/25/25 Basophils # (Auto) 0.06 K/uL (0.00-0.20) 04/25/25 Immature Granulocyte # (Auto) 0.00 K/uL (0.01-0.20) L 04/25 Na 136 mmol/L (136-145) 04/25/25 K 4.6 mmol/L (3.5-5.1) 04/25/25 Cl 104 mmol/L (98-107) 04/25/25 CO2 24 mmol/L (21-32) 04/25/25 Anion Gap 8 (3-11) 04/25/25 BUN 27 mg/dl (6-23) H 04/25/25 Creatinine 1.12 mg/dl (0.6-1.2) 04/25/25 BUN/Creatinine Ratio 24.1 (10-20) H 04/25/25 Glucose Level 133 mg/dl (70-99(Fasting)) H 04/25/25 Ca 9.1 mg/dl (8.6-10.3) 04/25/25 Total Bilirubin 0.4 mg/dl (0.2-1.0) 04/25/25 AST/SGOT 22 U/L (13-39) 04/25/25 ALT/SGPT 9 U/L (7-52) 04/25/25 Alkaline Phosphatase 77 U/L (34-104) 04/25/25 Total Protein 7.8 gm/dl (6.0-8.3) 04/25/25 Albumin 4.3 gm/dl (3.4-5.0) 04/25/25 Globulin 3.5 gm/dl (2.5-4.0) 04/25/25 Albumin/Globulin Ratio 1.2 (0.9-2) 04/25/25 D-Dimer 880 ug/L FEU (0-500) H* 04/25/25 PTT 23 Seconds (21-31) 04/25/25 INR 1.0 (0.9-1.1) 04/25/25 Adenovirus (PCR) Not Detected (NotDetected) 04/25/25 B. parapertussis DNA (PCR) Not Detected (NotDetected) 04/01 11/22 B. pertussis DNA (PCR) Not Detected (NotDetected) 04/25/25 C. pneumoniae DNA (PCR) Not Detected (NotDetected) 5 Coronavirus Type OC43 (PCR) Not Detected (NotDetected) Coronavirus Type HKU1 (PCR) Not Detected (NotDetected) Coronavirus Type 229E (PCR) Not Detected (NotDetected) COVID-19 PCR Not Detected (NotDetected) 04/25/25 Coronavirus Type NL63 (PCR) Not Detected (NotDetected) Human Metapneumovirus (PCR) Not Detected (NotDetected) Influenza Virus Type A (PCR) Not Detected (NotDetected) Influenza Virus Type B (PCR) Not Detected (NotDetected) M. pneumoniae (PCR) Not Detected (NotDetected) 04/25/25 Parainfluenza Type 1 (PCR) Not Detected (NotDetected) 04/01 11/22 Parainfluenza Type 2 (PCR) Not Detected (NotDetected) 04/01 11/22 Parainfluenza Type 3 (PCR) Not Detected (NotDetected) 04/01 11/22 Parainfluenza Type 4 (PCR) Not Detected (NotDetected) 04/01 11/22 RSV (PCR) Not Detected (NotDetected) 04/25/25 Enterovirus/Rhinovirus (PCR) Not Detected (NotDetected) Chest X-Ray 04/25/25 Code Status & VTE Plan Code Status FULL CODE Supervising Physician Co-Signing Physician Notes Attending addendum: The patient was seen and examined in emergency room in presence of the family members She has been complaining of shortness of breath for about a month and the condition has gotten worse recently. She also has a rash involving the back and in the groin area and upper part of t he right thigh suspicious for shingles Not sure about fever and/or chills but does have wheezing Denies any chest pain and/or palpitation On examination Moderate respiratory distress at rest but saturating normally on room air Hemodynamically stable and not tachycardic with the pacemaker Chestdecreased breath sounds bilaterally with minimal wheezing Abdomenbenign HeartS1-S2, regular no murmur Extremitiestrace edema bilaterally CNSalert, awake and oriented x 3 and no focal sensory or no motor deficit appreciated General examination revealed no questioning fluid-filled blister with umbilic ation involving the lower back, hypogastrium, right inguinal area and also right upper thigh Her admission labs, EKG and imaging studies reviewed Notable findings wire increasing D-dimer, and skin rash suspicious for shingles She was started with Valtrex and also getting nebulized bronchodilator Varicella-zoster test was sent and she was not given any steroid intravenously given shingles in case it flares up She can be given nebulized steroid She will have emergent VQ scan to rule out pulmonary embolism Agree with assessment and plan as outlined above by Avani sage PA-C and take the full responsibility of care in the hospital Total time taken to see the patient, examining her, reviewing the chart and the investigations and planning of care was [address] Mena Mittal
[2025-04-25 15:10] LABS: Chlamydia pneumoniae PCR Not Detected (NotDetected); Coronavirus 229E PCR Not Detected (NotDetected); Coronavirus CoV-2 (COVID19)PCR Not Detected (NotDetected); Coronavirus HKU1 PCR Not Detected (NotDetected); Coronavirus NL63 PCR Not Detected (NotDetected); Coronavirus OC43PCR Not Detected (NotDetected); Human Metapneumovirus PCR Not Detected (NotDetected); Parainfluenza Virus 1 PCR Not Detected (NotDetected); Parainfluenza Virus 2 PCR Not Detected (NotDetected); Parainfluenza Virus 3 PCR Not Detected (NotDetected); Parainfluenza Virus 4 PCR Not Detected (NotDetected); Respiratory Syncytial VirusPCR Not Detected (NotDetected); Rhinovirus/Enterovirus PCR Not Detected (NotDetected)
[2025-04-25 16:07] LABS: Thyroid Stimulating Hormone 3.509 uIu/ml (0.300-4.500)
[2025-04-25] MEDS: FUROSEMIDE 40 MG/4 ML VIAL IV ONE (16:21)
[2025-04-25 16:36] LABS: Base Excess VBG -2.0 mEq/L; HCO3 VBG 24 mmol/L; Oxygen Saturation VBG 80.4 %; PCO2 VBG 43 mmHg (38-50); PO2 VBG 48 mmHg; pH VBG 7.35 (7.36-7.41)
[2025-04-25] MEDS ORDERED: POLYETHYLENE (MIRALAX) 17 GM PACK PO PRN (17:12)
[2025-04-25] MEDS ORDERED: MELATONIN 3 MG TAB PO PRN (17:12)
--- NOTE | 2025-04-25 17:15 | XCELERA ---
[id number]
--- NOTE | 2025-04-25 17:23 | Ultrasound Report ---
Clinical History: Edema Technique: Venous ultrasound evaluation was performed utilizing grayscale, color Doppler and wave form evaluation. Images were also obtained with and without compression Findings: The bilateral common femoral, superficial femoral, popliteal, and visualized calf veins demonstrate normal anechoic lumens with full compressibility. Normal flow is seen on color Doppler images. Expected waveforms were produced with augmentation maneuvers Impression: No evidence of deep venous thrombosis Electronically signed by Emory Delacruz 04-25-2025 5:22 PM
[2025-04-25] MEDS: SUCRALFATE 1 GM TAB PO SCH (18:24)
--- NOTE | 2025-04-25 19:02 | Electrocardiogram Report ---
Test Reason : Blood Pressure : */* mmHG Vent. Rate : 60 BPM Atrial Rate : 60 BPM P-R Int : 220 ms QRS Dur : 110 ms QT Int : 400 ms P-R-T Axes : 47 37 59 degrees QTcB Int : 400 ms Atrial-paced rhythm with prolonged AV conduction Abnormal ECG When compared with ECG of 14-Apr-2025 15:48, Fusion complexes are no longer Present Premature ventricular complexes are no longer Present ST no longer depressed in Anterior leads Confirmed by Jason Steward ([id number]) on 04/25/2025 7:01:59 PM Referred By: REFERRED SELF Confirmed By: Jason Steward
[2025-04-25] MEDS: ALBUT/IPRATROP 3MG/0.5MG NEB 3 ML VIAL NEB SCH (20:03)
[2025-04-25] MEDS: BUDESONIDE 0.5 MG/2 ML VIAL (PULMICORT) NEB SCH (20:03)
--- NOTE | 2025-04-25 20:20 | Nuclear Medicine Report ---
Exam: Nuclear medicine perfusion lung scan. Reason for exam: Dyspnea on exertion status post pacemaker placement. Elevated d-dimer. Previous studies: None FINDINGS: Multiple pulmonary perfusion images were obtained. Ventilation study for comparison is not obtained. The perfusion activity is somewhat inhomogeneous however no significant segmental or subsegmental defect to persist on the various views. IMPRESSION: Low probability pulmonary embolus in this limited study. Electronically signed by David Street 04-25-2025 8:19 PM
[2025-04-25] MEDS ORDERED: FLUTICASONE HFA 110MCG INHALER INH SCH (21:00)
[2025-04-25] MEDS: AMITRIPTYLINE HCL 25 MG TAB PO SCH (21:37)
[2025-04-25] MEDS: METHOCARBAMOL 750 MG TABLET PO SCH (21:38)
[2025-04-25] MEDS: HYOSCYAMINE SULFATE 0.125 MG TAB PO SCH (21:39)
[2025-04-25] MEDS: PREGABALIN 75 MG CAP PO SCH (21:39)
[2025-04-25] MEDS: FEXOFENADINE HCL 180 MG TAB PO SCH (21:39)
[2025-04-25] MEDS: ENOXAPARIN INJ 40 MG/0.4 ML SYR SQ SCH (21:39)
[2025-04-25] MEDS: ACETAMINOPHEN 325 MG TAB PO PRN (21:51)
[2025-04-26] MEDS: LEVOTHYROXINE SODIUM 25 MCG TABLET PO SCH (05:59)
[2025-04-26 07:03] LABS: Hematocrit (blood only) 36.1 % (37.0-47.0); Hemoglobin 12.5 g/dL (12.0-16.0); Immature Granulocytes # (auto) 0.02 K/uL (0.01-0.20); Immature Granulocytes % (auto) 0.4 %; Mean Corpuscular Hemoglobin 31.6 pg (25.0-34.0); Mean Corpuscular Volume 91.2 fL (80.0-100.0); Platelet Count 153 K/uL (130-400); RDW Standard Deviation 42.1 fL (36.4-46.3); Red Blood Count 3.96 M/uL (4.20-5.40); White Blood Count 5.44 K/ul (4.8-10.8)
[2025-04-26 07:24] LABS: Alanine Aminotransferase 9.0 U/L (7-52); Albumin Globulin Ratio 1.4 (0.9-2); Albumin Level 4.3 gm/dl (3.4-5.0); Alkaline Phosphatase 71.0 U/L (34-104); Anion Gap 11.0 (3-11); Bilirubin,Total 0.4 mg/dl (0.2-1.0); Blood Urea Nitrogen 25.0 mg/dl (6-23); Calcium 9.2 mg/dl (8.6-10.3); Carbon Dioxide 27.0 mmol/L (21-32); Chloride 100.0 mmol/L (98-107); Creatinine Clr Calc Pharmacy 48.0 ml/min; Globulin 3.0 gm/dl (2.5-4.0); Glucose 107.0 mg/dl (70-99(Fasting)); Magnesium 2.2 mg/dl (1.7-2.4); Potassium 4.2 mmol/L (3.5-5.1); Sodium 138.0 mmol/L (136-145); Total Protein 7.3 gm/dl (6.0-8.3)
[2025-04-26 07:34] LABS: Hemoglobin A1C 5.8 % (4.5-5.6)
[2025-04-26] MEDS: MAGNESIUM OXIDE 400 MG TAB PO SCH (08:01)
[2025-04-26] MEDS: LINACLOTIDE 145 MCG CAPSULE PO SCH (08:01)
[2025-04-26] MEDS: METOPROLOL SUCC 25MG EXT REL TAB PO SCH (08:01)
[2025-04-26] MEDS: ATORVASTATIN 20 MG TAB PO SCH (08:01)
[2025-04-26] MEDS: CHOLECALCIFEROL 25 MCG (1000 UNITS) TAB PO SCH (08:01)
[2025-04-26] MEDS: CALCIUM CARBONATE 1250MG TAB PO SCH (08:01)
[2025-04-26] MEDS: ESCITALOPRAM OXALATE 20 MG TAB PO SCH (08:02)
[2025-04-26] MEDS ORDERED: ALBUT/IPRATROP 3MG/0.5MG NEB 3 ML VIAL NEB PRN (08:28)
[2025-04-26] MEDS ORDERED: BUDESONIDE 0.5 MG/2 ML VIAL (PULMICORT) NEB PRN (09:37)
[2025-04-26] MEDS: ONDANSETRON INJ 2 MG/ML 2 ML VIAL IV PRN (13:41)
--- NOTE | 2025-04-26 13:52 | Hospitalist Progress Note ---
Date of Service April 26, 2025 Assessment & Plan (1) Herpes zoster: (2) Anginal equivalent: Plan: SWEENEY (3) Asthma: (4) Hypothyroidism: Plan Patient 70-year-old female who appears to have herpes zoster in the L2-L3 dermatomes. Also concerned that her chest heaviness and dyspnea on exertion is an anginal equivalent. Continue Valtrex Reviewed outside EMR, it appears that the patient has not followed up with cardiology since her pacemaker insertion. It was recommended that she have a stress test as an outpatient after that hospitalization in August. Plan for stress test tomorrow, cardiology consult Admission and Anticipated Discharge Date Admission Date: April 25, 2025 Subjective Patient had a fair amount of pain from her shingles. States oxycodone did help. She also describes her shortness of breath as more of a heaviness and pressure in her chest definitely worse when she does activity. States she is compliant with her inhalers. Does not feel as though she is wheezing when she does activity Physical Exam Physical Exam: Constitutional: Alert, nontoxic HEENT: Mucous membranes moist. Lungs: Decreased breath sounds, prolonged expiratory phase, no wheezes CV: S1-S2, regular Abdomen: Soft, nontender, nondistended Extremities: No significant edema Derm: Patches of vesicles in various stages of healing along what appears to be the L2-L3 dermatomes on the right Neuro: No focal deficits Psych: Cooperative, normal mood Results & Data Results & Data Vital Signs (Past 12 Hours) Vital Signs Temp Pulse Pulse Resp BP Pulse Ox O2 Del Method 04/26/25 11:15 36.3 C L 72 18 117/77 94 Room Air 04/26/25 10:19 Room Air 04/26/25 07:56 36.6 C 90 20 111/58 L 96 Room Air 04/26/25 07:49 68 04/26/25 07:37 70 16 95 Room Air 04/26/25 03:42 36.3 C L 76 18 133/73 96 Room Air Diagnostic Findings Reviewed imaging, laboratory and diagnostic studies. Pertinent findings as below. Echocardiogram reviewed, normal ejection fraction, no stent valvular dysfunction VQ scan, low probability Ultrasound lower extremity negative for DVT Electrolytes stable Creatinine 1.0
--- NOTE | 2025-04-26 19:23 | Communication Note ---
Date of Service: April 26, 2025 Patient complaining of uncontrolled shingles pain. AP Lidoderm patch trial Increase maintenance Lyrica dose from 75 mg to 100 mg p.o. at bedtime for now.
[2025-04-26] MEDS: KETOROLAC TROMETHAMINE 15 MG/ML VIAL IV ONE (19:34)
[2025-04-26] MEDS: PREGABALIN 100 MG CAP PO SCH (19:34)
[2025-04-26] MEDS: LIDOCAINE 5% 1 PATCH TD SCH (20:11)
[2025-04-26] MEDS: REMOVE LIDODERM PATCH SCH (20:19)
--- NOTE | 2025-04-27 09:58 | Cardiology Consultation ---
Date of Consultation April 27, 2025 Assessment & Plan (1) [place] (dyspnea on exertion): (2) Chest pressure: (3) HTN, goal below 130/80: (4) Family history of ischemic heart disease: (5) Dyslipidemia: Plan 70-year-old female presenting with complaints of worsening exertional dyspnea with associated chest pressure/tightness. Risk factors including hypertension, dyslipidemia, family history, inactivity. EKG without acute change. High- sensitivity troponin negative. Resting echocardiography with preserved LV systolic function without regional wall motion abnormality. Chest x-ray without acute cardiopulmonary findings. Options of management discussed. Possible need for diagnostic cardiac catheterization discussed. Pacemaker interrogation to be performed. Zoster management as per hospitalist. Supervising Physician Co-Signing Physician Notes Attending attestation: Case reviewed with the advanced practitioner. I have personally performed a history and physical examination on the patient. I have reviewed the advanced practitioner's documentation on the date of service referenced in note, and I agree with, and take responsibility for the plan of care. Subjective: at bedside during my assessment. Patient describes debilitating shortness of breath with minimal activity such as walking a short distance to the restroom. She has a difficult time discerning whether or not symptoms occurred before or since her pacemaker implantation. Denies richie chest discomfort. Exam: Cardiovascular: Regular rate, no murmurs, well-healed left infraclavicular pacemaker pocket, no edema Skin: Rash typical of herpes zoster noted in a dermatomal pattern on her right buttock, right thigh Data: Echocardiogram this admission with normal LVEF, grade 1 diastolic dysfunction, no significant valvular disease, pulmonary systolic pressure estimated be 36 mmHg which is the upper limit of normal High-sensitivity troponin negative x 3. Impression/ Plan: Dyspnea on exertion, possible anginal equivalent * No evidence of an acute coronary syndrome * Recommend ongoing treatment for herpes zoster * Outpatient pharmacologic nuclear stress test * Pacemaker interrogation with ambulation in the clinic will be arranged to Ensure that the patient's rate response programming is appropriate. * Patient has missed previous outpatient appointments but seemed agreeable to further workup as planned. Christopher Matamoros, DO History of Present Illness Reason for Consultation: Dyspnea on exertion, angina equivalent Requesting Physician: [facility], Dr. Joe Salazar, Attending Physician: [facility], Dr. Joe Salazar, DO History of Present Illness Zeny Nuñez is a 70-year-old female presented to the [facility] ER on April 25, 2025 with complaint of exertional dyspnea associated with chest pressure. Symptoms attributed by the patient to asthma which was diagnosed 10 to 15 years ago. Home SpO2 monitoring notable for exertional hypoxemia, readings into the 80s. Albuterol seems to help some. EKG on presentation revealed an atrial paced rhythm with prolonged AV conduction, without acute ST segment change. High-sensitivity troponin negative x 1 at 3.4 pg/mL. Resting echocardiography in April 25, 2025 revealed normal left ventricular function without regional wall motion abnormality. Chest x-ray showed no acute cardiopulmonary findings. Elevated D-dimer led to ventilation/perfusion scan with low probability of pulmonary embolism via limited study. Venous duplex was negative for DVT. Contrast Chest CT not performed due to significant contrast media reaction. Patient describes a very painful rash on her right lower back and down the right lateral leg into the suprapubic region felt to be consistent with zoster. No palpitations. No PND. No peripheral edema. No dizziness, near syncope, or syncope. No current fevers or chills. Patient hospitalized at [facility] in August 2024, presenting at that time with symptomatic bradycardia, status post September 04, 2024 dual- chamber pacemaker implantation (Louis [employer]urity MRI [id number], serial #[id number]). Due to observed blood pressure as well as complaints of exertional dyspnea chest tightness patient was prescribed metoprolol succinate 25 mg/day and was advised to follow-up with cardiology as an outpatient for Lexiscan nuclear stress testing. Unfortunately, patient failed to follow through with recommendations. Past Medical and Surgical History Symptomatic bradycardia status post September 04, 2024 dual-chamber pacemaker implantation using an Louis device Prediabetes Asthma Allergic rhinitis Fibromyalgia Migraine headaches Hypothyroidism Anxiety Depression Chronic sinusitis Osteoporosis GERD Restless leg syndrome Family History: Positive for CAD in mother, father, and brother. Sister with fibromyalgia. Son with congenital heart disease Social History: Never smoker. No alcohol. Disabled due to migraine headaches. Allergies Allergy/AdvReac Type Severity Reaction Status Date / Time Iodinated Contrast Media Allergy Severe EDEMA Verified 04/25/25 14:59 FACE/LIPS/TONGUE iodine Allergy Severe EDEMA Verified 04/25/25 14:59 FACE/LIPS/TONGUE pollen extracts Allergy Intermediate SNEEZING, Verified 04/25/25 14:59 COUGH, CONGESTION Home Medications Medication Instructions Recorded Confirmed Type albuterol sulfate 90 mcg/actuation 2 puff inhalation QID PRN 04/19/18 04/25/25 History aerosol inhaler Shortness Of Breath Or Wheezing azelastine 137 mcg (0.1 %) nasal 2 spray intranasal BID PRN 04/19/18 04/25/25 History spray Congestion levothyroxine 25 mcg tablet 25 mcg PO DAILYBB 04/19/18 04/25/25 History escitalopram oxalate 20 mg tablet 20 mg PO DAILY 09/18/23 04/25/25 History esomeprazole magnesium 40 mg 40 mg PO DAILYBB 09/01/24 04/25/25 History capsule,delayed release hyoscyamine sulfate 0.125 mg tablet 0.125 mg PO BID 09/01/24 04/25/25 History calcium carbonate (Calcium 600) 600 mg PO DAILY 04/14/25 04/25/25 History cholecalciferol (vitamin D3) 25 25 mcg PO DAILY 04/14/25 04/25/25 History mcg (1,000 unit) capsule (Vitamin D3) fexofenadine 180 mg tablet 180 mg PO BID 04/14/25 04/25/25 History fluticasone propionate 110 2 puff inhalation BID 04/14/25 04/25/25 History mcg/actuation HFA aerosol inhaler linaclotide 145 mcg capsule 145 mcg PO DAILYBB 04/14/25 04/25/25 History (Linzess) magnesium oxide 500 mg PO DAILY 04/14/25 04/25/25 History methocarbamol 750 mg tablet 750 mg PO BID 04/14/25 04/25/25 History ywejxpfi-riu-dexe-FA-Ca carb-vit K 1 tab PO DAILY 04/14/25 04/25/25 History 18 mg iron-400 mcg-500 mg tablet sucralfate 1 gram tablet (Carafate) 1 g PO ACHS 04/14/25 04/25/25 History amitriptyline 75 mg tablet 75 mg PO HS #30 tabs 04/27/25 Rx atorvastatin 20 mg tablet 20 mg PO DAILY #30 tabs 04/27/25 Rx lidocaine 5 % topical patch 1 patch transdermal QAM #30 ea 04/27/25 Rx metoprolol succinate 25 mg 25 mg PO DAILY #30 tabs 04/27/25 Rx tablet,extended release 24 hr oxycodone 5 mg tablet 5 mg PO Q6H PRN pain #12 tabs 04/27/25 Rx pregabalin 75 mg capsule (Lyrica) 75 mg PO BID #60 caps 04/27/25 Rx valacyclovir 500 mg tablet 1,000 mg (2 x 500 mg) PO Q8H #15 04/27/25 Rx tabs Patient History Medical History Thyroid disease Hyperlipemia Surgical History H/O sinus surgery Family History Mother Breast cancer Heart disease Cancer Diabetes Father Heart disease Stroke Cancer Brother Diabetes Colorectal cancer Hypertension Other No pertinent family history Social History Smoking Status: Never smoker Second Hand Exposure: Yes; Do You Dip or Chew Tobacco: No; Hx Alcohol Use: No Hx Substance Use: No Preferred Language: [place] Communication Ability: Effective Credit Department Manager Required: No Beliefs That Will Affect Care: None marital status: Current Living Situation: Spouse Feels Safe at Home: Yes Assistive Devices: None Review of Systems Review of Systems: Complete Review of Systems is as stated above, negative, or noncontributory Physical Exam Physical Exam: General: Mildly uncomfortable. Skin: + Rash on the right lower flank, right lateral thigh, L4-L5 dermatome distribution HENT: Normocephalic. Atraumatic. Eyes: PER. Conjunctiva pink, sclera clear. Neck: No JVD. Heart: RRR, 70 bpm. No murmur. No rub. Lungs: Diminished at the bases however clear to auscultation. Abdomen: +BS. Soft. Nontender. No masses or organomegaly. Extremities: No significant edema. No clubbing. No cyanosis. Limited neurological examination is without focal deficits. Pulses: Posterior tibial=2/4. Results & Data Vital Signs (Past 12 Hours) Vital Signs Temp Pulse Pulse Resp BP Pulse Ox O2 Del Method 04/27/25 07:49 61 04/27/25 07:31 36.5 C 60 16 97/64 L 92 Room Air 04/27/25 04:01 37 C 60 18 122/69 94 Room Air 04/27/25 00:05 37 C 63 18 122/72 95 Room Air 04/26/25 22:01 60 Laboratory Results Intake and Output 04/26/25 04/27/25 04/27/25 22:59 06:59 14:59 Intake Total 100 / 580 Balance 100 / 579 Intake: Oral 100 / 580 Other: Other Intake Source NPO # Unmeasured Voids 1 Weight 75 kg Weight Measurement Method Built in [facility] Diagnostic Findings April 25, 2025 TTE ([facility]): Left ventricular wall motion is normal. Left ventricular systolic function is normal. Left ventricular ejection fraction 55 to 60%. Mild aortic regurgitation. Trace tricuspid regurgitation. Pulmonary artery systolic pressure estimated to be 36 mmHg. Compared to the report of the previous study dated September 01, 2024, no significant interval change. Device interrogation last performed on March 30, 2025 demonstrated the followin.7 to 7.4 years remaining to recommended replacement time. Atrial paced 97%. Ventricular paced less than 1%. No AT/AF. Noise artifact observed. Telemetry: Predominantly atrial paced. Occasional complex ventricular ectopy, wide-complex tachycardia, ? PMT. Coding Level of Care Code 02313 INT INP/OBS CARE 3/75MIN Diagnoses SWE[place]Y (dyspnea on exertion) R06.09 Chest pressure R07.89 HTN, goal below 130/80 I10 Family history of ischemic heart disease Z82.49 Dyslipidemia E78.5
[2025-04-27 12:25] VITALS: BP 152/78; PULSE 103; RESP 18; TEMP 98.1; O2SAT 91
--- NOTE | 2025-04-27 13:05 | Discharge Summary ---
Discharge Summary Date of Service April 27, 2025 Principal Dx & Hospital Course #1 = Principal Diagnosis (1) Herpes zoster: (2) Anginal equivalent: SWEENEY (3) Asthma: (4) Hypothyroidism: Plan Patient 70-year-old female who has known asthma that seems to be fairly well- controlled presents with painful rash as well as shortness of breath. In the emergency room workup was consistent with a herpes zoster but also concern with elevated D-dimer. Patient was admitted to the hospital for ongoing evaluation. Ultrasound lower extremity was negative for DVT. VQ scan was negative for PE. Echocardiogram showed no significant valvular abnormalities and a normal ejection fraction. Patient was started on Valtrex for her shingles. Her Lyrica dose was also increased for the shingles pain. This was adjusted throughout her hospitalization. She also needed some oxycodone to manage her pain. And further history of her shortness of breath that she has had dyspnea on exertion for many months. It was recommended that she follow-up with cardiology after she had her pacemaker placed for an outpatient stress test. That has yet to be done. Attempted to perform stress test while here in the hospital, however due to logistics and her pain associated with her shingles it was difficult for her to complete. Cardiology consultation was obtained. They reviewed the patient history. They recommended continuing her same medications and following up with them outpatient after her shingles has improved to schedule an outpatient stress test. On the day of discharge her vital signs are stable. She feels as though her pain is manageable. She will follow-up with her outpatient providers. Notes For Next Care Provider Patient will need outpatient follow-up with cardiology Medication Changes From Visit Lyrica dose increased Valtrex for 15 more doses Admission HPI Per Admitting Provider This is a 70 yr old F who has significant past medical history of mild persistent asthma, prediabetes, hypothyroidism, fibromyalgia, RLS, history of bradycardia s/p post pacemaker placement, depression with anxiety and history of migraine who presents to ED secondary to shortness of breath x 1 month. History is obtained from at bedside as well as external chart review. Patient reports progressive shortness of breath over the last 1 month. Symptoms have been gradually worsening. Initially started with longer distances but currently is unable to ambulate very short distances without getting significantly short of breath. At home she has been monitoring her oxygen in which she reports with short distance her O2 decreases into the 80s and her heart rate elevates. She also feels chest heaviness. Symptoms even occur with minimal exertion while seated. She does have a known history of asthma. She has never felt like this in the past with her asthma. Her Flovent. She has been using her albuterol more frequently occasionally daily. She does feel minimal relief with the albuterol. She denies any recent respiratory symptoms. She further denies any cough. She complains of feeling chills and sweaty but denies any documented fever. She denies any hemoptysis, palpitation, nausea, vomiting, change in her bowel or urinary habits. She does get lightheaded and dizzy when walking. She also reports early satiety, decreased intake over the last month and increased weight gain. Unknown of weight gain amount; however, she only has a few pairs of pants that currently fit. She denies prior history of heart failure. She denies any tobacco or alcohol use. In ED patient remained hemodynamically stable and was saturating normally on room air. Her respiratory viral panel was negative. Chest x-ray was without cardiopulmonary disease. Her troponin was unremarkable. Her D-dimer was elevated at 880. Patient has a severe reaction to contrast dye therefore CTA not performed. Patient also reports a painful rash located on her left low back, suprapubic region and right medial thigh. This has been present for 2 days and she is concerned regarding shingles. Admission Exam Per Admitting Provider See H&P Discharge Exam Constitutional: Alert, nontoxic, no respiratory distress, obese HEENT: Mucous membranes moist. Lungs: Decreased breath sounds but clear CV: S1-S2, regular Abdomen: Soft, nontender, nondistended Extremities: No significant edema Derm: Vesicular rash in patches along the L2-L3 dermatomes on the right Neuro: No focal deficits Psych: Cooperative, normal mood Updated Medication List Medication Instructions Recorded Confirmed Type albuterol sulfate 90 mcg/actuation 2 puff inhalation QID PRN 04/19/18 04/25/25 History aerosol inhaler Shortness Of Breath Or Wheezing azelastine 137 mcg (0.1 %) nasal 2 spray intranasal BID PRN 04/19/18 04/25/25 History spray Congestion levothyroxine 25 mcg tablet 25 mcg PO DAILYBB 04/19/18 04/25/25 History escitalopram oxalate 20 mg tablet 20 mg PO DAILY 09/18/23 04/25/25 History esomeprazole magnesium 40 mg 40 mg PO DAILYBB 09/01/24 04/25/25 History capsule,delayed release hyoscyamine sulfate 0.125 mg tablet 0.125 mg PO BID 09/01/24 04/25/25 History calcium carbonate (Calcium 600) 600 mg PO DAILY 04/14/25 04/25/25 History cholecalciferol (vitamin D3) 25 25 mcg PO DAILY 04/14/25 04/25/25 History mcg (1,000 unit) capsule (Vitamin D3) fexofenadine 180 mg tablet 180 mg PO BID 04/14/25 04/25/25 History fluticasone propionate 110 2 puff inhalation BID 04/14/25 04/25/25 History mcg/actuation HFA aerosol inhaler linaclotide 145 mcg capsule 145 mcg PO DAILYBB 04/14/25 04/25/25 History (Linzess) magnesium oxide 500 mg PO DAILY 04/14/25 04/25/25 History methocarbamol 750 mg tablet 750 mg PO BID 04/14/25 04/25/25 History eqrryhor-wyh-znct-FA-Ca carb-vit K 1 tab PO DAILY 04/14/25 04/25/25 History 18 mg iron-400 mcg-500 mg tablet sucralfate 1 gram tablet (Carafate) 1 g PO ACHS 04/14/25 04/25/25 History amitriptyline 75 mg tablet 75 mg PO HS #30 tabs 04/27/25 Rx atorvastatin 20 mg tablet 20 mg PO DAILY #30 tabs 04/27/25 Rx lidocaine 5 % topical patch 1 patch transdermal QAM #30 ea 04/27/25 Rx metoprolol succinate 25 mg 25 mg PO DAILY #30 tabs 04/27/25 Rx tablet,extended release 24 hr oxycodone 5 mg tablet 5 mg PO Q6H PRN pain #12 tabs 04/27/25 Rx pregabalin 75 mg capsule (Lyrica) 75 mg PO BID #60 caps 04/27/25 Rx valacyclovir 500 mg tablet 1,000 mg (2 x 500 mg) PO Q8H #15 04/27/25 Rx tabs Hospital Stay Data Consultations 04/25/25 14:47 ED Decision to Admit Stat 04/26/25 14:04 Consult Cardiology Routine Diagnostic Imagining Performed 04/25/25 15:25 US venous doppler LE BI Routine Reviewed imaging, laboratory and diagnostic studies. Pertinent findings as below. Ultrasound lower extremity negative for DVT VQ scan negative for PE Echocardiogram: Ejection fraction 55 to 60%, mild aortic regurg, trace tricuspid regurg, no evidence of pulmonary hypertension WBCs 5.4 Hemoglobin 12.5 Platelets of 153 Electrolytes within normal range Creatinine 1.04 Hemoglobin A1c 5.8% LFTs within normal range Troponins 3.4 Respiratory viral panel negative Pending Results Patient Have Any Pending Studies at Discharge: No Discharge Instructions Given to Patient (Per Discharging Provider) Follow-up with your PCP Anticipate the shingles pain to slowly improve over the next several weeks It is critical that you follow-up with cardiology and pursue outpatient stress test Total Time Total Time Spent Total Time Spent (In Minutes): 35
[2025-05-07 17:57] LABS: V-Zoster Culture NOT ISOLATED
== END 2025-04-27 14:24 | disposition home or self-care (01) | DRG 311 ==
LOC: ED 12:47 → SUATTDRO 14:54 → 2W 14:54 → INTOOBSV 14:54 → 2W 18:14